=== PATIENT | male | born 1955 | race African-American/Black ===

== ENCOUNTER 2020-05-25 08:55 | Outpatient (REF) | payer OTHER, SELFPAY ==
[2020-05-25 10:18] LABS: MANUAL DIFF FLAG NO
[2020-05-25 10:27] LABS: Basophils Percent Auto 0.8 % (0-2); Eosinophils Absolute Auto 0.1 X10*3/uL (0.0-0.4); Eosinophils Percent Auto 2.5 % (0-4); Hematocrit 40.5 % (42-52); Imm Gran Abs Auto 0.02 X10*3/uL (0.00-0.03); Imm Gran Pct Auto 0.6 % (0.0-0.4); Lymphocytes Absolute Auto 1.4 X10*3/uL (1.2-4.9); Lymphocytes Percent Auto 40.3 % (20-40); Mean Corpuscular HGB Conc 32.1 g/dl (31.0-36.0); Mean Corpuscular Hemoglobin 31.1 pg (27.0-33.0); Mean Corpuscular Volume 96.9 fL (80-98); Mean Platelet Volume 9.3 fL (9.4-12.4); Monocytes Absolute Auto 0.3 X10*3/uL (0.1-1.2); Monocytes Percent Auto 8.5 % (2-11); Neutrophils Absolute Auto 1.7 X10*3/uL (2.0-8.3); Neutrophils Percent Auto 47.3 % (45-73); Platelet Count 271 X10*3/uL (160-400); Red Blood Count 4.18 X10*6/uL (4.60-5.80); Red Cell Distribution Width 12.7 % (11.0-16.0); White Blood Count 3.6 X10*3/uL (4.8-10.8)
[2020-05-25 11:24] LABS: Alanine Aminotransferase 17 U/L (0-40); Alkaline Phosphatase 43 U/L (39-117); Anion Gap 14 (12-20); Aspartate Amino Transferase 20 U/L (5-37); Bilirubin Total 0.6 mg/dL (0.0-1.0); Blood Urea Nitrogen 16 mg/dL (9-16); Calcium 9.1 mg/dL (8.4-10.2); Carbon Dioxide 25 mmol/L (22-29); Chloride 106 mmol/L (96-108); Cholesterol 138 mg/dL; Estimated Glomerular Filt Rate 55; Glucose Fasting 88 mg/dL (60-99); HDL Cholesterol 44 mg/dL; LDL Cholesterol Calculated 61 mg/dl; Potassium 4.5 mmol/l (3.3-5.1); Sodium 140 mmol/L (135-145); Triglycerides 165 mg/dL
[2020-05-25 11:26] LABS: TSH reflex Free T4 0.66 mIU/mL (0.32-4.0)
[2020-05-25 11:35] LABS: Creatinine Urine 115.81 mg/dL; Microalbum/Creatinine Ratio Ur 86.3 ug/mg cr
== END 2020-05-25 08:56 | disposition home or self-care (01) ==
LOC: HO.LAB 08:55
PROVIDERS: Visit Provider Physician Assistant
DX: I10 Essential (primary) hypertension (principal); E78.1 Pure hyperglyceridemia; Z12.5 Encounter for screening for malignant neoplasm of prostate
CPT/HCPCS: 36415; 80053; 80061; 82043; 84443; 85025

== ENCOUNTER 2020-08-03 08:30 | Outpatient (REF) | payer OTHER, SELFPAY | END 2020-08-03 08:31 | disposition home or self-care (01) | LOC: HO.LAB 08:30 | PROVIDERS: Visit Provider Internal Medicine | DX: Z20.822 Contact with and (suspected) exposure to COVID-19 (principal) | CPT/HCPCS: 36415; C9803; U0003 ==

== ENCOUNTER 2021-02-17 11:00 | Outpatient (REF) | payer OTHER, SELFPAY | END 2021-02-17 11:01 | disposition home or self-care (01) | LOC: HO.LAB 11:00 | PROVIDERS: PCP Physician Assistant; Visit Provider Internal Medicine | DX: Z20.822 Contact with and (suspected) exposure to COVID-19 (principal) | CPT/HCPCS: C9803; U0003; U0005 ==

== ENCOUNTER 2021-03-29 08:46 | Outpatient (REF) | payer SELFPAY ==
[2021-03-29 11:00] LABS: Hematocrit 35.3 % (42-52); Hemoglobin 11.9 g/dl (14.0-18.0); Mean Corpuscular HGB Conc 33.7 g/dl (31.0-36.0); Mean Corpuscular Volume 91.9 fL (80-98); Mean Platelet Volume 9.2 fL (9.4-12.4); Platelet Count 233 X10*3/uL (160-400); Red Blood Count 3.84 X10*6/uL (4.60-5.80); Red Cell Distribution Width 13.3 % (11.0-16.0); White Blood Count 4.6 X10*3/uL (4.8-10.8)
[2021-03-29 11:28] LABS: Alanine Aminotransferase 32 U/L (0-40); Alkaline Phosphatase 49 U/L (39-117); Anion Gap 13 (12-20); Aspartate Amino Transferase 39 U/L (5-37); Bilirubin Total 0.5 mg/dL (0.0-1.0); Blood Urea Nitrogen 15 mg/dL (9-16); Calcium 9.9 mg/dL (8.4-10.2); Carbon Dioxide 22 mmol/L (22-29); Chloride 107 mmol/L (96-108); Cholesterol 156 mg/dL; Estimated Glomerular Filt Rate 55; Glucose Fasting 121 mg/dL (60-99); HDL Cholesterol 34 mg/dL; LDL Cholesterol Calculated 60 mg/dl; Potassium 3.6 mmol/L (3.3-5.1); Sodium 138 mmol/L (135-145); Total Protein 6.9 g/dL (6.5-8.0); Triglycerides 310 mg/dL
[2021-03-29 11:30] LABS: Creatinine Urine 274.71 mg/dL; Microalbum/Creatinine Ratio Ur 27.6 ug/mg cr
[2021-03-29 11:50] LABS: Prostate Specific Antigen Scr 2.49 ng/mL (<0.05-4.0); TSH reflex Free T4 0.73 uIU/mL (0.32-4.0)
== END 2021-03-29 08:47 | disposition home or self-care (01) ==
LOC: HO.10HDL 08:46
PROVIDERS: Absent Provider Internal Medicine Nephrology; Visit Provider Physician Assistant
DX: Z12.5 Encounter for screening for malignant neoplasm of prostate (principal); E78.1 Pure hyperglyceridemia; I12.9 Hypertensive chronic kidney disease with stage 1 through stage 4 chronic kidney disease, or unspecified chronic kidney disease; N18.30 Chronic kidney disease, stage 3 unspecified
CPT/HCPCS: 36415; 80053; 80061; 82043; 84153; 84443; 85027

== ENCOUNTER 2021-05-20 12:24 | Outpatient (REF) | payer SELFPAY ==
[2021-05-20 13:45] LABS: MANUAL DIFF FLAG NO
[2021-05-20 13:52] LABS: Basophils Percent Auto 0.9 % (0-2); Eosinophils Absolute Auto 0.1 X10*3/uL (0.0-0.4); Hematocrit 36.4 % (42.0-52.0); Hemoglobin 12.1 g/dl (14.0-18.0); Imm Gran Abs Auto 0.03 X10*3/uL (0.00-0.03); Imm Gran Pct Auto 0.9 % (0.0-0.4); Lymphocytes Percent Auto 29.3 % (20-40); Mean Corpuscular HGB Conc 33.2 g/dl (31.0-36.0); Mean Corpuscular Hemoglobin 30.7 pg (27.0-33.0); Mean Corpuscular Volume 92.4 fL (80.0-98.0); Mean Platelet Volume 9.1 fL (9.4-12.4); Monocytes Absolute Auto 0.2 X10*3/uL (0.1-1.2); Neutrophils Absolute Auto 2.07 x10*3/uL (2.0-8.3); Neutrophils Percent Auto 59.9 % (45-73); Platelet Count 231 X10*3/uL (160-400); Red Blood Count 3.94 X10*6/uL (4.60-5.80); Red Cell Distribution Width 12.6 % (11.0-16.0); White Blood Count 3.5 X10*3/uL (4.8-10.8)
[2021-05-20 14:23] LABS: Iron 60 mcg/dL (45-160); Percent Iron Saturation 19 % (15-50); Total Iron Binding Capacity 315 mcg/dL (228-428); Unsaturated Iron Binding 255 ug/dL
[2021-05-20 14:45] LABS: Ferritin 677 ng/mL (20-250)
[2021-05-20 14:55] LABS: Folate 2.9 ng/mL (> or = 4.0); Vitamin B12 236 pg/mL (200-900)
== END 2021-05-20 12:25 | disposition home or self-care (01) ==
LOC: HO.10HDL 12:24
PROVIDERS: Visit Provider Internal Medicine
DX: D64.9 Anemia, unspecified (principal)
CPT/HCPCS: 36415; 82607; 82728; 82746; 83540; 85025

== ENCOUNTER 2021-07-22 15:19 | Outpatient (REF) | payer OTHER, SELFPAY ==
--- NOTE | ~2021-07-22 | XR_ITS ---
EXAMINATION: XR KNEE, LEFT CLINICAL INFORMATION: Pain COMPARISON: None TECHNIQUE: Four views of the left knee. FINDINGS: Moderate to large joint effusion. Patellofemoral spurring. Spurring at the insertion of the quadriceps. Lateral joint space loss with sclerosis on either side of the joint and some marginal spurring. Irregularity of the tibial spines is noted. No acute fracture or dislocation. The patella appears fairly well seated on the sunrise image. XR/XR knee LT 3V IMPRESSION: Moderate degeneration with moderate to large effusion
== END 2021-07-22 15:20 | disposition home or self-care (01) ==
LOC: HO.XRAY 15:19
PROVIDERS: PCP Physician Assistant; Visit Provider Nurse Practitioner Family
DX: M25.562 Pain in left knee (principal); M25.462 Effusion, left knee
CPT/HCPCS: 73562

== ENCOUNTER 2021-08-13 08:00 | Outpatient (REF) | payer OTHER, SELFPAY ==
--- NOTE | ~2021-08-13 | XR_ITS ---
EXAMINATION: XR KNEE AP STANDING CLINICAL INFORMATION: Pain in right knee. COMPARISON: None TECHNIQUE: AP bilateral standing view of the knees was obtained. FINDINGS: There is moderate loss of medial compartment right knee and lateral compartment left knee with periarticular spurring in the lateral compartment left knee and medial and lateral compartment right knee. There is mild genu valgus deformity left knee on standing view. XR/XR knee standing BI IMPRESSION: Moderate degenerative arthritic changes medial compartment right knee and lateral compartment left knee with periarticular spurring in medial and lateral compartment right knee and lateral compartment left knee.
== END 2021-08-13 08:01 | disposition home or self-care (01) ==
LOC: HO.HOSX 08:00
PROVIDERS: Visit Provider Physician Assistant
DX: M17.12 Unilateral primary osteoarthritis, left knee (principal)
CPT/HCPCS: 20610; 73565

== ENCOUNTER 2021-08-16 06:35 | Day surgery (SDC) | payer OTHER, SELFPAY ==
[2021-08-10 13:44] VITALS: BMI 33.0
--- NOTE | 2021-08-13 10:24 | P.CONAN_ITS ---
Documented by User: Brisa Dinero NP 08/13/21 10:25 HPI - Anesthesia Eval Consult details Narrative: 66yo M for Upper Endoscopy and Colonoscopy PMF Active Problems Active Problems: All Active Problems (Updated 08/10/21 @ 13:46 by Abimbola Heaton RN) HTN (hypertension) (Acute) GERD (gastroesophageal reflux disease) (Acute) CKD (chronic kidney disease) stage 3, GFR 30-59 ml/min (Acute) Hypertriglyceridemia (Acute) MISAEL (generalized anxiety disorder) (Acute) Insomnia (Acute) Tubular adenoma of colon (Acute) Annual physical exam (Acute) Impaired glucose metabolism (Acute) Obese (Acute) Left knee pain (Acute) Effusion, left knee (Acute) Low folate (Acute) Past Medical History Medical History Abnormal colonoscopy Chronic renal insufficiency COVID-19 vaccine series completed Elevated cholesterol GERD (gastroesophageal reflux disease) Gout HTN (hypertension) Family History Family History Father Heart failure History of mental problems Substance abuse Mother CAD (coronary artery disease) Breast cancer Surgical History Surgical History H/O colonoscopy History of esophagogastroduodenoscopy (EGD) History of lung surgery Social History Social History (Updated 08/13/21 @ 10:22 by Sunday Penaloza) Housing: House Alcohol intake: current Alcohol intake frequency: holidays/special occasions only Alcohol type: beer Patient Tobacco Use Status: Current someday Tobacco user Tobacco use type: Cigar e-Cigarette/Vaping Use: Never Used Second Hand Smoke Exposure: No Advance Directives: Yes Advance Directives Information Provided: Yes Advance Directives on File: Yes Advance Directives Date on File: 05/21/15 service: No Current occupational status: retired Current occupation: [employer] Cognitive needs: No Hearing needs: No Vision needs: No Meds Allergies Allergy/AdvReac Type Severity Reaction Status Date / Time lisinopril Allergy Unknown Unknown Verified 08/13/21 10:23 sertraline [From Zoloft] AdvReac Severe suicidal Verified 08/13/21 10:23 Home Medications Medication Instructions Recorded Confirmed Last Taken Type omeprazole 40 mg 40 mg PO DAILY 04/14/20 08/10/21 Unknown History capsule,delayed release gemfibrozil 600 mg 600 mg PO BID 07/27/20 08/10/21 Unknown History tablet folic acid 1 mg 1 mg PO DAILY 07/29/21 08/10/21 Unknown History tablet Exam Exam Date and Time: August 13, 2021 1024 Height,Weight and Vital Signs: Height 6 ft 2 in Weight 116.573 kg Pertinent Lab Results Pertinent Lab Results: Laboratory Tests 03/29/21 05/20/21 08:50 12:38 WBC 3.5 L Hgb 12.1 L Hct 36.4 L Plt Count 231 Sodium 138 Potassium 3.6 Chloride 107 Carbon Dioxide 22 BUN 15 Creatinine 1.30 Assessment and Plan Assessment Anesthesia Assessment: Chart Reviewed Documented by User: Ela Whitfield MD 08/16/21 07:17 [facility] Past Medical History Medical History Abnormal colonoscopy Chronic renal insufficiency COVID-19 vaccine series completed Elevated cholesterol GERD (gastroesophageal reflux disease) Gout HTN (hypertension) Family History Family History Father Heart failure History of mental problems Substance abuse Mother CAD (coronary artery disease) Breast cancer Family history of problems with anesthesia: No Surgical History Surgical History H/O colonoscopy History of esophagogastroduodenoscopy (EGD) History of lung surgery History of Problems with Anesthesia: No Social History Social History (Updated 08/13/21 @ 10:22 by Sunday Penaloza) Housing: House Alcohol intake: current Alcohol intake frequency: holidays/special occasions only Alcohol type: beer Patient Tobacco Use Status: Current someday Tobacco user Tobacco use type: Cigar e-Cigarette/Vaping Use: Never Used Second Hand Smoke Exposure: No Advance Directives: Yes Advance Directives Information Provided: Yes Advance Directives on File: Yes Advance Directives Date on File: 05/21/15 service: No Current occupational status: retired Current occupation: Rt handed Cognitive needs: No Hearing needs: No Vision needs: No Meds Allergies Allergy/AdvReac Type Severity Reaction Status Date / Time lisinopril Allergy Unknown Unknown Verified 08/13/21 10:23 sertraline [From Zoloft] AdvReac Severe suicidal Verified 08/13/21 10:23 Home Medications Medication Instructions Recorded Confirmed Last Taken Type omeprazole 40 mg 40 mg PO DAILY 04/14/20 08/10/21 Unknown History capsule,delayed release gemfibrozil 600 mg 600 mg PO BID 07/27/20 08/10/21 Unknown History tablet folic acid 1 mg 1 mg PO DAILY 07/29/21 08/10/21 Unknown History tablet Exam Airway Mallampati Class: II (Chipped top front tooth) TM Dist: >3cm Neck ROM: Full Heart: rrr Lungs: cta Assessment and Plan Assessment Anesthesia Assessment: Anesthesia Plan Discussed and Chart Reviewed Final Anesthetic Review Family History of Problems with Anesthesia: No History of Problems with Anesthesia: No NPO: Yes ASA Class: III (METs good) Final Preanesthetic Review: No Changes in Pt Med Stat, Meds/Allgs Chart Reviewed, Consent Obtained/Reviewed and Anes Risks/Benef Reviewed Patient Risk: Intermediate Procedure Risk: Intermediate Anesthetic Plan Anesthetic Plan: MAC: Disposition: Standard PACU
[2021-08-16 06:52] VITALS: BP 152/85; PULSE 93; RESP 18; TEMP 36.4; O2SAT 99
[2021-08-16] MEDS: Lactated Ringers 1,000 ML 100 ML IVCONT (07:03)
[2021-08-16 08:47] VITALS: BP 113/71; PULSE 69; RESP 20; TEMP 37.3; O2SAT 98
--- NOTE | 2021-08-16 08:50 | P.BOP_ITS ---
Brief Operative Note Date of Service: 08/16/21 Pre-op diagnosis: GERD, Screening Post-op diagnosis: other (Colon polyp, Gastric ulcer, GERD with esophagitis) Procedure: EGD with biopsies, Colonoscopy to the cecum and TI with hot snare polypectomy and placement of 1 Resolution clip Surgeon: Bruce Díaz Anesthesia: MAC Was an Cosmetic Sales Advisor used for this Procedure?: No Estimated blood loss (mL): 2.0 Pathology: other (A. Descending duodenum B. Gastric ulcer C, Gastric antrum D. EG Junction at 39cm E. Transverse colon polyp) Condition: stable Disposition: PACU
[2021-08-16 09:03] VITALS: BP 150/77; PULSE 68; RESP 18; TEMP 37.3; O2SAT 96
--- NOTE | 2021-08-16 09:42 | OP_ITS ---
SURGEON: Bruce Díaz MD INDICATIONS: The patient presents for evaluation of colorectal cancer screening, gastroesophageal reflux, and anemia. Full consent obtained from him for both procedures, including risks of bleeding and perforation. PREOPERATIVE DIAGNOSIS: POSTOPERATIVE DIAGNOSIS: PROCEDURE PERFORMED: ESTIMATED BLOOD LOSS: COMPLICATIONS: ANESTHESIA: ASSISTANTS: SPECIMENS: PROCEDURE: Esophagogastroduodenoscopy with biopsies and colonoscopy to the cecum and terminal ileum with hot snare polypectomy and placement of 1 Resolution Clip. PREOPERATIVE DIAGNOSES: Gastroesophageal reflux, anemia, colorectal cancer screening, personal history of tubular adenoma of the colon. POSTOPERATIVE DIAGNOSES: Gastroesophageal reflux, anemia, colorectal cancer screening, personal history of tubular adenoma of the colon, reflux esophagitis, hiatal hernia, gastric ulcer, gastritis, rule out celiac disease, colon polyp, diverticulosis and internal hemorrhoids. PREOPERATIVE MEDICATION USED: Monitored anesthesia care. DESCRIPTION OF PROCEDURE: The patient was placed in the left lateral decubitus position. The Olympus video gastroscope was passed in the posterior oropharynx and upper esophagus under direct vision. The scope was passed slowly to the distal esophagus. The gastroesophageal junction appeared at 39 cm. This area was notable for some erythema, less than 10 mm erosions and some slight irregularity. There was no ulceration or mass. There was no sign of any stricture. The scope entered into the stomach. There was a small hiatal hernia. The scope was advanced to pylorus and the duodenum was cannulated to the descending portion. The duodenum including the bulb appeared normal without mass or ulceration. Biopsies were obtained from the 2nd and 3rd portions of duodenum. The scope was withdrawn back to the stomach. The gastric antrum was notable for an approximately 10 mm ulcer along the posterior antral anterior wall. This appeared grossly benign and the ulcer crater was clean, without any sign of visible vessel nor bleeding. There was good peristalsis. There was some associated gastritis in the gastric antrum as well. The scope was retroflexed visualizing the proximal stomach carefully which appeared normal, without any signs of mass or ulceration. The scope was straightened. Biopsies were obtained from the margins of the gastric ulcer and also from the gastric antrum. Scope was withdrawn back to the esophagus. Biopsies were obtained at the EG junction at 39 cm. Proximal to this, the esophageal mucosa appeared normal. The scope was withdrawn from the patient. He was turned around for the colonoscopy. The digital rectal exam revealed no abnormalities. The Olympus video pediatric colonoscope was entered into the rectum and advanced easily to the cecum. Once in the cecum, I did identify normal-appearing cecal pouch with appendiceal orifice and a normal-appearing ileocecal valve. The terminal ileum was cannulated and appeared normal. The scope was withdrawn back in the colon. The entire cecum and ileocecal valve appeared normal. The scope was then slowly withdrawn assessing all mucosal surfaces carefully. Preparation was excellent. In the region of the distal transverse colon at approximately 60 cm, there was an approximately 1.5 cm polyp on a short stalk. This was removed with a hot snare polypectomy and retrieved with the retrieval net. The scope was advanced back to the polypectomy site which appeared clean, without any sign of residual polyp nor bleeding. A single Resolution Clip was deployed with good deployment and good hemostasis. I did not visualize any other polyps, colitis, or angiodysplasia. There was mild amount of sigmoid diverticulosis. In the rectum, scope was retroflexed visualizing internal hemorrhoids, but no other pathology. The rectal mucosa appeared normal. The scope was straightened and withdrawn from the patient. He tolerated the procedure well and was returned to the recovery area in stable condition. IMPRESSION: 1. Colon polyp, status post snare polypectomy. 2. Diverticulosis. 3. Internal hemorrhoids. 4. Gastric ulcer and gastritis. 5. Hiatal hernia with reflux esophagitis. 6. Rule out celiac disease. PLAN: The results of biopsies will be checked. I would recommend a repeat colonoscopy within 5 years for further screening and surveillance. He was advised to stay off all aspirin and NSAIDs long-term in regard to the gastric ulcer. He has been using famotidine, but I shall switch him to omeprazole given today's findings. If H. pylori is present in the gastric biopsies, I would recommend treating that at some point as well. He was advised to see me within 3-4 months for a followup visit. He was advised to continue folic acid and B12 supplements. This has been discussed with his . MD DARIEL Pastrana/ARBEN / [phone]
== END 2021-08-16 09:20 | disposition home or self-care (01) ==
PROVIDERS: PCP Physician Assistant; Visit Provider Internal Medicine
PROC: (CPT 45385; principal; 2021-08-16 07:30)
DX: Z12.11 Encounter for screening for malignant neoplasm of colon (principal); Z86.010 Personal history of colon polyps; D12.3 Benign neoplasm of transverse colon; K57.30 Diverticulosis of large intestine without perforation or abscess without bleeding; K64.8 Other hemorrhoids; D64.9 Anemia, unspecified; K21.00 Gastro-esophageal reflux disease with esophagitis, without bleeding; K25.9 Gastric ulcer, unspecified as acute or chronic, without hemorrhage or perforation; K29.50 Unspecified chronic gastritis without bleeding; K44.9 Diaphragmatic hernia without obstruction or gangrene; I12.9 Hypertensive chronic kidney disease with stage 1 through stage 4 chronic kidney disease, or unspecified chronic kidney disease; F17.290 Nicotine dependence, other tobacco product, uncomplicated; N18.30 Chronic kidney disease, stage 3 unspecified; M10.9 Gout, unspecified; Z79.899 Other long term (current) drug therapy; Z88.8 Allergy status to other drugs, medicaments and biological substances
CPT/HCPCS: 45385; 43239; 88305; 88342

== ENCOUNTER → 2021-09-24 09:46 | Outpatient (BNVA) | payer OTHER, SELFPAY | PROVIDERS: PCP Physician Assistant; Visit Provider Physician Assistant | DX: M17.12 Unilateral primary osteoarthritis, left knee (principal); M25.462 Effusion, left knee | CPT/HCPCS: 20610 ==

== ENCOUNTER → 2021-11-08 09:13 | Outpatient (BNVA) | payer OTHER, SELFPAY | PROVIDERS: PCP Physician Assistant; Visit Provider Orthopaedic Surgery | DX: M17.12 Unilateral primary osteoarthritis, left knee (principal); M21.062 Valgus deformity, not elsewhere classified, left knee; M23.8X2 Other internal derangements of left knee | CPT/HCPCS: 20610 ==

== ENCOUNTER 2021-12-15 09:19 | Outpatient (REF) | payer OTHER, SELFPAY ==
[2021-12-15 10:46] LABS: Hematocrit 35.1 % (42.0-52.0); Hemoglobin 11.2 g/dl (14.0-18.0); Mean Corpuscular HGB Conc 31.9 g/dl (31.0-36.0); Mean Corpuscular Hemoglobin 30.7 pg (27.0-33.0); Mean Corpuscular Volume 96.2 fL (80.0-98.0); Mean Platelet Volume 9.5 fL (9.4-12.4); Platelet Count 183 X10*3/uL (160-400); Red Blood Count 3.65 X10*6/uL (4.60-5.80); Red Cell Distribution Width 13.5 % (11.0-16.0); White Blood Count 4.6 X10*3/uL (4.8-10.8)
[2021-12-15 10:56] LABS: Estimated Average Glucose 88 mg/dL; Hemoglobin A1c % 4.7 %
[2021-12-15 11:49] LABS: Alanine Aminotransferase 13 U/L (0-40); Albumin Level 3.9 g/dL (3.5-5.0); Alkaline Phosphatase 54 U/L (39-117); Anion Gap 13 (12-20); Aspartate Amino Transferase 16 U/L (5-37); Bilirubin Total 0.3 mg/dL (0.0-1.0); Blood Urea Nitrogen 11 mg/dL (9-16); Calcium 9.7 mg/dL (8.4-10.2); Carbon Dioxide 23 mmol/L (22-29); Chloride 106 mmol/L (96-108); Cholesterol 161 mg/dL; Estimated Glomerular Filt Rate 49; Glucose Fasting 111 mg/dL (60-99); HDL Cholesterol 38 mg/dL; LDL Cholesterol Calculated 98 mg/dl; Potassium 3.9 mmol/L (3.3-5.1); Sodium 138 mmol/L (135-145); Total Protein 6.8 g/dL (6.5-8.0); Triglycerides 126 mg/dL
[2021-12-15 11:59] LABS: Prostate Specific Antigen Scr 1.96 ng/mL (<0.05-4.0)
[2021-12-15 12:24] LABS: Folate 17.4 ng/mL (> or = 4.0); Vitamin B12 255 pg/mL (200-900)
== END 2021-12-15 09:20 | disposition home or self-care (01) ==
LOC: HO.LAB 09:19
PROVIDERS: PCP Physician Assistant; Visit Provider Internal Medicine
DX: I10 Essential (primary) hypertension (principal); D64.9 Anemia, unspecified; R73.09 Other abnormal glucose; E53.8 Deficiency of other specified B group vitamins; Z12.5 Encounter for screening for malignant neoplasm of prostate
CPT/HCPCS: 36415; 80053; 80061; 82607; 82746; 83036; 84153; 84443; 85027

== ENCOUNTER 2022-03-28 12:17 | Outpatient (REF) | payer OTHER, SELFPAY ==
[2022-03-28 13:06] LABS: Hematocrit 31.1 % (42.0-52.0); Hemoglobin 10.6 g/dl (14.0-18.0); Mean Corpuscular HGB Conc 34.1 g/dl (31.0-36.0); Mean Corpuscular Hemoglobin 31.5 pg (27.0-33.0); Mean Corpuscular Volume 92.6 fL (80.0-98.0); Mean Platelet Volume 10.5 fL (9.4-12.4); PLT CLUMP 1; Red Blood Count 3.36 X10*6/uL (4.60-5.80); Red Cell Distribution Width 13.2 % (11.0-16.0)
[2022-03-28 13:07] LABS: Platelet Count 133 X10*3/uL (160-400); White Blood Count 9.1 X10*3/uL (4.8-10.8)
[2022-03-28 13:23] LABS: Alanine Aminotransferase 23 U/L (0-40); Albumin Level 3.5 g/dL (3.5-5.0); Alkaline Phosphatase 48 U/L (39-117); Anion Gap 16 (12-20); Aspartate Amino Transferase 40 U/L (5-37); Bilirubin Total 1.2 mg/dL (0.0-1.0); Blood Urea Nitrogen 15 mg/dL (9-16); Calcium 8.8 mg/dL (8.4-10.2); Carbon Dioxide 24 mmol/L (22-29); Chloride 100 mmol/L (96-108); Cholesterol 148 mg/dL; Estimated Glomerular Filt Rate 48; Glucose Fasting 137 mg/dL (60-99); HDL Cholesterol 25 mg/dL; LDL Cholesterol Calculated 92 mg/dl; Potassium 3.7 mmol/L (3.3-5.1); Sodium 136 mmol/L (135-145); Total Protein 6.4 g/dL (6.5-8.0); Triglycerides 159 mg/dL
[2022-03-28 13:47] LABS: TSH reflex Free T4 0.68 uIU/mL (0.32-4.0)
[2022-03-28 15:32] LABS: Appearance Urine Cloudy; Color Urine Yellow; Glucose Urine UA 100 mg/dL (Negative); Leukocyte Esterase Urine Moderate (2+) (Negative); Nitrite Urine Positive (Negative); PH 6.5 (5.0-9.0); Urine Blood Large (3+) (Negative); Urine Ketones Trace mg/dL (Negative); Urine Protein 300 (3+) mg/dL (Neg-Trace)
[2022-03-28 15:39] LABS: RBC Urine >20 /HPF (0-2); UACC Culture Trigger YES; WBC Urine >50 /HPF (0-5)
[2022-03-28 15:40] LABS: Bacteria Urine 4+ (None Seen); Hyaline Casts Urine 0-2 /LPF (0-2)
== END 2022-03-28 12:18 | disposition home or self-care (01) ==
LOC: HO.LAB 12:17
PROVIDERS: PCP Physician Assistant; Visit Provider Physician Assistant
DX: I10 Essential (primary) hypertension (principal); E78.1 Pure hyperglyceridemia
CPT/HCPCS: 36415; 80053; 80061; 81001; 81003; 84443; 85027; 87086; 87088; 87186

== ENCOUNTER 2022-04-08 10:23 | Outpatient (REF) | payer MEDICARE, SELFPAY ==
[2022-04-08 11:43] LABS: Appearance Urine Turbid; Color Urine Dark Yellow; Glucose Urine UA Negative (Negative); Leukocyte Esterase Urine Large (3+) (Negative); Nitrite Urine Positive (Negative); Specific Gravity - Urine 1.015 (1.005-1.025); UMIC TRIGGER UACC YES; Urine Blood Moderate (2+) (Negative); Urine Ketones Trace mg/dL (Negative); Urine Protein 30 (1+) mg/dL (Neg-Trace)
[2022-04-08 11:50] LABS: Bacteria Urine 4+ (None Seen); Squamous Epithelial Cell Urine 0-2 /HPF (0-2); UACC Culture Trigger YES; WBC Urine >50 /HPF (0-5)
== END 2022-04-08 10:24 | disposition home or self-care (01) ==
LOC: HO.LAB 10:23
PROVIDERS: PCP Physician Assistant; Visit Provider Physician Assistant
DX: R73.01 Impaired fasting glucose (principal)
CPT/HCPCS: 36415; 81001; 83036; 87086; 87088; 87186

== ENCOUNTER 2022-06-01 07:51 | Outpatient (REF) | payer MEDICARE, SELFPAY ==
--- NOTE | ~2022-06-01 | US_ITS ---
EXAMINATION: US LOWER EXTREMITY VENOUS (REFLUX EXAM), BILATERAL CLINICAL INDICATION: Chronic venous insufficiency with lower extremity varicose veins, pain and swelling COMPARISON: Ultrasounds of the right lower extremity from 08/02/2016 TECHNIQUE: Color flow triplex imaging and compression Doppler was performed to evaluate both the deep and the superficial systems bilaterally. To evaluate the superficial system, the examination was performed in the upright position. Color-flow Doppler ultrasound and compression ultrasound were utilized. In addition, maneuvers were utilized to demonstrate reflux. FINDINGS: 1. DEEP VENOUS ULTRASOUND OF THE RIGHT LOWER EXTREMITY: Common Femoral Vein: Compressible, normal respiratory variation and augmented flow. Femoral Vein: Compressible, normal color flow and augmentation. Popliteal Vein: Compressible, normal augmentation. Deep Reflux: There is no evidence of reflux in the deep system in either the common femoral vein or the popliteal vein. There is a Church's cyst in the right popliteal fossa measuring 4.3 x 5.9 x 1.6 cm 2. SUPERFICIAL ULTRASOUND WITH DOPPLER OF RIGHT LOWER EXTREMITY: GREAT SAPHENOUS VEIN: Saphenofemoral Junction: 0.9 cm; Reflux: 0 ms Proximal Thigh: 0.5 cm; Reflux: 0 ms Mid Thigh: 0.3 cm; Reflux: 0 ms Above Knee: 0.3 cm; Reflux: 0 ms At Knee: 0.4 cm; Reflux: 0 ms Below Knee: 0.3 cm; Reflux: 0 ms Mid Calf: 0.3 cm; Reflux: 0 ms Ankle: 0.2 cm; Reflux: 3140 ms DUPLICATED MEDIAL GREAT SAPHENOUS VEIN: Diameter: None Imaged Reflux: NA DUPLICATED LATERAL GREAT SAPHENOUS VEIN: Diameter: 0.1 cm Reflux: None SMALL SAPHENOUS VEIN: Proximal: 0.4 cm; Reflux: 0 ms Distal: 0.3 cm; Reflux: 0 ms VEIN OF GIACOMINI: None Imaged. PERFORATORS: Location: None Imaged Size: NA Reflux: NA VARICOSITIES: Location: Mid thigh and calf Size: 0.2 to 0.3 cmV Reflux: None 3. DEEP VENOUS ULTRASOUND OF THE LEFT LOWER EXTREMITY: Common Femoral Vein: Compressible, normal respiratory variation and augmented flow. Femoral Vein: Compressible, normal color flow and augmentation. Popliteal Vein: Compressible, normal augmentation. Deep Reflux: There is no evidence of reflux in the deep system in either the common femoral vein or the popliteal vein. There is a Church's cyst in the left popliteal fossa measuring 4.9 x 5.1 x 1.8 cm 4. SUPERFICIAL ULTRASOUND WITH DOPPLER OF LEFT LOWER EXTREMITY: GREAT SAPHENOUS VEIN: Saphenofemoral Junction: 0.5 cm; Reflux: 0 ms Proximal Thigh: 0.4 cm; Reflux: 0 ms Mid Thigh: 0.3 cm; Reflux: 0 ms Above Knee: 0.3 cm; Reflux: 0 ms At Knee: 0.3 cm; Reflux: 0 ms Below Knee: 0.3 cm; Reflux: 0 ms Mid Calf: 0.3 cm; Reflux: 0 ms Ankle: 0.3 cm; Reflux: 0 ms DUPLICATED MEDIAL GREAT SAPHENOUS VEIN: Diameter: None Imaged Reflux: NA DUPLICATED LATERAL GREAT SAPHENOUS VEIN: Diameter: None Imaged Reflux: NA SMALL SAPHENOUS VEIN: Proximal: 0.5 cm; Reflux: 0 ms Distal: 0.4 cm; Reflux: 0 ms VEIN OF GIACOMINI: None Imaged. PERFORATORS: Location: None Imaged Size: NA Reflux: NA VARICOSITIES: Location: None significant Size: NA Reflux: NA US/US venous duplex LE BI IMPRESSION: Right: No significant superficial venous insufficiency or reflux except within the great saphenous vein at the ankle. There are or scattered varicose veins within the thigh and calf. Large Church's cyst. Left: No significant superficial venous insufficiency or reflux. Large Church's cyst.
== END 2022-06-01 07:52 | disposition home or self-care (01) ==
LOC: HO.US 07:51
PROVIDERS: Visit Provider Surgery Vascular Surgery
DX: I83.12 Varicose veins of left lower extremity with inflammation (principal)
CPT/HCPCS: 93970

== ENCOUNTER → 2022-06-07 08:56 | Outpatient (BNVA) | payer MEDICARE, SELFPAY | PROVIDERS: PCP Physician Assistant; Visit Provider Surgery Vascular Surgery | DX: I83.12 Varicose veins of left lower extremity with inflammation (principal) | CPT/HCPCS: 99212 ==

== ENCOUNTER → 2022-06-27 09:51 | Outpatient (BNVA) | payer MEDICARE, SELFPAY | PROVIDERS: PCP Physician Assistant; Visit Provider Orthopaedic Surgery | DX: M17.12 Unilateral primary osteoarthritis, left knee (principal); M21.062 Valgus deformity, not elsewhere classified, left knee; M25.462 Effusion, left knee | CPT/HCPCS: 20610; 99212; J1100 ==

== ENCOUNTER 2022-07-15 10:07 | Outpatient (REF) | payer MEDICARE, SELFPAY ==
[2022-07-15 11:21] LABS: Hematocrit 35.7 % (42.0-52.0); Hemoglobin 11.9 g/dl (14.0-18.0); Mean Corpuscular HGB Conc 33.3 g/dl (31.0-36.0); Mean Corpuscular Hemoglobin 30.4 pg (27.0-33.0); Mean Corpuscular Volume 91.3 fL (80.0-98.0); Mean Platelet Volume 9.4 fL (9.4-12.4); Platelet Count 164 X10*3/uL (160-400); Red Blood Count 3.91 X10*6/uL (4.60-5.80); Red Cell Distribution Width 12.6 % (11.0-16.0); White Blood Count 5.3 X10*3/uL (4.8-10.8)
[2022-07-15 11:21] LABS: Appearance Urine Cloudy; Color Urine Yellow; Glucose Urine UA Negative (Negative); Leukocyte Esterase Urine Large (3+) (Negative); Nitrite Urine Negative (Negative); PH 5.5 (5.0-9.0); UMIC TRIGGER UACC YES; Urine Blood Small (1+) (Negative); Urine Ketones Trace mg/dL (Negative); Urine Protein 30 (1+) mg/dL (Neg-Trace)
[2022-07-15 11:37] LABS: Bacteria Urine 4+ (None Seen); Squamous Epithelial Cell Urine 0-2 /HPF (0-2); UACC Culture Trigger YES; WBC Urine >50 /HPF (0-5)
[2022-07-15 12:20] LABS: Alanine Aminotransferase 13 U/L (0-40); Alkaline Phosphatase 58 U/L (39-117); Anion Gap 12 (12-20); Aspartate Amino Transferase 17 U/L (5-37); Bilirubin Total 0.7 mg/dL (0.0-1.0); Blood Urea Nitrogen 13 mg/dL (9-16); Calcium 9.7 mg/dL (8.4-10.2); Carbon Dioxide 23 mmol/L (22-29); Chloride 106 mmol/L (96-108); Cholesterol 177 mg/dL; Estimated Glomerular Filt Rate 50; Glucose Fasting 96 mg/dL (60-99); HDL Cholesterol 44 mg/dL; LDL Cholesterol Calculated 114 mg/dl; Sodium 137 mmol/L (135-145); Total Protein 7.1 g/dL (6.5-8.0); Triglycerides 96 mg/dL
[2022-07-15 12:50] LABS: TSH reflex Free T4 0.66 uIU/mL (0.32-4.0)
[2022-07-15 12:51] LABS: Creatinine Urine 251.76 mg/dL; Microalbum/Creatinine Ratio Ur 93.3 ug/mg cr
== END 2022-07-15 10:08 | disposition home or self-care (01) ==
LOC: HO.LAB 10:07
PROVIDERS: PCP Physician Assistant; Visit Provider Physician Assistant
DX: I10 Essential (primary) hypertension (principal); R30.0 Dysuria
CPT/HCPCS: 36415; 80053; 80061; 81001; 82043; 84443; 85027; 87086; 87088; 87186

== ENCOUNTER 2022-07-26 11:23 | Outpatient (REF) | payer MEDICARE, SELFPAY ==
[2022-07-26 13:35] LABS: Urine Cytology See Pathology rpt
[2022-07-26 14:07] LABS: Appearance Urine Cloudy; Color Urine Dark Yellow; Glucose Urine UA Negative (Negative); Leukocyte Esterase Urine Moderate (2+) (Negative); Nitrite Urine Negative (Negative); PH 5.5 (5.0-9.0); UMIC TRIGGER UACC YES; Urine Blood Trace (Negative); Urine Ketones Trace mg/dL (Negative); Urine Protein 30 (1+) mg/dL (Neg-Trace)
[2022-07-26 14:14] LABS: Bacteria Urine None Seen (None Seen); Hyaline Casts Urine 0-2 /LPF (0-2); RBC Urine 0-2 /HPF (0-2); Squamous Epithelial Cell Urine 0-2 /HPF (0-2); UACC Culture Trigger YES; WBC Urine >50 /HPF (0-5)
== END 2022-07-26 11:24 | disposition home or self-care (01) ==
LOC: HO.LAB 11:23
PROVIDERS: PCP Physician Assistant; Visit Provider Physician Assistant
DX: N39.0 Urinary tract infection, site not specified (principal)
CPT/HCPCS: 81001; 81003; 87086; 88112

== ENCOUNTER 2022-08-16 12:55 | Outpatient (REF) | payer MEDICARE, SELFPAY ==
--- NOTE | ~2022-08-16 | US_ITS ---
EXAMINATION: US PELVIS LIMITED (BLADDER) CLINICAL INFORMATION: Urinary tract infection. COMPARISON: CT abdomen and pelvis 05/16/2015. TECHNIQUE: Real-time imaging of the bladder. FINDINGS: BLADDER: Bladder wall appears mildly thickened for degree of distention measuring 5 mm, with some trabeculation. Bilateral ureteral jets are demonstrated. Prevoid bladder volume is 211.6 mL. Postvoid bladder volume is 50.7 mL. US/US bladder IMPRESSION: Trabeculated urinary bladder with mild bladder wall thickening, recommend correlation with symptoms of cystitis. Post void bladder residual of 50.7 mL..
== END 2022-08-16 12:56 | disposition home or self-care (01) ==
LOC: HO.US 12:55
PROVIDERS: PCP Physician Assistant; Visit Provider Physician Assistant
DX: N39.0 Urinary tract infection, site not specified (principal)
CPT/HCPCS: 76857

== ENCOUNTER 2022-09-13 08:56 | Outpatient (REF) | payer MEDICARE, SELFPAY | END 2022-09-13 08:57 | disposition home or self-care (01) | LOC: HO.LAB 08:56 | PROVIDERS: PCP Physician Assistant; Visit Provider Nurse Practitioner Family | DX: N39.0 Urinary tract infection, site not specified (principal) | CPT/HCPCS: 51798; 87086; 87088; 87186; 99202 ==

== ENCOUNTER 2022-10-24 09:39 | Outpatient (REF) | payer MEDICARE, SELFPAY | END 2022-10-24 09:40 | disposition home or self-care (01) | LOC: HO.LNP 09:39 | PROVIDERS: PCP Physician Assistant; Visit Provider Nurse Practitioner Family | DX: N39.0 Urinary tract infection, site not specified (principal) | CPT/HCPCS: 51798; 87086; 87088; 87186; 99212 ==

== ENCOUNTER → 2022-11-03 11:05 | Outpatient (BNVA) | payer MEDICARE, SELFPAY | PROVIDERS: PCP Physician Assistant; Visit Provider Urology | DX: N40.1 Benign prostatic hyperplasia with lower urinary tract symptoms (principal); N39.0 Urinary tract infection, site not specified; R35.1 Nocturia | CPT/HCPCS: 52000; 99212 ==

== ENCOUNTER 2022-12-25 11:27 | Emergency (ER) | payer MEDICARE, SELFPAY ==
--- NOTE | ~2022-12-25 | US_ITS ---
EXAMINATION: US SCROTUM CLINICAL INFORMATION: Swelling. Left scrotal swelling for 2 weeks. COMPARISON: None available. TECHNIQUE: A sonogram of the scrotum was performed assessing you-scale appearance and color Doppler flow. Spectral Doppler analysis of the arterial and venous flow were performed in the testes bilaterally. FINDINGS: RIGHT: Right testicle measures 4 x 2.6 x 2.4 cm, volume 13 mL. Small 1 to 2 mm right testicular calcification. No other focal testicular parenchymal lesions are visualized. There is a right appendix testis. Spectral Doppler analysis of the arterial and venous flow is normal in the right testis. Moderate right hydrocele. No right varicocele. Right epididymis is not well visualized, particularly the tail. LEFT: Left testicle measures 3.1 x 1.4 x 3.6 cm, volume 8 mL. The left testicle is compressed due to the large left hydrocele or epididymal head cyst. No focal testicular parenchymal lesions are visualized. Spectral Doppler analysis of the arterial and venous flow is increased in the left testis. The left epididymis is not well visualized. Large left hydrocele or epididymal head cyst. This compresses the left testicle. No left varicocele US/US scrotum doppler IMPRESSION: Left: Large left hydrocele or epididymal head cyst compressing the left testicle. The left testicle appears hypervascular compared to the right, question representing orchitis versus changes due to compression. Right: Moderate right hydrocele.
--- NOTE | ~2022-12-25 | US_ITS ---
EXAMINATION: US SCROTUM CLINICAL INFORMATION: Swelling. Left scrotal swelling for 2 weeks. COMPARISON: None available. TECHNIQUE: A sonogram of the scrotum was performed assessing you-scale appearance and color Doppler flow. Spectral Doppler analysis of the arterial and venous flow were performed in the testes bilaterally. FINDINGS: RIGHT: Right testicle measures 4 x 2.6 x 2.4 cm, volume 13 mL. Small 1 to 2 mm right testicular calcification. No other focal testicular parenchymal lesions are visualized. There is a right appendix testis. Spectral Doppler analysis of the arterial and venous flow is normal in the right testis. Moderate right hydrocele. No right varicocele. Right epididymis is not well visualized, particularly the tail. LEFT: Left testicle measures 3.1 x 1.4 x 3.6 cm, volume 8 mL. The left testicle is compressed due to the large left hydrocele or epididymal head cyst. No focal testicular parenchymal lesions are visualized. Spectral Doppler analysis of the arterial and venous flow is increased in the left testis. The left epididymis is not well visualized. Large left hydrocele or epididymal head cyst. This compresses the left testicle. No left varicocele US/US scrotum IMPRESSION: Left: Large left hydrocele or epididymal head cyst compressing the left testicle. The left testicle appears hypervascular compared to the right, question representing orchitis versus changes due to compression. Right: Moderate right hydrocele.
[2022-12-25 11:35] VITALS: BP 143/79; PULSE 68; RESP 18; TEMP 36.8; O2SAT 98; BMI 32.1
--- NOTE | 2022-12-25 11:37 | ED_ITS ---
HPI - General Adult General Chief complaint: General Medical Stated complaint: swollen testicles Time Seen by Provider: 12/25/22 16:02 Source: patient Mode of arrival: ambulatory Limitations: no limitations History of Present Illness HPI narrative: 67-year-old male with a history of BPH, recurrent urinary tract infection, hypertension, GERD, HLD here with complaints of bilateral testicular swelling left greater than right for 2 weeks with some discomfort. Patient denies any urinary symptoms, fevers, chills, abdominal pain, back pain, penile discharge, vomiting. Patient denies any new sexual partners. Patient reports his last sexual intercourse was more than a several months ago. Patient is followed by Dr. Caceres from Urology. He has an appointment for follow-up on February 09. He has been on nitrofuratonin since November 07 and was given a 60 day supply Related Data Home Medications Medication Instructions Recorded Confirmed omeprazole 40 mg capsule,delayed 40 mg PO DAILY 04/14/20 11/03/22 release folic acid 1 mg tablet 1 mg PO DAILY 07/29/21 11/03/22 allopurinol 300 mg tablet 300 mg PO DAILY 10/24/22 11/03/22 Previous Rx's Medication Instructions Recorded gemfibrozil 600 mg tablet 600 mg PO BID #60 tabs 09/07/21 miscellaneous medical supply #1 ea 04/04/22 (Blood Pressure Cuff) famotidine 40 mg tablet 40 mg PO DAILY 30 days #30 tabs 08/16/22 metoprolol succinate 50 mg 50 mg PO DAILY #30 tabs 10/05/22 tablet,extended release 24 hr amlodipine 10 mg tablet 10 mg PO DAILY 90 days #90 tabs 10/17/22 trazodone 100 mg tablet 100 mg PO BEDTIME 30 days #30 tabs 10/24/22 finasteride 5 mg tablet 5 mg PO DAILY 90 days #90 tabs 11/03/22 nitrofurantoin macrocrystal 50 mg 50 mg PO DAILY 60 days #60 caps 11/03/22 capsule tamsulosin 0.4 mg capsule 0.4 mg PO BEDTIME 90 days #90 caps 11/03/22 levofloxacin 500 mg tablet 500 mg PO Q24H 10 days #10 tabs 12/25/22 Allergies Allergy/AdvReac Type Severity Reaction Status Date / Time lisinopril Allergy Unknown Unknown Verified 11/03/22 11:12 sertraline [From Zoloft] AdvReac Severe suicidal Verified 11/03/22 11:12 Review of Systems Review of Systems: Yes all other systems are reviewed and are negative Constitutional: Constitutional: Reports no additional constitutional complaints, Denies body ache(s), Denies chills, Denies fever(s), Denies headache(s) and Denies weakness Eyes: Eyes: Reports no additional eye complaints and Denies change in vision ENT: Reports system reviewed and no additional complaints, except as documented, Denies dizziness, Denies headache(s), Denies nasal congestion, Denies nasal discharge and Denies neck pain Cardiovascular: Cardiovascular: Reports no additional cardiovascular complaints, Denies chest pain, Denies leg edema and Denies dyspnea Respiratory: Respiratory: Reports no additional respiratory complaints, Denies cough and Denies dyspnea Gastrointestinal: Gastrointestinal: Reports no additional gastrointestinal complaints, Denies abdominal pain, Denies diarrhea, Denies nausea and Denies vomiting Genitourinary: Genitourinary: Denies hematuria, Denies dysuria, Denies flank pain, Denies penile discharge, Reports scrotal swelling, Reports testicular pain, Denies urinary frequency, Denies urinary hesitancy, Denies urinary incontinence and Denies urinary urgency Musculoskeletal: Musculoskeletal: Reports no additional musculoskeletal complaints, Denies back pain, Denies arthralgias, Denies joint swelling, Denies neck pain, Denies numbness and Denies tingling Integumentary/Breasts: Skin/Breast: Reports system reviewed and no additional complaints, except as docu and Denies rash Neurologic: Reports system reviewed and no additional complaints, except as documented, Denies dizziness, Denies headache(s), Denies numbness, Denies tingling and Denies weakness [facility] Past Medical History Attestation statement: The following information was validated with the patient. Source: old records reviewed and nursing notes reviewed Medical History Abnormal colonoscopy Chronic renal insufficiency COVID-19 vaccine series completed Elevated cholesterol GERD (gastroesophageal reflux disease) Gout HTN (hypertension) Surgical History H/O colonoscopy History of esophagogastroduodenoscopy (EGD) History of lung surgery Family History Family History Father Heart failure History of mental problems Substance abuse Mother CAD (coronary artery disease) Breast cancer Social History Social History Housing: House Alcohol intake: current Alcohol intake frequency: holidays/special occasions only Alcohol type: beer Patient Tobacco Use Status: Current someday Tobacco user Tobacco use type: Cigar e-Cigarette/Vaping Use: Never Used Second Hand Smoke Exposure: No Advance Directives: Yes Advance Directives on File: Yes Advance Directives Date on File: 08/17/21 service: No Current occupational status: retired Current occupation: [employer] Cognitive needs: No Hearing needs: No Vision needs: No Physical Exam ED Vital Signs: Vital Signs - 24 hr 12/25/22 11:35 12/25/22 15:20 Temperature 98.3 F 97.7 F Pulse Rate 68 75 Respiratory Rate 18 15 Blood Pressure 143/79 H 142/75 H Pulse Oximetry 98 97 Oxygen Delivery Method Room Air Room Air BMI result Body Mass Index 32.1 Const General: cooperative, healthy appearing, comfortable and no acute distress Orientation/consciousness: patient oriented x3 HENMT Head: Yes normal to inspection Ears: hearing grossly normal bilaterally Eyes General: appearance normal, both eyes and all related structures Pupils: Equal, round and reactive pupils present Neck Neck: Yes normal visual inspection and Yes full ROM Chest Chest palpation & inspection: normal inspection of the chest Resp Effort & Inspection: normal respiratory effort Auscultation: clear to auscultation bilaterally Cardio Rate: regular rate Rhythm: regular rhythm Peripheral pulses: Peripheral pulses 2+ throughout GI Inspection: Yes normal to inspection Palpation (GI): Soft to palpation and nontender Other: No inguinal lymphadenopathy Bilateral testicular swelling left greater than right, mild tenderness exam Skin General skin exam: no rashes or lesions noted Neuro General: patient oriented x3 and moves all extremities Cranial nerves: Yes Equal, round and reactive pupils present Cognition (Neuro): normal cognition Gait exam (Neuro): Normal gait present Extrem General: Yes normal to inspection Course Course Course Narrative: RME: 67 yold male presents to the ED for testicles swollen without any trauma for two weeks. . patient states no penile discharge or lesions. no recent unprotected sexual activtiy. UA scrotum ultrasound ordered Reevaluation(s) Reevaluation #1: 1700-testicular ultrasound shows large left hydrocele or epididymal head cysts compressed in the left testicle. There is blood flow seen to the testicle. Also right moderate hydrocele UA is consistent with urinary tract infection Patient has follow-up with Urology We recommend scrotal elevation, will change his nitrofuratonin to Levaquin for 10 days. Reviewed worrisome signs and symptoms of when to return to the emergency room. Comfortable plan for discharge home. Medical Decision Making Medical Decision Making [facility] Narrative: 67-year-old male here with bilateral testicular swelling left greater than right for 2 weeks with mild discomfort. On exam there is bilateral testicular swelling left greater than right with mild tenderness on exam Patient had a UA and testicular ultrasound ordered from triage Patient does not have any concerns for STI Differential Diagnosis Differential Diagnoses: The differential diagnosis associated with the presentation includes Doubt testicular torsion with symptoms for 2 weeks, would consider intermittent torsion but symptoms are constant Consider epididymitis, orchitis, hydrocele, UTI HPI not consistent with pyelonephritis or renal colic Lab Data [facility] Lab Attestation statement: I reviewed the patient's lab results. Labs: Lab Results 12/25/22 Range/Units 15:24 Urine Color Yellow Urine Appearance Cloudy Urine pH 6.0 (5.0-9.0) Ur Specific Lutz 1.015 (1.005-1.025) Urine Protein 30 (1+) H (Neg-Trace) mg/dL Urine Glucose (UA) Negative (Negative) mg/dL Urine Ketones Negative (Negative) mg/dL Urine Blood Trace H (Negative) Urine Nitrite Positive H (Negative) Ur Leukocyte Esterase Large (3+) H (Negative) Urine RBC 0-2 (0-2) /HPF Urine WBC >50 H (0-5) /HPF Ur Squamous Epith Cells 0-2 (0-2) /HPF Urine Bacteria 4+ (None Seen) Hyaline Casts 0-2 (0-2) /LPF Independent Interpretation I performed an independent interpretation of an: Ultrasound Interpretation: I independently reviewed the ultrasound agree with radiologist for Radiology Impression Discussion of test interpretation with radiology: I have reviewed the radiologist's reading. Radiologist Impression: [address] [id number] Ultrasound Report Signed Patient: Jorge Melendez MR#: [id number] : 1955 Acct:[id number] Age/Sex: 67 / M ADM Date: 12/25/22 Loc: HO.ED Attending Dr: Ordering Physician: Jarad Shepherd Date of Service: 12/25/22 Procedure(s): US scrotum doppler Accession Number(s): [id number] cc: Jarad Shepherd~ EXAMINATION: US SCROTUM CLINICAL INFORMATION: Swelling. Left scrotal swelling for 2 weeks. COMPARISON: None available. TECHNIQUE: A sonogram of the scrotum was performed assessing you-scale appearance and color Doppler flow. Spectral Doppler analysis of the arterial and venous flow were performed in the testes bilaterally. FINDINGS: RIGHT: Right testicle measures 4 x 2.6 x 2.4 cm, volume 13 mL. Small 1 to 2 mm right testicular calcification. No other focal testicular parenchymal lesions are visualized. There is a right appendix testis. Spectral Doppler analysis of the arterial and venous flow is normal in the right testis. Moderate right hydrocele. No right varicocele. Right epididymis is not well visualized, particularly the tail. LEFT: Left testicle measures 3.1 x 1.4 x 3.6 cm, volume 8 mL. The left testicle is compressed due to the large left hydrocele or epididymal head cyst. No focal testicular parenchymal lesions are visualized. Spectral Doppler analysis of the arterial and venous flow is increased in the left testis. The left epididymis is not well visualized. Large left hydrocele or epididymal head cyst. This compresses the left testicle. No left varicocele US/US scrotum doppler IMPRESSION: Left: Large left hydrocele or epididymal head cyst compressing the left testicle. The left testicle appears hypervascular compared to the right, question representing orchitis versus changes due to compression. ? Right: Moderate right hydrocele. Discharge Plan Discharge Clinical Impression: Hydrocele, Orchitis, Acute UTI Patient Disposition: Home, Self-Care Instructions: Epididymo-Orchitis (ED), Hydrocele (ED), Urinary Tract Infection in Men (ED) Additional Instructions: Stop taking nitrofuratonin. Take levaquin instead as prescribed Elevate the testicle Continue to follow-up with Urology Prescriptions: New levofloxacin 500 mg tablet 500 mg PO Q24H 10 Days Qty: 10 0RF No Action gemfibrozil 600 mg tablet 600 mg PO BID Qty: 60 4RF famotidine 40 mg tablet 40 mg PO DAILY 30 Days Qty: 30 3RF metoprolol succinate 50 mg tablet extended release 24 hr 50 mg PO DAILY Qty: 30 4RF amlodipine 10 mg tablet 10 mg PO DAILY 90 Days Qty: 90 1RF trazodone 100 mg tablet 100 mg PO BEDTIME 30 Days Qty: 30 4RF folic acid 1 mg tablet 1 mg PO DAILY omeprazole 40 mg capsule,delayed release(DR/EC) 40 mg PO DAILY (DME) Blood Pressure Cuff Misc See Rx Instructions .ROUTE .MEDSUPPLY Qty: 1 0RF Rx Instructions: As directed allopurinol 300 mg tablet 300 mg PO DAILY nitrofurantoin macrocrystal 50 mg capsule 50 mg PO DAILY 60 Days Qty: 60 0RF Rx Instructions: must administer with a meal/food tamsulosin 0.4 mg capsule 0.4 mg PO BEDTIME 90 Days Qty: 90 1RF finasteride 5 mg tablet 5 mg PO DAILY 90 Days Qty: 90 1RF Referrals: Cody Caceres MD [Physician] - 02/09/23 Interventions: ED Discharge Assessment Last Done: 12/25/22 16:32 Discharge Date/Time: 12/25/22 16:33
[2022-12-25 15:20] VITALS: BP 142/75; PULSE 75; RESP 15; TEMP 36.5; O2SAT 97
[2022-12-25 15:34] LABS: Appearance Urine Cloudy; Color Urine Yellow; Glucose Urine UA Negative (Negative); Leukocyte Esterase Urine Large (3+) (Negative); Nitrite Urine Positive (Negative); Specific Gravity - Urine 1.015 (1.005-1.025); UMIC TRIGGER UACC YES; Urine Blood Trace (Negative); Urine Ketones Negative (Negative); Urine Protein 30 (1+) mg/dL (Neg-Trace)
[2022-12-25 15:38] LABS: Bacteria Urine 4+ (None Seen); Hyaline Casts Urine 0-2 /LPF (0-2); RBC Urine 0-2 /HPF (0-2); Squamous Epithelial Cell Urine 0-2 /HPF (0-2); UACC Culture Trigger YES; WBC Urine >50 /HPF (0-5)
== END 2022-12-25 16:33 | disposition home or self-care (01) ==
PROVIDERS: Physician Assistant; Emergency Provider Student in an Organized Health Care Education/Training Program; PCP Physician Assistant
DX: N43.3 Hydrocele, unspecified (principal); N45.2 Orchitis; N39.0 Urinary tract infection, site not specified; N50.89 Other specified disorders of the male genital organs; R10.2 Pelvic and perineal pain; N50.812 Left testicular pain; N50.811 Right testicular pain; Z79.899 Other long term (current) drug therapy; F17.200 Nicotine dependence, unspecified, uncomplicated; Z71.6 Tobacco abuse counseling
CPT/HCPCS: 76870; 81001; 87086; 87088; 87186; 93975; 99283; 99284

== ENCOUNTER 2023-01-18 10:52 | Outpatient (REF) | payer MEDICARE, SELFPAY | END 2023-01-18 10:53 | disposition home or self-care (01) | LOC: HO.LAB 10:52 | PROVIDERS: PCP Physician Assistant; Visit Provider Physician Assistant | DX: E78.1 Pure hyperglyceridemia (principal); N18.30 Chronic kidney disease, stage 3 unspecified | CPT/HCPCS: 36415; 80053; 80061; 81001; 82043; 84443; 85027 ==

== ENCOUNTER 2023-01-30 10:54 | Outpatient (AMB) | payer MEDICARE, SELFPAY ==
[2023-01-30 10:58] VITALS: BP 120/70; PULSE 66; O2SAT 96; BMI 32.7
--- NOTE | 2023-01-30 10:58 | A.OFFPC_ITS ---
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: No Accompanied by: Self / Same As Patient Allergies lisinopril Allergy (Unknown, Verified 01/30/23 11:08) Unknown sertraline [From Zoloft] Adverse Reaction (Severe, Verified 01/30/23 11:08) suicidal Medication List - Last Reconciled 01/30/23 by Lee Almanza PA-C allopurinol 300 mg PO DAILY amlodipine 10 mg PO DAILY 90 days famotidine 40 mg PO DAILY 30 days finasteride 5 mg PO DAILY 90 days folic acid 1 mg PO DAILY gemfibrozil 600 mg PO BID levofloxacin 500 mg PO Q24H 10 days metoprolol succinate ER 50 mg PO DAILY miscellaneous medical supply (Blood Pressure Cuff) As directed nitrofurantoin macrocrystal 50 mg PO DAILY 60 days omeprazole 40 mg PO DAILY tamsulosin 0.4 mg PO BEDTIME 90 days trazodone 100 mg PO BEDTIME 30 days Tobacco use date assessed: 01/30/23 Fall risk assessment: No Falls in past year Last assessed Fall Risk: 01/30/23 Dental Screening Dental Screen Date: 01/30/23 Did you have a dental visit in the last 12 months?: Yes Did you have a dental problem in the last 6 months where you did not have access to dental care?: No Was dental information given to patient?: Patient has dentist HPI 6mth f/u HPI Details Jorge is a 68 y/o M here today for a follow up visit. ? Patient jane s a pmhx significa nt for gout, HTN, HLD, CKD, GERD. P atient recently se en at the [facility] in December of 2022 for an other acut e UTI. Was placed on Levaquin. Ult rA Sound of scrotu m showed a large L EFT hydrocele. DO ES REPORT SOME ISADORA W DISCOMFORT. Den ies any current ur inary frequency or dysuria. Has had frequent UTIs Pat ient is followed b y Urology and has upcoming appointme nt with them. [facility] MEDICAL COND ITIONS->> . ? .. ? HTN:? P atient blood press ure today in accep table...? Patient does report taking his blood pressur es at home and rep orts systolic pres sures of 130-140.. ? Denies any chest discomfort, heada ches, dizziness or vision issues. ? .. ? Go ut: Patient contin ues on allopurinol and has no gout f triny. ? .. ? GERd: He rep orts as of late he GERD has been act ing up takes PPI P Rn. ? .. ? CKD -stage 3:? Most recent creati nine at 1.4. ? Fol lowed by a nephrol ogist Dr. Carlin, Microbiology 07/15/22 Unknown Urine clean catch - Urine you top Urine Culture - Final Escherichia coli 03/28/22 15:40 Urine clean catch - Clean Catch Midstream Urine Culture - Final Escherichia coli Laboratory Tests 12/15/21 03/28/22 03/28/22 10:21 12:30 12:30 RBC 3.36 L Hgb 10.6 L Creatinine 1.43 H 1.46 H Fasting Glucose AST 40 H D Cholesterol 148 LDL Cholesterol, C alc TSH Urine Protein Urine Blood Urine Nitrite Ur Leukocyte Tara ase Urine WBC Urine Bacteria 03/28/22 07/15/22 07/15/22 12:40 10:20 10:26 RBC 3.91 L Hgb 11.9 L Creatinine Fasting Glucose AST Cholesterol LDL Cholesterol, C alc TSH Urine Protein 300 (3+) H 30 (1+) H Urine Blood Large (3+) H Urine Nitrite Positive H Ur Leukocyte Tara ase Large (3+) H Urine WBC >50 H >50 H Urine Bacteria 4+ 07/15/22 12/25/22 01/18/23 10:26 15:24 11:06 RBC Hgb Creatinine 1.40 Fasting Glucose AST Cholesterol LDL Cholesterol, C alc TSH Urine Protein Urine Blood Urine Nitrite Ur Leukocyte Tara ase Trace H Urine WBC Urine Bacteria 4+ None Seen 01/18/23 01/18/23 11:07 11:07 RBC 3.73 L Hgb 11.5 L Creatinine 1.43 H Fasting Glucose 113 H AST Cholesterol 172 LDL Cholesterol, C alc 108 TSH 1.06 Urine Protein Urine Blood Urine Nitrite Ur Leukocyte Tara ase Urine WBC Urine Bacteria PFSH Medical History (Updated 01/30/23 @ 14:35 by Lee Almanza PA-C) Abnormal colonoscopy Chronic renal insufficiency COVID-19 vaccine series completed Elevated cholesterol GERD (gastroesophageal reflux disease) GERD (gastroesophageal reflux disease) Gout HTN (hypertension) Recurrent UTI Tubulovillous adenoma polyp of colon Venous stasis dermatitis of left lower extremity Surgical History H/O colonoscopy History of esophagogastroduodenoscopy (EGD) History of lung surgery Family History Father Heart failure History of mental problems Substance abuse Mother CAD (coronary artery disease) Breast cancer Social History Housing: House Alcohol intake: current Alcohol intake frequency: holidays/special occasions only Alcohol type: beer Patient Tobacco Use Status: Current someday Tobacco user Tobacco use type: Cigar e-Cigarette/Vaping Use: Never Used Second Hand Smoke Exposure: No Advance Directives Date on File: 08/17/21 service: No Current occupational status: retired Current occupation: Rt handed Cognitive needs: No Hearing needs: No Vision needs: No Questionnaire PHQ-9 Over the last 2 weeks, how often have you been bothered by any of the following problems? 1. Little interest or pleasure in doing things: not at all 2. Feeling down, depressed, or hopeless: not at all 3. Trouble falling or staying asleep, or sleeping too much: not at all 4. Feeling tired or having little energy: not at all 5. Poor appetite or overeating: not at all 6. Feeling bad about yourself - or that you are a failure or have let yourself or your family down: not at all 7. Trouble concentrating on things, such as reading the newspaper or watching television: not at all 8. Moving or speaking so slowly that other people could have noticed. Or the opposite - being so fidgety or restless that you have been moving around a lot more than usual: not at all 9. Thoughts that you would be better off or of hurting yourself in some way: not at all Total score: 0 Depression Screening Interpretation: Negative 99089 - PHQ-9 Billing: Yes Source: Developed by Drs. Bruce Samuel, Jeanette Dodd, Aldo Del Rio and colleagues, with an educational leida from [employer]. Thrive Questionnaire Date Thrive assessed: 01/30/23 I am a: Patient What is your living situation today?: I have a steady place to live Within the past 12 months, did the food you bought not last and you didn't have the money to get more?: Never true Within the past 12 months, did you worry whether your food would run out before you got money to buy more?: Never true Do you have trouble paying for medicines?: No Do you have trouble getting transportation to medical appointments?: No Do you have trouble paying your heating and electricity bill?: No Do you have trouble taking care of your child, family member or friend?: No Do you have trouble with day-to-day activities such as bathing, preparing meals, shopping, managing finances, etc.?: No Are you currently unemployed and looking for a job?: No Are you interested in more education?: No Please select the resources that you would like help with: None Currently or been in a relationship where the following occur: no concerns reported AUDIT C Alcohol Use Questionnaire (AUDIT-C) 1. How often do you have a drink containing alcohol?: Monthly or less Total Score: 1 Score Reviewed/Action Taken: Yes MISAEL-7 AMB Questionnaire MISAEL-7 Date MISAEL - 7 assessed: 01/30/23 Feeling nervous, anxious, or on edge: 0 = Not at all Not being able to stop or control worryin = Not at all Worrying too much about different things: 0 = Not at all Trouble relaxin = Not at all Being so restless that it is hard to sit still: 0 = Not at all Becoming easily annoyed or irritable: 0 = Not at all Feeling afraid as if something awful might happen: 0 = Not at all Total MISAEL-7 score (0-4 normal; 5-9 mild; 10-14 moderate; 15-21 severe): 0 Source: Developed by Drs. Bruce Samuel, Aldo Torres and colleagues, with an educational leida from [employer]. MISAEL-7 Assessment Billing MISAEL-7 Assessment Tool: MISAEL-7 Assessment 19048 Review of Systems Const Denies headache(s) Eyes Denies loss of vision ENT Denies vertigo, Denies dizziness, Denies headache(s) and Denies sore throat Card Denies chest pain, Denies leg edema and Denies lightheadedness Resp Denies cough, Denies hemoptysis and Denies wheezing GI Denies abdominal pain, Denies melena, Denies constipation, Denies diarrhea and Denies vomiting Denies dysuria, Denies urinary frequency and Denies urinary urgency Musc Denies arthralgias, Denies joint swelling, Denies numbness and Denies tingling Neuro Denies Abnormal speech present, Denies behavioral changes, Denies vertigo, Denies dizziness, Denies headache(s), Denies loss of vision, Denies memory loss, Denies numbness and Denies tingling Psych Denies anxiety, Denies behavioral changes, Denies depression, Denies memory loss and Denies panic attacks Talha/Lymph Denies easy bleeding and Denies easy bruising Aller/Immun Denies wheezing Physical exam (Primary Care) Vital Signs: Last Vital Signs Pulse 66 01/30/23 10:58 BP 120/70 01/30/23 10:58 Pulse Ox 96 01/30/23 10:58 Oxygen Delivery Method Room Air 01/30/23 10:58 BMI result Body Mass Index 32.7 Tobacco/Smoking Status: Tobacco use Status Tobacco use date assessed 01/30/23 01/30/23 11:04 Patient Tobacco Use Status Current someday Tobacco 01/30/23 11:04 Tobacco use type Cigar 01/30/23 11:04 e-Cigarette/Vaping Use Never Used 01/30/23 11:04 PHQ-9: PHQ-9 Score PHQ-9: Total score 0 01/30/23 11:10 Depression Screening Interpretation: Negative Thrive Assessment: Date of Thrive Assessment Date Thrive assessed 01/30/23 01/30/23 11:04 Currently or been in a relationship where the following occur: no concerns reported Const General: healthy appearing, no acute distress, alert and awake Nutritional Appearance: well nourished Orientation/consciousness: oriented to person, oriented to place and oriented to time HENMT Ears: TM's normal bilaterally General nose exam: Normal nasal mucous membranes and turbinates present Eyes Conjunctivae: conjunctivae normal Sclerae: sclerae normal Pupils: Equal, round and reactive pupils present Neck Neck: Yes no lymphadenopathy and Yes no JVD Thyroid: Thyroid normal Carotids: no bruits Resp Effort & Inspection: normal respiratory effort and not tachypneic Auscultation: no crackles, no rales, no rhonchi and no wheezes Cardio Rate: regular rate Rhythm: regular rhythm Heart sounds: no murmurs and normal S1 and S2 GI Palpation (GI): Soft to palpation, nontender, no hepatomegaly and no splenomegaly Auscultation: normal bowel sounds Skin General skin exam: no rashes or lesions noted and dry skin Neuro General: oriented to person, oriented to place and oriented to time Cranial nerves: Yes Equal, round and reactive pupils present Speech: No Abnormal speech present Gait exam (Neuro): Normal gait present Motor exam (neuro): no tremor noted Extrem Right upper extremity: full ROM Left upper extremity: full ROM Right lower extremity: full ROM; no edema Left lower extremity: full ROM; no edema Psych Mental Status: mental status grossly normal Speech and movement: Normal speech and movement present Affect: normal affect Attitude: cooperative Thought process: Normal thought process present Assessment and Plan Assessment & Plan (1) HTN (hypertension): Code(s): I10 - Essential (primary) hypertension Qualifiers: Hypertension type: essential hypertension Qualified Code(s): I10 - Essential (primary) hypertension Plan: Patient's blood pressure acceptable today in office, will continue current dose of amlodipine and metoprolol with goal blood pressure to be below 140/90 (2) HLD (hyperlipidemia): Code(s): E78.5 - Hyperlipidemia, unspecified Qualifiers: Hyperlipidemia type: mixed hyperlipidemia Qualified Code(s): E78.2 - Mixed hyperlipidemia Plan: Patient's most recent lipid panel acceptable. Will continue on gemfibrozil with goal triglycerides to be below 150. (3) CKD (chronic kidney disease) stage 3, GFR 30-59 ml/min: Code(s): N18.30 - Chronic kidney disease, stage 3 unspecified Qualifiers: Chronic kidney disease stage 3 subtype: unspecified whether 3a or 3b Qualified Code(s): N18.30 - Chronic kidney disease, stage 3 unspecified Plan: Patient continues to follow nephrology, creatinine has been stable 1.3-1.4. (4) Bilateral hydrocele: Code(s): N43.3 - Hydrocele, unspecified Plan: Patient does have enlarged scrotum, recent ultrasound showing bilateral hydrocele larger on left compressng left testes. Will be following up with Urology about management of this. Advised to wear supportive underwear. (5) Obese: Code(s): E66.9 - Obesity, unspecified Qualifiers: Obesity type: due to excess calories Obesity classification: adult class 1 (BMI 30 - 34.9) Serious obesity comorbidity presence: with serious comorbidity Body mass index: BMI 32.0-32.9 Qualified Code(s): E66.09 - Other obesity due to excess calories; Z68.32 - Body mass index [BMI] 32.0-32.9, adult Plan: Patient does understand his BMI is above 30 will work on being more physically active and adapting to better eating habits to reduce his weight Orders: Orders Comprehensive [place]. Panel Fast Today I10 - Essential (primary) hypertension Hemoglobin A1c Today R73.01 - Impaired fasting glucose Lipid Panel Today E78.2 - Mixed hyperlipidemia Prostate Specific Antigen Scr Today E78.2 - Mixed hyperlipidemia, Z12.5 - Encounter for screening for malignant neoplasm of prostate Microalbumin, Random (w Creat) Today I10 - Essential (primary) hypertension Complete Blood Count no Diff Today N18.30 - Chronic kidney disease, stage 3 unspecified Medications: Changed From metoprolol succinate ER 50 mg PO DAILY 30 tabs 4RF I10 - Essential (p rimary) hypertension To metoprolol succinate ER 50 mg PO DAILY 90 days 90 tabs 1RF I10 - Essential (primary) hypertension From trazodone 100 mg PO BEDTIME 30 days 30 tabs 4RF G47.00 - Insomnia, unspecified To trazodone 100 mg PO BEDTIME 90 days 90 tabs 1RF G47.00 - Insomnia, uns pecified Discontinued levofloxacin Discontinued Reason: Duplicate 500 mg PO Q24H 10 days 10 tabs 0RF Coding Level of Care Code Est Pt Level 4 (55836) Diagnoses HTN (hypertension) I10 Hypertension type: essential hypertension HLD (hyperlipidemia) E78.2 Hyperlipidemia type: mixed hyperlipidemia CKD (chronic kidney disease) stage 3, GFR 30-59 ml/min N18.30 Chronic kidney disease stage 3 subtype: unspecified whether 3a or 3b Bilateral hydrocele N43.3 Obese E66.09; Z68.32 Obesity type: due to excess calories Obesity classification: adult class 1 (BMI 30 - 34.9) Serious obesity comorbidity presence: with serious comorbidity Body mass index: BMI 32.0-32.9 Additional Codes MISAEL-7 Assessment Billing - MISAEL-7 Assessment Tool: MISAEL-7 Assessment 06305 ([id number])
== END 2023-01-30 12:06 | disposition home or self-care (01) ==
PROVIDERS: PCP Physician Assistant; Visit Provider Physician Assistant
DX: I12.9 Hypertensive chronic kidney disease with stage 1 through stage 4 chronic kidney disease, or unspecified chronic kidney disease (principal); N18.30 Chronic kidney disease, stage 3 unspecified; E66.09 Other obesity due to excess calories; Z68.32 Body mass index [BMI] 32.0-32.9, adult; N43.3 Hydrocele, unspecified; E78.2 Mixed hyperlipidemia
CPT/HCPCS: 99214

== ENCOUNTER 2023-02-08 09:12 | Outpatient (AMB) | payer MEDICARE, SELFPAY ==
--- NOTE | 2023-02-08 09:30 | MHC.OFFVIS ---
Intake Intake Visit Reasons: 3m/PVR Intake Note: Patient is present for PVR/ Urology Med: Finasteride, Tamsulosin Antibiotic Allergy: None Blood Thinner: None PVR: 25ml Allergies lisinopril Allergy (Unknown, Verified 02/08/23 09:32) Unknown sertraline [From Zoloft] Adverse Reaction (Severe, Verified 02/08/23 09:32) suicidal HPI HPI Comments History of Present Illness Details Jorge is a pleasant male. He is a patient of Dr. Almanza. He is seen for the following urologic conditions - lower urinary tract symptoms - recurrent urinary tract infections PVR 25cc Improved voiding Maintained prostate medications New onset left hydrocele Review in 4 weeks Still present recommend hydrocelectomy Recurring urinary tract infections Current therapy prophylactic Macrobid, tamsulosin, finasteride Postvoid residual 50 cc Ultrasound with trabeculated urinary bladder and mild bladder wall thickening Urinary cultures - multiple culture positive for E coli which is pansensitive - 10/06 Microgen - E coli resistant to Levaquin PSA - 01/05 2.0 - HbA1c 04/07 5.7 Cystoscopy - 10/06 large prostate with trabeculation PFSH Medical History Abnormal colonoscopy Chronic renal insufficiency COVID-19 vaccine series completed Elevated cholesterol GERD (gastroesophageal reflux disease) GERD (gastroesophageal reflux disease) Gout HTN (hypertension) Recurrent UTI Tubulovillous adenoma polyp of colon Venous stasis dermatitis of left lower extremity Surgical History H/O colonoscopy History of esophagogastroduodenoscopy (EGD) History of lung surgery Family History Father Heart failure History of mental problems Substance abuse Mother CAD (coronary artery disease) Breast cancer Social History Housing: House Alcohol intake: current Alcohol intake frequency: holidays/special occasions only Alcohol type: beer Patient Tobacco Use Status: Current someday Tobacco user Tobacco use type: Cigar e-Cigarette/Vaping Use: Never Used Second Hand Smoke Exposure: No Advance Directives Date on File: 08/17/21 service: No Current occupational status: retired Current occupation: Rt handed Cognitive needs: No Hearing needs: No Vision needs: No Review of Systems Const Denies chills and Denies fever(s) Card Reports no additional complaints and Denies syncope Resp Denies cough GI Denies abdominal pain and Denies heartburn Reports as per HPI and Denies change in libido Neuro Denies syncope Psych Denies change in libido Endo Denies change in libido Physical Exam Const General: cooperative, healthy appearing, comfortable and no acute distress Orientation/consciousness: patient oriented x3 HEENT Face and sinus: Yes normal facial exam Mouth: moist mucous membranes Neck Neck: Yes normal visual inspection, Yes full ROM and Yes trachea midline Chest Chest palpation & inspection: normal inspection of the chest Resp Effort & Inspection: normal respiratory effort, able to speak in complete sentences and no respiratory distress GI Inspection: Yes normal to inspection Back/Spine/Pelvis Cervical Spine: normal cervical lordosis Thoracic/Lumbar Spine: thoracic and lumbar spine normal to inspection Skin General skin exam: no rashes or lesions noted Neuro General: patient oriented x3, gait normal, tone normal and moves all extremities Extrem General: Yes normal to inspection and Yes capillary refill normal Office Procedures Post Void Residual Post Residual Void Post Void Residual (PVR): 25 [id number] Void Residual by ultrasound Assessment & Plan Assessment & Plan (1) Bilateral hydrocele: Code(s): N43.3 - Hydrocele, unspecified (2) BPH associated with nocturia: Code(s): N40.1 - Benign prostatic hyperplasia with lower urinary tract symptoms; R35.1 - Nocturia Plan Four week follow-up Orders: Orders AMB Urinalysis Automated Today Z13.9 - Encounter for screening, unspecified AMB Post Void Residual by ultrasound Today N40.1 - Benign prostatic hyperplasia with lower urinary tract symptoms, R35.1 - Nocturia Medications: Refilled finasteride 5 mg PO DAILY 90 tabs 1RF 90 days N40.1 - Benign prostatic hyperplasia with lower urinary tract symptoms, R35.1 - Nocturia tamsulosin 0.4 mg PO BEDTIME 90 caps 1RF 90 days N40.1 - Benign prostatic hyperplasia with lower urinary tract symptoms, R35.1 - Nocturia Discontinued nitrofurantoin macrocrystal must administer with a meal/food Discontinued Reason: Patient Completed Course 50 mg PO DAILY 60 caps 0RF 60 days N39.0 - Urinary tract infection, site not specified Patient Instructions: Imaging studies, laboratory and physical exam results were discussed and reviewed in detail. No major barriers to patient understanding were identified. An opportunity to ask questions regarding the treatment plan was provided. All questions were answered. The patient expressed understanding and agreement with the above treatment plan. The patient is aware they should contact our office by phone for worsening of their current condition or the appearance of new urologic symptoms. Compliance is encouraged with any medications and followup testing that is ordered. It is a privilege to participate in the urologic care of your patient. If you have any questions or concerns regarding treatment for the above conditions, or other urologic issues, please do not hesitate to contact me. The office telephone contact is [phone]. This note is constructed using voice recognition software. While every effort has been made to ensure accuracy social media community manager errors may have been included. Yours sincerely, Dr Cody Caceres MD, [facility] - Urology Providers of Expert, Compassionate Care for the Genitourinary System Coding Level of Care Code Est Pt Level 3 (13699) Diagnoses Bilateral hydrocele N43.3 BPH associated with nocturia N40.1; R35.1 CPT Codes Post Residual Void - PVR CPT Code: 96813-Kjcs Void Residual by ultrasound ([id number])
== END 2023-02-08 09:54 | disposition home or self-care (01) ==
PROVIDERS: Visit Provider Urology
DX: N43.3 Hydrocele, unspecified (principal); N40.1 Benign prostatic hyperplasia with lower urinary tract symptoms; R35.1 Nocturia
CPT/HCPCS: 99213

== ENCOUNTER → 2023-02-08 09:12 | Outpatient (BNVA) | payer MEDICARE, SELFPAY | PROVIDERS: Visit Provider Urology | DX: N40.1 Benign prostatic hyperplasia with lower urinary tract symptoms (principal); R35.1 Nocturia; N43.3 Hydrocele, unspecified | CPT/HCPCS: 51798; 99212 ==

== ENCOUNTER 2023-03-09 09:37 | Outpatient (REF) | payer MEDICARE, SELFPAY ==
[2023-03-09 11:35] LABS: Anion Gap 11 (12-20); Blood Urea Nitrogen 12 mg/dL (9-16); Calcium 9.7 mg/dL (8.4-10.2); Carbon Dioxide 26 mmol/L (22-29); Chloride 104 mmol/L (96-108); Estimated Glomerular Filt Rate 55; Sodium 137 mmol/L (135-145)
== END 2023-03-09 09:38 | disposition home or self-care (01) ==
LOC: HO.LAB 09:37
PROVIDERS: Visit Provider Internal Medicine Nephrology
DX: I12.9 Hypertensive chronic kidney disease with stage 1 through stage 4 chronic kidney disease, or unspecified chronic kidney disease (principal); N18.31 Chronic kidney disease, stage 3a
CPT/HCPCS: 36415; 80051; 82310; 82565; 84520

== ENCOUNTER 2023-03-10 08:32 | Outpatient (AMB) | payer MEDICARE, SELFPAY ==
--- NOTE | 2023-03-10 09:42 | MHC.OFFVIS ---
Intake Intake Visit Reasons: 4w follow up Allergies lisinopril Allergy (Unknown, Verified 02/08/23 09:32) Unknown sertraline [From Zoloft] Adverse Reaction (Severe, Verified 02/08/23 09:32) suicidal HPI HPI Comments History of Present Illness Details Jroge is a pleasant male. He is a patient of Dr. Almanza. He is seen for the following urologic conditions - lower urinary tract symptoms - recurrent urinary tract infections - left hydrocele Telemedicine Evaluation 15 min Consultation [employer] Rickie Video attempted Maintaining good prostate emptying Persistent left hydrocele. Would like to move ahead with left hydrocelectomy Recurring urinary tract infections Current therapy prophylactic Macrobid, tamsulosin, finasteride Postvoid residual 50 cc Ultrasound with trabeculated urinary bladder and mild bladder wall thickening Urinary cultures - multiple culture positive for E coli which is pansensitive - 10/06 Microgen - E coli resistant to Levaquin PSA - 01/05 2.0 - HbA1c 04/07 5.7 Cystoscopy - 10/06 large prostate with trabeculation PFSH Medical History Abnormal colonoscopy Chronic renal insufficiency COVID-19 vaccine series completed Elevated cholesterol GERD (gastroesophageal reflux disease) GERD (gastroesophageal reflux disease) Gout HTN (hypertension) Recurrent UTI Tubulovillous adenoma polyp of colon Venous stasis dermatitis of left lower extremity Surgical History H/O colonoscopy History of esophagogastroduodenoscopy (EGD) History of lung surgery Family History Father Heart failure History of mental problems Substance abuse Mother CAD (coronary artery disease) Breast cancer Social History Housing: House Alcohol intake: current Alcohol intake frequency: holidays/special occasions only Alcohol type: beer Patient Tobacco Use Status: Current someday Tobacco user Tobacco use type: Cigar e-Cigarette/Vaping Use: Never Used Second Hand Smoke Exposure: No Advance Directives Date on File: 08/17/21 service: No Current occupational status: retired Current occupation: [employer] Cognitive needs: No Hearing needs: No Vision needs: No Review of Systems Const All systems reviewed & are unremarkable except as noted in HPI and below Reports no additional complaints Resp Reports no additional complaints GI Reports no additional complaints Reports as per HPI Musc Reports no additional complaints Physical Exam Telemedicine evaluation Appropriate responses Regular breathing rate and rhythm HEENT Head: Yes normal to inspection Ears: hearing grossly normal bilaterally Eyes General: appearance normal, both eyes and all related structures Neck Neck: Yes normal visual inspection Chest Chest palpation & inspection: normal inspection of the chest Resp Effort & Inspection: normal respiratory effort and able to speak in complete sentences Assessment & Plan Assessment & Plan (1) Bilateral hydrocele: Code(s): N43.3 - Hydrocele, unspecified Plan Risks, benefits and alternatives to therapy were discussed. These include but are not limited to infection, bleeding, damage to local organs and tissues, need for further interventions. Anesthetic risks regarding cardiac arrhythmia, blood clots, and potential mortality were discussed. The patient understands the typical recovery time and the outpatient nature of the procedure. After consideration of these risks the patient gives full informed consent and they wish to move ahead with the procedure. Left hydrocelectomy Patient Instructions: Imaging studies, laboratory and physical exam results were discussed and reviewed in detail. No major barriers to patient understanding were identified. An opportunity to ask questions regarding the treatment plan was provided. All questions were answered. The patient expressed understanding and agreement with the above treatment plan. The patient is aware they should contact our office by phone for worsening of their current condition or the appearance of new urologic symptoms. Compliance is encouraged with any medications and followup testing that is ordered. It is a privilege to participate in the urologic care of your patient. If you have any questions or concerns regarding treatment for the above conditions, or other urologic issues, please do not hesitate to contact me. The office telephone contact is [phone]. This note is constructed using voice recognition software. While every effort has been made to ensure accuracy squirrel man errors may have been included. Yours sincerely, Dr Cody Caceres MD, [facility] - Urology Providers of Expert, Compassionate Care for the Genitourinary System Telehealth Telehealth Location of provider rendering services: practice address Location of patient: address on file Patient Identification confirmed using: Name, : Yes Telehealth method: video Patient verbally consented to treatment: Yes Patient verbally consented to billing insurance company: Yes Patient informed of any privacy concerns related to visit: Yes Coding Level of Care Code Tele Est Pt Level 4 (87258) Diagnoses Bilateral hydrocele N43.3
== END 2023-03-10 10:09 | disposition home or self-care (01) ==
LOC: HO.HUSH 08:32
PROVIDERS: PCP Physician Assistant; Visit Provider Urology
DX: N43.3 Hydrocele, unspecified (principal)
CPT/HCPCS: 99214

== ENCOUNTER → 2023-03-10 08:32 | Outpatient (BNVA) | payer MEDICARE, SELFPAY | PROVIDERS: PCP Physician Assistant; Visit Provider Urology ==

== ENCOUNTER 2023-03-16 13:06 | Outpatient (REF) | payer MEDICARE, SELFPAY ==
[2023-03-16 14:19] LABS: Creatinine, mg/dL 60.63; Protein mg/dL < 7 mg/dL
[2023-03-16 14:25] LABS: Creatinine, 24Hr Urine 1.8 G/Day (1.0-2.0); Protein 24 Hr Urine < 205 mg/Day (<150); Total Volume 24 Hour Urine 2925 mL
== END 2023-03-16 13:07 | disposition home or self-care (01) ==
LOC: HO.LNP 13:06
PROVIDERS: Visit Provider Internal Medicine Nephrology
DX: I12.9 Hypertensive chronic kidney disease with stage 1 through stage 4 chronic kidney disease, or unspecified chronic kidney disease (principal); N18.31 Chronic kidney disease, stage 3a
CPT/HCPCS: 84156

== ENCOUNTER 2023-06-28 10:36 | Outpatient (AMB) | payer MEDICARE, SELFPAY ==
--- NOTE | 2023-06-28 10:54 | MHC.OFFVIS ---
Intake Intake Visit Reasons: 6 week (hydrocele) Intake Note: Patihyacinthn is present for H&P Hydrocele. Previous Surgery was cancelled due to passing of his . Allergies lisinopril Allergy (Unknown, Verified 02/08/23 09:32) Unknown sertraline [From Zoloft] Adverse Reaction (Severe, Verified 02/08/23 09:32) suicidal Medication List - Last Reconciled 06/28/23 by Cody Caceres MD allopurinol 300 mg PO DAILY amlodipine 10 mg PO DAILY 90 days famotidine 40 mg PO DAILY 30 days finasteride 5 mg PO DAILY 90 days folic acid 1 mg PO DAILY gemfibrozil 600 mg PO BID metoprolol succinate ER 50 mg PO DAILY 90 days miscellaneous medical supply (Blood Pressure Cuff) As directed omeprazole 40 mg PO DAILY tamsulosin 0.4 mg PO BEDTIME 90 days trazodone 100 mg PO BEDTIME 90 days HPI HPI Comments History of Present Illness Details Jorge is a pleasant male. He is a patient of Dr. Almanza. He is seen for the following urologic conditions - lower urinary tract symptoms - recurrent urinary tract infections - left hydrocele Here for evaluation for left hydrocelectomy Recently lost So surgery delayed Persistent left hydrocele. Also discussed prostate procedure Given prior recurrent urinary tract infections with would move ahead with GreenLight laser prostatectomy at same time is left hydrocelectomy Recurring urinary tract infections Current therapy prophylactic Macrobid, tamsulosin, finasteride Postvoid residual 50 cc Ultrasound with trabeculated urinary bladder and mild bladder wall thickening Urinary cultures - multiple culture positive for E coli which is pansensitive - 10/06 Microgen - E coli resistant to Levaquin PSA - 01/05 2.0 - HbA1c 04/07 5.7 Cystoscopy - 10/06 large prostate with trabeculation PFSH Medical History Abnormal colonoscopy Chronic renal insufficiency COVID-19 vaccine series completed Elevated cholesterol GERD (gastroesophageal reflux disease) GERD (gastroesophageal reflux disease) Gout HTN (hypertension) Recurrent UTI Tubulovillous adenoma polyp of colon Venous stasis dermatitis of left lower extremity Surgical History H/O colonoscopy History of esophagogastroduodenoscopy (EGD) History of lung surgery Family History Father Heart failure History of mental problems Substance abuse Mother CAD (coronary artery disease) Breast cancer Social History Housing: House Alcohol intake: current Alcohol intake frequency: holidays/special occasions only Alcohol type: beer Patient Tobacco Use Status: Current someday Tobacco user Tobacco use type: Cigar e-Cigarette/Vaping Use: Never Used Second Hand Smoke Exposure: No Advance Directives Date on File: 08/17/21 service: No Current occupational status: retired Current occupation: Rt handed Cognitive needs: No Hearing needs: No Vision needs: No Review of Systems Const Denies chills and Denies fever(s) Card Reports no additional complaints and Denies syncope Resp Denies cough GI Denies abdominal pain and Denies heartburn Reports as per HPI and Denies change in libido Neuro Denies syncope Psych Denies change in libido Endo Denies change in libido Physical Exam Const General: cooperative, healthy appearing, comfortable and no acute distress Orientation/consciousness: patient oriented x3 HEENT Face and sinus: Yes normal facial exam Mouth: moist mucous membranes Neck Neck: Yes normal visual inspection, Yes full ROM and Yes trachea midline Chest Chest palpation & inspection: normal inspection of the chest Resp Effort & Inspection: normal respiratory effort, able to speak in complete sentences and no respiratory distress GI Inspection: Yes normal to inspection Back/Spine/Pelvis Cervical Spine: normal cervical lordosis Thoracic/Lumbar Spine: thoracic and lumbar spine normal to inspection Skin General skin exam: no rashes or lesions noted Neuro General: patient oriented x3, gait normal, tone normal and moves all extremities Extrem General: Yes normal to inspection and Yes capillary refill normal Assessment & Plan Assessment & Plan (1) BPH associated with nocturia: Code(s): N40.1 - Benign prostatic hyperplasia with lower urinary tract symptoms; R35.1 - Nocturia (2) Bilateral hydrocele: Code(s): N43.3 - Hydrocele, unspecified Plan Risks, benefits and alternatives to therapy were discussed. These include but are not limited to infection, bleeding, damage to local organs and tissues, need for further interventions. Anesthetic risks regarding cardiac arrhythmia, blood clots, and potential mortality were discussed. The patient understands the typical recovery time and the outpatient nature of the procedure. After consideration of these risks the patient gives full informed consent and they wish to move ahead with the procedure. GreenLight laser prostatectomy with left hydrocelectomy Patient Instructions: Imaging studies, laboratory and physical exam results were discussed and reviewed in detail. No major barriers to patient understanding were identified. An opportunity to ask questions regarding the treatment plan was provided. All questions were answered. The patient expressed understanding and agreement with the above treatment plan. The patient is aware they should contact our office by phone for worsening of their current condition or the appearance of new urologic symptoms. Compliance is encouraged with any medications and followup testing that is ordered. It is a privilege to participate in the urologic care of your patient. If you have any questions or concerns regarding treatment for the above conditions, or other urologic issues, please do not hesitate to contact me. The office telephone contact is [phone]. This note is constructed using voice recognition software. While every effort has been made to ensure accuracy cigar making machine operator errors may have been included. Yours sincerely, Dr Cody Caceres MD, [facility] - Urology Providers of Expert, Compassionate Care for the Genitourinary System Coding Level of Care Code Est Pt Level 4 (87123) Diagnoses BPH associated with nocturia N40.1; R35.1 Bilateral hydrocele N43.3
== END 2023-06-28 11:09 | disposition home or self-care (01) ==
PROVIDERS: PCP Physician Assistant; Visit Provider Urology
DX: N40.1 Benign prostatic hyperplasia with lower urinary tract symptoms (principal); R35.1 Nocturia; N43.3 Hydrocele, unspecified
CPT/HCPCS: 99214

== ENCOUNTER → 2023-06-28 10:36 | Outpatient (BNVA) | payer MEDICARE, SELFPAY | PROVIDERS: PCP Physician Assistant; Visit Provider Urology | DX: N40.1 Benign prostatic hyperplasia with lower urinary tract symptoms (principal); R35.1 Nocturia; N43.3 Hydrocele, unspecified | CPT/HCPCS: 99212 ==

== ENCOUNTER 2023-07-27 07:41 | Outpatient (AMB) | payer MEDICARE, SELFPAY ==
[2023-07-27 07:45] VITALS: BP 128/72; PULSE 64; O2SAT 97; BMI 32.4
--- NOTE | 2023-07-27 07:45 | A.OFFPC_ITS ---
Vital Signs 07/27/23 07:45 Height 6 ft 2 in Weight 252 lb BMI 32.4 BP 128/72 Blood Pressure Location Lt brachial Position Sitting Pulse 64 Pulse Source Pulse Oximeter Pulse Oximetry (%) 97 Oxygen Delivery Method Room Air Intake Visit Reasons: pe Allergies lisinopril Allergy (Unknown, Verified 07/27/23 08:01) Unknown sertraline [From Zoloft] Adverse Reaction (Severe, Verified 07/27/23 08:01) suicidal Medication List - Last Reconciled 07/27/23 by Lee Almanza PA-C allopurinol 300 mg PO DAILY amlodipine 10 mg PO DAILY 90 days famotidine 40 mg PO DAILY 30 days finasteride 5 mg PO DAILY 90 days folic acid 1 mg PO DAILY gemfibrozil 600 mg PO BID metoprolol succinate ER 50 mg PO DAILY 90 days miscellaneous medical supply (Blood Pressure Cuff) As directed omeprazole 40 mg PO DAILY tamsulosin 0.4 mg PO BEDTIME 90 days trazodone 100 mg PO BEDTIME 90 days Tobacco use date assessed: 07/27/23 Fall risk assessment: No Falls in past year Last assessed Fall Risk: 07/27/23 Dental Screening Dental Screen Date: 07/27/23 Did you have a dental visit in the last 12 months?: Yes Did you have a dental problem in the last 6 months where you did not have access to dental care?: No Was dental information given to patient?: Patient has dentist HPI pe HPI Details Jorge is a 68 y/o M here today for a routine annual physical ? Patient has a pmhx significant for gout, HTN, HLD, CKD, GERD. 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 Has upcoming surgery to remove his bilateral hydrocele with [place] [facility]. ? .. ? HTN:? Patient blood pressure today in acceptable. She continues to be physically active going to the gym several times a week. .? Patient does report taking his blood pressures at home and reports systolic pressures of 130-140..? Denies any chest discomfort, headaches, dizziness or vision issues. ? .. ? Gout: Patient continues on allopurinol and has no gout flares. ? .. ? GERd: He reports as of late he GERD has been acting up takes PPI PRn. ? .. ? CKD -stage 3:? Most recent creatinine at 1.4. ? Has no further follow-up with Nephrology due to practice taking location. He will like to restart was care with new nephrology here in [place]. Colon cancer screening: Did have colonoscopy in 2021 (Dr. Díaz) which did show a tubulovillous adenoma needs repeat 5 years. Vaccines: Up-to-date with COVID vaccine, pneumonia vaccine, tetanus vaccine,, considering shingles vaccine [facility] Medical History Recurrent UTI Venous stasis dermatitis of left lower extremity Tubulovillous adenoma polyp of colon COVID-19 vaccine series completed Chronic renal insufficiency GERD (gastroesophageal reflux disease) Elevated cholesterol HTN (hypertension) Gout Abnormal colonoscopy GERD (gastroesophageal reflux disease) Surgical History History of esophagogastroduodenoscopy (EGD) H/O colonoscopy History of lung surgery Family History Father Heart failure History of mental problems Substance abuse Mother CAD (coronary artery disease) Breast cancer Social History (Updated 07/27/23 @ 08:07 by Lee Almanza PA-C) Housing: House Alcohol intake: current Alcohol intake frequency: holidays/special occasions only Alcohol type: beer Patient Tobacco Use Status: Current someday Tobacco user Tobacco use type: Cigar e-Cigarette/Vaping Use: Never Used Second Hand Smoke Exposure: No Advance Directives Date on File: 08/17/21 service: No Current occupational status: retired Current occupation: Rt handed Cognitive needs: No Hearing needs: No Vision needs: No Questionnaire PHQ-9 Over the last 2 weeks, how often have you been bothered by any of the following problems? 1. Little interest or pleasure in doing things: not at all 2. Feeling down, depressed, or hopeless: not at all 3. Trouble falling or staying asleep, or sleeping too much: not at all 4. Feeling tired or having little energy: not at all 5. Poor appetite or overeating: not at all 6. Feeling bad about yourself - or that you are a failure or have let yourself or your family down: not at all 7. Trouble concentrating on things, such as reading the newspaper or watching television: not at all 8. Moving or speaking so slowly that other people could have noticed. Or the opposite - being so fidgety or restless that you have been moving around a lot more than usual: not at all 9. Thoughts that you would be better off or of hurting yourself in some way: not at all Total score: 0 Depression Screening Interpretation: Negative Depression Screening Done: Yes 45780 - PHQ-9 Billing: Yes Source: Developed by Drs. Bruce Samuel, Jeanette Dodd, Aldo Del Rio and colleagues, with an educational leida from [employer]. Thrive Questionnaire Date Thrive assessed: 07/27/23 I am a: Patient What is your living situation today?: I have a steady place to live Within the past 12 months, did the food you bought not last and you didn't have the money to get more?: Never true Within the past 12 months, did you worry whether your food would run out before you got money to buy more?: Never true Do you have trouble paying for medicines?: No Do you have trouble getting transportation to medical appointments?: No Do you have trouble paying your heating and electricity bill?: No Do you have trouble taking care of your child, family member or friend?: No Do you have trouble with day-to-day activities such as bathing, preparing meals, shopping, managing finances, etc.?: No Are you currently unemployed and looking for a job?: No Are you interested in more education?: No Please select the resources that you would like help with: None Currently or been in a relationship where the following occur: no concerns reported AUDIT C Alcohol Use Questionnaire (AUDIT-C) 1. How often do you have a drink containing alcohol?: Monthly or less Total Score: 1 Score Reviewed/Action Taken: Yes MISAEL-7 AMB Questionnaire MISAEL-7 Date MISAEL - 7 assessed: 07/27/23 Feeling nervous, anxious, or on edge: 0 = Not at all Not being able to stop or control worryin = Not at all Worrying too much about different things: 0 = Not at all Trouble relaxin = Not at all Being so restless that it is hard to sit still: 0 = Not at all Becoming easily annoyed or irritable: 0 = Not at all Feeling afraid as if something awful might happen: 0 = Not at all Total MISAEL-7 score (0-4 normal; 5-9 mild; 10-14 moderate; 15-21 severe): 0 Source: Developed by Drs. Bruce Samuel, Jeanette Dodd, Aldo Del Rio and colleagues, with an educational leida from [employer]. MISAEL-7 Assessment Billing MISAEL-7 Assessment Tool: MISAEL-7 Assessment 02904 Review of Systems Const Denies body aches, Denies chills, Denies excessive sweating, Denies fatigue, Denies fever(s) and Denies headache(s) Eyes Denies blurry vision ENT Denies dysphagia, Denies vertigo, Denies dizziness, Denies headache(s), Denies hearing loss and Denies tinnitus Card Denies chest pain, Denies chest pain with activity, Denies syncope, Denies irregular heart rhythm and Denies dyspnea Resp Denies chest congestion, Denies cough, Denies hemoptysis, Denies dyspnea and Denies wheezing GI Denies abdominal pain, Denies melena, Denies hematochezia, Denies coffee ground emesis, Denies dysphagia, Denies diarrhea, Denies nausea and Denies vomiting Denies difficulty urinating, Denies dysuria, Denies urinary frequency, Denies urinary hesitancy and Denies urinary urgency Musc Denies arthralgias, Denies limited range of motion, Denies muscle cramps and Denies muscle weakness Skin/Breast Denies rash and Denies skin ulcer Neuro Denies Abnormal speech present, Denies confusion, Denies vertigo, Denies dizziness, Denies syncope, Denies headache(s), Denies memory loss and Denies seizure-like activity Psych Denies anxiety, Denies confusion, Denies depression, Denies memory loss, Denies panic attacks and Denies paranoia Endo Denies excessive sweating, Denies fatigue, Denies flushing, Denies polydipsia and Denies polyuria Aller/Immun Denies wheezing Physical exam (Primary Care) Vital Signs: Last Vital Signs Pulse 64 07/27/23 07:45 BP 128/72 07/27/23 07:45 Pulse Ox 97 07/27/23 07:45 Oxygen Delivery Method Room Air 07/27/23 07:45 BMI result Body Mass Index 32.4 BMI Assessment/Plan discussion: High Tobacco/Smoking Status: Tobacco use Status Tobacco use date assessed 07/27/23 07/27/23 07:50 Patient Tobacco Use Status Current someday Tobacco 07/27/23 07:50 Tobacco use type Cigar 07/27/23 07:50 e-Cigarette/Vaping Use Never Used 07/27/23 07:50 PHQ-9: PHQ-9 Score PHQ-9: Total score 0 07/27/23 07:50 Depression Screening Interpretation: Negative Thrive Assessment: Date of Thrive Assessment Date Thrive assessed 07/27/23 07/27/23 07:50 Currently or been in a relationship where the following occur: no concerns reported Const Other: OBESE General: cooperative, comfortable, no acute distress, alert and awake; No confusion Orientation/consciousness: oriented to person, oriented to place, patient oriented x3 and No confusion HENMT Head: Yes normocephalic Ears: external ears normal and TM's normal bilaterally Face and sinus: No sinus tenderness Mouth: Normal oral and palatal mucosa present and tongue normal Teeth and gingiva: dentition normal and gingiva normal Throat: Yes posterior oropharynx normal, Yes tonsils normal and Yes uvula midline Eyes Conjunctivae: conjunctivae normal Sclerae: sclerae normal Pupils: Equal, round and reactive pupils present EOM: EOMs intact bilaterally Direct Ophthalmoscopy: No no photophobia Neck Neck: Yes no lymphadenopathy, No tender and Yes no JVD Thyroid: Thyroid normal Carotids: no bruits Chest Chest palpation & inspection: no tenderness Resp Effort & Inspection: normal respiratory effort, no audible wheezes, not labored and no stridor Auscultation: no crackles, no rales, no rhonchi and no wheezes Cardio Jugular venous distension: no JVD Rate: regular rate, not bradycardic and not tachycardic Rhythm: regular rhythm Bruits: no carotid bruits Peripheral pulses: Peripheral pulses 2+ throughout GI Inspection: Yes normal to inspection, No abdominal wall ecchymosis and No visible herniation Palpation (GI): Soft to palpation, nontender, no guarding, not rigid and No hepatosplenomegaly present Auscultation: normoactive bowel sounds General: Yes no CVA tenderness Back/Spine/Pelvis Back: no CVA tenderness and No back tenderness Cervical Spine: cervical ROM normal Thoracic/Lumbar Spine: thoracic and lumbar spine normal to inspection, straight leg raise negative bilaterally, No thoraco-lumbar ROM limited and No lumbar spinal tenderness Skin Lesions: no lesions Rashes: no rashes Wounds: no wounds Neuro General: oriented to person, oriented to place, patient oriented x3, CN's II-XI intact bilaterally and No confusion Cranial nerves: Yes Equal, round and reactive pupils present and Yes Normal accommodation reflex present Cognition (Neuro): normal cognition Speech: No Abnormal speech present Gait exam (Neuro): Normal gait present Motor exam (neuro): 5/5 motor strength present throughout Extrem Right upper extremity: full ROM; no cyanosis Left upper extremity: full ROM; no cyanosis Right lower extremity: no edema Left lower extremity: no edema Psych Appearance: grossly normal Mental Status: mental status grossly normal Affect: normal affect Attitude: cooperative Thought process: Normal thought process present Assessment and Plan Assessment & Plan (1) Annual physical exam: Code(s): Z00.00 - Encounter for general adult medical examination without abnormal findings (2) HTN (hypertension): Code(s): I10 - Essential (primary) hypertension Qualifiers: Hypertension type: essential hypertension Qualified Code(s): I10 - Essential (primary) hypertension Plan: Patient's blood pressure acceptable today in office, will continue current dose of amlodipine and metoprolol with goal blood pressure to be below 140/90 (3) HLD (hyperlipidemia): Code(s): E78.5 - Hyperlipidemia, unspecified Qualifiers: Hyperlipidemia type: mixed hyperlipidemia Qualified Code(s): E78.2 - Mixed hyperlipidemia Plan: Patient's most recent lipid panel acceptable. Will continue on gemfibrozil with goal triglycerides to be below 150. (4) CKD (chronic kidney disease) stage 3, GFR 30-59 ml/min: Code(s): N18.30 - Chronic kidney disease, stage 3 unspecified Qualifiers: Chronic kidney disease stage 3 subtype: unspecified whether 3a or 3b Qualified Code(s): N18.30 - Chronic kidney disease, stage 3 unspecified Plan: creatinine has been stable 1.3-1.4, will continue to follow renal functions. Will avoid any nephrotoxins. Will try to reestablish care with new weld technician here in [place].. (5) Obese: Code(s): E66.9 - Obesity, unspecified Qualifiers: Obesity type: due to excess calories Obesity classification: adult class 1 (BMI 30 - 34.9) Serious obesity comorbidity presence: with serious comorbidity Body mass index: BMI 32.0-32.9 Qualified Code(s): E66.09 - Other obesity due to excess calories; Z68.32 - Body mass index [BMI] 32.0-32.9, adult Plan: Patient does understand his BMI is above 30 will work on being more physically active and adapting to better eating habits to reduce his weight (6) Bilateral hydrocele: Code(s): N43.3 - Hydrocele, unspecified Plan: He reports he is due for surgery with [place] [facility] to remove his hydrocele. (7) Impaired glucose metabolism: Code(s): R73.09 - Other abnormal glucose Plan: Most recent fasting blood sugar 117. Will check an A1c. Advised on low carbohydrate diet. Orders: Referrals Nephrology Referral N18.30 - Chronic kidney disease, stage 3 unspecified Coding Level of Care Code Est Pt Prev Care >65y(75396) Diagnoses Annual physical exam Z00.00 Essential hypertension I10 Hypertension type: essential hypertension Mixed hyperlipidemia E78.2 Hyperlipidemia type: mixed hyperlipidemia Stage 3 chronic kidney disease, unspecified whether stage 3a or 3b CKD N18.30 Chronic kidney disease stage 3 subtype: unspecified whether 3a or 3b Class 1 obesity due to excess calories with serious comorbidity and body mass index (BMI) of 32.0 to 32.9 in adult E66.09; Z68.32 Obesity type: due to excess calories Obesity classification: adult class 1 (BMI 30 - 34.9) Serious obesity comorbidity presence: with serious comorbidity Body mass index: BMI 32.0-32.9 Bilateral hydrocele N43.3 Impaired glucose metabolism R73.09 Additional Codes MISAEL-7 Assessment Billing - MISAEL-7 Assessment Tool: MISAEL-7 Assessment [id number] ([id number])
== END 2023-07-27 08:17 | disposition home or self-care (01) ==
PROVIDERS: PCP Physician Assistant; Visit Provider Physician Assistant
DX: Z00.00 Encounter for general adult medical examination without abnormal findings (principal); I12.9 Hypertensive chronic kidney disease with stage 1 through stage 4 chronic kidney disease, or unspecified chronic kidney disease; N18.30 Chronic kidney disease, stage 3 unspecified; E78.2 Mixed hyperlipidemia; E66.09 Other obesity due to excess calories; Z68.32 Body mass index [BMI] 32.0-32.9, adult; N43.3 Hydrocele, unspecified; R73.09 Other abnormal glucose
CPT/HCPCS: 99397

== ENCOUNTER 2023-08-04 11:01 | Outpatient (AMB) | payer MEDICARE, SELFPAY ==
[2023-08-04 11:16] VITALS: BP 110/60; PULSE 70; O2SAT 94; BMI 32.5
--- NOTE | 2023-08-04 11:16 | HO.NEPHOV ---
HPI HPI Comments History of Present Illness Details I had the pleasure of seeing Jorge in follow-up of his proteinuria, mild CKD and hypertension. He had swelling of the left side of the face and lips in the past and was thought to be due to lisinopril which had been discontinued long time ago. Currently he feels well. He does not have any chest pain, shortness of breath, paroxysmal nocturnal dyspnea, orthopnea, pedal edema or urinary symptoms. His blood pressure has been at goal. He has not been initiated on any new medications nor has not had any hospitalizations. All other systems have been reviewed and were negative. [facility] Medical History Recurrent UTI Venous stasis dermatitis of left lower extremity Tubulovillous adenoma polyp of colon COVID-19 vaccine series completed Chronic renal insufficiency GERD (gastroesophageal reflux disease) Elevated cholesterol HTN (hypertension) Gout Abnormal colonoscopy GERD (gastroesophageal reflux disease) Surgical History History of esophagogastroduodenoscopy (EGD) H/O colonoscopy History of lung surgery Family History Father Heart failure History of mental problems Substance abuse Mother CAD (coronary artery disease) Breast cancer Social History Housing: House Alcohol intake: current Alcohol intake frequency: holidays/special occasions only Alcohol type: beer Patient Tobacco Use Status: Current someday Tobacco user Tobacco use type: Cigar e-Cigarette/Vaping Use: Never Used Second Hand Smoke Exposure: No Advance Directives Date on File: 08/17/21 service: No Current occupational status: retired Current occupation: Rt handed Cognitive needs: No Hearing needs: No Vision needs: No Vital Signs 08/04/23 11:16 Height 6 ft 2 in Weight 253 lb 2 oz BMI 32.5 BP 110/60 Blood Pressure Location Rt brachial Position Sitting Pulse 70 Pulse Source Pulse Oximeter Pulse Oximetry (%) 94 Oxygen Delivery Method Room Air Physical Exam Vital Signs: Last Vital Signs Pulse 70 08/04/23 11:16 BP 110/60 08/04/23 11:16 Pulse Ox 94 08/04/23 11:16 Oxygen Delivery Method Room Air 08/04/23 11:16 BMI result Body Mass Index 32.5 Const General: comfortable and no acute distress Orientation/consciousness: patient oriented x3 HEENT Head: Yes normocephalic Mouth: Normal oral and palatal mucosa present Eyes EOM: EOMs intact bilaterally Neck Neck: Yes supple Resp Auscultation: clear to auscultation bilaterally Cardio Jugular venous distension: no JVD Rate: regular rate GI Palpation (GI): Soft to palpation Auscultation: normal bowel sounds General: Yes no CVA tenderness Back/Spine/Pelvis Back: no CVA tenderness Skin General skin exam: no rashes or lesions noted Neuro General: patient oriented x3 and moves all extremities Extrem General: Yes no pedal edema Assessment & Plan Assessment & Plan (1) CKD (chronic kidney disease) stage 3, GFR 30-59 ml/min: Code(s): N18.30 - Chronic kidney disease, stage 3 unspecified Qualifiers: Chronic kidney disease stage 3 subtype: unspecified whether 3a or 3b Qualified Code(s): N18.30 - Chronic kidney disease, stage 3 unspecified (2) HTN (hypertension): Code(s): I10 - Essential (primary) hypertension Qualifiers: Hypertension type: essential hypertension Qualified Code(s): I10 - Essential (primary) hypertension Plan Jorge has mild CKD and hypertension. His renal functions have been stable. He has not tolerated any RENATA inhibitor due to angioedema. He avoids nonsteroidal anti-inflammatories. He does not have any froth or foam in the urine. All serology, immunology workup had been negative in the past. If his proteinuria worsens he will need a renal biopsy. I have not made any medication changes at this office visit. If his proteinuria worsens his amlodipine can be switched to diltiazem. He may be a candidate for Jardiance in the future. He should remain well hydrated. I did not make any medication changes today. All his questions answered. Follow-up given. Orders: Orders Hemoglobin A1c 08/04/23 N18.30 - Chronic kidney disease, stage 3 unspecified Protein Creatinine Ratio, Ur 08/04/23 N18.30 - Chronic kidney disease, stage 3 unspecified Blood Urea Nitrogen 08/04/23 N18.30 - Chronic kidney disease, stage 3 unspecified Creatinine 08/04/23 N18.30 - Chronic kidney disease, stage 3 unspecified Blood Urea Nitrogen 08/04/23 I10 - Essential (primary) hypertension, N18.30 - Chronic kidney disease, stage 3 unspecified Electrolytes 08/04/23 N18.30 - Chronic kidney disease, stage 3 unspecified Creatinine 08/04/23 I10 - Essential (primary) hypertension, N18.30 - Chronic kidney disease, stage 3 unspecified Electrolytes 08/04/23 I10 - Essential (primary) hypertension, N18.30 - Chronic kidney disease, stage 3 unspecified Coding Level of Care Code Est Pt Level 3 (70635) Diagnoses Stage 3 chronic kidney disease, unspecified whether stage 3a or 3b CKD N18.30 Chronic kidney disease stage 3 subtype: unspecified whether 3a or 3b Essential hypertension I10 Hypertension type: essential hypertension Results Reviewed Nephrology Results: Hgb 11.5 g/dl (14.0-18.0) L 08/04/23 WBC 5.2 X10*3/uL (4.8-10.8) 08/04/23 Plt Count 233 X10*3/uL (160-400) 08/04/23 Sodium 133 mmol/L (135-145) L 08/04/23 Potassium 4.5 mmol/L (3.3-5.1) 08/04/23 Chloride 101 mmol/L (96-108) 08/04/23 Carbon Dioxide 23 mmol/L (22-29) 08/04/23 BUN 9 mg/dL (9-16) 08/04/23 Creatinine 1.29 mg/dL (0.5-1.4) 08/04/23 Calcium 9.8 mg/dL (8.4-10.2) 08/04/23 Urine Creatinine 218.38 mg/dL 08/04/23 Protein/Creatinin Ratio 0.20 (<0.2) 08/04/23
== END 2023-08-04 11:33 | disposition home or self-care (01) ==
PROVIDERS: PCP Physician Assistant; Referring Provider Physician Assistant; Visit Provider Internal Medicine Nephrology
DX: N18.30 Chronic kidney disease, stage 3 unspecified (principal); I10 Essential (primary) hypertension
CPT/HCPCS: 99213

== ENCOUNTER → 2023-08-04 11:01 | Outpatient (BNVA) | payer MEDICARE, SELFPAY | PROVIDERS: PCP Physician Assistant; Referring Provider Physician Assistant; Visit Provider Internal Medicine Nephrology | DX: I83.12 Varicose veins of left lower extremity with inflammation (principal); N43.3 Hydrocele, unspecified; I12.9 Hypertensive chronic kidney disease with stage 1 through stage 4 chronic kidney disease, or unspecified chronic kidney disease; N18.30 Chronic kidney disease, stage 3 unspecified | CPT/HCPCS: 99212 ==

== ENCOUNTER 2023-08-04 11:28 | Outpatient (AMB) | payer MEDICARE, SELFPAY ==
--- NOTE | 2023-08-04 11:29 | MHC.OFFVIS ---
Intake Intake Visit Reasons: H&P Greenlight/Left hydrocelectomy Intake Note: Patient is Present for Telephone Follow Up H&P Update Urology Med: Finasteride, Tamsulosin Antibiotic Allergy: None Blood Thinner: None Allergies lisinopril Allergy (Unknown, Verified 08/04/23 11:18) Unknown sertraline [From Zoloft] Adverse Reaction (Severe, Verified 08/04/23 11:18) suicidal HPI HPI Comments History of Present Illness Details Jorge is a pleasant male. He is a patient of Dr. Almanza. He is seen for the following urologic conditions - lower urinary tract symptoms - recurrent urinary tract infections - left hydrocele Telemedicine Evaluation 15 min Consultation [place] Video attempted Plan procedure beginning of August Risks and benefits GreenLight prostatectomy discussed Understands catheter will stay Monday through Questions answered Persistent left hydrocele. Also discussed prostate procedure Given prior recurrent urinary tract infections with would move ahead with GreenLight laser prostatectomy at same time is left hydrocelectomy Recurring urinary tract infections Current therapy prophylactic Macrobid, tamsulosin, finasteride Postvoid residual 50 cc Ultrasound with trabeculated urinary bladder and mild bladder wall thickening Urinary cultures - multiple culture positive for E coli which is pansensitive - 10/06 Microgen - E coli resistant to Levaquin PSA - 01/05 2.0 - HbA1c 04/07 5.7 Cystoscopy - 10/06 large prostate with trabeculation PFSH Medical History Recurrent UTI Venous stasis dermatitis of left lower extremity Tubulovillous adenoma polyp of colon COVID-19 vaccine series completed Chronic renal insufficiency GERD (gastroesophageal reflux disease) Elevated cholesterol HTN (hypertension) Gout Abnormal colonoscopy GERD (gastroesophageal reflux disease) Surgical History History of esophagogastroduodenoscopy (EGD) H/O colonoscopy History of lung surgery Family History Father Heart failure History of mental problems Substance abuse Mother CAD (coronary artery disease) Breast cancer Social History Housing: House Alcohol intake: current Alcohol intake frequency: holidays/special occasions only Alcohol type: beer Patient Tobacco Use Status: Current someday Tobacco user Tobacco use type: Cigar e-Cigarette/Vaping Use: Never Used Second Hand Smoke Exposure: No Advance Directives Date on File: 08/17/21 service: No Current occupational status: retired Current occupation: [employer] handed Cognitive needs: No Hearing needs: No Vision needs: No Review of Systems Const All systems reviewed & are unremarkable except as noted in HPI and below Reports no additional complaints Resp Reports no additional complaints GI Reports no additional complaints Reports as per HPI Musc Reports no additional complaints Physical Exam Telemedicine evaluation Appropriate responses Regular breathing rate and rhythm HEENT Head: Yes normal to inspection Ears: hearing grossly normal bilaterally Eyes General: appearance normal, both eyes and all related structures Neck Neck: Yes normal visual inspection Chest Chest palpation & inspection: normal inspection of the chest Resp Effort & Inspection: normal respiratory effort and able to speak in complete sentences Assessment & Plan Assessment & Plan (1) Bilateral hydrocele: Code(s): N43.3 - Hydrocele, unspecified (2) Varicose veins of left lower extremity with inflammation: Code(s): I83.12 - Varicose veins of left lower extremity with inflammation Plan Risks, benefits and alternatives to therapy were discussed. These include but are not limited to infection, bleeding, damage to local organs and tissues, need for further interventions. Anesthetic risks regarding cardiac arrhythmia, blood clots, and potential mortality were discussed. The patient understands the typical recovery time and the outpatient nature of the procedure. After consideration of these risks the patient gives full informed consent and they wish to move ahead with the procedure. Plan GreenLight laser prostate and left hydrocelectomy Patient Instructions: Imaging studies, laboratory and physical exam results were discussed and reviewed in detail. No major barriers to patient understanding were identified. An opportunity to ask questions regarding the treatment plan was provided. All questions were answered. The patient expressed understanding and agreement with the above treatment plan. The patient is aware they should contact our office by phone for worsening of their current condition or the appearance of new urologic symptoms. Compliance is encouraged with any medications and followup testing that is ordered. It is a privilege to participate in the urologic care of your patient. If you have any questions or concerns regarding treatment for the above conditions, or other urologic issues, please do not hesitate to contact me. The office telephone contact is [phone]. This note is constructed using voice recognition software. While every effort has been made to ensure accuracy realtime reporter errors may have been included. Yours sincerely, Dr Cody Caceres MD, [facility] - Urology Providers of Expert, Compassionate Care for the Genitourinary System Telehealth Telehealth Location of provider rendering services: practice address Location of patient: address on file Patient Identification confirmed using: Name, : Yes Telehealth method: video Patient verbally consented to treatment: Yes Patient verbally consented to billing insurance company: Yes Patient informed of any privacy concerns related to visit: Yes Coding Level of Care Code Tele Est Pt Level 4 (89652) Diagnoses Bilateral hydrocele N43.3 Varicose veins of left lower extremity with inflammation I83.12
== END 2023-08-04 11:44 | disposition home or self-care (01) ==
LOC: HO.HUSH 11:28
PROVIDERS: PCP Physician Assistant; Visit Provider Urology
DX: N43.3 Hydrocele, unspecified (principal); I83.12 Varicose veins of left lower extremity with inflammation
CPT/HCPCS: 99214

== ENCOUNTER 2023-08-04 11:44 | Outpatient (REF) | payer MEDICARE, SELFPAY ==
[2023-08-04 13:49] LABS: Hematocrit 34.7 % (42.0-52.0); Hemoglobin 11.5 g/dl (14.0-18.0); Mean Corpuscular HGB Conc 33.1 g/dl (31.0-36.0); Mean Corpuscular Hemoglobin 30.8 pg (27.0-33.0); Mean Platelet Volume 9.7 fL (9.4-12.4); Platelet Count 233 X10*3/uL (160-400); Red Blood Count 3.73 X10*6/uL (4.60-5.80); Red Cell Distribution Width 13.2 % (11.0-16.0); White Blood Count 5.2 X10*3/uL (4.8-10.8)
[2023-08-04 14:34] LABS: Estimated Average Glucose 85 mg/dL; Hemoglobin A1c % 4.6 % (<6.0)
[2023-08-04 14:42] LABS: Prostate Specific Antigen Scr 1.04 ng/mL (<0.05-4.0)
[2023-08-04 14:46] LABS: Alanine Aminotransferase 12 U/L (0-40); Albumin Level 3.8 g/dL (3.5-5.0); Alkaline Phosphatase 107 U/L (39-117); Anion Gap 14 (12-20); Aspartate Amino Transferase 19 U/L (5-37); Bilirubin Total 0.8 mg/dL (0.0-1.0); Blood Urea Nitrogen 9 mg/dL (9-16); Calcium 9.8 mg/dL (8.4-10.2); Carbon Dioxide 25 mmol/L (22-29); Chloride 101 mmol/L (96-108); Cholesterol 159 mg/dL (<200); Estimated Glomerular Filt Rate 53; Glucose Fasting 116 mg/dL (60-99); HDL Cholesterol 40 mg/dL (>40); LDL Cholesterol Calculated 102 mg/dL (<100); Potassium 4.5 mmol/L (3.3-5.1); Sodium 135 mmol/L (135-145); Total Protein 7.4 g/dL (6.5-8.0); Triglycerides 89 mg/dL (<150)
[2023-08-04 14:54] LABS: Anion Gap 14 (12-20); Blood Urea Nitrogen 9 mg/dL (9-16); Carbon Dioxide 23 mmol/L (22-29); Chloride 101 mmol/L (96-108); Estimated Glomerular Filt Rate 55; Potassium 4.5 mmol/L (3.3-5.1); Sodium 133 mmol/L (135-145)
[2023-08-04 15:20] LABS: Creatinine Urine 219.48 mg/dL; Total Protein Urine Random 43 mg/dL (<12)
[2023-08-04 15:22] LABS: Creatinine Urine 218.38 mg/dL; Microalbum/Creatinine Ratio Ur 64.1 ug/mg cr (<30)
== END 2023-08-04 11:45 | disposition home or self-care (01) ==
LOC: HO.10HDL 11:44
PROVIDERS: Physician Assistant; Visit Provider Internal Medicine Nephrology
DX: Z12.5 Encounter for screening for malignant neoplasm of prostate (principal); I12.9 Hypertensive chronic kidney disease with stage 1 through stage 4 chronic kidney disease, or unspecified chronic kidney disease; N18.30 Chronic kidney disease, stage 3 unspecified; E78.2 Mixed hyperlipidemia; R73.01 Impaired fasting glucose
CPT/HCPCS: 36415; 80051; 80053; 80061; 82043; 82565; 82570; 83036; 84153; 84156; 84520; 85027

== ENCOUNTER → 2023-08-21 06:50 | Day surgery (SDC) | payer MEDICARE, SELFPAY ==
[2023-08-17 10:17] VITALS: BMI 32.4
--- NOTE | 2023-08-18 10:51 | HO.ANESPROP2 ---
Documented by User: Brisa Dinero NP 08/18/23 10:53 HPI - Anesthesia Eval Consult details Narrative: 68yo M for Laser Ablation Prostate w/Green Light,with left Hydrocelectomy, Follows [facility] renal for mild CKD and htn. Last visit 07/2023. 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 (Acute) Valgus deformity, not elsewhere classified, left knee (Acute) Osteoarthritis of left knee (Acute) HLD (hyperlipidemia) (Acute) Osteoarthritis of left knee (Acute) Left knee pain (Acute) Obese (Acute) Impaired glucose metabolism (Acute) Annual physical exam (Acute) Tubular adenoma of colon (Acute) Insomnia (Acute) MISAEL (generalized anxiety disorder) (Acute) Hypertriglyceridemia (Acute) CKD (chronic kidney disease) stage 3, GFR 30-59 ml/min (Acute) HTN (hypertension) (Acute) Past Medical History Medical History Recurrent UTI Venous stasis dermatitis of left lower extremity Tubulovillous adenoma polyp of colon COVID-19 vaccine series completed Chronic renal insufficiency Elevated cholesterol HTN (hypertension) Gout Abnormal colonoscopy GERD (gastroesophageal reflux disease) Family History Family History Father Heart failure History of mental problems Substance abuse Mother CAD (coronary artery disease) Breast cancer Family history of problems with anesthesia: No Surgical History Surgical History History of esophagogastroduodenoscopy (EGD) H/O colonoscopy History of lung surgery History of Problems with Anesthesia: No Social History Social History Housing: House Alcohol intake: current Alcohol intake frequency: holidays/special occasions only Alcohol type: beer Patient Tobacco Use Status: Current someday Tobacco user Tobacco use type: Cigar e-Cigarette/Vaping Use: Never Used Second Hand Smoke Exposure: No Use of substances other than those prescribed or required for medical reasons: No Are you DNR?: No Advance Directives: No Advance Directives Information Provided: Yes Advance Directives Date on File: 08/17/21 service: No Current occupational status: retired Current occupation: [employer]t handed Cognitive needs: No Hearing needs: No Vision needs: No Meds Allergies Allergy/AdvReac Type Severity Reaction Status Date / Time lisinopril Allergy Unknown Unknown Verified 08/04/23 11:18 sertraline [From Zoloft] AdvReac Severe suicidal Verified 08/04/23 11:18 Home Medications Medication Instructions Recorded Confirmed Last Taken Type omeprazole 40 mg capsule,delayed 40 mg PO DAILY 04/14/20 08/21/23 08/21/23 History release folic acid 1 mg tablet 1 mg PO DAILY 07/29/21 08/21/23 Unknown History allopurinol 300 mg tablet 300 mg PO DAILY 10/24/22 08/21/23 08/21/23 History Exam Height,Weight and Vital Signs: Height 6 ft 2 in Weight 114.305 kg Pertinent Lab Results Pertinent Lab Results: Laboratory Tests 08/04/23 11:50 WBC 5.2 Hgb 11.5 L Hct 34.7 L Plt Count 233 Sodium 133 L Potassium 4.5 Chloride 101 Carbon Dioxide 23 BUN 9 Creatinine 1.29 Assessment and Plan Assessment Anesthesia Assessment: Chart Reviewed Final Anesthetic Review Family History of Problems with Anesthesia: No History of Problems with Anesthesia: No Documented by User: Marianne Modi MD 08/21/23 09:10 [facility] Active Problems Active Problems: All Active Problems (Updated 08/21/23 @ 08:50 by Marianne Modi MD) Bilateral hydrocele (Acute) Lymphedema (Acute) Varicose veins of left lower extremity with inflammation (Acute) BPH associated with nocturia (Acute) Impaired fasting glucose (Acute) Subcutaneous cyst (Acute) 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 (Acute) Valgus deformity, not elsewhere classified, left knee (Acute) Osteoarthritis of left knee (Acute) HLD (hyperlipidemia) (Acute) Osteoarthritis of left knee (Acute) Left knee pain (Acute) Obese (Acute) Impaired glucose metabolism (Acute) Annual physical exam (Acute) Tubular adenoma of colon (Acute) Insomnia (Acute) MISAEL (generalized anxiety disorder) (Acute) Hypertriglyceridemia (Acute) CKD (chronic kidney disease) stage 3, GFR 30-59 ml/min (Acute) HTN (hypertension) (Acute) Past Medical History Medical History Recurrent UTI Venous stasis dermatitis of left lower extremity Tubulovillous adenoma polyp of colon COVID-19 vaccine series completed Chronic renal insufficiency Elevated cholesterol HTN (hypertension) Gout Abnormal colonoscopy GERD (gastroesophageal reflux disease) Family History Family History Father Heart failure History of mental problems Substance abuse Mother CAD (coronary artery disease) Breast cancer Family history of problems with anesthesia: No Surgical History Surgical History History of esophagogastroduodenoscopy (EGD) H/O colonoscopy History of lung surgery History of Problems with Anesthesia: No Social History Social History Housing: House Alcohol intake: current Alcohol intake frequency: holidays/special occasions only Alcohol type: beer Patient Tobacco Use Status: Current someday Tobacco user Tobacco use type: Cigar e-Cigarette/Vaping Use: Never Used Second Hand Smoke Exposure: No Use of substances other than those prescribed or required for medical reasons: No Are you DNR?: No Advance Directives: No Advance Directives Information Provided: Yes Advance Directives Date on File: 08/17/21 service: No Current occupational status: retired Current occupation: Rt handed Cognitive needs: No Hearing needs: No Vision needs: No Meds Allergies Allergy/AdvReac Type Severity Reaction Status Date / Time lisinopril Allergy Unknown Unknown Verified 08/04/23 11:18 sertraline [From Zoloft] AdvReac Severe suicidal Verified 08/04/23 11:18 Home Medications Medication Instructions Recorded Confirmed Last Taken Type omeprazole 40 mg capsule,delayed 40 mg PO DAILY 04/14/20 08/21/23 08/21/23 History release folic acid 1 mg tablet 1 mg PO DAILY 07/29/21 08/21/23 Unknown History allopurinol 300 mg tablet 300 mg PO DAILY 10/24/22 08/21/23 08/21/23 History Exam Height,Weight and Vital Signs: Height 6 ft 2 in Weight 114.305 kg Vital Signs Temp Pulse Resp BP Pulse Ox O2 Del Method 08/21/23 07:36 97.5 F 60 18 130/73 97 Room Air Airway Mallampati Class: II TM Dist: >3cm Neck ROM: Full Loose/Missing/Broken Teeth: No (Denies broken, loose, missing teeth) Heart: RRR Lungs: CTAB. Diminished Assessment and Plan Assessment Anesthesia Assessment: Anesthesia Plan Discussed, Smoking Cess. Discussed and Chart Reviewed Final Anesthetic Review Family History of Problems with Anesthesia: No History of Problems with Anesthesia: No NPO: Yes ASA Class: III Final Preanesthetic Review: No Changes in Pt Med Stat, Meds/Allgs Chart Reviewed, Consent Obtained/Reviewed and Anes Risks/Benef Reviewed Patient Risk: Intermediate Procedure Risk: Low Assessment/Block/Sedation in SS: Assess/Block/Sedation-SS Anesthetic Plan Anesthetic Plan: GA Disposition: Standard PACU
[2023-08-21] VITALS (11 sets, daily range): BP systolic 88–130; BP diastolic 55–73; PULSE 60–87; RESP 18–29; TEMP 36.1–36.4; O2SAT 91–97; BMI 32.7
--- NOTE | ~2023-08-21 | XR_ITS ---
EXAMINATION: XR CHEST CLINICAL INFORMATION: Respiratory failure. COMPARISON: Chest radiograph dated 06/23/2015. TECHNIQUE: Frontal view of the chest was obtained. FINDINGS: Large left-sided pleural effusion which nearly completely opacifies the left chest. Faint aeration of the left upper lobe. Small right-sided pleural effusion with adjacent atelectasis versus infiltrates. No pneumothorax. Partially obscured cardiomediastinal silhouette. XR/XR chest 1V IMPRESSION: 1. Large left-sided pleural effusion which nearly completely opacifies the left chest. Faint aeration of the left upper lobe. 2. Small right-sided pleural effusion with adjacent atelectasis versus infiltrates.
--- NOTE | 2023-08-21 07:45 | MHC.SHP ---
Pre-Procedural Eval Section A - 24 Hr Update-Section A only Date of Service: 08/21/23 The patient is an INPATIENT: No Changes since office visit: No Cold of Flu in the past 2 weeks, No New Medical Problems, No Changes in Medication and No Patient answered all questions The patient has been examined within 24 hours of the surgical procedure. The History & Physical has been completed within 30 days and I have reviewed it.: No Section B - Complete if H&P > 30 days Chief Complaint: Hydrocele,benign prostatic hyperplasia Details of Present Illness: BPH with left hydrocele Relevant Family History (Specify if Yes): No Relevant Social History: None Present Medications: see Short Stay Collaborative assessment Medical History: No relevant PMH History of Previous Operations: No relevant previous surgery Allergies: Allergies Allergy/AdvReac Type Severity Reaction Status Date / Time lisinopril Allergy Unknown Unknown Verified 08/04/23 11:18 sertraline [From Zoloft] AdvReac Severe suicidal Verified 08/04/23 11:18 Review of Systems Sugical H&P ROS: Negative: Constitution, Cardiovascular, Respiratory, Neurological, Psychiatric, Hem-Onc, Allergic/Immunologic, Gastrointestinal, Genitourinary, Musculoskeletal, Integumentary, Endocrine and Eyes/Ears/Nose/Throat Exam Surgical H&P Exam: Normal: HEENT, Normal: Heart, Normal: Lungs, Normal: Extremities, Normal: Abdomen, Normal: Skin and Normal: Neurological Plan Diagnosis/Plan: Unchanged (left hydrocelectomy with laser prostatectomy) I have reviewed the history and physical and performed a pertinent physical examination on my patient. No changes have occurred unless specified. Time Spent With Patient Time: Total time managing care of this patient today ____ minutes.
[2023-08-21] MEDS: Lactated Ringers 1,000 ML 100 ML IVCONT (08:08)
--- NOTE | 2023-08-21 10:54 | P.OP_ITS ---
Operative Note Operative Note Date of Service: 08/21/23 Narrative: PreOperative Diagnosis: 1.) Bladder outlet obstruction 2.) Left hydrocele Post Operative Diagnosis: Bladder outlet obstruction Procedure: 1.) GreenLight Laser Enucleation of the prostate CPT 70731 2.) Left hydrocelectomy Surgeon: Dr Cody Caceres Anesthesia: General History of bladder outlet obstruction. Treated with alpha-maria a and other medications. Still with symptoms. On cystoscopy in office has mild trilobar impingement. Recommendation for prostate procedure with laser enucleation of prostate. Risks and benefits have been discussed. Focus was placed on development of retrograde ejaculation which is a normal part of this procedure. Procedure: After informed consent was verified the patient was brought to the operating room and placed in a supine position. Anesthesia was administered per protocol. Patient was placed in modified dorsal lithotomy position and prepped and draped in a sterile fashion. Safety pause time-out was confirmed. Antibiotics have been given. Local anesthetic was infiltrated under the skin in a horizontal fashion on the left scrotum. Skin incision was made using a blade through the subdermal layer. The tunica around the testicle was elevated and dissected free from surrounding tissue. The avascular plane around the tunica was entered and using a wet sponge blunt dissection was performed. Any small bleeding perforators were cauterized. The testicle was delivered out of the scrotum and opened in a longitudinal fashion - the tunica was markedly inflamed and scarred suggesting chronic orchitis. Fluid was removed. LigaSure cautery device was used to incise the thickened tunica sac to minimize postprocedure bleeding. Skin edges of the tunica were cauterized carefully in order to try to minimize postprocedure hematoma. Small accessory appendices were removed from the head of epididymis. The testicle with resected sac was placed back into a dependent portion of the scrotum. Overlying skin fascia layer was closed with a running 3-0 Vicryl suture. Skin was closed with interrupted 4-0 chromic sutures. A Twenty-four [place] laser cystoscope was inserted per urethra. No abnormalities were found of the anterior and bulbar urethra. The bladder was examined and both ureteric orifices were seen in their normal positions away from the area of interest. Using a GreenLight laser with settings of 80 w incisions were made at the 5 and 7 o'clock position. The incisions were taken down from the bladder neck down to the level of the veru. These were gradually deepened in order to define the lateral aspects of the median lobe area. Once clearly defined they will also extended in the lateral directions in order to create a deep groove. The median lobe was then ablated and enucleated tissue released into the bladder with the laser power increased to 120 W. Once the median lobe area had been cleared attention was directed to the lateral lobes. Starting with the patient's left lateral lobe. First the 05:00 o'clock groove was further developed. This was moved in the lateral direction to undermine the tissue on the lateral side running from the bladder neck to the prostate apex. Focus was then placed on the laser at the 1 o'clock position to developing a secondary groove down to the level of bladder fibers. The creation of a second deep groove defined a segment of intervening tissue similar to a slice of orange. At the apex of the prostate the 2 grooves were linked the us releasing the intervening tissue. This tissue was then removed with a combination of enucleation and ablation working from the apex toward the bladder neck. A similar procedure was repeated on the patient's right-hand side. The only differences being the position of the lateral groove at he 7 'oclock positioin and the secondary groove at the 11 o'clock position, Otherwise the procedure was developed in a mirror fashion. After the majority of tissue had been debulked remnant tissue was ablated with the side fire laser and the curve of the prostate followed up each side wall clearly defining the anterior remnant strip that remained between the 11 and 1 o'clock positions. When this was had been completed debris and pieces of prostate were removed from the bladder with irrigation. Both ureteric orifices were reviewed again in shown to be patent in away from any areas of energy damage. The apical area was reviewed in any stray ooze was controlled. A 22 [place] 30 cc balloon Carreon catheter was placed over a stylet into the bladder. Clear efflux was obtained upopn irrigation with a Mayito piston syringe. 30 cc was placed in the balloon and gentle traction was placed. A snap was used to hold tension on the catheter to control bleeding during patient moved and transported. A drainage bag was placed. Once transportation is complete to the PACU the snap will be removed. The patient tolerated the procedure well, he was extubated in the operating and transferred in a stable condition to the recovery area. Total Power 117 kW Lasing time 18.26 Pathology: Prostate tissue Hydrocele Sac Drains: Carreon catheter
== END | disposition home or self-care (01) ==
PROVIDERS: PCP Physician Assistant; Visit Provider Urology
PROC: (CPT 52648; principal; 2023-08-21 09:10)
DX: N40.1 Benign prostatic hyperplasia with lower urinary tract symptoms (principal); N13.8 Other obstructive and reflux uropathy; N43.3 Hydrocele, unspecified; I12.9 Hypertensive chronic kidney disease with stage 1 through stage 4 chronic kidney disease, or unspecified chronic kidney disease; N18.30 Chronic kidney disease, stage 3 unspecified; Z87.440 Personal history of urinary (tract) infections; E78.00 Pure hypercholesterolemia, unspecified; I83.12 Varicose veins of left lower extremity with inflammation; Z79.899 Other long term (current) drug therapy; Z88.8 Allergy status to other drugs, medicaments and biological substances; Z98.890 Other specified postprocedural states; F17.290 Nicotine dependence, other tobacco product, uncomplicated
CPT/HCPCS: 52649; 55040; 71045; 88302; 88305; 94660; J0131; J1956; J2405; J2704; J2795; J3010

== ENCOUNTER → 2023-08-21 06:50 | Outpatient (BNV) | payer MEDICARE, SELFPAY | PROVIDERS: PCP Physician Assistant; Visit Provider Urology | DX: N40.1 Benign prostatic hyperplasia with lower urinary tract symptoms (principal); N43.3 Hydrocele, unspecified | CPT/HCPCS: 52649; 55040 ==

== ENCOUNTER 2023-08-21 13:27 | Inpatient (IN) | payer MEDICARE, SELFPAY ==
[2023-08-21] VITALS (8 sets, daily range): BP systolic 119–129; BP diastolic 68–74; PULSE 56–83; RESP 19–20; TEMP 36.4–36.8; O2SAT 96–98; BMI 33.0
--- NOTE | ~2023-08-21 | CT_ITS ---
EXAMINATION: CT ABDOMEN AND PELVIS WITHOUT CONTRAST CLINICAL INFORMATION: Abdominal distention. Rule out ileus, obstruction. COMPARISON: 08/21/2023. TECHNIQUE: Multidetector volumetric imaging was performed from the superior aspect of the liver through the pubic symphysis. Sagittal and coronal reformatted images were obtained on the technologist's workstation. This CT examination was performed using dose optimization techniques as appropriate, variously including the following: *Automated exposure control *Adjustment of mA and/or kV according to patient size (this includes techniques or standardized protocols for targeted exams where dose is matched to indication/reason for exam; i.e. extremities or head) *Use of iterative reconstruction technique DLP: 818. mGy-cm FINDINGS: LUNG BASES/MEDIASTINUM: A drainage catheter enters anterolaterally between the left seventh and eighth ribs, new compared with 08/21/2023, 1 week prior. It does not appear to lie in the pleural space. Its tip lies in the left anterior pericardiophrenic region. Associated surrounding air. No fluid identified in this region. At least moderate amount of left pleural fluid with associated dependent airspace disease, grossly similar compared with CT scan from 08/21/2023, 1 week prior. Borderline mild cardiomegaly. Decreased blood pool density, suggesting anemia. Trace pericardial fluid. LIVER, GALLBLADDER, AND BILIARY TREE: Similar appearance of multiple (at least 10), approximately 5.6 cm or less solid-appearing masses, some with calcification and/or central necrosis compared with one week prior. No biliary ductal dilation identified. Suspect mild vicarious excretion of intravenous contrast and of the gallbladder. PANCREAS: Similar appearance of approximately 7 cm solid mass involving the tail the pancreas and extending to the splenic hilum, with loss of fat planes between the 2. SPLEEN: Similar appearance of approximately 10 cm solid-appearing splenic mass. ADRENAL GLANDS: Unremarkable KIDNEYS AND URETERS: No change in approximately 2 cm or less benign bilateral simple renal cysts for which no further dedicated follow up imaging is indicated. The kidneys otherwise appear unremarkable in size, shape, and attenuation. No hydronephrosis, hydroureter, or calculi seen. BLADDER: Unremarkable GASTROINTESTINAL TRACT: No evidence of intestinal obstruction or ileus. The small and large bowel appear unremarkable. PERITONEAL CAVITY/OMENTUM: Suspect multiple omental implants and omental caking, similar compared with one week prior. Moderate amount of ascites, unchanged. ABDOMINAL WALL: No significant hernia is appreciated. LYMPH NODES: No evidence of adenopathy by size criteria. VASCULAR: Unremarkable PELVIC VISCERA: Mildly enlarged prostate. MUSCULOSKELETAL STRUCTURES: No lytic or sclerotic bony lesion identified. Mild to moderate degenerative changes of the lower lumbar spine. Lipoma involving the proximal left thigh adductor musculature. CT/CT abdomen pelvis wo IV con IMPRESSION: A drainage catheter enters anterolaterally between the left seventh and eighth ribs, new compared with 08/21/2023, 1 week prior. Its tip lies in the left anterior pericardiophrenic region. It does not appear to lie in the pleural space. Associated surrounding air. No fluid identified in this region. Otherwise, no gross significant radiographic change compared with one week prior, as detailed above. Mass involving the tail the pancreas. Mass involving the spleen. Multiple hepatic masses. Ascites with evidence of omental caking and peritoneal metastases. Differential diagnosis includes, but is not limited to, metastatic pancreatic cancer. At least moderate amount of left pleural fluid with associated dependent airspace disease, grossly similar compared with one week prior.
--- NOTE | ~2023-08-21 | XR_ITS ---
EXAMINATION: XR CHEST CLINICAL INFORMATION: Follow-up left pleural effusion post pleurodesis COMPARISON: 08/25/23 TECHNIQUE: Upright frontal portable view of the chest was obtained. FINDINGS: There is a left chest tube projecting over the left lower chest. The left side of the mediastinum, left hilum and left hemidiaphragm are obscured. There is a radiation in the upper half of the left lung similar to previous. There is hypoinflation of the right. There are some linear subsegmental right lower lung opacities. There is no large pneumothorax. It would be difficult to detect a small amount of extrapleural gas on the left. XR/XR chest 1V IMPRESSION: Left chest tube in place. Pleural and/or parenchymal density in the left chest. Overall no significant interval change
--- NOTE | ~2023-08-21 | US_ITS ---
EXAMINATION: US CHEST CLINICAL INFORMATION: Assess left pleural effusion COMPARISON: Ultrasound drain thoracentesis 08/21/2023, CT scan abdomen and pelvis 08/21/2023 TECHNIQUE: Ultrasound of the left chest cavity was performed. FINDINGS: A small to moderate pleural effusion is seen in the left pleural space. Garrett Vides was present while scanning. US/US chest IMPRESSION: Small to moderate left pleural effusion.
--- NOTE | ~2023-08-21 | XR_ITS ---
EXAMINATION: XR CHEST CLINICAL INFORMATION: Follow-up pleural effusion COMPARISON: Chest radiograph from 08/21/2023 ultrasound chest from 08/22/2023 TECHNIQUE: Frontal view of the chest was obtained. FINDINGS: Bilateral low lung volumes. Small left pleural effusion with subjacent atelectasis. No pneumothorax. Trachea is midline. Cardiac mediastinal silhouette is incompletely evaluated. Osseous structures are intact. Soft tissues are unremarkable. XR/XR chest 1V IMPRESSION: 1. Bilateral low lung volumes. 2. Small left pleural effusion with subjacent atelectasis.
--- NOTE | ~2023-08-21 | XR_ITS ---
EXAMINATION: XR CHEST CLINICAL INFORMATION: Follow-up pleural effusion, thoracostomy tube insertion COMPARISON: None available. TECHNIQUE: Frontal view of the chest was obtained. FINDINGS: vascularity. LUNGS: Lungs are markedly hypoinflated. Persistent left lower lung alveolar density effacing the left cardiac border, left hemidiaphragm and lateral costophrenic angle is seen. No pneumothorax is seen. Newly placed left lateral lung base thoracostomy tube is seen passing along the inferior border of left lung ending in medial corner of left lung base. BONES: Bony skeleton is intact. XR/XR chest 1V IMPRESSION: 1. Unchanged borderline cardiomegaly and pulmonary venous congestion, exaggerated by poor lung expansion. 2. Unchanged extensive left mid and lower lung airspace disease and left pleural effusion. 3. Interval placement of left lung base transversely oriented thoracostomy tube.
--- NOTE | ~2023-08-21 | XR_ITS ---
EXAMINATION: XR CHEST CLINICAL INFORMATION: Axillae pulled out left chest tube. COMPARISON: CT chest 08/21/2023 and chest x-ray 08/21/2023 at 11:03 AM. TECHNIQUE: Frontal view of the chest was obtained. FINDINGS: The lungs are in expiration. There is dense opacification left lung base likely combination of consolidation and pleural effusion. The left upper lobe is expanded and clear. Heart size enlarged. Pulmonary vascularity is normal. No gross bony abnormality seen. XR/XR chest 1V IMPRESSION: 1. Dense opacification left lung base likely combination of consolidation and pleural effusion. 2. Mild cardiomegaly.
--- NOTE | ~2023-08-21 | XR_ITS ---
EXAMINATION: XR CHEST CLINICAL INFORMATION: Follow-up suspected pneumothorax, pleural effusion COMPARISON: AP upright portable chest 08/27/2023 at 5:30 PM TECHNIQUE: AP upright portable view of the chest was obtained. 7:55 AM FINDINGS: Left-sided chest tube at the left lung base appears to be almost pulled out with the sidehole not within the left hemithorax. This was placed to 08/24/2023. There is persistent opacification of the left mid and lower lung zones likely reflecting a combination of pleural effusion and consolidation. There is trace pneumothorax adjacent to the aortic arch. Minimal linear density is seen at the right lung base. Less thickening of the right minor fissure. No significant right pleural effusion. No evidence of interstitial pulmonary edema. The cardiomediastinal silhouette is unchanged. XR/XR chest 1V IMPRESSION: 1. Left-sided chest tube appears to be almost pulled out with the sidehole not within the left hemithorax. 2. Persistent opacification of the left mid and lower lung zones likely reflecting a combination of pleural effusion and consolidation. 3. Trace pneumothorax adjacent to the aortic arch.
--- NOTE | ~2023-08-21 | US_ITS ---
PROCEDURE: ULTRASOUND GUIDANCE FOR NEEDLE PLACEMENT CLINICAL INFORMATION: Liver masses COMPARISON: CT abdomen and pelvis 08/21/2023 TECHNIQUE/FINDINGS: Informed consent was obtained following a discussion of the risks and benefits of the procedure with the patient. Preliminary ultrasound demonstrates multiple hepatic masses in concordance with recent cross-sectional imaging. A mass in the left hepatic lobe was selected for sampling. A site on the anterior abdominal wall was marked and sterilely prepped and draped. Following the administration of 1% lidocaine for local anesthesia, the hepatic mass was accessed with a 17-gauge coaxial needle under direct ultrasound guidance. 2 18-gauge core needle biopsy specimens were obtained, deemed to be adequate and placed in formalin to be sent to pathology. The coaxial needle was withdrawn while injecting a Gelfoam slurry. Post biopsy images do not demonstrate any signs of bleeding or other complication. A dressing was applied. The patient tolerated the procedure well. US/US biopsy liver IMPRESSION: Ultrasound-guided core needle biopsy of left hepatic lobe mass.
--- NOTE | ~2023-08-21 | CT_ITS ---
EXAMINATION: CT CHEST WITHOUT CONTRAST CLINICAL INFORMATION: Pleural effusion. COMPARISON: Chest x-ray 08/21/2023 TECHNIQUE: Multidetector volumetric CT imaging of the chest was done. Axial MIP volume rendering provided. Sagittal and coronal reformatted images were obtained. This CT examination was performed using dose optimization techniques as appropriate, variously including the following: *Automated exposure control *Adjustment of mA and/or kV according to patient size (this includes techniques or standardized protocols for targeted exams where dose is matched to indication/reason for exam; i.e. extremities or head) *Use of iterative reconstruction technique DLP: 347 mGy-cm FINDINGS: ASSEMBLER PRODUCTION LINE: Complete opacification of left hemithorax. LUNGS: There is total collapsed left lung with some aeration of lung at the hilum. The right lung is expanded and clear. Minimal atelectatic changes are seen right middle lobe and right lower lobe. MEDIASTINUM: The thyroid lobes are symmetric and normal. The central trachea and bronchi are widely patent. Heart size is normal. There is no pericardial effusion seen. No abnormal size mediastinal or hilar lymph nodes. CORONARY ARTERY CALCIFICATION: Mild coronary artery calcification. PLEURA: There is a large left pleural effusion without any thickening or calcification. AXILLA: No lymphadenopathy. UPPER ABDOMEN: The liver is heterogeneous with multiple focal hypodense liver lesions. One of the lesions in right hepatic lobe has calcification. No intrahepatic ductal dilatation. Spleen is enlarged and heterogeneous. There is ascites. OSSEOUS STRUCTURES: Moderate spondylosis throughout dorsal spine. No aggressive lytic or sclerotic process seen CT/CT chest wo IV con IMPRESSION: 1. Large left pleural effusion with total collapse of left lung. 2. The right lung is clear. 3. Heterogeneous liver with multiple hypodense lesions. Question metastatic lesions. There is ascites and splenomegaly. Recommend further evaluation with CT or MRI with contrast. Fleischner guidelines were followed.
--- NOTE | ~2023-08-21 | CT_ITS ---
EXAMINATION: CT ABDOMEN AND PELVIS WITH CONTRAST CLINICAL INFORMATION: Liver metastasis concern. CT chest to 524 COMPARISON: CT chest 08/21/2023 at 1:39 PM TECHNIQUE: Multidetector volumetric images were obtained from the superior aspect of the liver through the pubic symphysis following administration 85 mL of Omnipaque 350 intravenous contrast. Sagittal and coronal reformatted images were obtained on the technologist's workstation. Oral contrast: No This CT examination was performed using dose optimization techniques as appropriate, variously including the following: *Automated exposure control *Adjustment of mA and/or kV according to patient size (this includes techniques or standardized protocols for targeted exams where dose is matched to indication/reason for exam; i.e. extremities or head) *Use of iterative reconstruction technique DLP: 872 mGy-cm FINDINGS: LUNG BASES: Again visualized is a large left pleural effusion. There is a chest tube insertion the left side which is not visualized on these images. There is minimal small right pleural effusion with right middle lobe and right lower lobe atelectasis. LIVER, GALLBLADDER, AND BILIARY TREE: The liver is enlarged with numerous hypodense metastatic liver lesions largest in the left hepatic lobe measures 5.1 cm. No intrahepatic ductal dilatation seen. The gallbladder is distended. No radiopaque gallstones or wall thickening. Moderate perihepatic ascites. PANCREAS: Unremarkable. SPLEEN: The spleen is borderline enlarged with a large heterogeneous splenic lesion almost occupying the entire spleen. It measures 9.8 x 9.0 x 514.5 cm. ADRENAL GLANDS: Unremarkable. KIDNEYS AND URETERS: The kidneys are normal in size, shape, and attenuation. No hydronephrosis, hydroureter, or calculi seen. No perinephric stranding. There is a 2 cm simple cyst lower pole left kidney BLADDER: The bladder is empty with a Carreon's catheter within. Mild bladder wall thickening seen. GASTROINTESTINAL TRACT: There is scattered stool and gas seen throughout the colon without distention. There is no mural thickening or constrictive lesion seen. There is a mild mural thickening involving small bowel loops in the left upper abdomen image 53/3. Rest of the small bowel loops appear to be normal caliber. Appendix is not visualized. There is mild lateral gastric wall thickening as well on axial image 34/3. There is moderate free fluid. Mild omental caking and/or omental edema is noted. ABDOMINAL WALL: There is a left para umbilical hernia containing fat. LYMPH NODES: Small shotty lymph nodes seen in the retroperitoneum VASCULAR: Unremarkable. PELVIC VISCERA: Mild enlarged prostate. Small lipoma in between left external obturator and pectineus muscle. OSSEOUS STRUCTURES: No aggressive lytic or sclerotic process seen. Mild degenerative disc changes L2 3-4 disc level with moderate ventral spondylosis lower dorsal spine is noted. CT/CT abdomen pelvis w IV con IMPRESSION: Large left pleural effusion with left lower lobe collapse. There is no chest are seen on the visualized images. Mild right posterior pleural thickening and/or effusion with a right lower lobe atelectasis. Multiple metastatic liver lesions solitary metastatic spleen lesion. Unknown primary. Diffuse ascites, mesenteric edema and omental caking. Questionable small bowel thickening left upper quadrant. Also visualized is mild lateral gastric wall thickening Consider ultrasound-guided liver biopsy for tissue diagnosis followed by PET/CT. Left periumbilical small hernia containing fat. Fleischner guidelines were followed.
--- NOTE | ~2023-08-21 | US_ITS ---
PROCEDURE: US GUIDED PLACEMENT OF LEFT-SIDED CHEST TUBE CLINICAL INFORMATION: Left pleural effusion. Shortness of breath COMPARISON: Chest radiograph and CT chest earlier same day TECHNIQUE: Patient was placed in the seated position on the ultrasound procedure table leaning forward with arms on table in front of him. Preliminary ultrasound demonstrates large left pleural effusion. A site on the left posterior lateral back was marked and sterilely prepped and draped. 1% lidocaine was delivered for local anesthesia. A small dermatotomy was made with an 11 blade. A 10.2 [place] pigtail drain was then placed into the left pleural effusion utilizing trocar technique. Serous fluid was encountered. The pigtail was formed. The external portion of the catheter was secured with a suture and a sterile dressing was applied. The catheter was maintained to Pleur-evac drainage. Samples were sent as requested. Patient tolerated the procedure well without immediate complication. FINDINGS: Chest ultrasound demonstrates large left pleural effusion. Placement of 10.2 [place] pigtail drainage catheter into the left pleural space as above. US/US drain thoracentesis w image IMPRESSION: Large left pleural effusion. Ultrasound-guided placement of 10.2 [place] pigtail drainage catheter into the left pleural space.
--- NOTE | ~2023-08-21 | XR_ITS ---
EXAMINATION: XR CHEST CLINICAL INFORMATION: Status post chest tube removal. COMPARISON: Chest 08/28/2023 TECHNIQUE: Frontal view of the chest was obtained. FINDINGS: The lungs are hypoexpanded with left lung base haziness likely effusion and/or atelectasis. Minimal atelectasis seen right lung base. Trace left mediastinal pneumothorax adjustment of the aortic knob, similar to previous study. Heart size enlarged. Pulmonary vascularity is normal. There is moderate spondylosis dorsal spine. No aggressive lytic or sclerotic process seen. XR/XR chest 1V IMPRESSION: Left lung base haziness likely combination of effusion/atelectasis. Trace pneumothorax adjacent to left aortic knob, stable.
--- NOTE | ~2023-08-21 | XR_ITS ---
EXAMINATION: XR CHEST CLINICAL INFORMATION: Shortness of breath COMPARISON: Multiple priors with the last chest x-ray of 08/27/2023 obtained 7:26 AM TECHNIQUE: Frontal view of the chest was obtained. FINDINGS: Left-sided chest tube projecting over the lung base does not appear to be significantly changed in position compared to previous x-rays. The thoracostomy tube was placed on 08/24/2023. There is persistent opacification in the left mid and lower lung zone likely reflecting combination of pleural effusion and consolidation. Trace left apical pneumothorax similar to last chest x-ray suspected. No significant right pleural effusion. No evidence of pulmonary edema. Streaky atelectasis versus mild thickening of the right minor fissure. Cardiomediastinal silhouette is unchanged. XR/XR chest 1V IMPRESSION: Overall there does not appear to be significant interval change compared to chest x-ray performed earlier on the same day. Small right apical pneumothorax is suspected. Opacification in the left mid and lower lung zone likely reflect combination of consolidation and small pleural effusion.
--- NOTE | ~2023-08-21 | XR_ITS ---
EXAMINATION: XR CHEST CLINICAL INFORMATION: Follow-up pleural effusion COMPARISON: Chest 08/24/2023 TECHNIQUE: Frontal view of the chest was obtained. FINDINGS: There is moderate cardiomegaly with normal pulmonary vascularity. The lungs are hypoexpanded with bibasilar haziness suggestive pleural effusion with underlying atelectasis. A gross bony abnormality seen. XR/XR chest 1V IMPRESSION: 1. Moderate cardiomegaly. 2. Hypoexpanded lungs with bibasilar haziness suggestive of pleural effusion with underlying atelectasis.
--- NOTE | ~2023-08-21 | XR_ITS ---
EXAMINATION: XR CHEST CLINICAL INFORMATION: Pleural effusion COMPARISON: Chest x-ray August 21, 2023, 7:25 PM TECHNIQUE: 2 views of the chest were obtained. 10:33 PM FINDINGS: Low lung volume. Dense left lung base with silhouetting diaphragm system with consolidation/atelectasis/pleural effusion. No pulmonary vascular congestion. No change since prior chest x-ray August 21, 2023, 7:25 PM XR/XR chest 2V IMPRESSION: Dense left lung base due to consolidation/atelectasis/pleural effusion.
--- NOTE | 2023-08-21 13:39 | ECG_ITS ---
Test Reason : SOB Blood Pressure : / mmHG Vent. Rate : 058 BPM Atrial Rate : 058 BPM P-R Int : 148 ms QRS Dur : 134 ms QT Int : 472 ms P-R-T Axes : 021 -07 -28 degrees QTc Int : 463 ms Sinus bradycardia Right bundle branch block T wave abnormality, consider inferior ischemia Abnormal ECG When compared with ECG of 24-JUN-2015 13:19, Vent. rate has decreased BY 28 BPM Right bundle branch block is now Present Referred By: Annette Ballard Electronically Signed By:RAY ALMANZA
--- NOTE | 2023-08-21 13:45 | ED_ITS ---
HPI - General Adult General Chief complaint: General Medical Stated complaint: Abnormal chest xray Time Seen by Provider: 08/21/23 13:38 Source: patient and other (OR nurses) Mode of arrival: other (Bed stretcher) Limitations: no limitations History of Present Illness HPI narrative: Patient comes to the emergency room from the operating room. Today, patient had an elective procedure for his prostate, patient had a GreenLight laser enucleation of the prostate and a left hydrocelectomy. PACU nurses state that today prior to the procedure, patient was doing well. When patient was anesthetized, an LMA was placed, patient's oxygen saturation increased to the 30s. Oxygen saturation was maintained. After the procedure, seems that patient had a difficult time oxygenating, patient was placed on BiPAP. Eventually, PACU staff was able to wean the patient down to 2 L oxygen saturation in the mid 90s. A stat chest x-ray was done from the PACU, shows complete right-sided white out. According to the acute nurses, the patient was not intubated. Patient was brought to the emergency room for further evaluation and treatment. Related Data Home Medications Medication Instructions Recorded Confirmed omeprazole 40 mg capsule,delayed 40 mg PO DAILY 04/14/20 08/21/23 release folic acid 1 mg tablet 1 mg PO DAILY 07/29/21 08/21/23 Previous Rx's Medication Instructions Recorded gemfibrozil 600 mg tablet 600 mg PO BID #60 tabs 09/07/21 miscellaneous medical supply #1 ea 04/04/22 (Blood Pressure Cuff) famotidine 40 mg tablet 40 mg PO DAILY 30 days #30 tabs 08/16/22 finasteride 5 mg tablet 5 mg PO DAILY 90 days #90 tabs 02/08/23 tamsulosin 0.4 mg capsule 0.4 mg PO BEDTIME 90 days #90 caps 02/08/23 amlodipine 10 mg tablet 10 mg PO DAILY 90 days #90 tabs 04/11/23 metoprolol succinate 50 mg 50 mg PO DAILY 90 days #90 tabs 08/01/23 tablet,extended release 24 hr trazodone 100 mg tablet 100 mg PO BEDTIME 90 days #90 tabs 08/01/23 Allergies Allergy/AdvReac Type Severity Reaction Status Date / Time lisinopril Allergy Unknown Unknown Verified 08/04/23 11:18 sertraline [From Zoloft] AdvReac Severe suicidal Verified 08/04/23 11:18 Review of Systems 2 Review of Systems: Constitutional : No Weight loss, No Fever, No Chills, No Night Sweats, No Fatigue, No Malaise ENT/Mouth : No Hearing loss, No Ear Pain, No Nasal Congestion, No Sinus Pain, No Hoarseness, No sore throat, No Rhinorrhea, No Swallowing Difficulty Eyes: No Eye Pain, No Swelling, No Redness, No Foreign Body, No Discharge, No Vision Changes Cardiovascular : No Chest Pain, No SOB, No Dyspnea on Exertion, No Orthopnea, No Edema, No Palpitations Respiratory : Patient reporting of shortness of breath which has gradually been getting better since his surgery earlier today Gastrointestinal : No Nausea, No Vomiting, No Diarrhea, No Constipation, No abdominal Pain, No Hematochezia, No Melena Genitourinary : Patient has a Carreon catheter in place, carmen hematuria expected from surgery, No Urinary Incontinence, No Urgency, No Flank Pain, No Urinary Flow Changes, No Hesitancy Musculoskeletal : No joint pain, No Myalgias, No Joint Swelling Skin : No Skin Lesions, No rash Neuro : No Weakness, No Numbness, No Paresthesias, No Loss of Consciousness, No Dizziness, No Headache Psych : No Anxiety/Panic, No Depression, No SI/HI/AH/VH, No Social Issues, Heme/Lymph: No Bruising, No Bleeding,No Lymphadenopathy Endocrine : No Polyuria, No Polydipsia, No Temperature Intolerance PMFSH Past Medical History Medical History Spontaneous pneumothorax MISAEL (generalized anxiety disorder) CKD (chronic kidney disease) stage 3, GFR 30-59 ml/min Recurrent UTI Venous stasis dermatitis of left lower extremity Tubulovillous adenoma polyp of colon COVID-19 vaccine series completed Chronic renal insufficiency Elevated cholesterol HTN (hypertension) Gout Abnormal colonoscopy GERD (gastroesophageal reflux disease) Surgical History History of esophagogastroduodenoscopy (EGD) H/O colonoscopy History of lung surgery Family History Family History Father Heart failure History of mental problems Substance abuse Mother CAD (coronary artery disease) Breast cancer Social History Social History Housing: House Alcohol intake: current Alcohol intake frequency: holidays/special occasions only Alcohol type: beer Patient Tobacco Use Status: Current someday Tobacco user Tobacco use type: Cigar Smoked in Last 30 Days: Yes e-Cigarette/Vaping Use: Never Used Second Hand Smoke Exposure: No Use of substances other than those prescribed or required for medical reasons: No Advance Directives: Yes Advance Directives on File: Yes Advance Directives Date on File: 08/17/21 service: No Current occupational status: retired Current occupation: [employer] handed Cognitive needs: No Hearing needs: No Vision needs: No Physical Exam ED Vital Signs: Vital Signs - 24 hr 08/21/23 13:40 08/21/23 13:44 08/21/23 17:13 Temperature 97.8 F 97.8 F 97.6 F Pulse Rate 56 56 76 Respiratory Rate 20 20 20 Blood Pressure 125/70 125/70 124/73 Pulse Oximetry 98 97 97 Oxygen Delivery Method Nasal Cannula Nasal Cannula Nasal Cannula Oxygen Flow Rate 2 3 BMI result Body Mass Index 33.0 Const Other: Appearance: Alert. Oriented X3. No acute distress. Eyes: Pupils equal, round and reactive to light. ENT: Pharynx normal. Neck: Normal inspection. Neck supple. No lymph nodes noted. No crepitus CVS: Normal heart rate and rhythm. Pulses normal. Normal S1 and S2 Respiratory: No respiratory distress. Significantly decreased breath sounds on the left, decreased breath on the right side, crackles on the right lower lobe Abdomen: Soft and nontender. No rigidity. No distention. Skin: Skin warm and dry. Normal skin color. Normal skin turgor. Extremities: No lower extremity edema. No Lacerations. No Rash Neuro: Oriented X 3. No motor deficit. No sensory deficit. Moving all extremities. No slurred speech. CN 2 through 12 grossly intact Psych: calm, cooperative, normal affect Course Course Course Narrative: -patient's labs and imaging pending Medications Administered Discontinued Medications Generic Name Dose Route Start Last Admin Trade Name Freq PRN Reason Stop Dose Admin Lidocaine HCl 10 ml 08/21/23 16:57 08/21/23 16:58 Lidocaine Hcl 1 % Mpf 5 Ml Vial SUBCUT 08/21/23 16:58 10 ml ONCE ONE Administration Medical Decision Making Medical Decision Making MDM Narrative: -my interpretation of chest x-ray from earlier today: Complete white out on the left lung, likely a pleural effusion, pleural effusion small to moderate on the right lower lobe. -this pleural effusion likely started prior to the surgery, patient has history of pneumothorax on the left -all of patient's labs pending, CT scan of the chest pending. If this is in fact a pleural effusion, we will request IR to help us with the thoracentesis -discussed with the patient that likely he will stay in the hospital, patient agrees with plan -patient had a thoracentesis done by IR, initially 1200 cc were drained, patient has a 10 Haitian. Until now, 18:10, patient has drained over 2100 mL of yellowish drainage, thoracentesis labs pending -as we were doing a CT scan of the chest, we were able to visualize an abnormality in the liver. CT scan of the abdomen shows multiple metastatic lesions in the liver, 1 metastatic lesion in the spleen. Primary source of cancer unclear. -I discussed with the patient the above-mentioned, it is likely that patient has a primary source of cancer somewhere that metastasized to the liver and to the spleen. Given this new finding, it is possible that the pleural effusion is also secondary to malignancy. Discussed with the patient that confirmation is pending but it looks suspicious for cancer -I discussed the patient with Dr. Lopez, patient being admitted -patient already admitted -I was informed by the patient's nurse that the patient accidentally pulled out his chest tube. X-ray pending. Hospitalist team has been informed Differential Diagnosis Differential Diagnoses: The differential diagnosis associated with the presentation includes (Pneumonia, pleural effusion, pneumothorax, metastatic cancer) Admission/Observation Consideration of admission/observation: Escalation of care including admission/observation considered Consult Healthcare Provider Management of the patient was discussed with: Hospitalist Lab Data [facility] Lab Attestation statement: I reviewed the patient's lab results. 08/21/23 14:16 08/21/23 14:15 Labs: Lab Results 08/21/23 08/21/23 08/21/23 Range/Units 14:14 14:15 14:16 WBC 7.1 (4.8-10.8) X10*3/uL RBC 3.65 L (4.60-5.80) X10*6/uL Hgb 11.1 L (14.0-18.0) g/dl Hct 34.0 L (42.0-52.0) % MCV 93.2 (80.0-98.0) fL MCH 30.4 (27.0-33.0) pg MCHC 32.6 (31.0-36.0) g/dl RDW 13.2 (11.0-16.0) % Plt Count 179 (160-400) X10*3/uL MPV 9.8 (9.4-12.4) fL Immature Gran % (Auto) 0.7 H (0.0-0.4) % Neut % (Auto) 86.1 H (45-73) % Lymph % (Auto) 5.8 L (20-40) % [place] % (Auto) 6.1 (2-11) % Eos % (Auto) 1.0 (0-4) % Baso % (Auto) 0.3 (0-2) % Lymph # (Auto) 0.4 L (1.2-4.9) X10*3/uL [place] # (Auto) 0.4 (0.1-1.2) X10*3/uL Eos # (Auto) 0.1 (0.0-0.4) X10*3/uL Baso # (Auto) 0.0 (0.0-0.2) X10*3/uL Abs Immat Gran (auto) 0.05 H (0.00-0.03) X10*3/uL Absolute Neuts (auto) 6.1 (2.0-8.3) x10*3/uL Absolute Nucleated RBC 0.000 (0.0-0.012) X10*3/uL Nucleated RBC % (auto) 0.0 (0.0-0.2) /100WBC PT 13.7 H (11.1-13.3) SEC INR 1.1 (0.9-1.1) APTT 22.8 L (26.0-36.8) SEC VBG pH (7.32-7.43) VBG pCO2 mmHg VBG pO2 mmHg VBG HCO3 (22-26) mmol/L VBG O2 Saturation % VBG Base Excess mmol/L Sodium 133 L (135-145) mmol/L Potassium 4.4 (3.3-5.1) mmol/L Chloride 102 (96-108) mmol/L Carbon Dioxide 21 L (22-29) mmol/L Anion Gap 14 (12-20) BUN 11 (9-16) mg/dL Creatinine 1.30 (0.5-1.4) mg/dL Estim Creat Clear Calc 71.7 Estimated GFR 55 Random Glucose 119 H (60-115) mg/dL Lactic Acid (0.5-2.0) mmol/L Calcium 9.1 D (8.4-10.2) mg/dL Magnesium 1.8 (1.6-2.6) mg/dL Total Bilirubin 1.0 (0.0-1.0) mg/dL Direct Bilirubin 0.5 (0.0-0.5) mg/dL AST 19 (5-37) U/L ALT 11 (0-40) U/L Alkaline Phosphatase 111 (39-117) U/L Troponin I High Sens 5.9 (<3.5-35.0) ng/L B-Natriuretic Peptide 42 (<100) pg/mL Total Protein 6.5 (6.5-8.0) g/dL Albumin 3.2 L (3.5-5.0) g/dL Pleural WBC X10*3/uL Pleural RBC X10*6/uL COVID-19 (BEBETO) Negative (Negative) COVID-19 Clin Com See Note Influenza Type A (YAKELIN) Negative (Negative) Influenza Type B (YAKELIN) Negative (Negative) Influenza A & B Note See Note 08/21/23 08/21/23 08/21/23 Range/Units 14:18 14:21 16:20 WBC (4.8-10.8) X10*3/uL RBC (4.60-5.80) X10*6/uL Hgb (14.0-18.0) g/dl Hct (42.0-52.0) % MCV (80.0-98.0) fL MCH (27.0-33.0) pg MCHC (31.0-36.0) g/dl RDW (11.0-16.0) % Plt Count (160-400) X10*3/uL MPV (9.4-12.4) fL Immature Gran % (Auto) (0.0-0.4) % Neut % (Auto) (45-73) % Lymph % (Auto) (20-40) % [place] % (Auto) (2-11) % Eos % (Auto) (0-4) % Baso % (Auto) (0-2) % Lymph # (Auto) (1.2-4.9) X10*3/uL [place] # (Auto) (0.1-1.2) X10*3/uL Eos # (Auto) (0.0-0.4) X10*3/uL Baso # (Auto) (0.0-0.2) X10*3/uL Abs Immat Gran (auto) (0.00-0.03) X10*3/uL Absolute Neuts (auto) (2.0-8.3) x10*3/uL Absolute Nucleated RBC (0.0-0.012) X10*3/uL Nucleated RBC % (auto) (0.0-0.2) /100WBC PT (11.1-13.3) SEC INR (0.9-1.1) APTT (26.0-36.8) SEC VBG pH 7.33 (7.32-7.43) VBG pCO2 49 mmHg VBG pO2 49 mmHg VBG HCO3 26 (22-26) mmol/L VBG O2 Saturation 69.0 % VBG Base Excess 0.2 mmol/L Sodium (135-145) mmol/L Potassium (3.3-5.1) mmol/L Chloride (96-108) mmol/L Carbon Dioxide (22-29) mmol/L Anion Gap (12-20) BUN (9-16) mg/dL Creatinine (0.5-1.4) mg/dL Estim Creat Clear Calc Estimated GFR Random Glucose (60-115) mg/dL Lactic Acid 1.5 (0.5-2.0) mmol/L Calcium (8.4-10.2) mg/dL Magnesium (1.6-2.6) mg/dL Total Bilirubin (0.0-1.0) mg/dL Direct Bilirubin (0.0-0.5) mg/dL AST (5-37) U/L ALT (0-40) U/L Alkaline Phosphatase (39-117) U/L Troponin I High Sens (<3.5-35.0) ng/L B-Natriuretic Peptide (<100) pg/mL Total Protein (6.5-8.0) g/dL Albumin (3.5-5.0) g/dL Pleural WBC 0.542 X10*3/uL Pleural RBC < 0.002 X10*6/uL COVID-19 (BEBETO) (Negative) COVID-19 Clin Com Influenza Type A (YAKELIN) (Negative) Influenza Type B (YAKELIN) (Negative) Influenza A & B Note Independent Interpretation I performed an independent interpretation of an: CT Scan Radiology Impression Discussion of test interpretation with radiology: I have reviewed the radiologist's reading. Radiologist Impression: FINDINGS: LUNG BASES: Again visualized is a large left pleural effusion. There is a chest tube insertion the left side which is not visualized on these images. There is minimal small right pleural effusion with right middle lobe and right lower lobe atelectasis. LIVER, GALLBLADDER, AND BILIARY TREE: The liver is enlarged with numerous hypodense metastatic liver lesions largest in the left hepatic lobe measures 5.1 cm. No intrahepatic ductal dilatation seen. The gallbladder is distended. No radiopaque gallstones or wall thickening. Moderate perihepatic ascites. PANCREAS: Unremarkable. SPLEEN: The spleen is borderline enlarged with a large heterogeneous splenic lesion almost occupying the entire spleen. It measures 9.8 x 9.0 x 514.5 cm. ADRENAL GLANDS: Unremarkable. KIDNEYS AND URETERS: The kidneys are normal in size, shape, and attenuation. No hydronephrosis, hydroureter, or calculi seen. No perinephric stranding. There is a 2 cm simple cyst lower pole left kidney BLADDER: The bladder is empty with a Carreon's catheter within. Mild bladder wall thickening seen. GASTROINTESTINAL TRACT: There is scattered stool and gas seen throughout the colon without distention. There is no mural thickening or constrictive lesion seen. There is a mild mural thickening involving small bowel loops in the left upper abdomen image 53/3. Rest of the small bowel loops appear to be normal caliber. Appendix is not visualized. There is mild lateral gastric wall thickening as well on axial image 34/3. There is moderate free fluid. Mild omental caking and/or omental edema is noted. ABDOMINAL WALL: There is a left para umbilical hernia containing fat. LYMPH NODES: Small shotty lymph nodes seen in the retroperitoneum VASCULAR: Unremarkable. PELVIC VISCERA: Mild enlarged prostate. Small lipoma in between left external obturator and pectineus muscle. OSSEOUS STRUCTURES: No aggressive lytic or sclerotic process seen. Mild degenerative disc changes L2 3-4 disc level with moderate ventral spondylosis lower dorsal spine is noted. CT/CT abdomen pelvis w IV con IMPRESSION: Large left pleural effusion with left lower lobe collapse. There is no chest are seen on the visualized images. Mild right posterior pleural thickening and/or effusion with a right lower lobe atelectasis. Multiple metastatic liver lesions solitary metastatic spleen lesion. Unknown primary. Diffuse ascites, mesenteric edema and omental caking. Questionable small bowel thickening left upper quadrant. Also visualized is mild lateral gastric wall thickening Consider ultrasound-guided liver biopsy for tissue diagnosis followed by PET/CT. Left periumbilical small hernia containing fat. Fleischner guidelines were followed. Independent Historian Clinical information obtained from an independent historian. History obtained from or confirmed by: Other (Sister) Critical Care Time Critical Care Time Critical Care Time: Yes Total Critical Care Time: 90 Attestation: I have personally provided critical care time. Time includes review of lab data, radiology results, discussion with consultants, and monitoring for potential decompensation. Intervention performed as documented. Discharge Plan Discharge Clinical Impression: Pleural effusion, Metastatic cancer to liver Patient Disposition: Admitted As Inpatient
--- NOTE | 2023-08-21 13:47 | PC.NURSE ---
Report from SHIFT SUPERVISOR: pt had prostate and hydrocele procedure today. Pt had LMA in place during this procedure, pts RR elevated to the 30s. Pt was found to be hypoxic after procedure, was placed on BIPAP with improvements then weaned to 2L O2 NC. X-ray showed white-out on left side of chest, pt has hx of pneumothorax on that side. RN reports pt desats very quickly with any exertion or off of oxygen. Pt being transferred to ER. Carreon in place with bloody urine/discharge which is normal per SHIFT SUPERVISOR post procedure.
--- NOTE | 2023-08-21 13:50 | PC.NURSE ---
pt awake, alert and oriented. breathing even and unlabored. skin warm and dry. pt noted to be on 2L O2 via NC with SPO2 96-97%. Pt coming from PACU post prostate and hydrocele procedure. Pt neg for increased WOB, pt denies any SOB, CP, nausea. Dark red blood noted in pagan tube. Pt denies any complaints at this time. Pt placed on bedside analytics associate, sinus bradycardia in the 50's noted. Pt taken to CT scan at this time.
[2023-08-21 14:25] LABS: MANUAL DIFF FLAG NO
[2023-08-21 14:26] LABS: Basophils Percent Auto 0.3 % (0-2); Eosinophils Absolute Auto 0.1 X10*3/uL (0.0-0.4); Hemoglobin 11.1 g/dl (14.0-18.0); Imm Gran Abs Auto 0.05 X10*3/uL (0.00-0.03); Imm Gran Pct Auto 0.7 % (0.0-0.4); Lymphocytes Absolute Auto 0.4 X10*3/uL (1.2-4.9); Lymphocytes Percent Auto 5.8 % (20-40); Mean Corpuscular HGB Conc 32.6 g/dl (31.0-36.0); Mean Corpuscular Hemoglobin 30.4 pg (27.0-33.0); Mean Corpuscular Volume 93.2 fL (80.0-98.0); Mean Platelet Volume 9.8 fL (9.4-12.4); Monocytes Absolute Auto 0.4 X10*3/uL (0.1-1.2); Monocytes Percent Auto 6.1 % (2-11); Neutrophils Absolute Auto 6.1 x10*3/uL (2.0-8.3); Neutrophils Percent Auto 86.1 % (45-73); Platelet Count 179 X10*3/uL (160-400); Red Blood Count 3.65 X10*6/uL (4.60-5.80); Red Cell Distribution Width 13.2 % (11.0-16.0); White Blood Count 7.1 X10*3/uL (4.8-10.8)
[2023-08-21 14:26] LABS: Venous Blood Gas Refer to POC result
[2023-08-21 14:27] LABS: VBG Base Excess 0.2 mmol/L; VBG HCO3 26 mmol/L (22-26); VBG pCO2 49 mmHg; VBG pH 7.33 (7.32-7.43); VBG pO2 49 mmHg
[2023-08-21 14:35] LABS: INTERNATIONAL NORM RATIO 1.1 (0.9-1.1); Prothrombin Time 13.7 SEC (11.1-13.3)
[2023-08-21 14:41] LABS: Lactic Acid 1.5 mmol/L (0.5-2.0)
[2023-08-21 14:49] LABS: Partial Thromboplastin Time 22.8 SEC (26.0-36.8)
[2023-08-21 14:49] LABS: IDNOW Serial# 58CA691E; Influenza A Negative (Negative); Influenza B2 Negative (Negative)
[2023-08-21 14:49] LABS: COVID-19 Test Negative (Negative); IDNOW Serial# 9DB6401D
[2023-08-21 14:51] LABS: Alanine Aminotransferase 11 U/L (0-40); Albumin Level 3.2 g/dL (3.5-5.0); Alkaline Phosphatase 111 U/L (39-117); Anion Gap 14 (12-20); Aspartate Amino Transferase 19 U/L (5-37); B Type Natriuretic Peptide 42 pg/mL (<100); Bilirubin Direct 0.5 mg/dL (0.0-0.5); Blood Urea Nitrogen 11 mg/dL (9-16); Calcium 9.1 mg/dL (8.4-10.2); Carbon Dioxide 21 mmol/L (22-29); Chloride 102 mmol/L (96-108); Creatinine Clr Calc Pharmacy 71.7; Estimated Glomerular Filt Rate 55; Glucose Random 119 mg/dL (60-115); Magnesium 1.8 mg/dL (1.6-2.6); Potassium 4.4 mmol/L (3.3-5.1); Sodium 133 mmol/L (135-145); Total Protein 6.5 g/dL (6.5-8.0)
[2023-08-21 14:54] LABS: Troponin-I High Sensitivity 5.9 ng/L (<3.5-35.0)
--- NOTE | 2023-08-21 15:45 | PC.NURSE ---
pts sister Jane called, asked that we call her if pt gets admitted. phone # [phone]
[2023-08-21] MEDS: Lidocaine HCl 1 % MPF 5 ML VIAL 10 ML SUBCUT (16:58)
--- NOTE | 2023-08-21 17:12 | PC.NURSE ---
pt back from IR with chest tube on left side, approx 1600 cc of yellow drainage noted. pt denies any pain or SOB, vss. alert and oriented, breathing even and unlabored.
[2023-08-21 17:29] LABS: BF Shift QC OK YES; MN% 86.5 %; Man Diluent Bkgrd OK YES; PMN% 13.5 %; RBC Pleural Fluid < 0.002 X10*6/uL; WBC Pleural Fluid 0.542 X10*3/uL
--- NOTE | 2023-08-21 17:40 | PC.NURSE ---
pt noted to have increase in coughing, denies any SOB or pain. pt had yellow drainage of 2100 cc in chest tube chamber, switched by RNs to new chamber.
--- NOTE | 2023-08-21 18:09 | PC.NURSE ---
per Dr. couch, chest tube can drain to gravity. Red-arthur fluid noted to be draining at this time. pt resting in bed, denies any SOB or pain.
--- NOTE | 2023-08-21 18:16 | P.HPHOSP_ITS ---
History of Present Illness Date of Service: 08/21/23 Attending physician on admission: Rich Camp Chief Complaint: pleural effusion 68 year old male with history of htn, hld, bph, ckd stage 3, anxiety, who is a current 1-2 cigar per week smoker transferred to the ED following elective GreenLight laser enucleation of the prostate and left hydrocelectomy performed by Dr. Caceres. Pt tolerated procedure well and had LMA placed during anesthesia, but no intubation per PACU nursing. Following procedure, pt found hypoxic and was briefly placed on BIPAP due to increased WOB and was weaned to 2L supplemental O2. Was unable to wean from O2. Chest x-ray in the PACU showed large left-sided pleural effusion with nearly complete opacification of the left chest and faint aeration of the left lower lobe. There is also small right- sided pleural effusion with adjacent atelectasis versus infiltrates. Chest Ct again demonstrated large leftpleural effusion with total collapse of left lung, clear R lung. Also noted heterogenous liver with multiple hypodense lesions, ?mets, as well as ascited and splenomegaly. CT abd/pelvis shows multiple metastatic liver lesions solitary metastatic splenic lesions, diffuse ascites, mesenteric edema, and omental caking. Ther eis also questionable bowel thickening LUQ and mild lateral gastric wall thickening. Labs in the ED show a stable normocytic anemia. Renal function baseline, mild hyponatremia 133, lytes otherwise normal. LFTs normal. Bx prostate sent to path. Pleural fluid path labs added. Chest tube drained 2.1 L yellow drainage, now with scant serosanguinous drainage. Pleural fluid wbc 0.542 He went in for routine procudure due to urinary frequency/urgency. Pt reports non productive cough over the last few months but otherwise asymptomtatic. No fevers, chills, night sweats, significant weight loss (reports max 3 pound wt loss over last few months), headache, lightheadedness, abd pain, n/v/d, melena, hematochezia, dysphagia, sob, chest pain. No personal historoy of cancer. Reports mother of lung cancer and was a smoker. Pt is a long time 1-2 cigar per week smoker. No cigarette history. NO etoh use. No drug use. UTD with routine colonoscopy (also EGD) 07/2021 with negative biopsies of duodenum, gastric ulcer, gastric antrum, EG junction, tubular adenoma transverse colon. Urine bx 07/2022 negative for urothelial carcinoma. Review of Systems 2 Review of Systems: General: No fevers, malaise, unintentional weight loss HEENT: No blurred vision, diplopia. No sore throat, nasal congestion, rhinorrhea, sinus pain, ear pain Cardiovascular: No chest pain, palpitations, or leg edema Respiratory: No shortness of breath, wheezing. +cough GI: No abdominal pain, nausea, vomiting, diarrhea, constipation, melena, hematochezia : No dysuria, hematuria, increased urinary frequency, decreased urinary output MSK: No myalgia, back pain Neuro: No headaches, weakness, paresthesias Skin: No rashes or lesions [facility] Medical History Spontaneous pneumothorax MISAEL (generalized anxiety disorder) CKD (chronic kidney disease) stage 3, GFR 30-59 ml/min Recurrent UTI Venous stasis dermatitis of left lower extremity Tubulovillous adenoma polyp of colon COVID-19 vaccine series completed Chronic renal insufficiency Elevated cholesterol HTN (hypertension) Gout Abnormal colonoscopy GERD (gastroesophageal reflux disease) Family History Father Heart failure History of mental problems Substance abuse Mother CAD (coronary artery disease) Breast cancer Surgical History History of esophagogastroduodenoscopy (EGD) H/O colonoscopy History of lung surgery Social History Housing: House Alcohol intake: current Alcohol intake frequency: holidays/special occasions only Alcohol type: beer Patient Tobacco Use Status: Current someday Tobacco user Tobacco use type: Cigar Smoked in Last 30 Days: Yes e-Cigarette/Vaping Use: Never Used Second Hand Smoke Exposure: No Use of substances other than those prescribed or required for medical reasons: No Advance Directives: Yes Advance Directives on File: Yes Advance Directives Date on File: 08/17/21 service: No Current occupational status: retired Current occupation: [employer] Cognitive needs: No Hearing needs: No Vision needs: No Meds Allergies Allergy/AdvReac Type Severity Reaction Status Date / Time lisinopril Allergy Unknown Unknown Verified 08/04/23 11:18 sertraline [From Zoloft] AdvReac Severe suicidal Verified 08/04/23 11:18 Home Medications Medication Instructions Recorded Confirmed Last Taken Type omeprazole 40 mg capsule,delayed 40 mg PO DAILY 04/14/20 08/21/23 08/21/23 History release folic acid 1 mg tablet 1 mg PO DAILY 07/29/21 08/21/23 08/21/23 History Physical Exam 2 Vital Signs and Narrative: Vital Signs: Last Vital Signs Temp 97.6 F 08/21/23 17:13 Pulse 76 08/21/23 17:13 Resp 20 08/21/23 17:13 BP 124/73 08/21/23 17:13 Pulse Ox 97 08/21/23 17:13 O2 Del Method Nasal Cannula 08/21/23 17:13 O2 Flow Rate 3 08/21/23 17:13 Oxygen Flow Rate 2 08/21/23 13:40 BMI result Body Mass Index 33.0 Constitutional - Awake and Alert, No apparent distress Eyes - PERRLA, EOMI Cardiovascular - S1S2, RRR, No edema Respiratory - Normal lung expansion, Normal respiratory effort, No respiratory distress on 2L supplemental O2, diminished lung sounds bilaterally Gastrointestinal - NT / ND; +BS; No rebound or guarding Extremities - no calf tenderness bilaterally, no swelling Skin - Warm/Dry Neurological - Alert & oriented x3 Psychological - Appropriate affect Results Labs 08/21/23 14:16 08/21/23 14:15 Labs: Laboratory Results - last 24 hr 08/21/23 08/21/23 08/21/23 14:14 14:15 14:16 MCV 93.2 MCH 30.4 MCHC 32.6 RDW 13.2 Plt Count 179 MPV 9.8 Immature Gran % (Auto) 0.7 H Neut % (Auto) 86.1 H Lymph % (Auto) 5.8 L [place] % (Auto) 6.1 Eos % (Auto) 1.0 Baso % (Auto) 0.3 Lymph # (Auto) 0.4 L [place] # (Auto) 0.4 Eos # (Auto) 0.1 Baso # (Auto) 0.0 Abs Immat Gran (auto) 0.05 H Absolute Neuts (auto) 6.1 Absolute Nucleated RBC 0.000 Nucleated RBC % (auto) 0.0 PT 13.7 H INR 1.1 APTT 22.8 L VBG pH VBG pCO2 VBG pO2 VBG HCO3 VBG O2 Saturation VBG Base Excess Anion Gap 14 Estim Creat Clear Calc 71.7 Estimated GFR 55 Random Glucose 119 H Lactic Acid Calcium 9.1 D Magnesium 1.8 Total Bilirubin 1.0 Direct Bilirubin 0.5 AST 19 ALT 11 Alkaline Phosphatase 111 B-Natriuretic Peptide 42 Total Protein 6.5 Albumin 3.2 L Pleural WBC Pleural RBC COVID-19 (BEBETO) Negative COVID-19 Clin Com See Note Influenza Type A (YAKELIN) Negative Influenza Type B (YAKELIN) Negative Influenza A & B Note See Note 08/21/23 08/21/23 08/21/23 14:18 14:21 16:20 MCV MCH MCHC RDW Plt Count MPV Immature Gran % (Auto) Neut % (Auto) Lymph % (Auto) [place] % (Auto) Eos % (Auto) Baso % (Auto) Lymph # (Auto) [place] # (Auto) Eos # (Auto) Baso # (Auto) Abs Immat Gran (auto) Absolute Neuts (auto) Absolute Nucleated RBC Nucleated RBC % (auto) PT INR APTT VBG pH 7.33 VBG pCO2 49 VBG pO2 49 VBG HCO3 26 VBG O2 Saturation 69.0 VBG Base Excess 0.2 Anion Gap Estim Creat Clear Calc Estimated GFR Random Glucose Lactic Acid 1.5 Calcium Magnesium Total Bilirubin Direct Bilirubin AST ALT Alkaline Phosphatase B-Natriuretic Peptide Total Protein Albumin Pleural WBC 0.542 Pleural RBC < 0.002 COVID-19 (BEBETO) COVID-19 Clin Com Influenza Type A (YAKELIN) Influenza Type B (YAKELIN) Influenza A & B Note Imaging Radiologist's Impressions: Impressions Chest CT 08/21/23 13:58 IMPRESSION: 1. Large left pleural effusion with total collapse of left lung. 2. The right lung is clear. 3. Heterogeneous liver with multiple hypodense lesions. Question metastatic lesions. There is ascites and splenomegaly. Recommend further evaluation with CT or MRI with contrast. Fleischner guidelines were followed. Abdomen/Pelvis CT 08/21/23 15:39 IMPRESSION: Large left pleural effusion with left lower lobe collapse. There is no chest are seen on the visualized images. Mild right posterior pleural thickening and/or effusion with a right lower lobe atelectasis. Multiple metastatic liver lesions solitary metastatic spleen lesion. Unknown primary. Diffuse ascites, mesenteric edema and omental caking. Questionable small bowel thickening left upper quadrant. Also visualized is mild lateral gastric wall thickening Consider ultrasound-guided liver biopsy for tissue diagnosis followed by PET/CT. Left periumbilical small hernia containing fat. Fleischner guidelines were followed. Assessment and Plan (1) Pleural effusion: Status: Acute (2) Metastatic cancer to liver: Status: Acute Plan 68 year old male with history of htn, hld, bph, ckd stage 3, anxiety, who is a current 1-2 cigar per week smoker transferred to the ED following elective GreenLight laser enucleation of the prostate and left hydrocelectomy found to have large left pleural effusion with total collapse of left lung postoperatively with chest tube in place post operatively admitted for further management of malignant pleural effusion with acute hypoxemic respiratory failure. #Acute hypoxemic respiratory failure secondary to Left pleural effusion -likely malignant -chest tube in place draining to gravity, follow output -pleural fluid sent for pathology, pleural WBC WNL -thoracic surgery consult -oncology consult -continue supplemental O2 to maintain oximetry >92% #Metastatic lesions liver and spleen -CT guided biopsy liver tomorrow -oncology consult #HTN -bp reasonably controlled -continue amlodipine, metoprolol #Chronic normocytic anemia -H/H baseline, above transfusion threshold #CKD stage 3 -renal function baseline #BPH -s/p greenlight enucleation with hydrocelectomy, bx pending -continue finsteride, tamsulosin #HLD -statin #Mood disorder -continue home meds DVT prophylaxis- scps- chest tube with some sanguinous drainage, biopsy tomorrow Full code Pt requries inpt stay at least 2 midnights due to acute hypoxemic respiratory failure due to large left pleural effusion with total collapse of lung with chest tube in place on supplemental O2 requiring oxygen titration and expert consultation Quality Stroke Does the patient have a stroke diagnosis?: No VTE Prior VTE?: No VTE Risk Level:: Medical - moderate - high VTE Device Contraindication: Treatment Not Indicated VTE Drug Contraindication: N/A - Med Ordered
--- NOTE | 2023-08-21 18:48 | PHA.MEDREC ---
Pharmacy Consult ? Medication Reconciliation Pharmacy has completed the medication reconciliation. Patient confirmed medications. Reports taking gemfibrozil although no claim history for it. Jing Lema, MaverickD
--- NOTE | 2023-08-21 19:25 | PC.NURSE ---
Called to patient's bedside- chest tube dislodged. occlusive dressings applied- MD aware and admitting physican
--- NOTE | 2023-08-21 20:06 | MHC.EDTECH ---
This tech took over care of patient at 1900,hourly rounds and vitals completed,warm blanket giving and belonging list completed and copy placed in chart,Family at bedside and call marshall in reach
[2023-08-21 20:27] LABS: Albumin Pleural Fluid 2.8 GM/DL; Glucose Pleural Fluid 117 MG/DL; Total Protein Pleural Fluid 4.5 GM/DL
[2023-08-21 20:54] LABS: Eosinophils Pleural Fluid 1 %; Lymphocytes Pleural Fluid 37 %; Monocytes Pleural Fluid 7 %; Neutrophils Pleural Fluid 8 %; Other Cells Plerual Fl 47 %
--- NOTE | 2023-08-21 21:42 | MHC.EDTECH ---
Hourly rounds and vitals completed,Emptied patients Carreon 550MLS of dark bloody urine. Patient requesting sleep meds,RN made aware Call marshall in reach
--- NOTE | 2023-08-21 22:18 | PM.EVENT ---
Event Note Date of Service: 08/21/23 Event Note: Pt chest tube dislodged. Pt is in no distress. Oximetry stable on 4L supplemental O2. Repeat CXR shows partial redemonstration of pleural effusion with possible consolidation. Etiology of pleural effusion remains unclear so will cover with IV Zosyn. Pt stable, resting comfortably. Ed unable to replace chest tube. Will repeat cxr and re-insert tube if needed. Thoracic surgery consulted. Can also consider IR chest tube insertion Time Spent With Patient Time: Total time managing care of this patient today ____ minutes.
--- NOTE | 2023-08-21 22:28 | MHC.EDTECH ---
Patient is in X-ray at this time,patient will be placed in hospital bed for comfort on return.
[2023-08-21] MEDS: traZODone HCL 100 MG TABLET PO (23:03)
[2023-08-21] MEDS: Tamsulosin HCL 0.4 MG CAPSULE PO (23:03)
[2023-08-21] MEDS: Piperacillin Sodium/Tazobactam 4.5 GM in 0.9 % Sodium Chloride 100 ML IV (23:04)
--- NOTE | 2023-08-21 23:26 | PC.NURSE ---
assumed care of pt
--- NOTE | 2023-08-21 23:34 | MHC.EDTECH ---
Patient was placed in hospital bed for comfort,hourly rounds and vitals completed, patient is resting comfortably;y at this time,call marshall in reach
[2023-08-22] VITALS (7 sets, daily range): BP systolic 99–124; BP diastolic 57–81; PULSE 71–87; RESP 17–32; TEMP 35.9–37.3; O2SAT 95–96
--- NOTE | 2023-08-22 01:56 | MHC.EDTECH ---
Hourly rounds and vitals completed,patient is resting comfortably at this time,call marshall in reach
--- NOTE | 2023-08-22 04:01 | MHC.EDTECH ---
Hourly rounds and vitals completed, patient was giving a can of jesica raul, and is resting comfortably. call marshall in reach
[2023-08-22] MEDS: Omeprazole 40 MG CAPSULE.DR PO (04:52)
[2023-08-22] MEDS: Piperacillin Sodium/Tazobactam 4.5 GM in 0.9 % Sodium Chloride 100 ML IV ×4 (04:52→22:19)
[2023-08-22 04:57] LABS: MANUAL DIFF FLAG NO
[2023-08-22 05:19] LABS: Basophils Percent Auto 0.1 % (0-2); Eosinophils Absolute Auto 0.1 X10*3/uL (0.0-0.4); Hematocrit 32.6 % (42.0-52.0); Hemoglobin 10.7 g/dl (14.0-18.0); Imm Gran Abs Auto 0.04 X10*3/uL (0.00-0.03); Imm Gran Pct Auto 0.6 % (0.0-0.4); Lymphocytes Absolute Auto 0.4 X10*3/uL (1.2-4.9); Lymphocytes Percent Auto 6.3 % (20-40); Mean Corpuscular HGB Conc 32.8 g/dl (31.0-36.0); Mean Corpuscular Hemoglobin 30.6 pg (27.0-33.0); Mean Corpuscular Volume 93.1 fL (80.0-98.0); Mean Platelet Volume 9.8 fL (9.4-12.4); Monocytes Absolute Auto 0.4 X10*3/uL (0.1-1.2); Monocytes Percent Auto 5.9 % (2-11); Neutrophils Absolute Auto 5.9 x10*3/uL (2.0-8.3); Neutrophils Percent Auto 86.1 % (45-73); Platelet Count 175 X10*3/uL (160-400); Red Cell Distribution Width 13.3 % (11.0-16.0); White Blood Count 6.8 X10*3/uL (4.8-10.8)
[2023-08-22 05:24] LABS: Anion Gap 15 (12-20); Blood Urea Nitrogen 11 mg/dL (9-16); Calcium 9.3 mg/dL (8.4-10.2); Carbon Dioxide 21 mmol/L (22-29); Chloride 103 mmol/L (96-108); Creatinine Clr Calc Pharmacy 74.6; Estimated Glomerular Filt Rate 57; Glucose Random 108 mg/dL (60-115); Potassium 4.2 mmol/L (3.3-5.1); Sodium 135 mmol/L (135-145)
--- NOTE | 2023-08-22 05:59 | MHC.EDTECH ---
Hourly rounds and vitals completed,Emptied 375MLS of tea color urine from [facility]. patient is resting comfortably at this time and call marshall in reach
--- NOTE | 2023-08-22 08:04 | P.CNHO_ITS ---
Subjective - Subjective Chief complaint: Shortness of breath Patient: new to practice Consult date: 08/22/23 Primary Care Provider: Lee Almanza PA-C HPI - Consult Narrative Reason for consult: Probable metastatic malignancy Narrative: Jorge Melendez is a 68 year old male with past medical history significant for hypertension, chronic stage 3 kidney disease and BPH who was admitted to the ED following elective laser enucleation of prostate and left hydrocelectomy on 08/21/2023. Following surgical procedure, patient found to be hypoxic, he was briefly placed on BiPAP, chest x-ray in the PACU showed large left-sided pleural effusion with near complete opacification of left chest. CT chest revealed in addition multiple hypodense lesions in the liver as well as ascites and splenomegaly, splenic lesion, mesenteric edema and omental caking. There was also questionable wall thickening and mild lateral gastric wall thickening. Patient had chest tube placed which drained 2.1 L yellow serosanguineous fluid. Patient states that he did have some shortness of breath in the last 2 months and also noticed some distention of his abdomen. He has no personal history of cancer. He has a long-time smoker, 1-2 cigars per week. No cigarette smoking or alcohol use. In July 2021 he had EGD and colonoscopy which was negative for malignancy. His PSA is not elevated and urine cytology in July 2022 was negative. Patient's chest tube fell out, he reports shortness of breath again. He denies any other complaints such as headache or dizziness. No chest pain or abdominal pain. Denies hematochezia or melena. He denies any significant weight loss. Review of Systems - Constitutional Denies anorexia, Denies weight loss [facility] Medical History: Medical History (Last Reviewed 08/21/23 @ 18:44 by ANDRÉS Vila) Abnormal colonoscopy Chronic renal insufficiency CKD (chronic kidney disease) stage 3, GFR 30-59 ml/min COVID-19 vaccine series completed Elevated cholesterol MISAEL (generalized anxiety disorder) GERD (gastroesophageal reflux disease) Gout HTN (hypertension) Recurrent UTI Spontaneous pneumothorax Tubulovillous adenoma polyp of colon Venous stasis dermatitis of left lower extremity Family History: Family History (Last Reviewed 08/21/23 @ 18:44 by ANDRÉS Vila) Father Heart failure History of mental problems Substance abuse Mother CAD (coronary artery disease) Breast cancer Surgical History: Surgical History (Last Reviewed 08/21/23 @ 18:44 by ANDRÉS Vila) H/O colonoscopy History of esophagogastroduodenoscopy (EGD) History of lung surgery Social History: Social History (Last Reviewed 08/21/23 @ 18:44 by ANDRÉS Vila) Living Situation History: Housing: House Alcohol History Details: 1. How often do you have a drink containing alcohol?: a. Never Tobacco History: Patient Tobacco Use Status: Current someday Tobacco Tobacco use type: Cigar Smoked in Last 30 Days: Yes e-Cigarette/Vaping Use: Never Used Second Hand Smoke Exposure: No Substance Use History: Use of substances other than those prescribed or required for medical reasons : No Advance Directives: Advance Directives: Yes Advance Directives on File: Yes Advance Directives Date on File: 08/17/21 Occupation Assessmet: service: No Current occupational status: retired Current occupation: [employer] Home Medications and Allergies Current Medications: Current Medications Acetaminophen (Acetaminophen 325 Mg Tablet) 650 mg PO Q6H PRN PRN Reason: Pain, Mild (Pain Scale 1-3) Amlodipine Besylate (Amlodipine Besylate 10 Mg Tablet) 10 mg PO DAILY [facility]; Protocol Famotidine (Famotidine 20 Mg Tablet) 40 mg PO DAILY [facility] Finasteride (Finasteride 5 Mg Tablet) 5 mg PO DAILY [facility] Folic Acid (Folic Acid 1 Mg Tablet) 1 mg PO DAILY [facility] Gemfibrozil (Gemfibrozil 600 Mg Tablet) 600 mg PO BID [facility] Last Admin: 08/21/23 23:08 Dose: Not Given Piperacillin Sod/Tazobactam (Sod 4.5 gm/ Sodium Chloride) 100 mls @ 200 mls/hr IV Q6H [facility] Last Infusion: 08/22/23 05:22 Dose: Infused Metoprolol Succinate (Metoprolol Succinate Er 50 Mg Tab.Er.24h) 50 mg PO DAILY [facility]; Protocol Omeprazole (Omeprazole 40 Mg Capsule.Dr) 40 mg PO DAILY@0630 [facility] Last Admin: 08/22/23 04:52 Dose: 40 mg Ondansetron HCl (Ondansetron Hcl 4 Mg/2 Ml Vial) 4 mg IVPUSH Q8H PRN PRN Reason: Nausea and Vomiting Senna (Sennosides 8.6 Mg Tablet) 17.2 mg PO BEDTIME PRN PRN Reason: Constipation Sodium Chloride (0.9 % Sodium Chloride Flush 3 Ml Syringe) 3 ml IVFLUSH QSHIFT [facility] Last Admin: 08/22/23 00:08 Dose: Not Given Tamsulosin HCl (Tamsulosin Hcl 0.4 Mg Capsule) 0.4 mg PO BEDTIME [facility] Last Admin: 08/21/23 23:03 Dose: 0.4 mg Trazodone HCl (Trazodone Hcl 100 Mg Tablet) 100 mg PO BEDTIME [facility] Last Admin: 08/21/23 23:03 Dose: 100 mg Home Medications Medication Instructions Recorded Confirmed Type omeprazole 40 mg capsule,delayed 40 mg PO DAILY 04/14/20 08/21/23 History release folic acid 1 mg tablet 1 mg PO DAILY 07/29/21 08/21/23 History Allergies Allergy/AdvReac Type Severity Reaction Status Date / Time lisinopril Allergy Unknown Unknown Verified 08/04/23 11:18 sertraline [From Zoloft] AdvReac Severe suicidal Verified 08/04/23 11:18 Physical Exam Vital signs: Vital Signs Temp 98.9 F 08/22/23 05:58 Pulse 77 08/22/23 05:58 Resp 32 H 08/22/23 05:58 BP 124/76 08/22/23 05:58 Pulse Ox 95 08/22/23 05:58 O2 Del Method Nasal Cannula 08/22/23 05:58 O2 Flow Rate 3 08/22/23 05:58 Intake & Output 08/21/23 08/22/23 08/22/23 18:59 06:59 18:59 Intake Total 320 / 320 Output Total 2100 / 3275 1175 / 3275 Balance -2100 / -2955 -855 / -2955 Urine Output (Average ml/kg/hr) 0.66 Intake: Intake, Oral Amount 120 / 120 Intake, IV Amount 200 / 200 Piperacillin Sodium/Tazobactam 200 / 200 4.5 gm In 0.9 % Sodium Chloride 100 ml @ 200 mls/hr IV Q6H [facility] Rx#:[id number] Output: Output, Pleural Fluid Amount 250 / 250 Output, Urine Amount (Catheter) 925 / 925 2-way Urethral 925 / 925 Output, Chest Tube Drainage 2099 Amount left back 2099 Other: Urine Carreon Urine Color Tea Weight 116.573 kg Weight 116.573 kg - Constitutional Present: mild distress, obese - Routine HEENT Exam Head: Present: normal inspection Eye: Present: EOMI - Routine Neck Exam Present: supple. Absent: lymphadenopathy - Routine Respiratory Exam Present: decreased breath sounds, respiratory distress, rhonchi - Routine Cardiovascular Exam Cardiovascular: Present: S1, S2, tachycardia - Routine Abdominal Exam Present: distended, nontender - Routine Extremities Exam Absent: calf tenderness - Routine Skin Exam Present: intact. Absent: cyanosis - Routine Neurological Exam Present: alert, oriented X3 Hem/Onc Consult Result - Labs CBC & Chem 7: 08/22/23 04:04 08/22/23 04:04 Labs: Short CBC 08/21/23 08/22/23 Range/Units 14:16 04:04 WBC 7.1 6.8 (4.8-10.8) X10*3/uL Hgb 11.1 L 10.7 L (14.0-18.0) g/dl Hct 34.0 L 32.6 L (42.0-52.0) % Plt Count 179 175 (160-400) X10*3/uL BMP 08/21/23 08/22/23 14:15 04:04 Sodium 133 L 135 Potassium 4.4 4.2 Chloride 102 103 Carbon Dioxide 21 L 21 L BUN 11 11 Creatinine 1.30 1.25 Calcium 9.1 D 9.3 Liver Function 08/21/23 Range/Units 14:15 Total Bilirubin 1.0 (0.0-1.0) mg/dL Direct Bilirubin 0.5 (0.0-0.5) mg/dL AST 19 (5-37) U/L ALT 11 (0-40) U/L Alkaline Phosphatase 111 (39-117) U/L Albumin 3.2 L (3.5-5.0) g/dL Assessment and Plan Patient Active problem list reviewed?: Yes (1) Metastatic cancer to liver Status: Acute Assessment and plan: 1. This is a 68-year-old male with past medical history significant for hypertension and chronic kidney disease presenting with large left pleural effusion, liver metastasis, splenic lesion and ascites. This is worrisome for metastatic malignancy. CT chest/abdomen and pelvis performed on 08/21/2023 revealed large left pleural effusion, enlarged liver with numerous hypodense metastatic lesions, enlarged spleen with large lesion occupying entire spleen measuring 9.8 cm, mesenteric edema and omental caking with questionable small- bowel thickening in the left upper quadrant as well as mild lateral gastric wall thickening. Patient did have endoscopy and colonoscopy in July 2021, he had biopsy of a stomach ulcer which showed mild chronic inactive inflammation. EG junction biopsy showed inflamed and ulcerated squamous mucosa. No evidence of malignancy at that time. Patient will need tissue diagnosis rather urgently because of some hemodynamic compromise because of extent of disease and extensive pulmonary involvement. I recommend biopsy of liver lesion by intervention Radiology. I have added cytology evaluation of pleural fluid. LDH is normal but CEA is elevated at 307.6 NG/mL. Possibilities here are lung or GI malignancy with metastasis. Prognosis is guarded. Further recommendations to follow. I thank you for this consultation. - Time Spent With Patient Time Spent with Patient (in minutes): 20
[2023-08-22] MEDS: Metoprolol Succinate ER 50 MG TAB.ER.24H PO (08:08)
[2023-08-22] MEDS: Finasteride 5 MG TABLET PO (08:08)
[2023-08-22] MEDS: amLODIPine Besylate 10 MG TABLET PO (08:08)
[2023-08-22] MEDS: 0.9 % Sodium Chloride Flush 3 ML SYRINGE IVFLUSH ×3 (08:08→20:05)
[2023-08-22] MEDS: Famotidine 20 MG TABLET 40 MG PO (08:08)
[2023-08-22] MEDS: gemfibroziL 600 MG TABLET PO ×2 (08:08→20:05)
[2023-08-22] MEDS: Folic Acid 1 MG TABLET PO (08:08)
--- NOTE | 2023-08-22 08:11 | PC.NURSE ---
patient a&ox3, vss, monitoring coordinator nsr, pagan cath patient draining/dark colored urine, lungs diminished throughout- on 3L O@ NC with O2 sat of 97% will titrate pt down, pt now put on 2L NC speaking in full sentences no sob noted, pt dry cough with deep breathing, pt to go to IR for liver biopsy, Dr. Camp at bedside speaking with patient.
--- NOTE | 2023-08-22 08:31 | HO.PM.IMPN ---
Subjective Subjective Date of Service: 08/22/23 Interval History: sob Physical Exam Vital Signs: Vital Signs: Last Vital Signs Temp 98.9 F 08/22/23 05:58 Pulse 77 08/22/23 05:58 Resp 32 H 08/22/23 05:58 BP 124/76 08/22/23 05:58 Pulse Ox 95 08/22/23 05:58 O2 Del Method Nasal Cannula 08/22/23 05:58 O2 Flow Rate 3 08/22/23 05:58 Oxygen Flow Rate 2 08/21/23 13:40 BMI result Body Mass Index 33.0 General: AO X 3, no acute distress Resp: diminished on left, no accessory muscles used CVS: S1,S2,RRR GI: soft, non tender, distended Neuro: motor grossly intact, alert Psych: appropriate affect, appropriate insight Objective Data Active Medications Acetaminophen (Acetaminophen 325 Mg Tablet) 650 mg PO Q6H PRN PRN Reason: Pain, Mild (Pain Scale 1-3) Amlodipine Besylate (Amlodipine Besylate 10 Mg Tablet) 10 mg PO DAILY [facility]; Protocol Last Admin: 08/22/23 08:08 Dose: 10 mg Documented By: JUNIE Famotidine (Famotidine 20 Mg Tablet) 40 mg PO DAILY [facility] Last Admin: 08/22/23 08:08 Dose: 40 mg Documented By: JUNIE Finasteride (Finasteride 5 Mg Tablet) 5 mg PO DAILY [facility] Last Admin: 08/22/23 08:08 Dose: 5 mg Documented By: JUNIE Folic Acid (Folic Acid 1 Mg Tablet) 1 mg PO DAILY [facility] Last Admin: 08/22/23 08:08 Dose: 1 mg Documented By: JUNIE Gemfibrozil (Gemfibrozil 600 Mg Tablet) 600 mg PO BID [facility] Last Admin: 08/22/23 08:08 Dose: 600 mg Documented By: JUNIE Piperacillin Sod/Tazobactam (Sod 4.5 gm/ Sodium Chloride) 100 mls @ 200 mls/hr IV Q6H [facility] Last Infusion: 08/22/23 05:22 Dose: Infused Documented By: KELLY Metoprolol Succinate (Metoprolol Succinate Er 50 Mg Tab.Er.24h) 50 mg PO DAILY [facility]; Protocol Last Admin: 08/22/23 08:08 Dose: 50 mg Documented By: JUNIE Omeprazole (Omeprazole 40 Mg Capsule.) 40 mg PO DAILY@0630 [facility] Last Admin: 08/22/23 04:52 Dose: 40 mg Documented By: KELLY Ondansetron HCl (Ondansetron Hcl 4 Mg/2 Ml Vial) 4 mg IVPUSH Q8H PRN PRN Reason: Nausea and Vomiting Senna (Sennosides 8.6 Mg Tablet) 17.2 mg PO BEDTIME PRN PRN Reason: Constipation Sodium Chloride (0.9 % Sodium Chloride Flush 3 Ml Syringe) 3 ml IVFLUSH QSHIFT [facility] Last Admin: 08/22/23 08:08 Dose: 3 ml Documented By: JUNIE Tamsulosin HCl (Tamsulosin Hcl 0.4 Mg Capsule) 0.4 mg PO BEDTIME [facility] Last Admin: 08/21/23 23:03 Dose: 0.4 mg Documented By: YESSY Trazodone HCl (Trazodone Hcl 100 Mg Tablet) 100 mg PO BEDTIME [facility] Last Admin: 08/21/23 23:03 Dose: 100 mg Documented By: YESSY Labs 08/22/23 04:04 08/22/23 04:04 Labs: Laboratory Results - last 24 hr 08/21/23 08/21/23 08/21/23 14:14 14:15 14:16 MCV 93.2 MCH 30.4 MCHC 32.6 RDW 13.2 Plt Count 179 MPV 9.8 Immature Gran % (Auto) 0.7 H Neut % (Auto) 86.1 H Lymph % (Auto) 5.8 L [place] % (Auto) 6.1 Eos % (Auto) 1.0 Baso % (Auto) 0.3 Lymph # (Auto) 0.4 L [place] # (Auto) 0.4 Eos # (Auto) 0.1 Baso # (Auto) 0.0 Abs Immat Gran (auto) 0.05 H Absolute Neuts (auto) 6.1 Absolute Nucleated RBC 0.000 Nucleated RBC % (auto) 0.0 PT 13.7 H INR 1.1 APTT 22.8 L VBG pH VBG pCO2 VBG pO2 VBG HCO3 VBG O2 Saturation VBG Base Excess Anion Gap 14 Estim Creat Clear Calc 71.7 Estimated GFR 55 Random Glucose 119 H Lactic Acid Calcium 9.1 D Magnesium 1.8 Total Bilirubin 1.0 Direct Bilirubin 0.5 AST 19 ALT 11 Alkaline Phosphatase 111 B-Natriuretic Peptide 42 Total Protein 6.5 Albumin 3.2 L Pleural WBC Pleural RBC Pleural Neutrophils Pleural Lymphocytes Pleural Monocytes Pleural Eosinophils Pleural Other Cells Pleural Total Protein Pleural Albumin Pleural Glucose COVID-19 (BEBETO) Negative COVID-19 Clin Com See Note Influenza Type A (YAKELIN) Negative Influenza Type B (YAKELIN) Negative Influenza A & B Note See Note 08/21/23 08/21/23 08/21/23 14:18 14:21 16:20 MCV MCH MCHC RDW Plt Count MPV Immature Gran % (Auto) Neut % (Auto) Lymph % (Auto) [place] % (Auto) Eos % (Auto) Baso % (Auto) Lymph # (Auto) [place] # (Auto) Eos # (Auto) Baso # (Auto) Abs Immat Gran (auto) Absolute Neuts (auto) Absolute Nucleated RBC Nucleated RBC % (auto) PT INR APTT VBG pH 7.33 VBG pCO2 49 VBG pO2 49 VBG HCO3 26 VBG O2 Saturation 69.0 VBG Base Excess 0.2 Anion Gap Estim Creat Clear Calc Estimated GFR Random Glucose Lactic Acid 1.5 Calcium Magnesium Total Bilirubin Direct Bilirubin AST ALT Alkaline Phosphatase B-Natriuretic Peptide Total Protein Albumin Pleural WBC 0.542 Pleural RBC < 0.002 Pleural Neutrophils 8 Pleural Lymphocytes 37 Pleural Monocytes 7 Pleural Eosinophils 1 Pleural Other Cells 47 Pleural Total Protein 4.5 Pleural Albumin 2.8 Pleural Glucose 117 COVID-19 (BEBETO) COVID-19 Clin Com Influenza Type A (YAKELIN) Influenza Type B (YAKELIN) Influenza A & B Note 08/22/23 04:04 MCV 93.1 MCH 30.6 MCHC 32.8 RDW 13.3 Plt Count 175 MPV 9.8 Immature Gran % (Auto) 0.6 H Neut % (Auto) 86.1 H Lymph % (Auto) 6.3 L [place] % (Auto) 5.9 Eos % (Auto) 1.0 Baso % (Auto) 0.1 Lymph # (Auto) 0.4 L [place] # (Auto) 0.4 Eos # (Auto) 0.1 Baso # (Auto) 0.0 Abs Immat Gran (auto) 0.04 H Absolute Neuts (auto) 5.9 Absolute Nucleated RBC 0.000 Nucleated RBC % (auto) 0.0 PT INR APTT VBG pH VBG pCO2 VBG pO2 VBG HCO3 VBG O2 Saturation VBG Base Excess Anion Gap 15 Estim Creat Clear Calc 74.6 Estimated GFR 57 Random Glucose 108 Lactic Acid Calcium 9.3 Magnesium Total Bilirubin Direct Bilirubin AST ALT Alkaline Phosphatase B-Natriuretic Peptide Total Protein Albumin Pleural WBC Pleural RBC Pleural Neutrophils Pleural Lymphocytes Pleural Monocytes Pleural Eosinophils Pleural Other Cells Pleural Total Protein Pleural Albumin Pleural Glucose COVID-19 (BEBETO) COVID-19 Clin Com Influenza Type A (YAKELIN) Influenza Type B (YAKELIN) Influenza A & B Note Microbiology Microbiology Results: Microbiology 08/21/23 16:20 Gram Stain - Final Thoracentesis Fluid Assessment and Plan (1) Metastatic cancer to liver: Status: Acute Plan 68M PMH htn, hld, bph, ckd III, anxiety presented after laser prostatectomy with sob, found to have left pleural effusion and new diagnosis of metastatic liver disease acute hypoxic respiratory failure due to presumed left malignant pleural effusion chest tube removed after dislodgment will need repeat drain, ?pleurx wean o2 as tolerated new metastatic liver disease, splenic met, ascites ?primary plan for liver biopsy follow up pleural fluid cytology oncology following htn amlodipine, metoprolol ckd3 stable bph proscar, flomax hld statin dvt prophylaxis - lovenox full code reason for continued hospitalization:hypoxia Quality Stroke Does the patient have a stroke diagnosis?: No VTE Prior VTE?: No VTE Risk Level:: Medical - moderate - high VTE Device Contraindication: Treatment Not Indicated VTE Drug Contraindication: N/A - Med Ordered
[2023-08-22 08:43] LABS: Lactate Dehydrogenase 153 U/L (118-273)
--- NOTE | 2023-08-22 09:19 | HO.THORCON_ITS ---
History of Present Illness Consult details Consult date: 08/22/23 Requesting physician: Marti Peterson Narrative: Jorge Melendez is a 68 year old male with past medical history significant for hypertension, chronic stage 3 kidney disease and BPH who was admitted to the ED following elective laser enucleation of prostate and left hydrocelectomy on 08/21/2023. They had difficulty maintaining oxygen saturations during the procedure and then was found to be hypoxic in recovery and therefore placed on BiPAP. CXR in the PACU showed large left-sided pleural effusion with near complete opacification of left chest. He was sent to the ED for further evaluation. CT abd/pelvis was then performed which revealed in addition multiple hypodense lesions in the liver as well as ascites and splenomegaly, splenic lesion, mesenteric edema and omental caking. There was also questionable wall thickening and mild lateral gastric wall thickening. In the ED, he had chest tube placed which drained 2.1 L yellow serosanguineous fluid which unfortunately became dislodged when the patient was trying to get out of bed. He was admitted to the medical service for further treatment and work up. Thoracic surgery was consulted for possible replacement of the chest tube. This morning, he reports feeling better. He denies shortness of breath, chest pain, palpitations. Pleural studies were sent and are pending. CEA is 307.60. Review of Systems 2 Constitutional: Constitutional: Denies chills and Denies fever(s) ENT: Denies dizziness Cardiovascular: Cardiovascular: Denies chest pain and Denies dyspnea Respiratory: Respiratory: Reports cough and Denies dyspnea Gastrointestinal: Gastrointestinal: Denies abdominal pain Integumentary/Breasts: Skin/Breast: Denies rash and Denies jaundice Neurologic: Denies dizziness [facility] Past Medical History Medical History Spontaneous pneumothorax MISAEL (generalized anxiety disorder) CKD (chronic kidney disease) stage 3, GFR 30-59 ml/min Recurrent UTI Venous stasis dermatitis of left lower extremity Tubulovillous adenoma polyp of colon COVID-19 vaccine series completed Chronic renal insufficiency Elevated cholesterol HTN (hypertension) Gout Abnormal colonoscopy GERD (gastroesophageal reflux disease) Family History Family History Father Heart failure History of mental problems Substance abuse Mother CAD (coronary artery disease) Breast cancer Surgical History Surgical History History of esophagogastroduodenoscopy (EGD) H/O colonoscopy History of lung surgery Social History Social History Housing: House Alcohol intake: current Alcohol intake frequency: holidays/special occasions only Alcohol type: beer Patient Tobacco Use Status: Current someday Tobacco user Tobacco use type: Cigar Smoked in Last 30 Days: Yes e-Cigarette/Vaping Use: Never Used Second Hand Smoke Exposure: No Use of substances other than those prescribed or required for medical reasons: No Advance Directives: Yes Advance Directives on File: Yes Advance Directives Date on File: 08/17/21 service: No Current occupational status: retired Current occupation: Rt handed Cognitive needs: No Hearing needs: No Vision needs: No Meds Allergies Allergy/AdvReac Type Severity Reaction Status Date / Time lisinopril Allergy Unknown Unknown Verified 08/04/23 11:18 sertraline [From Zoloft] AdvReac Severe suicidal Verified 08/04/23 11:18 Active Medications: Current Medications Acetaminophen (Acetaminophen 325 Mg Tablet) 650 mg PO Q6H PRN PRN Reason: Pain, Mild (Pain Scale 1-3) Amlodipine Besylate (Amlodipine Besylate 10 Mg Tablet) 10 mg PO DAILY [facility]; Protocol Last Admin: 08/22/23 08:08 Dose: 10 mg Enoxaparin Sodium (Enoxaparin Sodium 40 Mg/0.4 Ml Syringe) 40 mg SUBCUT Q24H [facility] Famotidine (Famotidine 20 Mg Tablet) 40 mg PO DAILY [facility] Last Admin: 08/22/23 08:08 Dose: 40 mg Finasteride (Finasteride 5 Mg Tablet) 5 mg PO DAILY [facility] Last Admin: 08/22/23 08:08 Dose: 5 mg Folic Acid (Folic Acid 1 Mg Tablet) 1 mg PO DAILY [facility] Last Admin: 08/22/23 08:08 Dose: 1 mg Gemfibrozil (Gemfibrozil 600 Mg Tablet) 600 mg PO BID [facility] Last Admin: 08/22/23 08:08 Dose: 600 mg Piperacillin Sod/Tazobactam (Sod 4.5 gm/ Sodium Chloride) 100 mls @ 200 mls/hr IV Q6H [facility] Last Infusion: 08/22/23 05:22 Dose: Infused Metoprolol Succinate (Metoprolol Succinate Er 50 Mg Tab.Er.24h) 50 mg PO DAILY [facility]; Protocol Last Admin: 08/22/23 08:08 Dose: 50 mg Omeprazole (Omeprazole 40 Mg Capsule.Dr) 40 mg PO DAILY@0630 [facility] Last Admin: 08/22/23 04:52 Dose: 40 mg Ondansetron HCl (Ondansetron Hcl 4 Mg/2 Ml Vial) 4 mg IVPUSH Q8H PRN PRN Reason: Nausea and Vomiting Senna (Sennosides 8.6 Mg Tablet) 17.2 mg PO BEDTIME PRN PRN Reason: Constipation Sodium Chloride (0.9 % Sodium Chloride Flush 3 Ml Syringe) 3 ml IVFLUSH QSHIFT [facility] Last Admin: 08/22/23 08:08 Dose: 3 ml Tamsulosin HCl (Tamsulosin Hcl 0.4 Mg Capsule) 0.4 mg PO BEDTIME [facility] Last Admin: 08/21/23 23:03 Dose: 0.4 mg Trazodone HCl (Trazodone Hcl 100 Mg Tablet) 100 mg PO BEDTIME [facility] Last Admin: 08/21/23 23:03 Dose: 100 mg Home Medications Medication Instructions Recorded Confirmed Last Taken Type omeprazole 40 mg capsule,delayed 40 mg PO DAILY 04/14/20 08/21/23 08/21/23 History release folic acid 1 mg tablet 1 mg PO DAILY 07/29/21 08/21/23 08/21/23 History Physical Exam 2 Vital Signs: Vital Signs: Last Vital Signs Temp 98.9 F 08/22/23 05:58 Pulse 77 08/22/23 05:58 Resp 32 H 08/22/23 05:58 BP 124/76 08/22/23 05:58 Pulse Ox 95 08/22/23 05:58 O2 Del Method Nasal Cannula 08/22/23 05:58 O2 Flow Rate 3 08/22/23 05:58 Oxygen Flow Rate 2 08/21/23 13:40 BMI result Body Mass Index 33.0 Const: General: comfortable, no acute distress and alert O rientation/consciousness: patient oriented x3 Chest: Other: left posterior chest tube site dressing c/d/i Resp: Effort & Inspection: normal respiratory effort, able to speak in complete sentences and no respiratory distress Auscultation: diminished lung sounds (bases) Cardio: Rate: regular rate Skin: General skin exam: no rashes or lesions noted and no jaundice Neuro: General: patient oriented x3 and moves all extremities Results Labs 08/22/23 04:04 08/22/23 04:04 Labs: Abnormal lab results 08/21/23 08/21/23 08/22/23 Range/Units 14:15 14:16 04:04 RBC 3.65 L 3.50 L (4.60-5.80) X10*6/uL Hgb 11.1 L 10.7 L (14.0-18.0) g/dl Hct 34.0 L 32.6 L (42.0-52.0) % Immature Gran % (Auto) 0.7 H 0.6 H (0.0-0.4) % Neut % (Auto) 86.1 H 86.1 H (45-73) % Lymph % (Auto) 5.8 L 6.3 L (20-40) % Lymph # (Auto) 0.4 L 0.4 L (1.2-4.9) X10*3/uL Abs Immat Gran (auto) 0.05 H 0.04 H (0.00-0.03) X10*3/uL PT 13.7 H (11.1-13.3) SEC APTT 22.8 L (26.0-36.8) SEC Sodium 133 L (135-145) mmol/L Carbon Dioxide 21 L 21 L (22-29) mmol/L Random Glucose 119 H (60-115) mg/dL Albumin 3.2 L (3.5-5.0) g/dL Short CBC 08/21/23 08/22/23 Range/Units 14:16 04:04 WBC 7.1 6.8 (4.8-10.8) X10*3/uL Hgb 11.1 L 10.7 L (14.0-18.0) g/dl Hct 34.0 L 32.6 L (42.0-52.0) % Plt Count 179 175 (160-400) X10*3/uL BMP 08/21/23 08/22/23 14:15 04:04 Sodium 133 L 135 Potassium 4.4 4.2 Chloride 102 103 Carbon Dioxide 21 L 21 L BUN 11 11 Creatinine 1.30 1.25 Calcium 9.1 D 9.3 Liver Function 08/21/23 Range/Units 14:15 Total Bilirubin 1.0 (0.0-1.0) mg/dL Direct Bilirubin 0.5 (0.0-0.5) mg/dL AST 19 (5-37) U/L ALT 11 (0-40) U/L Alkaline Phosphatase 111 (39-117) U/L Albumin 3.2 L (3.5-5.0) g/dL All other labs normal. Imaging Chest x-ray: report reviewed and image reviewed Abdomen CT scan report/results: report reviewed and image reviewed Assessment and Plan (1) Pleural effusion: Status: Acute Plan 68 year old male with acute hypoxic respiratory failure due to presumed left malignant pleural effusion. Repeat CXR yesterday shows some reaccumulation of left pleural effusion. Would await cytology/pathology to confirm malignancy. Treatment options include chest tube insertion with pleurodesis to attempt to prevent recurrence or pleurx catheter placement. Will continue to follow closely. Repeat CXR in am or if worsening symptoms. Procedures Date of Service Date of Service: 08/22/23
[2023-08-22] MEDS: Enoxaparin Sodium 40 MG/0.4 ML SYRINGE SUBCUT (09:55)
--- NOTE | 2023-08-22 15:46 | MHC.CM.PN ---
pt lives alone had no previous servies has own ride home hcp on file
[2023-08-22] MEDS: traZODone HCL 100 MG TABLET PO (20:05)
[2023-08-22] MEDS: Tamsulosin HCL 0.4 MG CAPSULE PO (20:05)
[2023-08-23] VITALS (10 sets, daily range): BP systolic 109–140; BP diastolic 61–78; PULSE 61–73; RESP 16–18; TEMP 36.3–36.9; O2SAT 94–99
[2023-08-23] MEDS: Piperacillin Sodium/Tazobactam 4.5 GM in 0.9 % Sodium Chloride 100 ML IV ×4 (04:38→23:29)
--- NOTE | 2023-08-23 07:39 | PM.PNTS ---
Subjective Subjective Date of Service: 08/23/23 Interval history: Feels overall ok this morning. Denies shortness of breath. NPO for liver biopsy today. Physical Exam Vital Signs: Vital Signs: Last Vital Signs Temp 97.5 F 08/23/23 04:00 Pulse 61 08/23/23 04:00 Resp 16 08/23/23 04:00 BP 109/69 08/23/23 04:00 Pulse Ox 96 08/23/23 04:00 O2 Del Method Nasal Cannula 08/23/23 04:00 O2 Flow Rate 2 08/23/23 04:00 Oxygen Flow Rate 2 08/21/23 13:40 BMI result Body Mass Index 33.0 Const: General: comfortable and no acute distress Chest: Other: left chest tube dressing clean and intact Resp: Effort & Inspection: normal respiratory effort, able to speak in complete sentences and no respiratory distress Skin: General skin exam: no rashes or lesions noted and no jaundice Procedures Date of Service Date of Service: 08/23/23 Progress Note: A&P Assessment and plan (1) Pleural effusion: Status: Acute Plan 68 year old male with acute hypoxic respiratory failure due to presumed left malignant pleural effusion. Await cytology/pathology to confirm malignancy, liver biopsy today. Vitals stable. Currently no intervention needed, repeat CXR if worsening symptoms. Treatment options include chest tube insertion with pleurodesis to attempt to prevent recurrence or pleurx catheter placement. Will continue to follow. Time Spent With Patient Time: Total time managing care of this patient today ____ minutes. Quality Stroke Does the patient have a stroke diagnosis?: No VTE Prior VTE?: No VTE Risk Level:: Medical - moderate - high VTE Device Contraindication: Treatment Not Indicated VTE Drug Contraindication: N/A - Med Ordered
--- NOTE | 2023-08-23 12:00 | P.PNIM_ITS ---
Subjective Subjective Date of Service: 08/23/23 Interval History: Seen and evaluated this morning concerned about findings of liver biopsy plan for biopsy later today Review of Systems Review of Systems: Yes all other systems are reviewed and are negative Physical Exam 2 Vital Signs: Vital Signs: Last Vital Signs Temp 97.3 F 08/23/23 07:52 Pulse 68 08/23/23 07:52 Resp 17 08/23/23 07:52 BP 121/75 08/23/23 07:52 Pulse Ox 96 08/23/23 07:52 O2 Del Method Nasal Cannula 08/23/23 07:52 O2 Flow Rate 2.0 08/23/23 07:52 Oxygen Flow Rate 2 08/21/23 13:40 BMI result Body Mass Index 33.0 Const: Other: Constitutional : Awake, interactive, not in distress Neck : Normal inspection, Supple Cardiovascular : RRR, no JVP, no lower extremity edema Respiratory : good bilateral air entry, no crackles, wheezes or rhonchi Gastrointestinal: soft, lax, Normal bowel sounds, Non tender Skin : Warm, Dry Neurological : Alert & oriented x3, No focal deficit Objective Data Active Medications Acetaminophen (Acetaminophen 325 Mg Tablet) 650 mg PO Q6H PRN PRN Reason: Pain, Mild (Pain Scale 1-3) Amlodipine Besylate (Amlodipine Besylate 10 Mg Tablet) 10 mg PO DAILY [facility]; Protocol Last Admin: 08/23/23 09:32 Dose: Not Given Documented By: ROS Non-Admin Reason: NPO Enoxaparin Sodium (Enoxaparin Sodium 40 Mg/0.4 Ml Syringe) 40 mg SUBCUT Q24H [facility] Last Admin: 08/23/23 08:37 Dose: Not Given Documented By: ROS Non-Admin Reason: pre procedure Famotidine (Famotidine 20 Mg Tablet) 40 mg PO DAILY [facility] Last Admin: 08/23/23 09:33 Dose: Not Given Documented By: ROS Non-Admin Reason: NPO Finasteride (Finasteride 5 Mg Tablet) 5 mg PO DAILY [facility] Last Admin: 08/23/23 09:33 Dose: Not Given Documented By: ROS Non-Admin Reason: NPO Folic Acid (Folic Acid 1 Mg Tablet) 1 mg PO DAILY [facility] Last Admin: 08/23/23 09:33 Dose: Not Given Documented By: ROS Non-Admin Reason: NPO Gemfibrozil (Gemfibrozil 600 Mg Tablet) 600 mg PO BID [facility] Last Admin: 08/23/23 09:33 Dose: Not Given Documented By: ROS Non-Admin Reason: NPO Piperacillin Sod/Tazobactam (Sod 4.5 gm/ Sodium Chloride) 100 mls @ 200 mls/hr IV Q6H [facility] Last Infusion: 08/23/23 11:09 Dose: Infused Documented By: ROS Metoprolol Succinate (Metoprolol Succinate Er 50 Mg Tab.Er.24h) 50 mg PO DAILY [facility]; Protocol Last Admin: 08/23/23 09:33 Dose: Not Given Documented By: ROS Non-Admin Reason: NPO Omeprazole (Omeprazole 40 Mg Capsule.Dr) 40 mg PO DAILY@0630 [facility] Last Admin: 08/23/23 05:38 Dose: Not Given Documented By: AMERICA Non-Admin Reason: NPO Ondansetron HCl (Ondansetron Hcl 4 Mg/2 Ml Vial) 4 mg IVPUSH Q8H PRN PRN Reason: Nausea and Vomiting Senna (Sennosides 8.6 Mg Tablet) 17.2 mg PO BEDTIME PRN PRN Reason: Constipation Sodium Chloride (0.9 % Sodium Chloride Flush 3 Ml Syringe) 3 ml IVFLUSH QSHIFT [facility] Last Admin: 08/23/23 09:32 Dose: Not Given Documented By: ROS Non-Admin Reason: Previously Administered Tamsulosin HCl (Tamsulosin Hcl 0.4 Mg Capsule) 0.4 mg PO BEDTIME [facility] Last Admin: 08/22/23 20:05 Dose: 0.4 mg Documented By: AMERICA Trazodone HCl (Trazodone Hcl 100 Mg Tablet) 100 mg PO BEDTIME [facility] Last Admin: 08/22/23 20:05 Dose: 100 mg Documented By: AMERICA Labs 08/22/23 04:04 08/22/23 04:04 Microbiology Microbiology Results: Microbiology 08/21/23 16:20 Gram Stain - Final Thoracentesis Fluid Anaerobic Culture - Preliminary No growth to date. Body Fluid Culture - Preliminary No growth to date. 08/21/23 15:14 Blood Culture - Preliminary Blood - Venous No growth after 24 hours. 08/21/23 14:14 Blood Culture - Preliminary Blood - Venous No growth after 24 hours. Assessment and Plan (1) Metastatic cancer to liver: Status: Acute (2) Pleural effusion: Status: Acute Plan 68M PMH htn, hld, bph, ckd III, anxiety presented after laser prostatectomy with sob, found to have left pleural effusion and new diagnosis of metastatic liver disease acute hypoxic respiratory failure due to presumed left malignant pleural effusion chest tube removed after dislodgment will need repeat drain, surgery team following wean o2 as tolerated new metastatic liver disease, splenic met, ascites unclear primary source plan for liver biopsy today follow up pleural fluid cytology oncology following htn amlodipine, metoprolol ckd3 stable bph proscar, flomax hld statin dvt prophylaxis - lovenox full code reason for continued hospitalization: pending further work up for liver biopsy and treatment plan of effusion Quality Stroke Does the patient have a stroke diagnosis?: No VTE Prior VTE?: No VTE Risk Level:: Medical - moderate - high VTE Device Contraindication: Treatment Not Indicated VTE Drug Contraindication: N/A - Med Ordered
--- NOTE | 2023-08-23 14:08 | MHC.CM.PN ---
Per MD rounds no discharge today. DP is Home self care. Patient will arrange for a ride home.
--- NOTE | 2023-08-23 14:47 | PM.HEMONCPN ---
Medical Summary - Medical Summary Date of Service: 08/25/23 Chief complaint: Shortness of breath Primary Care Provider: Lee Almanza PA-C Interval History Interval history: Jorge Melendez is a 68 year old male with past medical history significant for hypertension, chronic stage 3 kidney disease and BPH who was admitted to the ED following elective laser enucleation of prostate and left hydrocelectomy on 08/21/2023. Following surgical procedure, patient found to be hypoxic, he was briefly placed on BiPAP, chest x-ray in the PACU showed large left-sided pleural effusion with near complete opacification of left chest. CT chest revealed in addition multiple hypodense lesions in the liver as well as ascites and splenomegaly, splenic lesion, mesenteric edema and omental caking. There was also questionable wall thickening and mild lateral gastric wall thickening. Patient had chest tube placed which drained 2.1 L yellow serosanguineous fluid. Patient states that he did have some shortness of breath in the last 2 months and also noticed some distention of his abdomen. He has no personal history of cancer. He has a long-time smoker, 1-2 cigars per week. No cigarette smoking or alcohol use. In July 2021 he had EGD and colonoscopy which was negative for malignancy. His PSA is not elevated and urine cytology in July 2022 was negative. He denies any other complaints such as headache or dizziness. No chest pain or abdominal pain. Denies hematochezia or melena. He denies any significant weight loss. He is getting pleurodesis today. He wants me to talk about his diagnosis with his sister who is his healthcare proxy Review of Systems - Neurologic Denies dizziness [facility] Medical History: Medical History (Last Reviewed 08/21/23 @ 18:44 by ANDRÉS Vila) Abnormal colonoscopy Chronic renal insufficiency CKD (chronic kidney disease) stage 3, GFR 30-59 ml/min COVID-19 vaccine series completed Elevated cholesterol MISAEL (generalized anxiety disorder) GERD (gastroesophageal reflux disease) Gout HTN (hypertension) Recurrent UTI Spontaneous pneumothorax Tubulovillous adenoma polyp of colon Venous stasis dermatitis of left lower extremity Family History: Family History (Last Reviewed 08/21/23 @ 18:44 by ANDRÉS Vila) Father Heart failure History of mental problems Substance abuse Mother CAD (coronary artery disease) Breast cancer Surgical History: Surgical History (Last Reviewed 08/21/23 @ 18:44 by ANDRÉS Vila) H/O colonoscopy History of esophagogastroduodenoscopy (EGD) History of lung surgery Social History: Social History (Last Reviewed 08/21/23 @ 18:44 by ANDRÉS Vila) Living Situation History: Household Members: None Housing: Apartment Do you presently have visiting nurse or other home services: No Alcohol History Details: 1. How often do you have a drink containing alcohol?: b. Monthly or less 2. How many drinks containing alcohol do you have on a typical day when you are drinking?: a. 1 or 2 3. How often do you have six or more drinks on one occasion?: a. Never AUDIT-C Alcohol total score: 1 Currently Displaying Signs/Symptoms of Alcohol Withdrawal: No Tobacco History: Patient Tobacco Use Status: Never used Tobacco Tobacco use type: Cigar Smoked in Last 30 Days: Yes e-Cigarette/Vaping Use: Never Used Second Hand Smoke Exposure: No Substance Use History: Use of substances other than those prescribed or required for medical reasons: No Currently Displaying Signs/Symptoms of Drug Intoxication Withdrawal: No Domestic Abuse History: Have you been hit, kicked, punched, or otherwise hurt by someone within the past year? If so, by whom?: No Do you feel safe in your current relationship?: No Current Relationship Is there a partner from a previous relationship who is making you feel unsafe now?: No Are you made to feel afraid or neglected: No Advance Directives: Advance Directives: Yes Advance Directives on File: Yes Advance Directives Date on File: 08/17/21 Homicidal Assessment: Do you have thoughts of harming others: None Do you have a plan to hurt others: No Plan Nutrition Assessment: Recently lost weight without trying: No How much weight loss: Not applicable Eating poorly because of decreased appetite: No Nutrition screen score: 0 Nutrition Risks: No Nutritional Risk Poor oral hygiene: No Occupation Assessmet: service: No Current occupational status: retired Current occupation: [employer] Home Medications and Allergies Current Medications: Current Medications Acetaminophen (Acetaminophen 325 Mg Tablet) 650 mg PO Q6H PRN PRN Reason: Pain, Mild (Pain Scale 1-3) Amlodipine Besylate (Amlodipine Besylate 10 Mg Tablet) 10 mg PO DAILY N[facility]O; Protocol Last Admin: 08/23/23 09:32 Dose: Not Given Enoxaparin Sodium (Enoxaparin Sodium 40 Mg/0.4 Ml Syringe) 40 mg SUBCUT Q24H [facility] Last Admin: 08/23/23 08:37 Dose: Not Given Famotidine (Famotidine 20 Mg Tablet) 40 mg PO DAILY [facility] Last Admin: 08/23/23 09:33 Dose: Not Given Finasteride (Finasteride 5 Mg Tablet) 5 mg PO DAILY [facility] Last Admin: 08/23/23 09:33 Dose: Not Given Folic Acid (Folic Acid 1 Mg Tablet) 1 mg PO DAILY [facility] Last Admin: 08/23/23 09:33 Dose: Not Given Gemfibrozil (Gemfibrozil 600 Mg Tablet) 600 mg PO BID [facility] Last Admin: 08/23/23 09:33 Dose: Not Given Piperacillin Sod/Tazobactam (Sod 4.5 gm/ Sodium Chloride) 100 mls @ 200 mls/hr IV Q6H [facility] Last Infusion: 08/23/23 11:09 Dose: Infused Metoprolol Succinate (Metoprolol Succinate Er 50 Mg Tab.Er.24h) 50 mg PO DAILY [facility]; Protocol Last Admin: 08/23/23 09:33 Dose: Not Given Omeprazole (Omeprazole 40 Mg Capsule.Dr) 40 mg PO DAILY@0630 [facility] Last Admin: 08/23/23 05:38 Dose: Not Given Ondansetron HCl (Ondansetron Hcl 4 Mg/2 Ml Vial) 4 mg IVPUSH Q8H PRN PRN Reason: Nausea and Vomiting Senna (Sennosides 8.6 Mg Tablet) 17.2 mg PO BEDTIME PRN PRN Reason: Constipation Sodium Chloride (0.9 % Sodium Chloride Flush 3 Ml Syringe) 3 ml IVFLUSH QSHIFT [facility] Last Admin: 08/23/23 09:32 Dose: Not Given Tamsulosin HCl (Tamsulosin Hcl 0.4 Mg Capsule) 0.4 mg PO BEDTIME [facility] Last Admin: 08/22/23 20:05 Dose: 0.4 mg Trazodone HCl (Trazodone Hcl 100 Mg Tablet) 100 mg PO BEDTIME [facility] Last Admin: 08/22/23 20:05 Dose: 100 mg Home Medications Medication Instructions Recorded Confirmed Type omeprazole 40 mg capsule,delayed 40 mg PO DAILY 04/14/20 08/21/23 History release folic acid 1 mg tablet 1 mg PO DAILY 07/29/21 08/21/23 History Allergies Allergy/AdvReac Type Severity Reaction Status Date / Time lisinopril Allergy Unknown Unknown Verified 08/04/23 11:18 sertraline [From Zoloft] AdvReac Severe suicidal Verified 08/04/23 11:18 Exam Vital signs: Vital Signs Temp 98.5 F 08/23/23 13:25 Pulse 71 08/23/23 13:25 Resp 18 08/23/23 13:25 BP 140/78 H 08/23/23 13:25 Pulse Ox 99 08/23/23 13:25 O2 Del Method Nasal Cannula 08/23/23 13:25 O2 Flow Rate 2 08/23/23 13:25 Intake & Output 08/22/23 08/23/23 08/23/23 18:59 06:59 18:59 Intake Total 420 / 980 560 / 980 100 / 100 Output Total 1025 / 1025 Balance 420 / -45 -465 / -45 100 / 100 Urine Output (Average ml/kg/hr) 0.73 0.73 Intake: Intake, Oral Amount 220 / 580 360 / 580 Intake, IV Amount 200 / 400 200 / 400 100 / 100 Piperacillin Sodium/Tazobactam 200 / 400 200 / 400 100 / 100 4.5 gm In 0.9 % Sodium Chloride 100 ml @ 200 mls/hr IV Q6H [facility] Rx#:[id number] Output: Output, Urine Amount 500 / 500 Output, Urine Amount (Catheter) 525 / 525 2-way Urethral 525 / 525 Other: Meal Refused No NPO Yes Yes Breakfast % Eaten 75% Lunch % Eaten 50% Urine Color Su Weight 116.573 kg BMI result Body Mass Index 33.0 - Constitutional Present: mild distress, obese - Routine HEENT Exam Head: Present: normal inspection - Routine Respiratory Exam Present: decreased breath sounds, respiratory distress, rhonchi - Routine Cardiovascular Exam Cardiovascular: Present: S1, S2, tachycardia - Routine Abdominal Exam Present: distended, nontender - Routine Extremities Exam Absent: calf tenderness - Routine Skin Exam Present: intact. Absent: cyanosis - Routine Neurological Exam Present: alert, oriented X3 Data - Labs CBC & Chem 7: 08/22/23 04:04 08/22/23 04:04 Labs: Laboratory Last Values WBC 6.8 X10*3/uL (4.8-10.8) 08/22/23 04:04 RBC 3.50 X10*6/uL (4.60-5.80) L 08/22/23 04:04 Hgb 10.7 g/dl (14.0-18.0) L 08/22/23 04:04 Hct 32.6 % (42.0-52.0) L 08/22/23 04:04 MCV 93.1 fL (80.0-98.0) 08/22/23 04:04 MCH 30.6 pg (27.0-33.0) 08/22/23 04:04 MCHC 32.8 g/dl (31.0-36.0) 08/22/23 04:04 RDW 13.3 % (11.0-16.0) 08/22/23 04:04 Plt Count 175 X10*3/uL (160-400) 08/22/23 04:04 MPV 9.8 fL (9.4-12.4) 08/22/23 04:04 Immature Gran % (Auto) 0.6 % (0.0-0.4) H 08/22/23 04:04 Neut % (Auto) 86.1 % (45-73) H 08/22/23 04:04 Lymph % (Auto) 6.3 % (20-40) L 08/22/23 04:04 [place] % (Auto) 5.9 % (2-11) 08/22/23 04:04 Eos % (Auto) 1.0 % (0-4) 08/22/23 04:04 Baso % (Auto) 0.1 % (0-2) 08/22/23 04:04 Lymph # (Auto) 0.4 X10*3/uL (1.2-4.9) L 08/22/23 04:04 [place] # (Auto) 0.4 X10*3/uL (0.1-1.2) 08/22/23 04:04 Eos # (Auto) 0.1 X10*3/uL (0.0-0.4) 08/22/23 04:04 Baso # (Auto) 0.0 X10*3/uL (0.0-0.2) 08/22/23 04:04 Abs Immat Gran (auto) 0.04 X10*3/uL (0.00-0.03) H 08/22/23 04:04 Absolute Neuts (auto) 5.9 x10*3/uL (2.0-8.3) 08/22/23 04:04 Absolute Nucleated RBC 0.000 X10*3/uL (0.0-0.012) 08/22/23 04:04 Nucleated RBC % (auto) 0.0 /100WBC (0.0-0.2) 08/22/23 04:04 Hold Purple Top SEE NOTE 08/22/23 09:31 PT 13.7 SEC (11.1-13.3) H 08/21/23 14:16 INR 1.1 (0.9-1.1) 08/21/23 14:16 APTT 22.8 SEC (26.0-36.8) L 08/21/23 14:16 VBG pH 7.33 (7.32-7.43) 08/21/23 14:21 VBG pCO2 49 mmHg 08/21/23 14:21 VBG pO2 49 mmHg 08/21/23 14:21 VBG HCO3 26 mmol/L (22-26) 08/21/23 14:21 VBG O2 Saturation 69.0 % 08/21/23 14:21 VBG Base Excess 0.2 mmol/L 08/21/23 14:21 Sodium 135 mmol/L (135-145) 08/22/23 04:04 Potassium 4.2 mmol/L (3.3-5.1) 08/22/23 04:04 Chloride 103 mmol/L (96-108) 08/22/23 04:04 Carbon Dioxide 21 mmol/L (22-29) L 08/22/23 04:04 Anion Gap 15 (12-20) 08/22/23 04:04 BUN 11 mg/dL (9-16) 08/22/23 04:04 Creatinine 1.25 mg/dL (0.5-1.4) 08/22/23 04:04 Estim Creat Clear Calc 74.6 08/22/23 04:04 Estimated GFR 57 08/22/23 04:04 Random Glucose 108 mg/dL (60-115) 08/22/23 04:04 Lactic Acid 1.5 mmol/L (0.5-2.0) 08/21/23 14:18 Calcium 9.3 mg/dL (8.4-10.2) 08/22/23 04:04 Magnesium 1.8 mg/dL (1.6-2.6) 08/21/23 14:15 Total Bilirubin 1.0 mg/dL (0.0-1.0) 08/21/23 14:15 Direct Bilirubin 0.5 mg/dL (0.0-0.5) 08/21/23 14:15 AST 19 U/L (5-37) 08/21/23 14:15 ALT 11 U/L (0-40) 08/21/23 14:15 Alkaline Phosphatase 111 U/L (39-117) 08/21/23 14:15 Lactate Dehydrogenase 153 U/L (118-273) 08/22/23 04:04 Troponin I High Sens 5.9 ng/L (<3.5-35.0) 08/21/23 14:15 B-Natriuretic Peptide 42 pg/mL (<100) 08/21/23 14:15 Total Protein 6.5 g/dL (6.5-8.0) 08/21/23 14:15 Albumin 3.2 g/dL (3.5-5.0) L 08/21/23 14:15 Carcinoembryonic Ag 307.60 ng/mL 08/22/23 04:04 Fl Pathologist Review SEE NOTE 08/21/23 16:20 Pleural WBC 0.542 X10*3/uL 08/21/23 16:20 Pleural RBC < 0.002 X10*6/uL 08/21/23 16:20 Pleural Neutrophils 8 % 08/21/23 16:20 Pleural Lymphocytes 37 % 08/21/23 16:20 Pleural Monocytes 7 % 08/21/23 16:20 Pleural Eosinophils 1 % 08/21/23 16:20 Pleural Other Cells 47 % 08/21/23 16:20 Pleural Total Protein 4.5 GM/DL 08/21/23 16:20 Pleural Albumin 2.8 GM/DL 08/21/23 16:20 Pleural Glucose 117 MG/DL 08/21/23 16:20 COVID-19 (BEBETO) Negative (Negative) 08/21/23 14:14 COVID-19 Clin Com See Note 08/21/23 14:14 Influenza Type A (YAKELIN) Negative (Negative) 08/21/23 14:15 Influenza Type B (YAKELIN) Negative (Negative) 08/21/23 14:15 Influenza A & B Note See Note 08/21/23 14:15 - Imaging Radiologist's impression: ITS Impressions Chest CT 08/21/23 13:58 IMPRESSION: 1. Large left pleural effusion with total collapse of left lung. 2. The right lung is clear. 3. Heterogeneous liver with multiple hypodense lesions. Question metastatic lesions. There is ascites and splenomegaly. Recommend further evaluation with CT or MRI with contrast. Fleischner guidelines were followed. Abdomen/Pelvis CT 08/21/23 15:39 IMPRESSION: Large left pleural effusion with left lower lobe collapse. There is no chest are seen on the visualized images. Mild right posterior pleural thickening and/or effusion with a right lower lobe atelectasis. Multiple metastatic liver lesions solitary metastatic spleen lesion. Unknown primary. Diffuse ascites, mesenteric edema and omental caking. Questionable small bowel thickening left upper quadrant. Also visualized is mild lateral gastric wall thickening Consider ultrasound-guided liver biopsy for tissue diagnosis followed by PET/CT. Left periumbilical small hernia containing fat. Fleischner guidelines were followed. Chest X-Ray 08/21/23 19:35 IMPRESSION: 1. Dense opacification left lung base likely combination of consolidation and pleural effusion. 2. Mild cardiomegaly. Chest X-Ray 08/21/23 22:35 IMPRESSION: Dense left lung base due to consolidation/atelectasis/pleural effusion. Chest Ultrasound 08/22/23 10:10 IMPRESSION: Small to moderate left pleural effusion. Assessment and Plan Patient Active problem list reviewed?: Yes (1) Metastatic cancer to liver Status: Acute Assessment and plan: 1. This is a 68-year-old male with past medical history significant for hypertension and chronic kidney disease presenting with large left pleural effusion, liver metastasis, splenic lesion and ascites. This is worrisome for metastatic malignancy. CT chest/abdomen and pelvis performed on 08/21/2023 revealed large left pleural effusion, enlarged liver with numerous hypodense metastatic lesions, enlarged spleen with large lesion occupying entire spleen measuring 9.8 cm, mesenteric edema and omental caking with questionable small-bowel thickening in the left upper quadrant as well as mild lateral gastric wall thickening. Patient did have endoscopy and colonoscopy in July 2021, he had biopsy of a stomach ulcer which showed mild chronic inactive inflammation. EG junction biopsy showed inflamed and ulcerated squamous mucosa. No evidence of malignancy at that time. LDH is normal but CEA is elevated at 307.6 NG/mL. CA 19-9 is pending. Pleural fluid cytology is positive for malignant cells, adenocarcinoma. By IHC tumor cells are reactive with CK20 and CDX2, negative for TTF1, Napsin and CK7. Most probable is GI primary. Patient had liver biopsy as well, further confirmatory test as well as next generation sequencing will be submitted. I discussed above diagnosis with the patient. He has been explained that he has metastatic or stage IV cancer, palliative systemic therapy will be offered depending on further testing. At his request, I will also call his sister who is his healthcare proxy and discussed above. He will be followed in the oncology clinic in the next week to 10 days. I thank you for this consultation. - Time Spent With Patient Time Spent with Patient (in minutes): 15
[2023-08-23] MEDS: Lidocaine HCl 1 % MPF 5 ML VIAL 10 ML SUBCUT (15:10)
[2023-08-23] MEDS: 0.9 % Sodium Chloride Flush 3 ML SYRINGE IVFLUSH ×2 (17:10→19:59)
[2023-08-23] MEDS: Tamsulosin HCL 0.4 MG CAPSULE PO (19:59)
[2023-08-23] MEDS: gemfibroziL 600 MG TABLET PO (19:59)
[2023-08-23] MEDS: traZODone HCL 100 MG TABLET PO (19:59)
[2023-08-24 03:10] VITALS: BP 130/77; PULSE 74; RESP 16; TEMP 36.5; O2SAT 95
[2023-08-24] MEDS: Omeprazole 40 MG CAPSULE.DR PO (05:27)
[2023-08-24] MEDS: Piperacillin Sodium/Tazobactam 4.5 GM in 0.9 % Sodium Chloride 100 ML IV ×4 (05:28→23:55)
--- NOTE | 2023-08-24 06:45 | PC.NURSE ---
Carreon catheter removed at 06:15. Due to void at 12:15. Will continue to monitor Pt's urine output.
[2023-08-24 08:00] VITALS: BP 127/78; PULSE 79; RESP 12; TEMP 36.2; O2SAT 97
[2023-08-24] MEDS: Famotidine 20 MG TABLET 40 MG PO (09:06)
[2023-08-24] MEDS: Finasteride 5 MG TABLET PO (09:07)
[2023-08-24] MEDS: Enoxaparin Sodium 40 MG/0.4 ML SYRINGE SUBCUT (09:07)
[2023-08-24] MEDS: amLODIPine Besylate 10 MG TABLET PO (09:07)
[2023-08-24] MEDS: Metoprolol Succinate ER 50 MG TAB.ER.24H PO (09:07)
[2023-08-24] MEDS: gemfibroziL 600 MG TABLET PO ×2 (09:07→20:32)
[2023-08-24] MEDS: Folic Acid 1 MG TABLET PO (09:07)
[2023-08-24] MEDS: 0.9 % Sodium Chloride Flush 3 ML SYRINGE IVFLUSH ×3 (09:12→20:33)
[2023-08-24 10:34] LABS: Carbohydrate Antigen 19-9 48 U/mL (<34)
[2023-08-24] MEDS: Morphine Sulfate 4 MG/ML CARTRIDGE IVPUSH (12:21)
[2023-08-24] MEDS: Lidocaine HCl 1 % 20 ML VIAL 30 ML INFILTRATI (12:35)
[2023-08-24] MEDS: Lidocaine HCl 1 % 10 ML VIAL 30 ML INFILTRATI (12:45)
--- NOTE | 2023-08-24 13:10 | PM.PNTS ---
Subjective Subjective Date of Service: 08/24/23 Interval history: Denies shortness of breath. Physical Exam Vital Signs: Vital Signs: Last Vital Signs Temp 97.1 F 08/24/23 08:00 Pulse 79 08/24/23 08:00 Resp 12 08/24/23 08:00 BP 127/78 08/24/23 08:00 Pulse Ox 97 08/24/23 08:00 O2 Del Method Nasal Cannula 08/24/23 08:00 O2 Flow Rate 1 08/24/23 08:00 Oxygen Flow Rate 2 08/21/23 13:40 BMI result Body Mass Index 33.0 Const: General: comfortable, no acute distress and alert Orientation/consciousness: patient oriented x3 Chest: Chest palpation & inspection: normal inspection of the chest Resp: Effort & Inspection: normal respiratory effort and no respiratory distress Skin: General skin exam: no rashes or lesions noted Neuro: General: patient oriented x3 and moves all extremities Procedures Date of Service Date of Service: 08/24/23 Chest Tube Chest Tube 1: Chest tube location: Lateral Chest (anterolateral, left ) Size of tube: 28 Chest tube procedure: Yes betadine prep and sterile drapes applied Tube sutured to skin: Yes Sterile dressing applied: Yes Anesthesia: 1% Lidocaine Volume anesthetic (ml): 30 Incision made with: #10 blade Post procedure: sutured to skin and sterile dressing applied Cooper of air heard: Yes Tube Drainage: fluid Amount of initial drainage (ml): 350 Post procedure CXR?: Yes Patient tolerated procedure: Yes Progress: The risks and benefits, alternatives were discussed with the patient and family and informed consent was obtained. The patient's left anterolateral chest was prepped with betadine and draped in the usual sterile fashion. 30 mL of 1% lidocaine was used for local anesthesia of the skin and subcutaneous tissues. An incision was made and then carried down through the skin and subcutaneous tissues down to the intercostal fascia using metzenbaum scissors. A kika clamp was used to enter the chest cavity carefully and cooper of air was heard along with serous appearing pleural fluid. The 28F angled chest tube was then inserted. The tube was then connected to a closed chest drainage system. It was secured to the skin with a silk suture. Three simple interrupted sutures were placed on the incision to close the incision. A sterile dressing was applied over the site. The patient tolerated the procedure well. No immediate complications. Progress Note: A&P Assessment and plan (1) Pleural effusion: Status: Acute (2) Metastatic cancer to liver: Status: Acute Plan Recurrent left pleural effusion. Discussed plan for left chest tube to drain effusion and once effusion drained (likely tomorrrow), plan for sclerosis with doxycycline to prevent recurrence. Patient and family comfortable with plan. Left 28F angled chest tube placed at bedside without immediate complications. Patient tolerated this well. See procedure note below. Time Spent With Patient Time: Total time managing care of this patient today ____ minutes. Quality Stroke Does the patient have a stroke diagnosis?: No VTE Prior VTE?: No VTE Risk Level:: Medical - moderate - high VTE Device Contraindication: Treatment Not Indicated VTE Drug Contraindication: N/A - Med Ordered
[2023-08-24 13:12] VITALS: BP 132/78; PULSE 83; RESP 19; TEMP 36.9; O2SAT 93
--- NOTE | 2023-08-24 13:30 | P.PNIM_ITS ---
Subjective Subjective Date of Service: 08/24/23 Interval History: Seen and evaluated this morning Had liver biopsy done Placement of chest tube today plan surgical intervention tomorrow no other overnight events Review of Systems Review of Systems: Yes all other systems are reviewed and are negative Physical Exam 2 Vital Signs: Vital Signs: Last Vital Signs Temp 98.4 F 08/24/23 13:12 Pulse 83 08/24/23 13:12 Resp 19 08/24/23 13:12 BP 132/78 08/24/23 13:12 Pulse Ox 93 08/24/23 13:12 O2 Del Method Room Air 08/24/23 13:12 O2 Flow Rate 1 08/24/23 08:00 Oxygen Flow Rate 2 08/21/23 13:40 BMI result Body Mass Index 33.0 Const: Other: Constitutional : Awake, interactive, not in distress Neck : Normal inspection, Supple Cardiovascular : RRR, no JVP, no lower extremity edema Respiratory : good bilateral air entry, no crackles, wheezes or rhonchi Gastrointestinal: soft, lax, Normal bowel sounds, Non tender Skin : Warm, Dry Neurological : Alert & oriented x3, No focal deficit Objective Data Active Medications Acetaminophen (Acetaminophen 325 Mg Tablet) 650 mg PO Q6H PRN PRN Reason: Pain, Mild (Pain Scale 1-3) Amlodipine Besylate (Amlodipine Besylate 10 Mg Tablet) 10 mg PO DAILY [facility]; Protocol Last Admin: 08/24/23 09:07 Dose: 10 mg Documented By: DIANE Enoxaparin Sodium (Enoxaparin Sodium 40 Mg/0.4 Ml Syringe) 40 mg SUBCUT Q24H [facility] Last Admin: 08/24/23 09:07 Dose: 40 mg Documented By: DIANE Famotidine (Famotidine 20 Mg Tablet) 40 mg PO DAILY [facility] Last Admin: 08/24/23 09:06 Dose: 40 mg Documented By: DIANE Finasteride (Finasteride 5 Mg Tablet) 5 mg PO DAILY [facility] Last Admin: 08/24/23 09:07 Dose: 5 mg Documented By: DIANE Folic Acid (Folic Acid 1 Mg Tablet) 1 mg PO DAILY [facility] Last Admin: 08/24/23 09:07 Dose: 1 mg Documented By: DIANE Gemfibrozil (Gemfibrozil 600 Mg Tablet) 600 mg PO BID [facility] Last Admin: 08/24/23 09:07 Dose: 600 mg Documented By: DIANE Piperacillin Sod/Tazobactam (Sod 4.5 gm/ Sodium Chloride) 100 mls @ 200 mls/hr IV Q6H [facility] Last Infusion: 08/24/23 12:31 Dose: Infused Documented By: KENDY Metoprolol Succinate (Metoprolol Succinate Er 50 Mg Tab.Er.24h) 50 mg PO DAILY [facility]; Protocol Last Admin: 08/24/23 09:07 Dose: 50 mg Documented By: DIANE Morphine Sulfate (Morphine Sulfate 4 Mg/Ml Cartridge) 4 mg IVPUSH Q4H PRN; Protocol PRN Reason: Pain, Severe (Pain Scale 7-10) Omeprazole (Omeprazole 40 Mg Capsule.Dr) 40 mg PO DAILY@0630 [facility] Last Admin: 08/24/23 05:27 Dose: 40 mg Documented By: LYNNE Ondansetron HCl (Ondansetron Hcl 4 Mg/2 Ml Vial) 4 mg IVPUSH Q8H PRN PRN Reason: Nausea and Vomiting Oxycodone HCl (Oxycodone Hcl Immed Release 5 Mg Tablet) 5 mg PO Q4H PRN PRN Reason: Pain, Moderate(Pain Scale 4-6) Senna (Sennosides 8.6 Mg Tablet) 17.2 mg PO BEDTIME PRN PRN Reason: Constipation Sodium Chloride (0.9 % Sodium Chloride Flush 3 Ml Syringe) 3 ml IVFLUSH QSHIFT [facility] Last Admin: 08/24/23 09:12 Dose: 3 ml Documented By: DIANE Tamsulosin HCl (Tamsulosin Hcl 0.4 Mg Capsule) 0.4 mg PO BEDTIME [facility] Last Admin: 08/23/23 19:59 Dose: 0.4 mg Documented By: LYNNE Trazodone HCl (Trazodone Hcl 100 Mg Tablet) 100 mg PO BEDTIME [facility] Last Admin: 08/23/23 19:59 Dose: 100 mg Documented By: LYNNE Labs 08/22/23 04:04 08/22/23 04:04 Labs: Laboratory Results - last 24 hr 08/22/23 09:26 CA 19-9 Antigen 48 H Microbiology Microbiology Results: Microbiology 08/21/23 16:20 Gram Stain - Final Thoracentesis Fluid Anaerobic Culture - Preliminary No growth to date. Body Fluid Culture - Final No growth after 2 days 08/21/23 15:14 Blood Culture - Preliminary Blood - Venous No growth after 48 hours. 08/21/23 14:14 Blood Culture - Preliminary Blood - Venous No growth after 48 hours. Assessment and Plan (1) Metastatic cancer to liver: Status: Acute (2) Pleural effusion: Status: Acute Plan 68M PMH htn, hld, bph, ckd III, anxiety presented after laser prostatectomy with sob, found to have left pleural effusion and new diagnosis of metastatic liver disease acute hypoxic respiratory failure due to presumed left malignant pleural effusion CXR showing recurrent pleural effusion Left chest tube placed again today surgery team following, plan for sclerosis wean o2 as tolerated new metastatic liver disease, splenic met, ascites unclear primary source; elevated CEA; Colon\lungs Pending liver biopsy pathology result follow up pleural fluid cytology oncology following htn amlodipine, metoprolol ckd3 stable bph proscar, flomax hld statin dvt prophylaxis - lovenox full code reason for continued hospitalization: pending further work up for liver biopsy and treatment plan of effusion Quality Stroke Does the patient have a stroke diagnosis?: No VTE Prior VTE?: No VTE Risk Level:: Medical - moderate - high VTE Device Contraindication: Treatment Not Indicated VTE Drug Contraindication: N/A - Med Ordered
[2023-08-24] MEDS: oxyCODONE HCl Immed Release 5 MG TABLET PO (14:00)
--- NOTE | 2023-08-24 15:07 | PC.NURSE ---
Left side chest tube placed at bedside at 12:40pm by Dr. Mobley. Pt pre medicated with M.S. 4mg IVP. Pt tolerated procedure well. Chest tube to suction is intact/ patent.
[2023-08-24 15:42] VITALS: BP 106/67; PULSE 75; RESP 18; TEMP 36.4; O2SAT 95
--- NOTE | 2023-08-24 16:25 | PC.NURSE ---
S/P Chest Tube Placement, Lungs diminished bilaterally, tube draining, serosanguineous, marked, 400cc output as of 15:50. No resp distress, 94% on RA.
[2023-08-24 19:01] VITALS: BP 104/67; PULSE 72; RESP 18; TEMP 36.6; O2SAT 96
[2023-08-24] MEDS: traZODone HCL 100 MG TABLET PO (20:32)
[2023-08-24] MEDS: Tamsulosin HCL 0.4 MG CAPSULE PO (20:32)
[2023-08-24] MEDS: guaiFEN/Codeine SF 200/20/10ML 10 ML LIQUID PO (20:49)
[2023-08-25] MEDS: guaiFEN/Codeine SF 200/20/10ML 10 ML LIQUID PO (01:30)
[2023-08-25 04:08] VITALS: BP 116/71; PULSE 74; RESP 18; TEMP 36.4; O2SAT 94
[2023-08-25] MEDS: Piperacillin Sodium/Tazobactam 4.5 GM in 0.9 % Sodium Chloride 100 ML IV ×4 (05:42→22:59)
[2023-08-25] MEDS: Omeprazole 40 MG CAPSULE.DR PO (05:43)
[2023-08-25 07:45] VITALS: BP 114/72; PULSE 79; RESP 20; TEMP 36.8; O2SAT 94
[2023-08-25] MEDS: Folic Acid 1 MG TABLET PO (07:55)
[2023-08-25] MEDS: amLODIPine Besylate 10 MG TABLET PO (07:55)
[2023-08-25] MEDS: gemfibroziL 600 MG TABLET PO ×2 (07:57→21:01)
[2023-08-25] MEDS: Metoprolol Succinate ER 50 MG TAB.ER.24H PO (07:57)
[2023-08-25] MEDS: Famotidine 20 MG TABLET 40 MG PO (07:58)
[2023-08-25] MEDS: Finasteride 5 MG TABLET PO (07:58)
[2023-08-25] MEDS: Enoxaparin Sodium 40 MG/0.4 ML SYRINGE SUBCUT (07:59)
[2023-08-25] MEDS: 0.9 % Sodium Chloride Flush 3 ML SYRINGE IVFLUSH ×3 (07:59→21:01)
--- NOTE | 2023-08-25 08:20 | PM.PNGS ---
Subjective Subjective Date of Service: 08/25/23 Interval history: Feels ok this morning. Some pain at chest tube site. ~50cc of output overnight, ~1L overall. Physical Exam Vital Signs: Vital Signs: Last Vital Signs Temp 98.2 F 08/25/23 07:45 Pulse 79 08/25/23 07:45 Resp 20 08/25/23 07:45 BP 114/72 08/25/23 07:45 Pulse Ox 94 08/25/23 07:45 O2 Del Method Room Air 08/25/23 07:45 O2 Flow Rate 1 08/24/23 08:00 Oxygen Flow Rate 2 08/21/23 13:40 BMI result Body Mass Index 33.0 Const: General: comfortable, no acute distress and alert Orientation/consciousness: patient oriented x3 Chest: Other: left chest tube intact, scant serosanguineous drainage overnight Skin: General skin exam: no rashes or lesions noted Neuro: General: patient oriented x3 and moves all extremities Objective Data Active Medications Acetaminophen (Acetaminophen 325 Mg Tablet) 650 mg PO Q6H PRN PRN Reason: Pain, Mild (Pain Scale 1-3) Amlodipine Besylate (Amlodipine Besylate 10 Mg Tablet) 10 mg PO DAILY [facility]; Protocol Last Admin: 08/25/23 07:55 Dose: 10 mg Documented By: MARILY Enoxaparin Sodium (Enoxaparin Sodium 40 Mg/0.4 Ml Syringe) 40 mg SUBCUT Q24H [facility] Last Admin: 08/25/23 07:59 Dose: 40 mg Documented By: MARIYL Famotidine (Famotidine 20 Mg Tablet) 40 mg PO DAILY [facility] Last Admin: 08/25/23 07:58 Dose: 40 mg Documented By: MARILY Finasteride (Finasteride 5 Mg Tablet) 5 mg PO DAILY [facility] Last Admin: 08/25/23 07:58 Dose: 5 mg Documented By: MARILY Folic Acid (Folic Acid 1 Mg Tablet) 1 mg PO DAILY [facility] Last Admin: 08/25/23 07:55 Dose: 1 mg Documented By: MARILY Gemfibrozil (Gemfibrozil 600 Mg Tablet) 600 mg PO BID [facility] Last Admin: 08/25/23 07:57 Dose: 600 mg Documented By: MARILY Guaifenesin/Codeine Phosphate (Guaifen/Codeine Sf 200/20/10ml 10 Ml Liquid) 10 ml PO Q4H PRN PRN Reason: Cough Last Admin: 08/25/23 01:30 Dose: 10 ml Documented By: WASHINGTON Piperacillin Sod/Tazobactam (Sod 4.5 gm/ Sodium Chloride) 100 mls @ 200 mls/hr IV Q6H [facility] Last Infusion: 08/25/23 06:41 Dose: Infused Documented By: KENDY Metoprolol Succinate (Metoprolol Succinate Er 50 Mg Tab.Er.24h) 50 mg PO DAILY [facility]; Protocol Last Admin: 08/25/23 07:57 Dose: 50 mg Documented By: MARILY Morphine Sulfate (Morphine Sulfate 4 Mg/Ml Cartridge) 4 mg IVPUSH Q4H PRN; Protocol PRN Reason: Pain, Severe (Pain Scale 7-10) Omeprazole (Omeprazole 40 Mg Capsule.Dr) 40 mg PO DAILY@0630 [facility] Last Admin: 08/25/23 05:43 Dose: 40 mg Documented By: W[place] Ondansetron HCl (Ondansetron Hcl 4 Mg/2 Ml Vial) 4 mg IVPUSH Q8H PRN PRN Reason: Nausea and Vomiting Oxycodone HCl (Oxycodone Hcl Immed Release 5 Mg Tablet) 5 mg PO Q4H PRN PRN Reason: Pain, Moderate(Pain Scale 4-6) Last Admin: 08/24/23 14:00 Dose: 5 mg Documented By: KENDY Senna (Sennosides 8.6 Mg Tablet) 17.2 mg PO BEDTIME PRN PRN Reason: Constipation Sodium Chloride (0.9 % Sodium Chloride Flush 3 Ml Syringe) 3 ml IVFLUSH QSHIFT [facility] Last Admin: 08/25/23 07:59 Dose: 3 ml Documented By: MARILY Tamsulosin HCl (Tamsulosin Hcl 0.4 Mg Capsule) 0.4 mg PO BEDTIME [facility] Last Admin: 08/24/23 20:32 Dose: 0.4 mg Documented By: LYNNE Trazodone HCl (Trazodone Hcl 100 Mg Tablet) 100 mg PO BEDTIME [facility] Last Admin: 08/24/23 20:32 Dose: 100 mg Documented By: LYNNE Labs 08/22/23 04:04 08/22/23 04:04 Labs: Laboratory Results - last 24 hr 08/22/23 09:26 CA 19-9 Antigen 48 H Microbiology Microbiology Results: Microbiology 08/21/23 16:20 Gram Stain - Final Thoracentesis Fluid Anaerobic Culture - Preliminary No growth to date. Body Fluid Culture - Final No growth after 2 days Procedures Date of Service Date of Service: 08/25/23 Progress Note: A&P Assessment and plan (1) Pleural effusion: Status: Acute Plan Recurrent left malignant pleural effusion. Chest tube placed yesterday, close to 1L output overall but 50 overnight. CXR improved this morning. Plan for sclerosing with doxycycline today and leave in place for 2-3 days. Patient comfortable with plan. Time Spent With Patient Time: Total time managing care of this patient today ____ minutes. Quality Stroke Does the patient have a stroke diagnosis?: No VTE Prior VTE?: No VTE Risk Level:: Medical - moderate - high VTE Device Contraindication: Treatment Not Indicated VTE Drug Contraindication: N/A - Med Ordered
--- NOTE | 2023-08-25 09:16 | MHC.CM.PN ---
Met with patient for DP. If a VNA is ordered at discharge, [facility] is 1st choice. An early referral has been sent. Patient has arranged for transportation home at discharge.
[2023-08-25] MEDS: Lactulose 20 GM/30 ML SOLUTION PO (09:50)
[2023-08-25] MEDS: Morphine Sulfate 4 MG/ML CARTRIDGE IVPUSH (10:31)
--- NOTE | 2023-08-25 12:00 | HO.PM.IMPN ---
Subjective Subjective Date of Service: 08/25/23 Interval History: Seen and evaluated this morning chest tube in place, pain under control plan surgical intervention today no other overnight events Review of Systems Review of Systems: Yes all other systems are reviewed and are negative Physical Exam Vital Signs: Vital Signs: Last Vital Signs Temp 98.2 F 08/25/23 07:45 Pulse 79 08/25/23 07:45 Resp 20 08/25/23 07:45 BP 114/72 08/25/23 07:45 Pulse Ox 94 08/25/23 07:45 O2 Del Method Room Air 08/25/23 07:45 O2 Flow Rate 1 08/24/23 08:00 Oxygen Flow Rate 2 08/21/23 13:40 BMI result Body Mass Index 33.0 Const: Other: Constitutional : Awake, interactive, not in distress Neck : Normal inspection, Supple Cardiovascular : RRR, no JVP, no lower extremity edema Respiratory : good bilateral air entry, no crackles, wheezes or rhonchi Gastrointestinal: soft, lax, Normal bowel sounds, Non tender Skin : Warm, Dry Neurological : Alert & oriented x3, No focal deficit Objective Data Active Medications Acetaminophen (Acetaminophen 325 Mg Tablet) 650 mg PO Q6H PRN PRN Reason: Pain, Mild (Pain Scale 1-3) Amlodipine Besylate (Amlodipine Besylate 10 Mg Tablet) 10 mg PO DAILY [facility]; Protocol Last Admin: 08/25/23 07:55 Dose: 10 mg Documented By: MARILY Enoxaparin Sodium (Enoxaparin Sodium 40 Mg/0.4 Ml Syringe) 40 mg SUBCUT Q24H [facility] Last Admin: 08/25/23 07:59 Dose: 40 mg Documented By: MARILY Famotidine (Famotidine 20 Mg Tablet) 40 mg PO DAILY [facility] Last Admin: 08/25/23 07:58 Dose: 40 mg Documented By: MARILY Finasteride (Finasteride 5 Mg Tablet) 5 mg PO DAILY [facility] Last Admin: 08/25/23 07:58 Dose: 5 mg Documented By: MARILY Folic Acid (Folic Acid 1 Mg Tablet) 1 mg PO DAILY [facility] Last Admin: 08/25/23 07:55 Dose: 1 mg Documented By: MARILY Gemfibrozil (Gemfibrozil 600 Mg Tablet) 600 mg PO BID [facility] Last Admin: 08/25/23 07:57 Dose: 600 mg Documented By: MARILY Guaifenesin/Codeine Phosphate (Guaifen/Codeine Sf 200/20/10ml 10 Ml Liquid) 10 ml PO Q4H PRN PRN Reason: Cough Last Admin: 08/25/23 01:30 Dose: 10 ml Documented By: W[place] Piperacillin Sod/Tazobactam (Sod 4.5 gm/ Sodium Chloride) 100 mls @ 200 mls/hr IV Q6H [facility] Last Infusion: 08/25/23 11:15 Dose: Infused Documented By: KENDY Metoprolol Succinate (Metoprolol Succinate Er 50 Mg Tab.Er.24h) 50 mg PO DAILY [facility]; Protocol Last Admin: 08/25/23 07:57 Dose: 50 mg Documented By: MARILY Morphine Sulfate (Morphine Sulfate 4 Mg/Ml Cartridge) 4 mg IVPUSH Q4H PRN; Protocol PRN Reason: Pain, Severe (Pain Scale 7-10) Last Admin: 08/25/23 10:31 Dose: 4 mg Documented By: KENDY Omeprazole (Omeprazole 40 Mg Capsule.) 40 mg PO DAILY@0630 [facility] Last Admin: 08/25/23 05:43 Dose: 40 mg Documented By: W[place] Ondansetron HCl (Ondansetron Hcl 4 Mg/2 Ml Vial) 4 mg IVPUSH Q8H PRN PRN Reason: Nausea and Vomiting Oxycodone HCl (Oxycodone Hcl Immed Release 5 Mg Tablet) 5 mg PO Q4H PRN PRN Reason: Pain, Moderate(Pain Scale 4-6) Last Admin: 08/24/23 14:00 Dose: 5 mg Documented By: KENDY Polyethylene Glycol (Polyethylene Glycol 3350 17 Gm Powd.Pack) 17 gm PO BID [facility] Senna (Sennosides 8.6 Mg Tablet) 17.2 mg PO BEDTIME PRN PRN Reason: Constipation Sodium Chloride (0.9 % Sodium Chloride Flush 3 Ml Syringe) 3 ml IVFLUSH QSHIFT [facility] Last Admin: 08/25/23 07:59 Dose: 3 ml Documented By: MARILY Tamsulosin HCl (Tamsulosin Hcl 0.4 Mg Capsule) 0.4 mg PO BEDTIME [facility] Last Admin: 08/24/23 20:32 Dose: 0.4 mg Documented By: LYNNE Trazodone HCl (Trazodone Hcl 100 Mg Tablet) 100 mg PO BEDTIME [facility] Last Admin: 08/24/23 20:32 Dose: 100 mg Documented By: LYNNE Labs 08/22/23 04:04 08/22/23 04:04 Microbiology Microbiology Results: Microbiology 08/21/23 16:20 Gram Stain - Final Thoracentesis Fluid Anaerobic Culture - Preliminary No growth to date. Body Fluid Culture - Final No growth after 2 days Assessment and Plan (1) Metastatic cancer to liver: Status: Acute (2) Pleural effusion: Status: Acute Plan 68M PMH htn, hld, bph, ckd III, anxiety presented after laser prostatectomy with sob, found to have left pleural effusion and new diagnosis of metastatic liver disease acute hypoxic respiratory failure due to presumed left malignant pleural effusion CXR showed recurrent pleural effusion Left chest tube placed again surgery team following, plan for sclerosis wean o2 as tolerated new metastatic liver disease, splenic met, ascites unclear primary source; elevated CEA; Colon\lungs liver biopsy pathology result showing Adenocarcinoma follow up pleural fluid cytology oncology following htn amlodipine, metoprolol ckd3 stable bph proscar, flomax hld statin dvt prophylaxis - lovenox full code reason for continued hospitalization: pending further work up for liver biopsy and treatment plan of effusion Quality Stroke Does the patient have a stroke diagnosis?: No VTE Prior VTE?: No VTE Risk Level:: Medical - moderate - high VTE Device Contraindication: Treatment Not Indicated VTE Drug Contraindication: N/A - Med Ordered
[2023-08-25] MEDS: oxyCODONE HCl Immed Release 5 MG TABLET PO (12:21)
--- NOTE | 2023-08-25 12:22 | PM.EVENT ---
Event Note Date of Service: 08/25/23 Event Note: Pleurodesis performed at bedside at 1115. He was premedicated with 4mg morphine IV. The chest tube was clamped distally and 40cc doxycycline followed by 20cc lidocaine 1% was injected into the chest tube. Will keep chest tube clamped for 1 hr. Can unclamp at 1215 and keep to water seal. Let drain for 2-3 days and remove if no recurrence. Time Spent With Patient Time: Total time managing care of this patient today ____ minutes.
[2023-08-25] MEDS: Lidocaine HCl 1 % MPF 30 ML VIAL INTRAPLEUR (12:29)
[2023-08-25 15:39] VITALS: BP 108/57; PULSE 102; RESP 24; TEMP 36.3; O2SAT 93
--- NOTE | 2023-08-25 15:40 | PC.NURSE ---
At approx 3:20pm, Pt was in doorway as this nurse and Chiquis blank walked by his room. Pt had disconnected his chest tube from cannister and had open end tucked under his arm. Tube was immediately clamped with hemostat. Pt was brought to his bed and insertion site was observed to have no dressing, as pt pulled it off, but sutures still intact. Occlusive xeroform dressing was placed over insertion site and chest tube was connected back to cannister and unclamped. Vitals taken by sterilization specialist. Vitals: BP 108/57 HR 102, T 97.4 RR 24 SaO2 93% on room air. Pt placed on 2 liters via nasal cannual and SaO2 increased to 95%. Pt with no complaints and in no apparent distress. Jasiel Bosch charge nurse came to room and notified surgical P.A., who ordered stat X-ray. Dr. Aceves was called to room and assessed pt. No new orders. Will continue to monitor pt.
--- NOTE | 2023-08-25 16:21 | PC.RT ---
RT called to assess pt. pt noted to have disconnected CT from [facility] and was amb in [place]. RN redirected, redressed CT site placed 2 lpm O2 via n/c and made MD aware. Upon exam pt rr 20, spo2 98%, HR 90, ls ess dim, npc on request. Pt able to speak full sentences and denies ay sob at this time. RN made aware, pt comfortable and in no resp distress at this time.
--- NOTE | 2023-08-25 16:32 | PC.NURSE ---
Room camera placed in patient room
[2023-08-25 20:00] VITALS: BP 156/68; PULSE 89; RESP 17; TEMP 36.6; O2SAT 94
[2023-08-25] MEDS: polyethylene glycoL 3350 17 GM POWD.PACK PO (21:01)
[2023-08-25] MEDS: Tamsulosin HCL 0.4 MG CAPSULE PO (21:01)
[2023-08-25] MEDS: traZODone HCL 100 MG TABLET PO (21:01)
[2023-08-26 02:16] VITALS: O2SAT 93
[2023-08-26 03:44] VITALS: BP 104/66; PULSE 74; RESP 16; TEMP 37; O2SAT 94
[2023-08-26] MEDS: Piperacillin Sodium/Tazobactam 4.5 GM in 0.9 % Sodium Chloride 100 ML IV ×4 (04:42→22:52)
[2023-08-26] MEDS: Omeprazole 40 MG CAPSULE.DR PO (05:56)
[2023-08-26 06:33] LABS: Hematocrit 28.3 % (42.0-52.0); Hemoglobin 9.3 g/dl (14.0-18.0); Mean Corpuscular HGB Conc 32.9 g/dl (31.0-36.0); Mean Corpuscular Hemoglobin 29.6 pg (27.0-33.0); Mean Corpuscular Volume 90.1 fL (80.0-98.0); Mean Platelet Volume 10.7 fL (9.4-12.4); Platelet Count 140 X10*3/uL (160-400); Red Blood Count 3.14 X10*6/uL (4.60-5.80); Red Cell Distribution Width 13.3 % (11.0-16.0); White Blood Count 4.9 X10*3/uL (4.8-10.8)
[2023-08-26 06:55] LABS: INTERNATIONAL NORM RATIO 1.2 (0.9-1.1); Prothrombin Time 14.5 SEC (11.1-13.3)
[2023-08-26 07:01] LABS: Alanine Aminotransferase 34 U/L (0-40); Albumin Level 2.7 g/dL (3.5-5.0); Alkaline Phosphatase 75 U/L (39-117); Anion Gap 12 (12-20); Aspartate Amino Transferase 39 U/L (5-37); Bilirubin Total 2.7 mg/dL (0.0-1.0); Blood Urea Nitrogen 14 mg/dL (9-16); Calcium 8.5 mg/dL (8.4-10.2); Carbon Dioxide 21 mmol/L (22-29); Chloride 101 mmol/L (96-108); Creatinine Clr Calc Pharmacy 76.4; Estimated Glomerular Filt Rate 59; Glucose Random 105 mg/dL (60-115); Potassium 3.9 mmol/L (3.3-5.1); Sodium 130 mmol/L (135-145); Total Protein 5.7 g/dL (6.5-8.0)
[2023-08-26 07:50] VITALS: BP 138/76; PULSE 70; RESP 18; TEMP 36.6; O2SAT 94
[2023-08-26] MEDS: 0.9 % Sodium Chloride Flush 3 ML SYRINGE IVFLUSH ×3 (09:06→20:34)
[2023-08-26] MEDS: Enoxaparin Sodium 40 MG/0.4 ML SYRINGE SUBCUT (09:06)
[2023-08-26] MEDS: amLODIPine Besylate 10 MG TABLET PO (09:07)
[2023-08-26] MEDS: Metoprolol Succinate ER 50 MG TAB.ER.24H PO (09:07)
[2023-08-26] MEDS: Famotidine 20 MG TABLET 40 MG PO (09:07)
[2023-08-26] MEDS: gemfibroziL 600 MG TABLET PO ×2 (09:07→20:33)
[2023-08-26] MEDS: polyethylene glycoL 3350 17 GM POWD.PACK PO ×2 (09:08→20:33)
[2023-08-26] MEDS: Folic Acid 1 MG TABLET PO (09:08)
[2023-08-26] MEDS: Finasteride 5 MG TABLET PO (09:08)
--- NOTE | 2023-08-26 10:46 | HO.PM.IMPN ---
Subjective Subjective Date of Service: 08/26/23 Interval History: Seen and evaluated this morning chest tube in place, pain under control no other overnight events Review of Systems Review of Systems: Yes all other systems are reviewed and are negative Physical Exam Vital Signs: Vital Signs: Last Vital Signs Temp 97.9 F 08/26/23 07:50 Pulse 70 08/26/23 07:50 Resp 18 08/26/23 07:50 BP 138/76 08/26/23 07:50 Pulse Ox 94 08/26/23 07:50 O2 Del Method Room Air 08/26/23 07:50 O2 Flow Rate 1 08/24/23 08:00 Oxygen Flow Rate 2 08/21/23 13:40 BMI result Body Mass Index 33.0 Const: Other: Constitutional : Awake, interactive, not in distress Neck : Normal inspection, Supple Cardiovascular : RRR, no JVP, no lower extremity edema Respiratory : good bilateral air entry, no crackles, wheezes or rhonchi Gastrointestinal: soft, lax, Normal bowel sounds, Non tender Skin : Warm, Dry Neurological : Alert & oriented x3, No focal deficit Objective Data Active Medications Acetaminophen (Acetaminophen 325 Mg Tablet) 650 mg PO Q6H PRN PRN Reason: Pain, Mild (Pain Scale 1-3) Amlodipine Besylate (Amlodipine Besylate 10 Mg Tablet) 10 mg PO DAILY [facility]; Protocol Last Admin: 08/26/23 09:07 Dose: 10 mg Documented By: LIYA Enoxaparin Sodium (Enoxaparin Sodium 40 Mg/0.4 Ml Syringe) 40 mg SUBCUT Q24H [facility] Last Admin: 08/26/23 09:06 Dose: 40 mg Documented By: LIYA Famotidine (Famotidine 20 Mg Tablet) 40 mg PO DAILY [facility] Last Admin: 08/26/23 09:07 Dose: 40 mg Documented By: LIYA Finasteride (Finasteride 5 Mg Tablet) 5 mg PO DAILY [facility] Last Admin: 08/26/23 09:08 Dose: 5 mg Documented By: LIYA Folic Acid (Folic Acid 1 Mg Tablet) 1 mg PO DAILY [facility] Last Admin: 08/26/23 09:08 Dose: 1 mg Documented By: LIYA Gemfibrozil (Gemfibrozil 600 Mg Tablet) 600 mg PO BID [facility] Last Admin: 08/26/23 09:07 Dose: 600 mg Documented By: LIYA Guaifenesin/Codeine Phosphate (Guaifen/Codeine Sf 200/20/10ml 10 Ml Liquid) 10 ml PO Q4H PRN PRN Reason: Cough Last Admin: 08/25/23 01:30 Dose: 10 ml Documented By: [place] Piperacillin Sod/Tazobactam (Sod 4.5 gm/ Sodium Chloride) 100 mls @ 200 mls/hr IV Q6H [facility] Last Infusion: 08/26/23 05:17 Dose: Infused Documented By: AMERICA Metoprolol Succinate (Metoprolol Succinate Er 50 Mg Tab.Er.24h) 50 mg PO DAILY [facility]; Protocol Last Admin: 08/26/23 09:07 Dose: 50 mg Documented By: LIYA Morphine Sulfate (Morphine Sulfate 4 Mg/Ml Cartridge) 4 mg IVPUSH Q4H PRN; Protocol PRN Reason: Pain, Severe (Pain Scale 7-10) Last Admin: 08/25/23 10:31 Dose: 4 mg Documented By: KENDY Omeprazole (Omeprazole 40 Mg Capsule.Dr) 40 mg PO DAILY@0630 [facility] Last Admin: 08/26/23 05:56 Dose: 40 mg Documented By: AMERICA Ondansetron HCl (Ondansetron Hcl 4 Mg/2 Ml Vial) 4 mg IVPUSH Q8H PRN PRN Reason: Nausea and Vomiting Oxycodone HCl (Oxycodone Hcl Immed Release 5 Mg Tablet) 5 mg PO Q4H PRN PRN Reason: Pain, Moderate(Pain Scale 4-6) Last Admin: 08/25/23 12:21 Dose: 5 mg Documented By: KENDY Polyethylene Glycol (Polyethylene Glycol 3350 17 Gm Powd.Pack) 17 gm PO BID [facility] Last Admin: 08/26/23 09:08 Dose: 17 gm Documented By: LIYA Senna (Sennosides 8.6 Mg Tablet) 17.2 mg PO BEDTIME PRN PRN Reason: Constipation Sodium Chloride (0.9 % Sodium Chloride Flush 3 Ml Syringe) 3 ml IVFLUSH QSHIFT [facility] Last Admin: 08/26/23 09:06 Dose: 3 ml Documented By: LIYA Tamsulosin HCl (Tamsulosin Hcl 0.4 Mg Capsule) 0.4 mg PO BEDTIME [facility] Last Admin: 08/25/23 21:01 Dose: 0.4 mg Documented By: AMERICA Trazodone HCl (Trazodone Hcl 100 Mg Tablet) 100 mg PO BEDTIME [facility] Last Admin: 08/25/23 21:01 Dose: 100 mg Documented By: AMERICA Labs 08/26/23 05:25 08/26/23 05:25 Labs: Laboratory Results - last 24 hr 08/26/23 05:25 MCV 90.1 MCH 29.6 MCHC 32.9 RDW 13.3 Plt Count 140 L MPV 10.7 Absolute Nucleated RBC 0.000 Nucleated RBC % (auto) 0.0 PT 14.5 H INR 1.2 H Anion Gap 12 Estim Creat Clear Calc 76.4 Estimated GFR 59 Random Glucose 105 Calcium 8.5 D Total Bilirubin 2.7 H Direct Bilirubin 2.0 H AST 39 H ALT 34 Alkaline Phosphatase 75 Total Protein 5.7 L Albumin 2.7 L Microbiology Microbiology Results: Microbiology 08/21/23 16:20 Gram Stain - Final Thoracentesis Fluid Anaerobic Culture - Preliminary No growth to date. Body Fluid Culture - Final No growth after 2 days Assessment and Plan (1) Metastatic cancer to liver: Status: Acute (2) Pleural effusion: Status: Acute Plan 68M PMH htn, hld, bph, ckd III, anxiety presented after laser prostatectomy with sob, found to have left pleural effusion and new diagnosis of metastatic liver disease acute hypoxic respiratory failure due to presumed left malignant pleural effusion CXR showed recurrent pleural effusion Left chest tube placed, under waterseal Sclerosing with doxycycline surgery team following wean o2 as tolerated new metastatic liver disease, splenic met, ascites unclear primary source; elevated CEA; Colon\lungs liver biopsy pathology result showing Adenocarcinoma follow up pleural fluid cytology oncology following htn amlodipine, metoprolol ckd3 stable bph proscar, flomax hld statin dvt prophylaxis - lovenox full code reason for continued hospitalization: pending further work up for liver biopsy and treatment plan of effusion Quality Stroke Does the patient have a stroke diagnosis?: No VTE Prior VTE?: No VTE Risk Level:: Medical - moderate - high VTE Device Contraindication: Treatment Not Indicated VTE Drug Contraindication: N/A - Med Ordered
[2023-08-26 15:11] VITALS: BP 113/65; PULSE 76; RESP 16; TEMP 36.7; O2SAT 95
--- NOTE | 2023-08-26 19:59 | PM.PNGS ---
Subjective Subjective Date of Service: 08/26/23 Interval history: pt feeling ok says getting bored no trouble breathing but says feeling like he is coughing more since the chest tube and pleurodesis Physical Exam Vital Signs: Vital Signs: Last Vital Signs Temp 98.1 F 08/26/23 15:11 Pulse 76 08/26/23 15:11 Resp 16 08/26/23 15:11 BP 113/65 08/26/23 15:11 Pulse Ox 95 08/26/23 15:11 O2 Del Method Room Air 08/26/23 15:11 O2 Flow Rate 1 08/24/23 08:00 Oxygen Flow Rate 2 08/21/23 13:40 BMI result Body Mass Index 33.0 Resp: Other: chest tube in place - no airleak no fluctuation - 50 cc serous drainage recorded for 24 hr shift Objective Data Active Medications Acetaminophen (Acetaminophen 325 Mg Tablet) 650 mg PO Q6H PRN PRN Reason: Pain, Mild (Pain Scale 1-3) Amlodipine Besylate (Amlodipine Besylate 10 Mg Tablet) 10 mg PO DAILY [facility]; Protocol Last Admin: 08/26/23 09:07 Dose: 10 mg Documented By: LIYA Enoxaparin Sodium (Enoxaparin Sodium 40 Mg/0.4 Ml Syringe) 40 mg SUBCUT Q24H [facility] Last Admin: 08/26/23 09:06 Dose: 40 mg Documented By: LIYA Famotidine (Famotidine 20 Mg Tablet) 40 mg PO DAILY [facility] Last Admin: 08/26/23 09:07 Dose: 40 mg Documented By: LIYA Finasteride (Finasteride 5 Mg Tablet) 5 mg PO DAILY [facility] Last Admin: 08/26/23 09:08 Dose: 5 mg Documented By: LIYA Folic Acid (Folic Acid 1 Mg Tablet) 1 mg PO DAILY [facility] Last Admin: 08/26/23 09:08 Dose: 1 mg Documented By: LIYA Gemfibrozil (Gemfibrozil 600 Mg Tablet) 600 mg PO BID [facility] Last Admin: 08/26/23 09:07 Dose: 600 mg Documented By: LIYA Guaifenesin/Codeine Phosphate (Guaifen/Codeine Sf 200/20/10ml 10 Ml Liquid) 10 ml PO Q4H PRN PRN Reason: Cough Last Admin: 08/25/23 01:30 Dose: 10 ml Documented By: [place] Piperacillin Sod/Tazobactam (Sod 4.5 gm/ Sodium Chloride) 100 mls @ 200 mls/hr IV Q6H [facility] Last Infusion: 08/26/23 18:44 Dose: Infused Documented By: LIYA Metoprolol Succinate (Metoprolol Succinate Er 50 Mg Tab.Er.24h) 50 mg PO DAILY [facility]; Protocol Last Admin: 08/26/23 09:07 Dose: 50 mg Documented By: LIYA Morphine Sulfate (Morphine Sulfate 4 Mg/Ml Cartridge) 4 mg IVPUSH Q4H PRN; Protocol PRN Reason: Pain, Severe (Pain Scale 7-10) Last Admin: 08/25/23 10:31 Dose: 4 mg Documented By: KENDY Omeprazole (Omeprazole 40 Mg Capsule.Dr) 40 mg PO DAILY@0630 [facility] Last Admin: 08/26/23 05:56 Dose: 40 mg Documented By: AMERICA Ondansetron HCl (Ondansetron Hcl 4 Mg/2 Ml Vial) 4 mg IVPUSH Q8H PRN PRN Reason: Nausea and Vomiting Oxycodone HCl (Oxycodone Hcl Immed Release 5 Mg Tablet) 5 mg PO Q4H PRN PRN Reason: Pain, Moderate(Pain Scale 4-6) Last Admin: 08/25/23 12:21 Dose: 5 mg Documented By: KENDY Polyethylene Glycol (Polyethylene Glycol 3350 17 Gm Powd.Pack) 17 gm PO BID [facility] Last Admin: 08/26/23 09:08 Dose: 17 gm Documented By: LIYA Senna (Sennosides 8.6 Mg Tablet) 17.2 mg PO BEDTIME PRN PRN Reason: Constipation Sodium Chloride (0.9 % Sodium Chloride Flush 3 Ml Syringe) 3 ml IVFLUSH QSHIFT [facility] Last Admin: 08/26/23 16:19 Dose: 3 ml Documented By: LIYA Tamsulosin HCl (Tamsulosin Hcl 0.4 Mg Capsule) 0.4 mg PO BEDTIME [facility] Last Admin: 08/25/23 21:01 Dose: 0.4 mg Documented By: [place] Trazodone HCl (Trazodone Hcl 100 Mg Tablet) 100 mg PO BEDTIME [facility] Last Admin: 08/25/23 21:01 Dose: 100 mg Documented By: AMERICA Labs 08/26/23 05:25 08/26/23 05:25 Labs: Laboratory Results - last 24 hr 08/26/23 05:25 MCV 90.1 MCH 29.6 MCHC 32.9 RDW 13.3 Plt Count 140 L MPV 10.7 Absolute Nucleated RBC 0.000 Nucleated RBC % (auto) 0.0 PT 14.5 H INR 1.2 H Anion Gap 12 Estim Creat Clear Calc 76.4 Estimated GFR 59 Random Glucose 105 Calcium 8.5 D Total Bilirubin 2.7 H Direct Bilirubin 2.0 H AST 39 H ALT 34 Alkaline Phosphatase 75 Total Protein 5.7 L Albumin 2.7 L Microbiology Microbiology Results: Microbiology 08/21/23 15:14 Blood Culture - Final Blood - Venous No growth after 5 days. 08/21/23 14:14 Blood Culture - Final Blood - Venous No growth after 5 days. 08/21/23 16:20 Gram Stain - Final Thoracentesis Fluid Anaerobic Culture - Preliminary No growth to date. Body Fluid Culture - Final No growth after 2 days Procedures Date of Service Date of Service: 08/26/23 Progress Note: A&P Assessment and plan (1) Pleural effusion: Status: Acute Plan 68 year old male with metastatic pleural effusion 2 days s/p pleurodesis wth doxycycline - seems to be doing well so far with good sats no sob and fluctuation or much drainage via chest tube cont on water seal and consider cxr on monday management as per med team. Time Spent With Patient Time: Total time managing care of this patient today ____ minutes. Quality Stroke Does the patient have a stroke diagnosis?: No VTE Prior VTE?: No VTE Risk Level:: Medical - moderate - high VTE Device Contraindication: Treatment Not Indicated VTE Drug Contraindication: N/A - Med Ordered
[2023-08-26 20:25] VITALS: BP 138/85; PULSE 73; RESP 24; TEMP 36.9; O2SAT 95
[2023-08-26] MEDS: Tamsulosin HCL 0.4 MG CAPSULE PO (20:33)
[2023-08-26] MEDS: traZODone HCL 100 MG TABLET PO (20:33)
[2023-08-26] MEDS: guaiFEN/Codeine SF 200/20/10ML 10 ML LIQUID PO (20:39)
[2023-08-27 03:10] VITALS: O2SAT 94
[2023-08-27 03:32] VITALS: BP 109/66; PULSE 66; RESP 18; TEMP 36.8; O2SAT 94
[2023-08-27] MEDS: Piperacillin Sodium/Tazobactam 4.5 GM in 0.9 % Sodium Chloride 100 ML IV ×4 (04:40→22:26)
[2023-08-27] MEDS: Omeprazole 40 MG CAPSULE.DR PO (05:34)
[2023-08-27 06:35] LABS: Anion Gap 14 (12-20); Blood Urea Nitrogen 14 mg/dL (9-16); Calcium 8.6 mg/dL (8.4-10.2); Carbon Dioxide 21 mmol/L (22-29); Chloride 101 mmol/L (96-108); Creatinine Clr Calc Pharmacy 84.8; Estimated Glomerular Filt Rate > 60; Glucose Random 100 mg/dL (60-115); Potassium 3.7 mmol/L (3.3-5.1); Sodium 132 mmol/L (135-145)
[2023-08-27 07:54] VITALS: BP 108/64; PULSE 75; RESP 20; TEMP 36.8; O2SAT 95
[2023-08-27] MEDS: 0.9 % Sodium Chloride Flush 3 ML SYRINGE IVFLUSH ×3 (07:57→20:02)
[2023-08-27] MEDS: gemfibroziL 600 MG TABLET PO ×2 (08:55→20:01)
[2023-08-27] MEDS: Metoprolol Succinate ER 50 MG TAB.ER.24H PO (08:55)
[2023-08-27] MEDS: Famotidine 20 MG TABLET 40 MG PO (08:55)
[2023-08-27] MEDS: Enoxaparin Sodium 40 MG/0.4 ML SYRINGE SUBCUT (08:55)
[2023-08-27] MEDS: amLODIPine Besylate 10 MG TABLET PO (08:55)
[2023-08-27] MEDS: Folic Acid 1 MG TABLET PO (08:56)
[2023-08-27] MEDS: polyethylene glycoL 3350 17 GM POWD.PACK PO ×2 (08:56→20:01)
[2023-08-27] MEDS: guaiFEN/Codeine SF 200/20/10ML 10 ML LIQUID PO ×2 (09:01→16:53)
[2023-08-27] MEDS: Finasteride 5 MG TABLET PO (09:01)
--- NOTE | 2023-08-27 10:22 | P.PNIM_ITS ---
Subjective Subjective Date of Service: 08/27/23 Interval History: Seen and evaluated this morning chest tube in place, pain under control no other overnight events Review of Systems Review of Systems: Yes all other systems are reviewed and are negative Physical Exam 2 Vital Signs: Vital Signs: Last Vital Signs Temp 98.2 F 08/27/23 07:54 Pulse 75 08/27/23 07:54 Resp 20 08/27/23 07:54 BP 108/64 08/27/23 07:54 Pulse Ox 95 08/27/23 07:54 O2 Del Method Room Air 08/27/23 07:54 O2 Flow Rate 1 08/24/23 08:00 Oxygen Flow Rate 2 08/21/23 13:40 BMI result Body Mass Index 33.0 Const: Other: Constitutional : Awake, interactive, not in distress Neck : Normal inspection, Supple Cardiovascular : RRR, no JVP, no lower extremity edema Respiratory : good bilateral air entry, no crackles, wheezes or rhonchi Gastrointestinal: soft, lax, Normal bowel sounds, Non tender Skin : Warm, Dry Neurological : Alert & oriented x3, No focal deficit Objective Data Active Medications Acetaminophen (Acetaminophen 325 Mg Tablet) 650 mg PO Q6H PRN PRN Reason: Pain, Mild (Pain Scale 1-3) Amlodipine Besylate (Amlodipine Besylate 10 Mg Tablet) 10 mg PO DAILY [facility]; Protocol Last Admin: 08/27/23 08:55 Dose: 10 mg Documented By: LIYA Enoxaparin Sodium (Enoxaparin Sodium 40 Mg/0.4 Ml Syringe) 40 mg SUBCUT Q24H [facility] Last Admin: 08/27/23 08:55 Dose: 40 mg Documented By: LIYA Famotidine (Famotidine 20 Mg Tablet) 40 mg PO DAILY [facility] Last Admin: 08/27/23 08:55 Dose: 40 mg Documented By: LIYA Finasteride (Finasteride 5 Mg Tablet) 5 mg PO DAILY [facility] Last Admin: 08/27/23 09:01 Dose: 5 mg Documented By: LIYA Folic Acid (Folic Acid 1 Mg Tablet) 1 mg PO DAILY [facility] Last Admin: 08/27/23 08:56 Dose: 1 mg Documented By: LIYA Gemfibrozil (Gemfibrozil 600 Mg Tablet) 600 mg PO BID [facility] Last Admin: 08/27/23 08:55 Dose: 600 mg Documented By: LIYA Guaifenesin/Codeine Phosphate (Guaifen/Codeine Sf 200/20/10ml 10 Ml Liquid) 10 ml PO Q4H PRN PRN Reason: Cough Last Admin: 08/27/23 09:01 Dose: 10 ml Documented By: LIYA Piperacillin Sod/Tazobactam (Sod 4.5 gm/ Sodium Chloride) 100 mls @ 200 mls/hr IV Q6H [facility] Last Infusion: 08/27/23 05:38 Dose: Infused Documented By: AMERICA Metoprolol Succinate (Metoprolol Succinate Er 50 Mg Tab.Er.24h) 50 mg PO DAILY [facility]; Protocol Last Admin: 08/27/23 08:55 Dose: 50 mg Documented By: LIYA Morphine Sulfate (Morphine Sulfate 4 Mg/Ml Cartridge) 4 mg IVPUSH Q4H PRN; Protocol PRN Reason: Pain, Severe (Pain Scale 7-10) Last Admin: 08/25/23 10:31 Dose: 4 mg Documented By: KENDY Omeprazole (Omeprazole 40 Mg Capsule.Dr) 40 mg PO DAILY@0630 [facility] Last Admin: 08/27/23 05:34 Dose: 40 mg Documented By: AMERICA Ondansetron HCl (Ondansetron Hcl 4 Mg/2 Ml Vial) 4 mg IVPUSH Q8H PRN PRN Reason: Nausea and Vomiting Oxycodone HCl (Oxycodone Hcl Immed Release 5 Mg Tablet) 5 mg PO Q4H PRN PRN Reason: Pain, Moderate(Pain Scale 4-6) Last Admin: 08/25/23 12:21 Dose: 5 mg Documented By: KENDY Polyethylene Glycol (Polyethylene Glycol 3350 17 Gm Powd.Pack) 17 gm PO BID [facility] Last Admin: 08/27/23 08:56 Dose: 17 gm Documented By: LIYA Senna (Sennosides 8.6 Mg Tablet) 17.2 mg PO BEDTIME PRN PRN Reason: Constipation Sodium Chloride (0.9 % Sodium Chloride Flush 3 Ml Syringe) 3 ml IVFLUSH QSHIFT [facility] Last Admin: 08/27/23 07:57 Dose: 3 ml Documented By: LIYA Tamsulosin HCl (Tamsulosin Hcl 0.4 Mg Capsule) 0.4 mg PO BEDTIME [facility] Last Admin: 08/26/23 20:33 Dose: 0.4 mg Documented By: AMERICA Trazodone HCl (Trazodone Hcl 100 Mg Tablet) 100 mg PO BEDTIME [facility] Last Admin: 08/26/23 20:33 Dose: 100 mg Documented By: AMERICA Labs 08/26/23 05:25 08/27/23 05:30 Labs: Laboratory Results - last 24 hr 08/27/23 05:30 Hold Purple Top SEE NOTE Anion Gap 14 Estim Creat Clear Calc 84.8 Estimated GFR > 60 Random Glucose 100 Calcium 8.6 Microbiology Microbiology Results: Microbiology 08/21/23 15:14 Blood Culture - Final Blood - Venous No growth after 5 days. 08/21/23 14:14 Blood Culture - Final Blood - Venous No growth after 5 days. 08/21/23 16:20 Gram Stain - Final Thoracentesis Fluid Anaerobic Culture - Preliminary No growth to date. Body Fluid Culture - Final No growth after 2 days Assessment and Plan (1) Metastatic cancer to liver: Status: Acute (2) Pleural effusion: Status: Acute Plan 68M PMH htn, hld, bph, ckd III, anxiety presented after laser prostatectomy with sob, found to have left pleural effusion and new diagnosis of metastatic liver disease acute hypoxic respiratory failure due to presumed left malignant pleural effusion repeated CXR showed Left chest tube in place, under waterseal Sclerosing with doxycycline day 3 surgery team following wean o2 as tolerated new metastatic liver disease, splenic met, ascites unclear primary source; elevated CEA; Colon\lungs liver biopsy pathology result showing Adenocarcinoma follow up pleural fluid cytology oncology following htn amlodipine, metoprolol ckd3 stable bph proscar, flomax hld statin dvt prophylaxis - lovenox full code reason for continued hospitalization: pending further work up for liver biopsy and treatment plan of effusion Quality Stroke Does the patient have a stroke diagnosis?: No VTE Prior VTE?: No VTE Risk Level:: Medical - moderate - high VTE Device Contraindication: Treatment Not Indicated VTE Drug Contraindication: N/A - Med Ordered
[2023-08-27 15:27] VITALS: BP 112/64; PULSE 86; RESP 18; TEMP 37.3; O2SAT 93
--- NOTE | 2023-08-27 16:32 | PM.PNGS ---
Subjective Subjective Date of Service: 08/27/23 Interval history: Feeling ok - says tube makes him cough 50cc of serous fluid - no air leak Physical Exam Vital Signs: Vital Signs: Last Vital Signs Temp 99.1 F 08/27/23 15:27 Pulse 86 08/27/23 15:27 Resp 18 08/27/23 15:27 BP 112/64 08/27/23 15:27 Pulse Ox 93 08/27/23 15:27 O2 Del Method Room Air 08/27/23 15:27 O2 Flow Rate 1 08/24/23 08:00 Oxygen Flow Rate 2 08/21/23 13:40 BMI result Body Mass Index 33.0 Objective Data Active Medications Acetaminophen (Acetaminophen 325 Mg Tablet) 650 mg PO Q6H PRN PRN Reason: Pain, Mild (Pain Scale 1-3) Al Hydroxide/Mg Hydroxide (Magnesium Hydrox/Alum Hydrox 30 Ml Oral.Susp) 30 ml PO Q4H PRN PRN Reason: Heartburn Amlodipine Besylate (Amlodipine Besylate 10 Mg Tablet) 10 mg PO DAILY [facility]; Protocol Last Admin: 08/27/23 08:55 Dose: 10 mg Documented By: LIYA Enoxaparin Sodium (Enoxaparin Sodium 40 Mg/0.4 Ml Syringe) 40 mg SUBCUT Q24H [facility] Last Admin: 08/27/23 08:55 Dose: 40 mg Documented By: LIYA Famotidine (Famotidine 20 Mg Tablet) 40 mg PO DAILY [facility] Last Admin: 08/27/23 08:55 Dose: 40 mg Documented By: LIYA Finasteride (Finasteride 5 Mg Tablet) 5 mg PO DAILY [facility] Last Admin: 08/27/23 09:01 Dose: 5 mg Documented By: LIYA Folic Acid (Folic Acid 1 Mg Tablet) 1 mg PO DAILY [facility] Last Admin: 08/27/23 08:56 Dose: 1 mg Documented By: LIYA Gemfibrozil (Gemfibrozil 600 Mg Tablet) 600 mg PO BID [facility] Last Admin: 08/27/23 08:55 Dose: 600 mg Documented By: LIYA Guaifenesin/Codeine Phosphate (Guaifen/Codeine Sf 200/20/10ml 10 Ml Liquid) 10 ml PO Q4H PRN PRN Reason: Cough Last Admin: 08/27/23 09:01 Dose: 10 ml Documented By: LIYA Piperacillin Sod/Tazobactam (Sod 4.5 gm/ Sodium Chloride) 100 mls @ 200 mls/hr IV Q6H [facility] Stop: 08/27/23 23:00 Last Infusion: 08/27/23 12:32 Dose: Infused Documented By: LIYA Metoprolol Succinate (Metoprolol Succinate Er 50 Mg Tab.Er.24h) 50 mg PO DAILY [facility]; Protocol Last Admin: 08/27/23 08:55 Dose: 50 mg Documented By: LIYA Morphine Sulfate (Morphine Sulfate 4 Mg/Ml Cartridge) 4 mg IVPUSH Q4H PRN; Protocol PRN Reason: Pain, Severe (Pain Scale 7-10) Last Admin: 08/25/23 10:31 Dose: 4 mg Documented By: KENDY Omeprazole (Omeprazole 40 Mg Capsule.Dr) 40 mg PO DAILY@0630 [facility] Last Admin: 08/27/23 05:34 Dose: 40 mg Documented By: AMERICA Ondansetron HCl (Ondansetron Hcl 4 Mg/2 Ml Vial) 4 mg IVPUSH Q8H PRN PRN Reason: Nausea and Vomiting Oxycodone HCl (Oxycodone Hcl Immed Release 5 Mg Tablet) 5 mg PO Q4H PRN PRN Reason: Pain, Moderate(Pain Scale 4-6) Last Admin: 08/25/23 12:21 Dose: 5 mg Documented By: KENDY Polyethylene Glycol (Polyethylene Glycol 3350 17 Gm Powd.Pack) 17 gm PO BID [facility] Last Admin: 08/27/23 08:56 Dose: 17 gm Documented By: LIYA Senna (Sennosides 8.6 Mg Tablet) 17.2 mg PO BEDTIME PRN PRN Reason: Constipation Sodium Chloride (0.9 % Sodium Chloride Flush 3 Ml Syringe) 3 ml IVFLUSH QSHIFT [facility] Last Admin: 08/27/23 07:57 Dose: 3 ml Documented By: LIYA Tamsulosin HCl (Tamsulosin Hcl 0.4 Mg Capsule) 0.4 mg PO BEDTIME [facility] Last Admin: 08/26/23 20:33 Dose: 0.4 mg Documented By: AMERICA Trazodone HCl (Trazodone Hcl 100 Mg Tablet) 100 mg PO BEDTIME [facility] Last Admin: 08/26/23 20:33 Dose: 100 mg Documented By: AMERICA Labs 08/26/23 05:25 08/27/23 05:30 Labs: Laboratory Results - last 24 hr 08/27/23 05:30 Hold Purple Top SEE NOTE Anion Gap 14 Estim Creat Clear Calc 84.8 Estimated GFR > 60 Random Glucose 100 Calcium 8.6 Imaging Chest x-ray: Radiologist's impression: Impressions Chest X-Ray 08/27/23 07:37 IMPRESSION: Left chest tube in place. Pleural and/or parenchymal density in the left chest. Overall no significant interval change Chest X-Ray 08/27/23 17:32 IMPRESSION: Overall there does not appear to be significant interval change compared to chest x-ray performed earlier on the same day. Small right apical pneumothorax is suspected. Opacification in the left mid and lower lung zone likely reflect combination of consolidation and small pleural effusion. Microbiology Microbiology Results: Microbiology 08/21/23 16:20 Gram Stain - Final Thoracentesis Fluid Anaerobic Culture - Final NO GROWTH AFTER 5 DAYS Body Fluid Culture - Final No growth after 2 days 08/21/23 15:14 Blood Culture - Final Blood - Venous No growth after 5 days. 08/21/23 14:14 Blood Culture - Final Blood - Venous No growth after 5 days. Procedures Date of Service Date of Service: 08/27/23 Progress Note: A&P Assessment and plan (1) Pleural effusion: Status: Acute Plan pt s/p doxy pleurodesis 2 days ago - still with serous drainage no ptx. cont with tube for now. Time Spent With Patient Time: Total time managing care of this patient today ____ minutes. Quality Stroke Does the patient have a stroke diagnosis?: No VTE Prior VTE?: No VTE Risk Level:: Medical - moderate - high VTE Device Contraindication: Treatment Not Indicated VTE Drug Contraindication: N/A - Med Ordered
[2023-08-27] MEDS: Magnesium Hydrox/Alum Hydrox 30 ML ORAL.SUSP PO (16:52)
[2023-08-27 19:24] VITALS: BP 120/67; PULSE 86; RESP 19; TEMP 37.7; O2SAT 93
[2023-08-27] MEDS: Tamsulosin HCL 0.4 MG CAPSULE PO (20:01)
[2023-08-27] MEDS: traZODone HCL 100 MG TABLET PO (20:01)
[2023-08-28 04:00] VITALS: BP 114/71; PULSE 93; RESP 17; TEMP 37.3; O2SAT 93
[2023-08-28] MEDS: Omeprazole 40 MG CAPSULE.DR PO (05:27)
[2023-08-28 05:58] LABS: Hematocrit 28.4 % (42.0-52.0); Hemoglobin 9.8 g/dl (14.0-18.0); Mean Corpuscular HGB Conc 34.5 g/dl (31.0-36.0); Mean Corpuscular Hemoglobin 30.9 pg (27.0-33.0); Mean Corpuscular Volume 89.6 fL (80.0-98.0); Platelet Count 159 X10*3/uL (160-400); Red Blood Count 3.17 X10*6/uL (4.60-5.80); Red Cell Distribution Width 13.7 % (11.0-16.0); White Blood Count 4.9 X10*3/uL (4.8-10.8)
[2023-08-28 06:17] LABS: Anion Gap 13 (12-20); Blood Urea Nitrogen 15 mg/dL (9-16); Calcium 8.2 mg/dL (8.4-10.2); Carbon Dioxide 21 mmol/L (22-29); Chloride 102 mmol/L (96-108); Estimated Glomerular Filt Rate > 60; Glucose Random 106 mg/dL (60-115); Potassium 3.8 mmol/L (3.3-5.1); Sodium 132 mmol/L (135-145)
[2023-08-28 08:00] VITALS: BP 116/68; PULSE 85; RESP 18; TEMP 36.9; O2SAT 93
--- NOTE | 2023-08-28 08:31 | PM.PNTS ---
Subjective Subjective Date of Service: 08/28/23 Interval history: Mild pain at chest tube site. Denies SOB. Physical Exam Vital Signs: Vital Signs: Last Vital Signs Temp 98.4 F 08/28/23 08:00 Pulse 85 08/28/23 08:00 Resp 18 08/28/23 08:00 BP 116/68 08/28/23 08:00 Pulse Ox 93 08/28/23 08:00 O2 Del Method Room Air 08/28/23 08:00 O2 Flow Rate 1 08/24/23 08:00 Oxygen Flow Rate 2 08/21/23 13:40 BMI result Body Mass Index 33.0 Const: General: comfortable, no acute distress and alert Orientation/consciousness: patient oriented x3 Chest: Other: chest tube intact, serosanguineoius drainage in pleur-vac Chest palpation & inspection: normal inspection of the chest Resp: Effort & Inspection: normal respiratory effort Skin: General skin exam: no rashes or lesions noted Neuro: General: patient oriented x3 Procedures Date of Service Date of Service: 08/28/23 Progress Note: A&P Assessment and plan (1) Pleural effusion: Status: Acute (2) Metastatic cancer to liver: Status: Acute Plan Chest tube drainage scanty now. Hopefully there is no recurrence but the next step would be pleur-x cath placement. Plan to remove chest tube later today. Repeat CXR in 1 hr post procedure. If no acute change, stable for dc to home with VNA for chest tube site dressing changes every other day with xeroform, 4x4 and tape. Can f/u in office in 1 week. Time Spent With Patient Time: Total time managing care of this patient today ____ minutes. Quality Stroke Does the patient have a stroke diagnosis?: No VTE Prior VTE?: No VTE Risk Level:: Medical - moderate - high VTE Device Contraindication: Treatment Not Indicated VTE Drug Contraindication: N/A - Med Ordered
--- NOTE | 2023-08-28 08:52 | P.PNHO-ONC_ITS ---
Medical Summary - Medical Summary Date of Service: 08/28/23 Chief complaint: Shortness of breath Primary Care Provider: Lee Almanza PA-C Interval History Interval history: Jorge Melendez is a 68 year old male with past medical history significant for hypertension, chronic stage 3 kidney disease and BPH who was admitted to the ED following elective laser enucleation of prostate and left hydrocelectomy on 08/21/2023. Following surgical procedure, patient found to be hypoxic, he was briefly placed on BiPAP, chest x-ray in the PACU showed large left-sided pleural effusion with near complete opacification of left chest. CT chest revealed in addition multiple hypodense lesions in the liver as well as ascites and splenomegaly, splenic lesion, mesenteric edema and omental caking. There was also questionable wall thickening and mild lateral gastric wall thickening. Patient had chest tube placed which drained 2.1 L yellow serosanguineous fluid. Patient states that he did have some shortness of breath in the last 2 months and also noticed some distention of his abdomen. He has no personal history of cancer. He has a long-time smoker, 1-2 cigars per week. No cigarette smoking or alcohol use. In July 2021 he had EGD and colonoscopy which was negative for malignancy. His PSA is not elevated and urine cytology in July 2022 was negative. He denies any other complaints such as headache or dizziness. No chest pain or abdominal pain. Denies hematochezia or melena. He denies any significant weight loss. His chest tube is being removed today. He has significant abdominal distention. Review of Systems - Neurologic Denies dizziness PMFSH Medical History: Medical History (Last Reviewed 08/21/23 @ 18:44 by ANDRÉS Vila) Abnormal colonoscopy Chronic renal insufficiency CKD (chronic kidney disease) stage 3, GFR 30-59 ml/min COVID-19 vaccine series completed Elevated cholesterol MISAEL (generalized anxiety disorder) GERD (gastroesophageal reflux disease) Gout HTN (hypertension) Recurrent UTI Spontaneous pneumothorax Tubulovillous adenoma polyp of colon Venous stasis dermatitis of left lower extremity Family History: Family History (Last Reviewed 08/21/23 @ 18:44 by ANDRÉS Vila) Father Heart failure History of mental problems Substance abuse Mother CAD (coronary artery disease) Breast cancer Surgical History: Surgical History (Last Reviewed 08/21/23 @ 18:44 by ANDRÉS Vila) H/O colonoscopy History of esophagogastroduodenoscopy (EGD) History of lung surgery Social History: Social History (Last Reviewed 08/21/23 @ 18:44 by ANDRÉS Vila) Living Situation History: Household Members: None Housing: Apartment Do you presently have visiting nurse or other home services: No Alcohol History Details: 1. How often do you have a drink containing alcohol?: b. Monthly or less 2. How many drinks containing alcohol do you have on a typical day when you are drinking?: a. 1 or 2 3. How often do you have six or more drinks on one occasion?: a. Never AUDIT-C Alcohol total score: 1 Currently Displaying Signs/Symptoms of Alcohol Withdrawal: No Tobacco History: Patient Tobacco Use Status: Never used Tobacco Tobacco use type: Cigar Smoked in Last 30 Days: Yes e-Cigarette/Vaping Use: Never Used Second Hand Smoke Exposure: No Substance Use History: Use of substances other than those prescribed or required for medical reasons : No Currently Displaying Signs/Symptoms of Drug Intoxication Withdrawal: No Domestic Abuse History: Have you been hit, kicked, punched, or otherwise hurt by someone within the past year? If so, by whom?: No Do you feel safe in your current relationship?: No Current Relationship Is there a partner from a previous relationship who is making you feel unsafe now?: No Are you made to feel afraid or neglected: No Advance Directives: Advance Directives: Yes Advance Directives on File: Yes Advance Directives Date on File: 08/17/21 Homicidal Assessment: Do you have thoughts of harming others: None Do you have a plan to hurt others: No Plan Nutrition Assessment: Recently lost weight without trying: No How much weight loss: Not applicable Eating poorly because of decreased appetite: No Nutrition screen score: 0 Nutrition Risks: No Nutritional Risk Poor oral hygiene: No Occupation Assessmet: service: No Current occupational status: retired Current occupation: [employer] Home Medications and Allergies Current Medications: Current Medications Acetaminophen (Acetaminophen 325 Mg Tablet) 650 mg PO Q6H PRN PRN Reason: Pain, Mild (Pain Scale 1-3) Al Hydroxide/Mg Hydroxide (Magnesium Hydrox/Alum Hydrox 30 Ml Oral.Susp) 30 ml PO Q4H PRN PRN Reason: Heartburn Last Admin: 08/27/23 16:52 Dose: 30 ml Amlodipine Besylate (Amlodipine Besylate 10 Mg Tablet) 10 mg PO DAILY [facility]; Protocol Last Admin: 08/27/23 08:55 Dose: 10 mg Enoxaparin Sodium (Enoxaparin Sodium 40 Mg/0.4 Ml Syringe) 40 mg SUBCUT Q24H [facility] Last Admin: 08/27/23 08:55 Dose: 40 mg Famotidine (Famotidine 20 Mg Tablet) 40 mg PO DAILY [facility] Last Admin: 08/27/23 08:55 Dose: 40 mg Finasteride (Finasteride 5 Mg Tablet) 5 mg PO DAILY [facility] Last Admin: 08/27/23 09:01 Dose: 5 mg Folic Acid (Folic Acid 1 Mg Tablet) 1 mg PO DAILY [facility] Last Admin: 08/27/23 08:56 Dose: 1 mg Gemfibrozil (Gemfibrozil 600 Mg Tablet) 600 mg PO BID [facility] Last Admin: 08/27/23 20:01 Dose: 600 mg Guaifenesin/Codeine Phosphate (Guaifen/Codeine Sf 200/20/10ml 10 Ml Liquid) 10 ml PO Q4H PRN PRN Reason: Cough Last Admin: 08/27/23 16:53 Dose: 10 ml Metoprolol Succinate (Metoprolol Succinate Er 50 Mg Tab.Er.24h) 50 mg PO DAILY [facility]; Protocol Last Admin: 08/27/23 08:55 Dose: 50 mg Morphine Sulfate (Morphine Sulfate 4 Mg/Ml Cartridge) 4 mg IVPUSH Q4H PRN; Protocol PRN Reason: Pain, Severe (Pain Scale 7-10) Last Admin: 08/25/23 10:31 Dose: 4 mg Omeprazole (Omeprazole 40 Mg Capsule.Dr) 40 mg PO DAILY@0630 [facility] Last Admin: 08/28/23 05:27 Dose: 40 mg Ondansetron HCl (Ondansetron Hcl 4 Mg/2 Ml Vial) 4 mg IVPUSH Q8H PRN PRN Reason: Nausea and Vomiting Oxycodone HCl (Oxycodone Hcl Immed Release 5 Mg Tablet) 5 mg PO Q4H PRN PRN Reason: Pain, Moderate(Pain Scale 4-6) Last Admin: 08/25/23 12:21 Dose: 5 mg Polyethylene Glycol (Polyethylene Glycol 3350 17 Gm Powd.Pack) 17 gm PO BID [facility] Last Admin: 08/27/23 20:01 Dose: 17 gm Senna (Sennosides 8.6 Mg Tablet) 17.2 mg PO BEDTIME PRN PRN Reason: Constipation Sodium Chloride (0.9 % Sodium Chloride Flush 3 Ml Syringe) 3 ml IVFLUSH QSHIFT [facility] Last Admin: 08/27/23 20:02 Dose: 3 ml Tamsulosin HCl (Tamsulosin Hcl 0.4 Mg Capsule) 0.4 mg PO BEDTIME [facility] Last Admin: 08/27/23 20:01 Dose: 0.4 mg Trazodone HCl (Trazodone Hcl 100 Mg Tablet) 100 mg PO BEDTIME [facility] Last Admin: 08/27/23 20:01 Dose: 100 mg Home Medications Medication Instructions Recorded Confirmed Type omeprazole 40 mg capsule,delayed 40 mg PO DAILY 04/14/20 08/21/23 History release folic acid 1 mg tablet 1 mg PO DAILY 07/29/21 08/21/23 History Allergies Allergy/AdvReac Type Severity Reaction Status Date / Time lisinopril Allergy Unknown Unknown Verified 08/04/23 11:18 sertraline [From Zoloft] AdvReac Severe suicidal Verified 08/04/23 11:18 Exam Vital signs: Vital Signs Temp 98.4 F 08/28/23 08:00 Pulse 85 08/28/23 08:00 Resp 18 08/28/23 08:00 BP 116/68 08/28/23 08:00 Pulse Ox 93 08/28/23 08:00 O2 Del Method Room Air 08/28/23 08:00 O2 Flow Rate 1 08/24/23 08:00 Intake & Output 08/27/23 08/28/23 08/28/23 18:59 06:59 18:59 Intake Total 1160 / 1620 460 / 1620 Output Total 850 / 1050 200 / 1050 350 / 350 Balance 310 / 570 260 / 570 -350 / -350 Urine Output (Average ml/kg/hr) 0.60 0.14 0.25 Intake: Intake, Oral Amount 960 / 1320 360 / 1320 Intake, IV Amount 200 / 300 100 / 300 Piperacillin Sodium/Tazobactam 200 / 300 100 / 300 4.5 gm In 0.9 % Sodium Chloride 100 ml @ 200 mls/hr IV Q6H [facility] Rx#:[id number] Output: Output, Urine Amount 840 / 1040 200 / 1040 350 / 350 Output, Chest Tube Drainage Amount left back Other: Breakfast % Eaten 50% Lunch % Eaten 75% Number of Bowel Movements 1 Urine Urinal Urinal Urinal Urine Color [place] Tea Last Bowel Movement 08/26/23 Stool Bathroom Stool Amount Large Stool Color Brown Stool Consistency Semi Formed Weight 116.573 kg BMI result Body Mass Index 33.0 - Constitutional Present: mild distress, obese - Routine HEENT Exam Head: Present: normal inspection - Routine Respiratory Exam Present: decreased breath sounds, respiratory distress, rhonchi - Routine Cardiovascular Exam Cardiovascular: Present: S1, S2, tachycardia - Routine Abdominal Exam Present: distended, nontender - Routine Extremities Exam Absent: calf tenderness - Routine Skin Exam Present: intact. Absent: cyanosis - Routine Neurological Exam Present: alert, oriented X3 Data - Labs CBC & Chem 7: 08/28/23 05:01 08/28/23 05:01 - Imaging Radiologist's impression: ITS Impressions Chest CT 08/21/23 13:58 IMPRESSION: 1. Large left pleural effusion with total collapse of left lung. 2. The right lung is clear. 3. Heterogeneous liver with multiple hypodense lesions. Question metastatic lesions. There is ascites and splenomegaly. Recommend further evaluation with CT or MRI with contrast. Fleischner guidelines were followed. Abdomen/Pelvis CT 08/21/23 15:39 IMPRESSION: Large left pleural effusion with left lower lobe collapse. There is no chest are seen on the visualized images. Mild right posterior pleural thickening and/or effusion with a right lower lobe atelectasis. Multiple metastatic liver lesions solitary metastatic spleen lesion. Unknown primary. Diffuse ascites, mesenteric edema and omental caking. Questionable small bowel thickening left upper quadrant. Also visualized is mild lateral gastric wall thickening Consider ultrasound-guided liver biopsy for tissue diagnosis followed by PET/CT. Left periumbilical small hernia containing fat. Fleischner guidelines were followed. Chest X-Ray 08/21/23 19:35 IMPRESSION: 1. Dense opacification left lung base likely combination of consolidation and pleural effusion. 2. Mild cardiomegaly. Chest X-Ray 08/21/23 22:35 IMPRESSION: Dense left lung base due to consolidation/atelectasis/pleural effusion. Chest Ultrasound 08/22/23 10:10 IMPRESSION: Small to moderate left pleural effusion. Chest X-Ray 08/24/23 08:00 IMPRESSION: 1. Bilateral low lung volumes. 2. Small left pleural effusion with subjacent atelectasis. Chest X-Ray 08/24/23 14:01 IMPRESSION: 1. Unchanged borderline cardiomegaly and pulmonary venous congestion, exaggerated by poor lung expansion. 2. Unchanged extensive left mid and lower lung airspace disease and left pleural effusion. 3. Interval placement of left lung base transversely oriented thoracostomy tube. Chest X-Ray 08/25/23 07:15 IMPRESSION: 1. Moderate cardiomegaly. 2. Hypoexpanded lungs with bibasilar haziness suggestive of pleural effusion with underlying atelectasis. Chest X-Ray 08/27/23 07:37 IMPRESSION: Left chest tube in place. Pleural and/or parenchymal density in the left chest. Overall no significant interval change Chest X-Ray 08/27/23 17:32 IMPRESSION: Overall there does not appear to be significant interval change compared to chest x-ray performed earlier on the same day. Small right apical pneumothorax is suspected. Opacification in the left mid and lower lung zone likely reflect combination of consolidation and small pleural effusion. Assessment and Plan Patient Active problem list reviewed?: Yes (1) Metastatic cancer to liver Status: Acute Assessment and plan: 1. This is a 68-year-old male with past medical history significant for hypertension and chronic kidney disease presenting with large left pleural effusion, liver metastasis, splenic lesion and ascites. This is worrisome for metastatic malignancy. CT chest/abdomen and pelvis performed on 08/21/2023 revealed large left pleural effusion, enlarged liver with numerous hypodense metastatic lesions, enlarged spleen with large lesion occupying entire spleen measuring 9.8 cm, mesenteric edema and omental caking with questionable small- bowel thickening in the left upper quadrant as well as mild lateral gastric wall thickening. Patient did have endoscopy and colonoscopy in July 2021, he had biopsy of a stomach ulcer which showed mild chronic inactive inflammation. EG junction biopsy showed inflamed and ulcerated squamous mucosa. No evidence of malignancy at that time. LDH is normal but CEA is elevated at 307.6 NG/mL. CA 19-9 is pending. Pleural fluid cytology is positive for malignant cells, adenocarcinoma. By IHC tumor cells are reactive with CK20 and CDX2, negative for TTF1, Napsin and CK7. Most probable is GI primary. Patient had liver biopsy as well, further confirmatory test as well as next generation sequencing will be submitted. NGS testing to [facility] will be sent by pathology after patient is discharged from the hospital. I discussed above diagnosis with the patient. He has been explained that he has metastatic or stage IV cancer, palliative systemic therapy will be offered depending on further testing. At his request, I will also call his sister who is his healthcare proxy and discussed above. PET-CT will be ordered. Patient will be seen in oncology in the next 2 weeks to discuss molecular pathology and further treatment. - Time Spent With Patient Time Spent with Patient (in minutes): 15
--- NOTE | 2023-08-28 09:51 | PC.NURSE ---
Chest Tube taken out by PA and PA student at 9:45AM, pt tolerated well. Continue to monitor.
[2023-08-28 09:52] LABS: Alanine Aminotransferase 37 U/L (0-40); Albumin Level 2.8 g/dL (3.5-5.0); Alkaline Phosphatase 75 U/L (39-117); Aspartate Amino Transferase 55 U/L (5-37); Bilirubin Direct 3.1 mg/dL (0.0-0.5); Bilirubin Total 3.8 mg/dL (0.0-1.0); Total Protein 5.7 g/dL (6.5-8.0)
--- NOTE | 2023-08-28 10:06 | HO.HEMONCPA ---
Addendum entered by Prabha Marie 08/31/23 15:34: PET/CT booked for 09/12 at 7:15am Addendum entered by Prabha Marie 08/29/23 14:02: APPROVED [id number] DOS 08/29/23 - 02/25/24 SENT TO [facility] FOR SCHEDULING Original Note: PA PENDING FOR PET/CT SKULL TO THIGH [id number] AWAITING DECISION FROM MICHELINE CASE # [id number]
[2023-08-28] MEDS: Famotidine 20 MG TABLET 40 MG PO (10:35)
[2023-08-28] MEDS: Folic Acid 1 MG TABLET PO (10:35)
[2023-08-28] MEDS: Lactulose 20 GM/30 ML SOLUTION 30 GM PO (10:35)
[2023-08-28] MEDS: gemfibroziL 600 MG TABLET PO (10:36)
[2023-08-28] MEDS: 0.9 % Sodium Chloride Flush 3 ML SYRINGE IVFLUSH (10:36)
[2023-08-28] MEDS: Finasteride 5 MG TABLET PO (10:36)
[2023-08-28] MEDS: amLODIPine Besylate 10 MG TABLET PO (10:36)
[2023-08-28] MEDS: Enoxaparin Sodium 40 MG/0.4 ML SYRINGE SUBCUT (10:36)
[2023-08-28] MEDS: polyethylene glycoL 3350 17 GM POWD.PACK PO (10:36)
[2023-08-28] MEDS: Metoprolol Succinate ER 50 MG TAB.ER.24H PO (10:36)
[2023-08-28 11:54] VITALS: BP 108/70; PULSE 87
[2023-08-28] MEDS: Spironolactone 25 MG TABLET 12.5 MG PO (12:21)
[2023-08-28 12:22] VITALS: BMI 33.0
--- NOTE | 2023-08-28 12:33 | MHC.CLN ---
NUTRITION DIET CHANGED TO REGULAR FROM 2 G SODIUM. SODIUM LYIVJ=391 L. CHEST TUBE OUT. NEW DX METASTATIC CANCER. INTAKE SINCE ADMISSION USUALLY GOOD, 50-100%. NO NEW NUTRITION INTERVENTIONS AT THIS TIME DUE TO LIBERALIZED DIET AND USUALLY GOOD PO. FOLLOW UP WEEKLY FOR PO INTAKE. SEE CLINICAL NUTRITION ASSESSMENT 08/28/23.
--- NOTE | 2023-08-28 12:57 | PM.DS ---
DS: Providers Provider Date of Service: 08/28/23 Date of admission: 08/21/23 18:10 Primary care physician: Lee Almanza PA-C Consults: 08/21/23 18:10 Consult to Hematology / Oncology Routine Consulting Provider: Marichuy Shipley Reason for consultation: liver, splenic mets. malignant pleural effusions Consult to Thoracic Surgery Routine Consulting Provider: Matthew Mobley Reason for consultation: liver, splenic mets. malignant pleural effusions DS: Diagnosis Discharge Diagnosis (1) Metastatic cancer to liver: Status: Acute (2) Pleural effusion: Status: Acute (3) Hyponatremia: Status: Acute (4) Elevated bilirubin: Status: Acute (5) Acute respiratory failure with hypoxia: Status: Acute (6) Ascites: Status: Acute DS: Summary Hospital Course Hospital Course: Admission note HPI 68 year old male with history of htn, hld, bph, ckd stage 3, anxiety, who is a current 1-2 cigar per week smoker transferred to the ED following elective GreenLight laser enucleation of the prostate and left hydrocelectomy performed by Dr. Caceres. Pt tolerated procedure well and had LMA placed during anesthesia, but no intubation per PACU nursing. Following procedure, pt found hypoxic and was briefly placed on BIPAP due to increased WOB and was weaned to 2L supplemental O2. Was unable to wean from O2. Chest x-ray in the PACU showed large left-sided pleural effusion with nearly complete opacification of the left chest and faint aeration of the left lower lobe. There is also small right-sided pleural effusion with adjacent atelectasis versus infiltrates. Chest Ct again demonstrated large leftpleural effusion with total collapse of left lung, clear R lung. Also noted heterogenous liver with multiple hypodense lesions, ?mets, as well as ascited and splenomegaly. CT abd/pelvis shows multiple metastatic liver lesions solitary metastatic splenic lesions, diffuse ascites, mesenteric edema, and omental caking. Ther eis also questionable bowel thickening LUQ and mild lateral gastric wall thickening. Labs in the ED show a stable normocytic anemia. Renal function baseline, mild hyponatremia 133, lytes otherwise normal. LFTs normal. Bx prostate sent to path. Pleural fluid path labs added. Chest tube drained 2.1 L yellow drainage, now with scant serosanguinous drainage. Pleural fluid wbc 0.542 He went in for routine procudure due to urinary frequency/urgency. Pt reports non productive cough over the last few months but otherwise asymptomtatic. No fevers, chills, night sweats, significant weight loss (reports max 3 pound wt loss over last few months), headache, lightheadedness, abd pain, n/v/d, melena, hematochezia, dysphagia, sob, chest pain. No personal historoy of cancer. Reports mother of lung cancer and was a smoker. Pt is a long time 1-2 cigar per week smoker. No cigarette history. NO etoh use. No drug use. UTD with routine colonoscopy (also EGD) 07/2021 with negative biopsies of duodenum, gastric ulcer, gastric antrum, EG junction, tubular adenoma transverse colon. Urine bx 07/2022 negative for urothelial carcinoma. Hospital course # acute hypoxic respiratory failure due to left malignant pleural effusion Evaluated by thoracentesis and placement of chest tube. fluid analysis was exudate. chest tube removed then he recollected fluids again. Thoracentesis repeated CXR showed Left chest tube in place under waterseal with good response as he was weaned off O2. thoracic surgery followed during the hospital stay and did pleurodesis by Sclerosing with doxycycline for 3 days. Will be followed by Thoracic surgeon dr Mobley in office in 2 weeks or so. # new metastatic liver disease, splenic met, ascites unclear primary source with elevated CEA and CA19-9 with likely upper GI source (tail of pancreas?). liver biopsy pathology result showing Adenocarcinoma. Evaluated by dr Shipley from oncology who recommended outpatient follow up for PET scan and start planning for therapy. the goal will be palliative in nature. He was started on Spironolactone for evidence of ascites. Elevated Bilirubin likely a result of biopsy procedure. # LLL Infiltrates CT scan done to evaluate abdominal distention showing LLL airspace disease. will treat with oral antibiotics and Mucinex on time of discharge and encourage Incentive spirometry. Take Antibiotics as prescribed Spironolactone for fluid management Lactulose to helo with bowel movements; target 1-2 movements a day To follow up with dr Shipley (Oncology) and dr Mobley (Thoracic surgeon) as outpatient Time Attestation Discharge coordination time: Greater than 30 minutes Quality: Safe Use of Opioids Does Pt have an Active Cancer Diagnosis on the Problem List?: Yes Opioid Measure Date for CMS Report: 07/30/23 Opioid Measure Time for CMS Report: 15:14 Quality: Stroke Does the patient have a stroke diagnosis?: No Physical Exam Vital Signs: Vital Signs: Last Vital Signs Temp 98.4 F 08/28/23 08:00 Pulse 87 08/28/23 11:54 Resp 18 08/28/23 08:00 BP 108/70 08/28/23 11:54 Pulse Ox 93 08/28/23 08:00 O2 Del Method Room Air 08/28/23 08:00 O2 Flow Rate 1 08/24/23 08:00 Oxygen Flow Rate 2 08/21/23 13:40 BMI result Body Mass Index 33.0 Const: Other: Constitutional : Awake, interactive, not in distress Neck : Normal inspection, Supple Cardiovascular : RRR, no JVP, no lower extremity edema Respiratory : good bilateral air entry, no crackles, wheezes or rhonchi Gastrointestinal: soft, lax, Normal bowel sounds, Non tender, mild distention, mild ascites Skin : Warm, Dry Neurological : Alert & oriented x3, No focal deficit DS: Data Data Completed and Pending Completed studies during hospitalization [Text1]: Pending at discharge 08/22/23 09:32 Cytology [PTH] Urgent 08/23/23 14:59 Surgical Path [Surgical] [PTH] Routine Labs on day of discharge: Laboratory Results - last 24 hr 08/28/23 05:01 WBC 4.9 RBC 3.17 L Hgb 9.8 L Hct 28.4 L MCV 89.6 MCH 30.9 MCHC 34.5 RDW 13.7 Plt Count 159 L MPV 10.0 Absolute Nucleated RBC 0.000 Nucleated RBC % (auto) 0.0 Sodium 132 L Potassium 3.8 Chloride 102 Carbon Dioxide 21 L Anion Gap 13 BUN 15 Creatinine 1.18 Estim Creat Clear Calc 79.0 Estimated GFR > 60 Random Glucose 106 Calcium 8.2 L Total Bilirubin 3.8 H Direct Bilirubin 3.1 H AST 55 H ALT 37 Alkaline Phosphatase 75 Total Protein 5.7 L Albumin 2.8 L Imaging Chest x-ray: Radiologist's impression: ITS Impressions Chest CT 08/21/23 13:58 IMPRESSION: 1. Large left pleural effusion with total collapse of left lung. 2. The right lung is clear. 3. Heterogeneous liver with multiple hypodense lesions. Question metastatic lesions. There is ascites and splenomegaly. Recommend further evaluation with CT or MRI with contrast. Fleischner guidelines were followed. Abdomen/Pelvis CT 08/21/23 15:39 IMPRESSION: Large left pleural effusion with left lower lobe collapse. There is no chest are seen on the visualized images. Mild right posterior pleural thickening and/or effusion with a right lower lobe atelectasis. Multiple metastatic liver lesions solitary metastatic spleen lesion. Unknown primary. Diffuse ascites, mesenteric edema and omental caking. Questionable small bowel thickening left upper quadrant. Also visualized is mild lateral gastric wall thickening Consider ultrasound-guided liver biopsy for tissue diagnosis followed by PET/CT. Left periumbilical small hernia containing fat. Fleischner guidelines were followed. Chest X-Ray 08/21/23 19:35 IMPRESSION: 1. Dense opacification left lung base likely combination of consolidation and pleural effusion. 2. Mild cardiomegaly. Chest X-Ray 08/21/23 22:35 IMPRESSION: Dense left lung base due to consolidation/atelectasis/pleural effusion. Chest Ultrasound 08/22/23 10:10 IMPRESSION: Small to moderate left pleural effusion. Chest X-Ray 08/24/23 08:00 IMPRESSION: 1. Bilateral low lung volumes. 2. Small left pleural effusion with subjacent atelectasis. Chest X-Ray 08/24/23 14:01 IMPRESSION: 1. Unchanged borderline cardiomegaly and pulmonary venous congestion, exaggerated by poor lung expansion. 2. Unchanged extensive left mid and lower lung airspace disease and left pleural effusion. 3. Interval placement of left lung base transversely oriented thoracostomy tube. Chest X-Ray 08/25/23 07:15 IMPRESSION: 1. Moderate cardiomegaly. 2. Hypoexpanded lungs with bibasilar haziness suggestive of pleural effusion with underlying atelectasis. Chest X-Ray 08/27/23 07:37 IMPRESSION: Left chest tube in place. Pleural and/or parenchymal density in the left chest. Overall no significant interval change Chest X-Ray 08/27/23 17:32 IMPRESSION: Overall there does not appear to be significant interval change compared to chest x-ray performed earlier on the same day. Small right apical pneumothorax is suspected. Opacification in the left mid and lower lung zone likely reflect combination of consolidation and small pleural effusion. Chest X-Ray 08/28/23 08:01 IMPRESSION: 1. Left-sided chest tube appears to be almost pulled out with the sidehole not within the left hemithorax. 2. Persistent opacification of the left mid and lower lung zones likely reflecting a combination of pleural effusion and consolidation. 3. Trace pneumothorax adjacent to the aortic arch. Abdomen/Pelvis CT 08/28/23 09:58 IMPRESSION: A drainage catheter enters anterolaterally between the left seventh and eighth ribs, new compared with 08/21/2023, 1 week prior. Its tip lies in the left anterior pericardiophrenic region. It does not appear to lie in the pleural space. Associated surrounding air. No fluid identified in this region. Otherwise, no gross significant radiographic change compared with one week prior, as detailed above. Mass involving the tail the pancreas. Mass involving the spleen. Multiple hepatic masses. Ascites with evidence of omental caking and peritoneal metastases. Differential diagnosis includes, but is not limited to, metastatic pancreatic cancer. At least moderate amount of left pleural fluid with associated dependent airspace disease, grossly similar compared with one week prior. Discharge Plan Discharge Anticipated Discharge Date/Time: 08/28/23 10:16 Patient Disposition: Home Health Service Discharge Diagnosis: Pleural effusion Metastatic cancer Referrals: [facility]OHNS[facility] [Outside] - 1 Week Lee Almanza PA-C [Primary Care Provider] - 1 Week Matthew Mobley MD [Physician] - 1 Week Discharge Medications: New spironolactone 25 mg tablet 25 mg PO DAILY Qty: 90 0RF lactulose 10 gram/15 mL solution 10 g PO DAILY Qty: 473 1RF Rx Instructions: Hold for diarrhea; Target 1-2 bowel movement daily. amoxicillin-pot clavulanate 875-125 mg tablet 1 tab PO BID Qty: 10 0RF guaifenesin [Mucinex] 600 mg tablet extended release 12hr 600 mg PO BID Qty: 14 0RF Continued gemfibrozil 600 mg tablet 600 mg PO BID Qty: 60 4RF famotidine 40 mg tablet 40 mg PO DAILY 30 Days Qty: 30 3RF amlodipine 10 mg tablet 10 mg PO DAILY 90 Days Qty: 90 1RF metoprolol succinate 50 mg tablet extended release 24 hr 50 mg PO DAILY 90 Days Qty: 90 2RF trazodone 100 mg tablet 100 mg PO BEDTIME 90 Days Qty: 90 2RF folic acid 1 mg tablet 1 mg PO DAILY omeprazole 40 mg capsule,delayed release(DR/EC) 40 mg PO DAILY (DME) Blood Pressure Cuff Misc See Rx Instructions .ROUTE .MEDSUPPLY Qty: 1 0RF Rx Instructions: As directed finasteride 5 mg tablet 5 mg PO DAILY 90 Days Qty: 90 1RF tamsulosin 0.4 mg capsule 0.4 mg PO BEDTIME 90 Days Qty: 90 1RF Discharge Orders: Discharge Order (Routine); Ordered 08/28/23 Ordered By: Sergio Aceves Diet: Advance to usual diet Activity on Discharge: As tolerated Stand Alone Forms: Patient Portal Discharge page Other Ambulatory Orders: PET CT fusion skull to thigh (Routine) Timeframe: 1 Week Facility: [facility] - Location: PET Scan Ordered By: Marichuy Shipley Care Plan Goals: Read below Health Concerns: Read below Plan of Treatment: Read below Assessment: You were admitted for evaluation of difficulties breathing. you were found to have fluid collection in your lung along with masses in liver, spleen and pancrease that were biopsied showing an evidence of underlying cancer that will be followed by dr Shipley in clinic. You were treated with a chest tube and Pleurodesis; to oblitirate the fluid space. you responded well to management and was able to ambulate on room air. Take Antibiotics as prescribed Spironolactone for fluid management Lactulose to helo with bowel movements; target 1-2 movements a day To follow up with dr Shipley (Oncology) and dr Mobley (Thoracic surgeon) as outpatient Discharge Date/Time: 08/28/23 15:58
--- NOTE | 2023-08-28 13:23 | MHC.CM.PN ---
IMM 08/28/23 Patient is discharged today to home with albin PIERRE. His siter will provide transportation home. She plans to pick him up at 3pm today.
[2023-08-28] MEDS: Amoxicillin/Potassium Clav 875 MG TABLET PO (14:04)
[2023-08-28 14:50] VITALS: BP 108/59; PULSE 84; RESP 18; TEMP 36.6; O2SAT 93
[2023-08-28] MEDS: oxyCODONE HCl Immed Release 5 MG TABLET PO (15:38)
--- NOTE | 2023-08-29 15:13 | P.F2F_ITS ---
Service Date Service Date: 08/29/23 Encounter Date of encounter: 08/29/23 Reasons for Services Signs and symptoms assessed: Reason for senior care: medication management and teach disease management Homebound: Leaving the home is medically contraindicated at this time without the asist of a device and/or another person due th the listed conditions above and below. Reason homebound: unable to drive Certification: Based on the above findings, I certify that this patient is confined to the home and needs intermittent senior care care, physical therapy and/or speech therapy, or continues to need occupational therapy. The patient is under my care, and I have initiated the establishment of the plan of care. The patient will be followed by a physician who will periodically review the plan of care. Time Spent With Patient Time: Total time managing care of this patient today ____ minutes.
== END 2023-08-28 15:58 | disposition home health service (06) | DRG 436 ==
LOC: HO.ED 18:14 → HO.EDOVER 18:26 → HO.S3 08-22 07:51
PROVIDERS: Internal Medicine; Student in an Organized Health Care Education/Training Program; Admitting Provider Physician Assistant; Emergency Provider Emergency Medicine; PCP Physician Assistant; Visit Provider Student in an Organized Health Care Education/Training Program
PROC: (CPT 32551; principal; 2023-08-21 15:30)
PROC: 0FB23ZX Excision of Left Lobe Liver, Percutaneous Approach, Diagnostic (ICD-10-PCS; principal; 2023-08-23 14:00)
DX: C78.7 Secondary malignant neoplasm of liver and intrahepatic bile duct (principal); E87.1 Hypo-osmolality and hyponatremia; J91.0 Malignant pleural effusion; D63.0 Anemia in neoplastic disease; C78.89 Secondary malignant neoplasm of other digestive organs; F39 Unspecified mood [affective] disorder; E78.5 Hyperlipidemia, unspecified; D63.1 Anemia in chronic kidney disease; N18.30 Chronic kidney disease, stage 3 unspecified; I12.9 Hypertensive chronic kidney disease with stage 1 through stage 4 chronic kidney disease, or unspecified chronic kidney disease; N40.0 Benign prostatic hyperplasia without lower urinary tract symptoms; F17.290 Nicotine dependence, other tobacco product, uncomplicated; Z71.6 Tobacco abuse counseling; Z20.822 Contact with and (suspected) exposure to COVID-19; Z79.899 Other long term (current) drug therapy
CPT/HCPCS: 32557; 36415; 47000; 71045; 71046; 71250; 74176; 74177; 76604; 76942; 80048; 80076; 82042; 82378; 82803; 82945; 83605; 83615; 83735; 83880; 84157; 84484; 85025; 85027; 85610; 85730; 86301; 87040; 87070; 87073; 87205; 87502; 87635; 88112; 88305; 88307; 88341; 88342; 89051; 93005; 99285; 99499; C1758; J1650; J2270; J2543; Q4186

== ENCOUNTER → 2023-08-21 13:39 | Outpatient (BNV) | payer MEDICARE, SELFPAY | PROVIDERS: Emergency Provider Emergency Medicine; PCP Physician Assistant; Visit Provider Internal Medicine | DX: I45.10 Unspecified right bundle-branch block (principal); R94.31 Abnormal electrocardiogram [ECG] [EKG] | CPT/HCPCS: 93010 ==

== ENCOUNTER → 2023-08-21 15:09 | Outpatient (BNV) | payer MEDICARE, SELFPAY | PROVIDERS: Admitting Provider Physician Assistant; Emergency Provider Emergency Medicine; PCP Physician Assistant; Visit Provider Student in an Organized Health Care Education/Training Program | DX: J90 Pleural effusion, not elsewhere classified (principal) | CPT/HCPCS: 32557 ==

== ENCOUNTER 2023-08-21 18:10 | Outpatient (BNV) | payer MEDICARE, SELFPAY | END 2023-08-23 14:35 | PROVIDERS: Admitting Provider Physician Assistant; Emergency Provider Emergency Medicine; PCP Physician Assistant; Visit Provider Student in an Organized Health Care Education/Training Program | DX: R16.0 Hepatomegaly, not elsewhere classified (principal) | CPT/HCPCS: 47000; 76942 ==

== ENCOUNTER → 2023-08-21 18:10 | Outpatient (BNV) | payer MEDICARE, SELFPAY | PROVIDERS: Admitting Provider Physician Assistant; Emergency Provider Emergency Medicine; PCP Physician Assistant; Visit Provider Internal Medicine | DX: C78.7 Secondary malignant neoplasm of liver and intrahepatic bile duct (principal); J90 Pleural effusion, not elsewhere classified; M85.88 Other specified disorders of bone density and structure, other site; N18.30 Chronic kidney disease, stage 3 unspecified | CPT/HCPCS: 99222; 99231; 99232 ==

== ENCOUNTER → 2023-08-21 18:10 | Outpatient (BNV) | payer MEDICARE, SELFPAY | PROVIDERS: Admitting Provider Physician Assistant; Emergency Provider Emergency Medicine; PCP Physician Assistant; Visit Provider Physician Assistant Surgical | DX: J90 Pleural effusion, not elsewhere classified (principal); C78.7 Secondary malignant neoplasm of liver and intrahepatic bile duct | CPT/HCPCS: 32551; 99222; 99231; 99232; 99233 ==

== ENCOUNTER → 2023-08-21 18:10 | Outpatient (BNV) | payer MEDICARE, SELFPAY | PROVIDERS: Admitting Provider Physician Assistant; Emergency Provider Emergency Medicine; PCP Physician Assistant; Visit Provider Physician Assistant | DX: N18.30 Chronic kidney disease, stage 3 unspecified (principal); J96.01 Acute respiratory failure with hypoxia; C78.7 Secondary malignant neoplasm of liver and intrahepatic bile duct; J90 Pleural effusion, not elsewhere classified | CPT/HCPCS: 99223; 99232; 99238; 99499; G0180 ==

== ENCOUNTER 2023-09-05 11:35 | Outpatient (REF) | payer MEDICARE, SELFPAY ==
--- NOTE | ~2023-09-05 | XR_ITS ---
EXAMINATION: XR CHEST CLINICAL INFORMATION: Pleural effusion COMPARISON: Chest x-ray 08/28/2023 TECHNIQUE: 2 views of the chest were obtained. FINDINGS: The lungs are hypoexpanded with moderate left pleural effusion and underlying atelectasis. The left upper lung and the right lung appears clear. Heart size is enlarged. Pulmonary vascularity is within normal limits. No gross bony abnormality. XR/XR chest 2V IMPRESSION: Cardiomegaly with normal pulmonary vascularity. Moderate left pleural effusion with underlying atelectasis..
== END 2023-09-05 11:36 | disposition home or self-care (01) ==
LOC: HO.XRAY 11:35
PROVIDERS: Visit Provider Surgery
DX: C78.7 Secondary malignant neoplasm of liver and intrahepatic bile duct (principal); R18.8 Other ascites; J91.0 Malignant pleural effusion
CPT/HCPCS: 71046; 99212

== ENCOUNTER 2023-09-05 14:16 | Outpatient (AMB) | payer MEDICARE, SELFPAY ==
--- NOTE | 2023-09-05 14:17 | MHC.OFFVIS ---
Intake Vital Signs 09/05/23 14:25 Height 6 ft 2 in Weight 249 lb BMI 32.0 BP 119/65 Blood Pressure Location Rt brachial Position Sitting Pulse 68 Intake Visit Reasons: malignant pleural effusion Intake Note: Patient referred by PCP Lee Almanza SAFETY AND SECURITY MANAGER for malignant pleural effusion. Chest X-ray 08-28-23 and today. Has f/u with Dr. Hernández on 09-12-23. Patient c/o: on and off cough. Denies SOB, fatigue. Multicraft Operator Required: No Accompanied by: Self / Same As Patient Allergies lisinopril Allergy (Unknown, Verified 09/05/23 14:18) Unknown sertraline [From Zoloft] Adverse Reaction (Severe, Verified 09/05/23 14:18) suicidal HPI HPI Comments History of Present Illness Details Status post recent hospitalization for recurrent left malignant pleural effusion. Patient has no respiratory issues or complaints. Chest x-ray earlier today demonstrates a small recurrent pleural effusion. [facility] Medical History Spontaneous pneumothorax MISAEL (generalized anxiety disorder) CKD (chronic kidney disease) stage 3, GFR 30-59 ml/min Recurrent UTI Venous stasis dermatitis of left lower extremity Tubulovillous adenoma polyp of colon COVID-19 vaccine series completed Chronic renal insufficiency Elevated cholesterol HTN (hypertension) Gout Abnormal colonoscopy GERD (gastroesophageal reflux disease) Surgical History History of esophagogastroduodenoscopy (EGD) H/O colonoscopy History of lung surgery Family History Father Heart failure History of mental problems Substance abuse Mother CAD (coronary artery disease) Breast cancer Social History Household Members: None Housing: Apartment Do you presently have visiting nurse or other home services: No Alcohol intake: current Alcohol intake frequency: holidays/special occasions only Alcohol type: beer Patient Tobacco Use Status: Never used Tobacco Tobacco use type: Cigar e-Cigarette/Vaping Use: Never Used Second Hand Smoke Exposure: No Advance Directives Date on File: 08/17/21 service: No Current occupational status: retired Current occupation: [employer] Cognitive needs: No Hearing needs: No Vision needs: No Physical Exam Vital Signs: Last Vital Signs Pulse 68 09/05/23 14:25 BP 119/65 09/05/23 14:25 BMI result Body Mass Index 32.0 Chest Other: Chest tube site clean dry and intact. Breath sounds right clear diminished left base. Assessment & Plan Assessment & Plan (1) Malignant pleural effusion: Code(s): J91.0 - Malignant pleural effusion Plan The present time, will treat the patient conservatively. He is attempted scheduled next week for follow-up with Oncology. Patient is being worked up for his malignant pleural effusion which demonstrates findings suggestive of a GI source. Patient may require Port-A-Cath in near future for chemotherapy. All questions answered. Coding Level of Care Code Est Pt Level 4 (51153) Diagnoses Malignant pleural effusion J91.0
[2023-09-05 14:25] VITALS: BP 119/65; PULSE 68; BMI 32.0
== END 2023-09-05 15:06 | disposition home or self-care (01) ==
PROVIDERS: PCP Physician Assistant; Visit Provider Surgery
DX: J90 Pleural effusion, not elsewhere classified (principal)
CPT/HCPCS: 99214

== ENCOUNTER 2023-09-12 07:16 | Outpatient (REF) | payer MEDICARE, SELFPAY ==
--- NOTE | ~2023-09-12 | PE_ITS ---
EXAMINATION: Fluorine-18 FDG PET/CT Scan CLINICAL INDICATION: Initial treatment management. Malignant neoplasm metastatic to liver, staging. PROCEDURE: 78 minutes following the intravenous administration of 19.2 mCi of fluorine 18 FDG, images from the base of the skull to the mid thighs were obtained using a combined PET/CT scanner with CT scan based attenuation correction. No oral contrast was administered. No intravenous contrast was administered. Transverse, coronal, sagittal, and volume reconstruction projections were obtained. The patient's blood glucose as determined by a finger stick, was 103 mg/dl immediately prior to injection. Total CT exam dose-length product 1215.35 mGy-cm * These CT images were obtained using dose optimization techniques as appropriate, variously including the following: Automated exposure control * Adjustment of mA and/or kV according to patient size (this includes techniques or standardized protocols for targeted exams where dose is matched to indication/reason for exam; i.e. extremities or head) * Use of iterative reconstruction technique COMPARISON: No previous PET/CT scan is available for comparison. CT scans of the abdomen and pelvis dated 08/28/2013 and of the chest, abdomen, and pelvis dated 08/21/2023 are available for comparison. FINDINGS: NECK AND VISUALIZED HEAD: No foci of abnormal FDG activity are noted. The distribution of FDG activity is physiological. There is no cervical lymphadenopathy. THORAX: A moderately sized left pleural effusion is present. This is significantly smaller than on the 08/21/[address] scan, and in addition there is better aeration of the left lung which was almost totally collapsed on the 08/21/2023 study. There are multiple FDG avid foci in the left lower hemithorax and the majority of these appear to be pleural-based although some are within portions of the left lower lobe which are still collapsed. The most intense focus shows SUVmax 8.9, slice 85/267 in a pleural-based focus adjacent to the lateral aspect of the left fifth interspace. There is an additional small FDG avid focus in the left proximal peribronchial region lateral to the bifurcation of the left mainstem bronchus and several additional FDG avid foci are present including a small focus within the anterior medial pleura of the left upper lobe, slice 78/267. There is an additional intensely FDG avid focus in the left subcarinal region showing SUVmax 9.8, slice 82/267. No additional mediastinal, supraclavicular, or axillary FDG lymphadenopathy is present. There is no right-sided pleural fluid or pericardial fluid or pneumothorax. ABDOMEN AND PELVIS: Extensive moderately to markedly increased FDG activity is present in foci of varying sizes throughout the liver corresponding to hypodensities on the CT images. The most intense focus shows SUVmax 40.7, slice 116/267 corresponding to an irregular hypodensity posteriorly in the left lobe of the liver. There is intensely increased FDG activity in the previously visualized large lesion in the tail of the pancreas, showing SUVmax 18.0, slice 151/267. A solid soft tissue density mass anteriorly in the superior half of the spleen measuring approximately 8 cm in largest dimension is unchanged in appearance from the 08/28/2023 and 08/21/[address] scans, and this is only minimally FDG avid showing SUVmax 3.6, slice 132/267. There is focally increased FDG activity in the splenic hilum and an additional focus abutting the lateral aspect of the lower pole of the spleen which likely represents a peritoneal implant shows intense FDG activity, SUVmax 18.9, slice 144/267. There is mild to moderate FDG activity throughout the gastrointestinal tract which is all probably physiological. The gallbladder is unremarkable as are the kidneys, and adrenal glands. There is a moderate amount of ascites, similar to the 08/28/[address] scan. There is no abnormal FDG activity within the ascitic fluid. There is no retroperitoneal, pelvic, or inguinal lymphadenopathy. The prostate gland is enlarged measuring 6.4 cm in largest dimension. The pelvic organs are otherwise unremarkable. MUSCULOSKELETAL: There are no foci of abnormal FDG activity in the osseous structures. There are diffuse degenerative changes in the spine but no suspicious sclerotic or lytic lesions are visualized. VASCULAR: Scattered vascular calcifications including some coronary are noted. Reference SUVmax Levels: Mediastinal Blood Pool: 3.2, Slice 80/267 Liver: 3.2, Slice 123/267. A small region in the left lobe was chosen for this measurement that does not appear to have corresponding CT abnormalities which are otherwise extensive throughout the liver. PET/PET CT fusion skull to thigh IMPRESSION: 1. Extensive intensely FDG avid metastases are present throughout the liver. 2. A large FDG avid mass in the tail of the pancreas is likely malignant and may represent a primary malignancy. 3. FDG avid foci predominantly pleural-based in the left lower hemithorax are likely metastases. There are a few additional FDG avid foci, predominantly pleural-based in the left lung as described above. 4. Additional mediastinal and left proximal peribronchial FDG avid foci are also likely metastases. 5. A moderately sized left-sided pleural effusion is present, and is significantly smaller than on 08/28/2023, and in addition the left lung is better aerated than on the CT scan of the chest dated 08/21/2023. 6. A moderate amount of ascitic fluid is present, and while the fluid itself does not appear to be significantly FDG avid, there are some FDG avid peritoneal implants present, most prominently adjacent to the spleen, which are likely additional metastases. 7. Prostatomegaly. 8. Scattered vascular calcifications including coronary are noted.
== END 2023-09-12 07:17 | disposition home or self-care (01) ==
LOC: HO.PET 07:16
PROVIDERS: PCP Physician Assistant; Visit Provider Internal Medicine
DX: Z13.89 Encounter for screening for other disorder (principal)

== ENCOUNTER → 2023-09-12 09:32 | Outpatient (BNV) | payer MEDICARE, SELFPAY | PROVIDERS: PCP Physician Assistant; Visit Provider Internal Medicine Medical Oncology | DX: C25.9 Malignant neoplasm of pancreas, unspecified (principal); C78.7 Secondary malignant neoplasm of liver and intrahepatic bile duct | CPT/HCPCS: 99214 ==

== ENCOUNTER 2023-09-15 11:21 | Outpatient (REF) | payer MEDICARE, SELFPAY ==
--- NOTE | ~2023-09-15 | US_ITS ---
EXAMINATION: US ABDOMEN LIMITED CLINICAL INFORMATION: Elevated LFTs. History of pancreatic cancer. COMPARISON: CT abdomen/pelvis 08/28/2023 TECHNIQUE: Real-time imaging of the right upper quadrant abdominal viscera. FINDINGS: PANCREAS: Obscured. LIVER: The liver is normal in size. There is diffuse increased liver parenchymal echogenicity, consistent with infiltrative hepatocellular disease. There are numerous hypoechoic lesions throughout the hepatic parenchyma. There is no intrahepatic biliary duct dilatation seen. GALLBLADDER: The gallbladder is distended with sludge. Mild gallbladder wall thickening. Negative sonographic Arndt's sign. COMMON BILE DUCT: Normal in caliber measuring 0.7 cm in diameter. RIGHT KIDNEY: No hydronephrosis. No renal calculi or focal parenchymal lesions. The kidney measures 10.6 cm in maximum dimension. FREE FLUID: Large ascites. US/US abdomen limited IMPRESSION: Nonvisualization of the pancreas. Numerous hypoechoic hepatic lesions suspicious for metastatic disease. Distended gallbladder with sludge. Large ascites.
== END 2023-09-15 11:22 | disposition home or self-care (01) ==
LOC: HO.US 11:21
PROVIDERS: PCP Physician Assistant; Visit Provider Internal Medicine Medical Oncology
DX: R79.89 Other specified abnormal findings of blood chemistry (principal)
CPT/HCPCS: 76705

== ENCOUNTER 2023-09-18 13:03 | Day surgery (SDC) | payer MEDICARE, SELFPAY ==
--- NOTE | ~2023-09-18 | US_ITS ---
Ultrasound paracentesis History: Pancreatic cancer. Ascites Risks and benefits and possible complications were discussed with the patient and consent form was signed. A safe pocket of ascitic fluid was identified using ultrasound guidance, and the overlying skin was marked. The abdomen prepped and draped in sterile fashion. 1% lidocaine was used as a local anesthetic. Using ultrasound guidance, a 5 fr catheter was placed into the ascitic pocket. 8.0 liters of yellow fluid was removed passively. The catheter was then removed. A few sales representative girls' apparel images from before and after the examination were obtained. The procedure was performed by Garrett Vides PA-C and supervised by Dr. Ratliff. US/US paracentesis abd w/image Impression: Ultrasound-guided paracentesis as described above. No immediate complications
[2023-09-18 13:56] VITALS: BMI 30.9
[2023-09-18] MEDS: Lidocaine HCl 1 % MPF 5 ML VIAL SUBCUT (15:26)
== END 2023-09-18 15:55 | disposition home or self-care (01) ==
LOC: HO.SSS 13:05
PROVIDERS: Physician Assistant Surgical; PCP Physician Assistant; Visit Provider Internal Medicine Medical Oncology
DX: R18.8 Other ascites (principal); C25.9 Malignant neoplasm of pancreas, unspecified; C78.7 Secondary malignant neoplasm of liver and intrahepatic bile duct; I12.9 Hypertensive chronic kidney disease with stage 1 through stage 4 chronic kidney disease, or unspecified chronic kidney disease; N18.30 Chronic kidney disease, stage 3 unspecified; Z79.899 Other long term (current) drug therapy; Z88.8 Allergy status to other drugs, medicaments and biological substances; F17.290 Nicotine dependence, other tobacco product, uncomplicated
CPT/HCPCS: 49083

== ENCOUNTER → 2023-09-18 13:57 | Outpatient (BNV) | payer MEDICARE, SELFPAY | PROVIDERS: PCP Physician Assistant; Visit Provider Physician Assistant Surgical | DX: R18.8 Other ascites (principal) | CPT/HCPCS: 49083 ==

== ENCOUNTER 2023-09-20 10:00 | Outpatient (RCR) | payer MEDICARE, SELFPAY ==
[2023-09-12 10:27] VITALS: BP 111/63; PULSE 80; O2SAT 97; BMI 31.6
[2023-09-12 11:09] LABS: MANUAL DIFF FLAG NO
[2023-09-12 11:13] LABS: Basophils Percent Auto 0.3 % (0-2); Eosinophils Percent Auto 0.4 % (0-4); Hematocrit 28.9 % (42.0-52.0); Hemoglobin 9.8 g/dl (14.0-18.0); Imm Gran Abs Auto 0.05 X10*3/uL (0.00-0.03); Imm Gran Pct Auto 0.7 % (0.0-0.4); Lymphocytes Absolute Auto 0.8 X10*3/uL (1.2-4.9); Lymphocytes Percent Auto 11.4 % (20-40); Mean Corpuscular HGB Conc 33.9 g/dl (31.0-36.0); Mean Corpuscular Hemoglobin 29.3 pg (27.0-33.0); Mean Corpuscular Volume 86.3 fL (80.0-98.0); Mean Platelet Volume 9.2 fL (9.4-12.4); Monocytes Absolute Auto 0.6 X10*3/uL (0.1-1.2); Monocytes Percent Auto 8.1 % (2-11); Neutrophils Absolute Auto 5.9 x10*3/uL (2.0-8.3); Neutrophils Percent Auto 79.1 % (45-73); Platelet Count 306 X10*3/uL (160-400); Red Blood Count 3.35 X10*6/uL (4.60-5.80); Red Cell Distribution Width 14.2 % (11.0-16.0); White Blood Count 7.4 X10*3/uL (4.8-10.8)
[2023-09-12 11:18] LABS: INTERNATIONAL NORM RATIO 1.3 (0.9-1.1); Prothrombin Time 15.5 SEC (11.1-13.3)
[2023-09-12 11:27] LABS: Alanine Aminotransferase 41 U/L (0-40); Albumin Level 3.2 g/dL (3.5-5.0); Alkaline Phosphatase 193 U/L (39-117); Anion Gap 11 (12-20); Aspartate Amino Transferase 49 U/L (5-37); Bilirubin Total 2.9 mg/dL (0.0-1.0); Blood Urea Nitrogen 10 mg/dL (9-16); Calcium 10.1 mg/dL (8.4-10.2); Carbon Dioxide 22 mmol/L (22-29); Chloride 100 mmol/L (96-108); Creatinine Clr Calc Pharmacy 63.9; Estimated Glomerular Filt Rate 49; Glucose Random 117 mg/dL (60-115); Potassium 4.5 mmol/L (3.3-5.1); Sodium 128 mmol/L (135-145); Total Protein 6.9 g/dL (6.5-8.0)
--- NOTE | 2023-09-12 12:14 | MHC.HEMONC ---
I met with patient following his Oncology Consultation with Dr Hernández. He was accompanied by his RN sister. Dr Shipley had seen him inpatient and began staging. PET was done this morning - results pending. His Molecular studies were done and available for Dr Hernández's review. He will be starting chemo with Abraxane and Gemcitabine every 14 days. I did educate him and provided written materials regarding regimen and possible side effects (including but not limited to lowered blood counts, nausea,vomiting and diarrhea as well as neuropathy, rash and hair thinning.) He signed consent and will start treatment once Dr Mobley places port. He is going to have liver u/s due to elevated lfts. He will return to see Dr Shipley next week.
--- NOTE | 2023-09-12 12:21 | PM.HEMONCPN ---
Medical Summary - Medical Summary Date of Service: 09/12/23 Chief complaint: Follow-up for: Pancreatico-biliary cancer with liver Mets. Primary Care Provider: Lee Almanza PA-C Medical Summary: DIAGNOSIS: LIVER METASTASES. PANCREATIC CARCINOMA. ASCITES AND OMENTAL CAKING. Interval History Interval history: 68-year old gentleman, who was seen in house by Dr. Shipley, on 08/22. Patient was in house between 08/21 and 08/28. Discharge summary: He will transferred to the ED following elective [employer] laser enucleation of the prostate and left hydrocelectomy performed by Dr. Caceres. Pt tolerated procedure well and had LMA placed during anesthesia, but no intubation per PACU nursing. Following procedure, pt found hypoxic and was briefly placed on BIPAP due to increased WOB, was then weaned to 2L supplemental O2. Was unable to wean from O2. Pt reported non productive cough over the last few months but otherwise asymptomtatic. No fevers, chills, night sweats, significant weight loss (reports max 3 pound wt loss over last few months), headache, lightheadedness, abd pain, n/v/d, melena, hematochezia, dysphagia, sob, chest pain. No personal historoy of cancer. UTD with routine colonoscopy (also EGD) 07/2021 with negative biopsies of duodenum, gastric ulcer, gastric antrum, EG junction, tubular adenoma transverse colon. Urine bx 07/2022 negative for urothelial carcinoma. Chest x-ray in the PACU showed large left-sided pleural effusion with nearly complete opacification of the left chest and faint aeration of the left lower lobe. There ws also small right-sided pleural effusion with adjacent atelectasis versus infiltrates. Chest Ct again demonstrated large leftpleural effusion with total collapse of left lung, clear R lung. Also noted heterogenous liver with multiple hypodense lesions, ?mets, as well as ascited and splenomegaly. CT abd/pelvis shows multiple metastatic liver lesions solitary metastatic splenic lesions, diffuse ascites, mesenteric edema, and omental caking. There was also questionable bowel thickening LUQ and mild lateral gastric wall thickening. Labs in the ED show a stable normocytic anemia. Renal function baseline, mild hyponatremia 133, lytes otherwise normal. LFTs normal. Bx prostate sent to path. Pleural fluid path labs added. Chest tube drained 2.1 L yellow drainage, now with scant serosanguinous drainage. Pleural fluid wbc 0.542 Course # acute hypoxic respiratory failure due to left malignant pleural effusion Evaluated by thoracentesis and placement of chest tube. fluid analysis was exudate. chest tube removed then he recollected fluids again. Thoracentesis repeated CXR showed Left chest tube in place under waterseal with good response as he was weaned off O2. thoracic surgery followed during the hospital stay and did pleurodesis by Sclerosing with doxycycline for 3 days. Will be followed by Thoracic surgeon dr Mobley in office in 2 weeks or so. # new metastatic liver disease, splenic met, ascites unclear primary source with elevated CEA and CA19-9 with likely upper GI source (tail of pancreas?). Liver biopsy pathology result showing Adenocarcinoma. Evaluated by dr Shipley from oncology who recommended outpatient follow up for PET scan and start planning for therapy. the goal will be palliative in nature. He was started on Spironolactone for evidence of ascites. Elevated Bilirubin likely a result of biopsy procedure. # LLL Infiltrates CT scan done to evaluate abdominal distention showing LLL airspace disease. will treat with oral antibiotics and Mucinex on time of discharge and encourage Incentive spirometry. Take Antibiotics as prescribed Lactulose to helo with bowel movements; target 1-2 movements a day. [facility] Medical History: Spontaneous pneumothorax MISAEL (generalized anxiety disorder) CKD (chronic kidney disease) stage 3, GFR 30-59 ml/min Recurrent UTI Venous stasis dermatitis of left lower extremity Tubulovillous adenoma polyp of colon COVID-19 vaccine series completed Chronic renal insufficiency Elevated cholesterol HTN (hypertension) Gout Abnormal colonoscopy GERD (gastroesophageal reflux disease) Surgical History: History of esophagogastroduodenoscopy (EGD) H/O colonoscopy History of lung surgery Social History: Housing: House Alcohol intake: current Alcohol intake frequency: holidays/special occasions only Alcohol type: beer Patient Tobacco Use Status: Current someday Tobacco user Tobacco use type: Cigar Smoked in Last 30 Days: Yes e-Cigarette/Vaping Use: Never Used htn, hld, bph, ckd stage 3, anxiety. FAMILY HISTORY: Family History: Father Heart failure History of mental problems Substance abuse Mother :Reports mother of lung cancer and was a smoker. CAD (coronary artery disease) Breast cancer SOCIAL HISTORY: Pt is a long time 1-2 cigar per week smoker. No cigarette history. NO etoh use. No drug use. who is a current 1-2 cigar per week smoker [facility] Medical History: Medical History (Last Reviewed 09/12/23 @ 10:26 by Valentina Law) Abnormal colonoscopy Chronic renal insufficiency CKD (chronic kidney disease) stage 3, GFR 30-59 ml/min COVID-19 vaccine series completed Elevated cholesterol MISAEL (generalized anxiety disorder) GERD (gastroesophageal reflux disease) Gout HTN (hypertension) Recurrent UTI Spontaneous pneumothorax Tubulovillous adenoma polyp of colon Venous stasis dermatitis of left lower extremity Family History: Family History (Last Reviewed 09/12/23 @ 10:26 by Valentina Law) Father Heart failure History of mental problems Substance abuse Mother CAD (coronary artery disease) Breast cancer Surgical History: Surgical History (Last Reviewed 09/12/23 @ 10:26 by Valentina Law) H/O colonoscopy History of esophagogastroduodenoscopy (EGD) History of lung surgery Social History: Social History (Last Reviewed 09/12/23 @ 10:26 by Valentina Law) Living Situation History: Household Members: None Housing: Apartment Do you presently have visiting nurse or other home services: No Tobacco History: Patient Tobacco Use Status: Never used Tobacco Tobacco use type: Cigar e-Cigarette/Vaping Use: Never Used Second Hand Smoke Exposure: No Advance Directives: Advance Directives Date on File: 08/17/21 Occupation Assessmet: service: No Current occupational status: retired Current occupation: [employer] Home Medications and Allergies Home Medications Medication Instructions Recorded Confirmed Type omeprazole 40 mg capsule,delayed 40 mg PO DAILY 04/14/20 09/12/23 History release folic acid 1 mg tablet 1 mg PO DAILY 07/29/21 09/12/23 History Allergies Allergy/AdvReac Type Severity Reaction Status Date / Time lisinopril Allergy Unknown Unknown Verified 09/12/23 10:26 sertraline [From Zoloft] AdvReac Severe suicidal Verified 09/12/23 10:26 Exam Vital signs: Vital Signs Pulse 80 09/12/23 10:27 BP 111/63 09/12/23 10:27 Pulse Ox 97 09/12/23 10:27 O2 Del Method Room Air 09/12/23 10:27 Intake & Output 09/11/23 09/12/23 09/12/23 18:59 06:59 18:59 Other: Weight 111.7 kg [place] Weight in Grams [id number] Weight 111.7 kg BMI result Body Mass Index 31.6 Data - Labs CBC & Chem 7: 09/12/23 11:07 09/12/23 11:07 Labs: Laboratory Last Values WBC 7.4 X10*3/uL (4.8-10.8) 09/12/23 11:07 RBC 3.35 X10*6/uL (4.60-5.80) L 09/12/23 11:07 Hgb 9.8 g/dl (14.0-18.0) L 09/12/23 11:07 Hct 28.9 % (42.0-52.0) L 09/12/23 11:07 MCV 86.3 fL (80.0-98.0) 09/12/23 11:07 MCH 29.3 pg (27.0-33.0) 09/12/23 11:07 MCHC 33.9 g/dl (31.0-36.0) 09/12/23 11:07 RDW 14.2 % (11.0-16.0) 09/12/23 11:07 Plt Count 306 X10*3/uL (160-400) D 09/12/23 11:07 MPV 9.2 fL (9.4-12.4) L 09/12/23 11:07 Immature Gran % (Auto) 0.7 % (0.0-0.4) H 09/12/23 11:07 Neut % (Auto) 79.1 % (45-73) H 09/12/23 11:07 Lymph % (Auto) 11.4 % (20-40) L 09/12/23 11:07 [place] % (Auto) 8.1 % (2-11) 09/12/23 11:07 Eos % (Auto) 0.4 % (0-4) 09/12/23 11:07 Baso % (Auto) 0.3 % (0-2) 09/12/23 11:07 Lymph # (Auto) 0.8 X10*3/uL (1.2-4.9) L 09/12/23 11:07 [place] # (Auto) 0.6 X10*3/uL (0.1-1.2) 09/12/23 11:07 Eos # (Auto) 0.0 X10*3/uL (0.0-0.4) 09/12/23 11:07 Baso # (Auto) 0.0 X10*3/uL (0.0-0.2) 09/12/23 11:07 Abs Immat Gran (auto) 0.05 X10*3/uL (0.00-0.03) H 09/12/23 11:07 Absolute Neuts (auto) 5.9 x10*3/uL (2.0-8.3) 09/12/23 11:07 Absolute Nucleated RBC 0.000 X10*3/uL (0.0-0.012) 09/12/23 11:07 Nucleated RBC % (auto) 0.0 /100WBC (0.0-0.2) 09/12/23 11:07 PT 15.5 SEC (11.1-13.3) H 09/12/23 11:07 INR 1.3 (0.9-1.1) H 09/12/23 11:07 Sodium 128 mmol/L (135-145) L 09/12/23 11:07 Potassium 4.5 mmol/L (3.3-5.1) 09/12/23 11:07 Chloride 100 mmol/L (96-108) 09/12/23 11:07 Carbon Dioxide 22 mmol/L (22-29) 09/12/23 11:07 Anion Gap 11 (12-20) L 09/12/23 11:07 BUN 10 mg/dL (9-16) 09/12/23 11:07 Creatinine 1.43 mg/dL (0.5-1.4) H 09/12/23 11:07 Estim Creat Clear Calc 63.9 09/12/23 11:07 Estimated GFR 49 09/12/23 11:07 Random Glucose 117 mg/dL (60-115) H 09/12/23 11:07 Calcium 10.1 mg/dL (8.4-10.2) D 09/12/23 11:07 Total Bilirubin 2.9 mg/dL (0.0-1.0) H 09/12/23 11:07 AST 49 U/L (5-37) H 09/12/23 11:07 ALT 41 U/L (0-40) H 09/12/23 11:07 Alkaline Phosphatase 193 U/L (39-117) H 09/12/23 11:07 Total Protein 6.9 g/dL (6.5-8.0) 09/12/23 11:07 Albumin 3.2 g/dL (3.5-5.0) L 09/12/23 11:07 Assessment and Plan Patient Active problem list reviewed?: Yes (1) Pancreatic carcinoma metastatic to liver Status: Acute Assessment and plan: 68-year-old gentleman with history of smoking and alcohol abuse, was sent to the ER after he underwent laser procedure for prostate. He was noted to be rather hypoxic and not able to be weaned off oxygen. CT scan of the abdomen pelvis from 08/28 revealed: A drainage catheter enters anterolaterally between the left seventh and eighth ribs, new compared with 08/21/2023, 1 week prior. Its tip lies in the left anterior pericardiophrenic region. It does not appear to lie in the pleural space. Associated surrounding air. No fluid identified in this region. Otherwise, no gross significant radiographic change compared with one week prior, as detailed above. Mass involving the tail the pancreas. Mass involving the spleen. Multiple hepatic masses. Ascites with evidence of omental caking and peritoneal metastases. Differential diagnosis includes, but is not limited to, metastatic pancreatic cancer. At least moderate amount of left pleural fluid with associated dependent airspace disease, grossly similar compared with one week prior. Chest Ct again demonstrated large leftpleural effusion with total collapse of left lung, clear R lung. Also noted heterogenous liver with multiple hypodense lesions, ?mets, as well as ascited and splenomegaly. CT abd/pelvis shows multiple metastatic liver lesions solitary metastatic splenic lesions, diffuse ascites, mesenteric edema, and omental caking. There was also questionable bowel thickening LUQ and mild lateral gastric wall thickening. Labs in the ED show a stable normocytic anemia. Renal function baseline, mild hyponatremia 133, lytes otherwise normal. LFTs normal. Bx prostate sent to path. Pleural fluid path labs added. Chest tube drained 2.1 L yellow drainage, now with scant serosanguinous drainage. Pleural fluid wbc 0.542 Course # acute hypoxic respiratory failure due to left malignant pleural effusion Evaluated by thoracentesis and placement of chest tube. fluid analysis was exudate. chest tube removed then he recollected fluids again. Thoracentesis repeated CXR showed Left chest tube in place under waterseal with good response as he was weaned off O2. thoracic surgery followed during the hospital stay and did pleurodesis by Sclerosing with doxycycline for 3 days. Will be followed by Thoracic surgeon dr Mobley in office in 2 weeks or so. # new metastatic liver disease, splenic met, ascites unclear primary source with elevated CEA and CA19-9 with likely upper GI source (tail of pancreas?). Liver biopsy pathology result showing Adenocarcinoma. Evaluated by dr Shipley from oncology who recommended outpatient follow up for PET scan and start planning for therapy. the goal will be palliative in nature. Patient did have endoscopy and colonoscopy in July 2021, he had biopsy of a stomach ulcer which showed mild chronic inactive inflammation. EG junction biopsy showed inflamed and ulcerated squamous mucosa. No evidence of malignancy at that time. Tumor markers: LDH is normal but CEA is elevated at 307.6 NG/mL. CA 19-9 is 48. Pleural fluid cytology is positive for malignant cells, adenocarcinoma. By IHC tumor cells are reactive with CK20 and CDX2, negative for TTF1, Napsin and CK7. Most probable is pancreatic primary. Patient had liver biopsy on 08/23, it revealed: Moderately differentiated adenocarcinoma. Nonspecific but consistent with pancreatic or biliary/upper GI primary. Patient is now here for further management. I shared the above results with him and his sister. Discuss further treatment options: 1. Palliative chemotherapy. 2. Palliative care. He does wish to consider palliative chemotherapy. Options include FOLFIRINOX versus Gemzar Abraxane. He appears rather frail, Gemzar Abraxane would be more tolerable for him. PLAN: He had a PET scan done today, the reading: Extensive intensely FDG avid metastases are present throughout the liver. A large FDG avid mass in the tail of the pancreas is likely malignant and may represent a primary malignancy. FDG avid foci predominantly pleural-based the left lower hemithorax likely metastases. There are few additional FDG avid foci predominantly pleural-based in the left lung. Additional mediastinal and left proximal peribronchial FDG avid foci are also likely metastases. Moderate size left pleural effusion, smaller than on 08/28. New line moderate ascites, there are some FDG avid peritoneal implants present most prominently adjacent to the spleen likely additional metastases. Further confirmatory test as well as next generation sequencing was submitted. NGS testing sent to [facility] by pathology. (I checked with Dr. Baez, results are pending.) Meanwhile, will arrange for a Port-A-Cath placement to facilitate palliative chemotherapy. His LFTs are elevated, will check an ultrasound to look for any evidence of biliary obstruction, to see if her stent is in order. Meanwhile, we discussed details of the above treatment including potential side effects. Prescriptions for antiemetics and steroids will be sent. He met with our navigator as well. All his and his sister's questions were answered to his satisfaction. He will return next week for a follow-up visit. Thank you, CC: Bharat almanza. Addendum: Jorge had an ultrasound of the abdomen on 09/14: Nonvisualization of the pancreas. Numerous hypoechoic hepatic lesions suspicious for metastatic disease. Distended gallbladder with sludge. Large ascites. PLAN: To proceed with ultrasound-guided paracentesis on 09/17 by IR. - Time Spent With Patient Time Spent with Patient (in minutes): 30
--- NOTE | 2023-09-12 14:33 | HO.HEMONCPA ---
Addendum entered by Prabha Marie 09/14/23 09:48: PA APPROVED FOR ALBUMIN-BOUND PACLITAXEL [id number] AUTH # [id number] DOS 09/12/23 - 03/12/24 PA APPROVED FOR NEULASTA J2506 AUTH # [id number] DOS 09/12/23 - 03/12/24 NO PA REQUIRED FOR EMEND J1453 AND GEMCITABINE J9201 Original Note: NO PA REQUIRED FOR EMEND J1453 AND GEMCITABINE J9201 PA PENDING FOR ALBUMIN-BOUND PACLITAXEL J9259 AND NEULASTA J2506 REFERENCE # [id number] AWAITING DECISION FROM [employer] FOR [employer]ARE
[2023-09-13 08:40] LABS: HBS Num1 0.17 mIU/mL (0-7.99); HBc Num1 0.19 S/CO (0.00-0.79); HBsAGNum1 0.45 S/CO (0.00-0.99); Hepatitis A Antibody IgM 0.29 Index (0-0.79); Hepatitis B Core Antibody Nonreactive (Nonreactive); Hepatitis B Surface Antigen Negative (Negative); ~HepC Num1 0.14 S/CO (0.00-0.79); ~Hepatitis A Antibody IgM Nonreactive (Nonreactive); ~Hepatitis B Surface Antibody NONREACTIVE (Nonreactive); ~Hepatitis C Antibody Nonreactive (Nonreactive)
[2023-09-15 12:59] LABS: Carbohydrate Antigen 19-9 89 U/mL (<34)
--- NOTE | 2023-09-18 09:18 | MHC.HEMONC ---
Telephone call to pt to schedule start of chemo. Message left
--- NOTE | 2023-09-19 15:01 | MHC.HEMONC ---
Dr Mobley is placing port on 09/21/23
[2023-09-20 10:36] LABS: MANUAL DIFF FLAG NO
[2023-09-20 10:39] LABS: Basophils Percent Auto 0.2 % (0-2); Eosinophils Absolute Auto 0.1 X10*3/uL (0.0-0.4); Eosinophils Percent Auto 0.6 % (0-4); Hematocrit 30.6 % (42.0-52.0); Hemoglobin 10.1 g/dl (14.0-18.0); Imm Gran Pct Auto 1.1 % (0.0-0.4); Lymphocytes Absolute Auto 0.9 X10*3/uL (1.2-4.9); Lymphocytes Percent Auto 10.1 % (20-40); Mean Corpuscular Hemoglobin 28.9 pg (27.0-33.0); Mean Corpuscular Volume 87.7 fL (80.0-98.0); Mean Platelet Volume 9.8 fL (9.4-12.4); Monocytes Absolute Auto 0.8 X10*3/uL (0.1-1.2); Monocytes Percent Auto 8.8 % (2-11); Neutrophils Percent Auto 79.2 % (45-73); Platelet Count 198 X10*3/uL (160-400); Red Blood Count 3.49 X10*6/uL (4.60-5.80); Red Cell Distribution Width 14.9 % (11.0-16.0); White Blood Count 8.8 X10*3/uL (4.8-10.8)
[2023-09-20 10:40] VITALS: BP 93/55; PULSE 74; RESP 18; TEMP 36.1; O2SAT 97; BMI 28.4
[2023-09-20 10:56] LABS: Alanine Aminotransferase 58 U/L (0-40); Albumin Level 2.7 g/dL (3.5-5.0); Alkaline Phosphatase 194 U/L (39-117); Anion Gap 10 (12-20); Aspartate Amino Transferase 73 U/L (5-37); Bilirubin Total 5.3 mg/dL (0.0-1.0); Blood Urea Nitrogen 12 mg/dL (9-16); Calcium 9.1 mg/dL (8.4-10.2); Carbon Dioxide 22 mmol/L (22-29); Chloride 102 mmol/L (96-108); Creatinine Clr Calc Pharmacy 53.3; Estimated Glomerular Filt Rate 42; Glucose Random 116 mg/dL (60-115); Potassium 4.5 mmol/L (3.3-5.1); Sodium 129 mmol/L (135-145); Total Protein 6.1 g/dL (6.5-8.0)
--- NOTE | 2023-09-20 10:59 | P.PNHO-ONC_ITS ---
Medical Summary - Medical Summary Date of Service: 09/20/23 Chief complaint: Weakness Primary Care Provider: Lee Almanza PA-C Medical Summary: DIAGNOSIS: Metastatic pancreatic cancer diagnosed August 2023. LIVER METASTASES. PANCREATIC CARCINOMA. ASCITES AND OMENTAL CAKING. Pleural fluid cytology is positive for malignant cells, adenocarcinoma. By IHC tumor cells are reactive with CK20 and CDX2, negative for TTF1, Napsin and CK7. Most probable is pancreatic primary. Patient had liver biopsy on 08/23, it revealed: Moderately differentiated adenocarcinoma. Nonspecific but consistent with pancreatic or biliary/upper GI primary. Interval History Interval history: Patient is here accompanied by his sister who is also the healthcare proxy. They are here for 1st round of chemotherapy and also to discuss PET scan and treatment. He is gotten significantly weaker. No fever or chills. His appetite is poor. He has lost a lot of weight. Lives alone but his sister lives nearby in [place]. Review of Systems - Constitutional Reports as per HPI, Denies lack of energy, Denies malaise - Cardiovascular Reports no additional cardiovascular complaints - Respiratory Reports no additional respiratory complaints - Gastrointestinal Reports no additional gastrointestinal complaints [facility] Medical History: Medical History (Last Reviewed 09/12/23 @ 10:26 by Valentina Law) Abnormal colonoscopy Chronic renal insufficiency CKD (chronic kidney disease) stage 3, GFR 30-59 ml/min COVID-19 vaccine series completed Elevated cholesterol MISAEL (generalized anxiety disorder) GERD (gastroesophageal reflux disease) Gout HTN (hypertension) Recurrent UTI Spontaneous pneumothorax Tubulovillous adenoma polyp of colon Venous stasis dermatitis of left lower extremity Family History: Family History (Last Reviewed 09/12/23 @ 10:26 by Valentina Law) Father Heart failure History of mental problems Substance abuse Mother CAD (coronary artery disease) Breast cancer Surgical History: Surgical History (Last Reviewed 09/12/23 @ 10:26 by Valentina Law) H/O colonoscopy History of esophagogastroduodenoscopy (EGD) History of lung surgery Social History: Social History (Last Reviewed 09/12/23 @ 10:26 by Valentina Law) Living Situation History: Household Members: None Housing: Apartment Do you presently have visiting nurse or other home services: No Tobacco History: Patient Tobacco Use Status: Never used Tobacco Tobacco use type: Cigar e-Cigarette/Vaping Use: Never Used Second Hand Smoke Exposure: No Advance Directives: Advance Directives Date on File: 08/17/21 Occupation Assessmet: service: No Current occupational status: retired Current occupation: [employer] Home Medications and Allergies Current Medications: Current Medications Acetaminophen (Acetaminophen 325 Mg Tablet) 650 mg PO ONCE NACHO Stop: 09/20/23 23:59 Diphenhydramine HCl (Diphenhydramine Hcl 25 Mg Capsule) 25 mg PO ONCE NACHO Stop: 09/20/23 23:59 Famotidine (Famotidine 20 Mg Tablet) 20 mg PO ONCE NACHO Stop: 09/20/23 23:59 Dexamethasone Sodium Phosphate (Decadron) 12 mg in 50 mls @ 200 mls/hr IV ONCE NACHO Stop: 09/20/23 23:59 Ondansetron HCl (Ondansetron Odt 8 Mg Tab.Rapdis) 8 mg TRANSLINGU ONCE NACHO Stop: 09/20/23 23:59 Home Medications Medication Instructions Recorded Confirmed Type omeprazole 40 mg capsule,delayed 40 mg PO DAILY 04/14/20 09/12/23 History release folic acid 1 mg tablet 1 mg PO DAILY 07/29/21 09/12/23 History Allergies Allergy/AdvReac Type Severity Reaction Status Date / Time lisinopril Allergy Unknown Unknown Verified 09/12/23 10:26 sertraline [From Zoloft] AdvReac Severe suicidal Verified 09/12/23 10:26 Exam Vital signs: Vital Signs Temp 97.0 F 09/20/23 10:40 Pulse 74 09/20/23 10:40 Resp 18 09/20/23 10:40 BP 93/55 L 09/20/23 10:40 Pulse Ox 97 09/20/23 10:40 O2 Del Method Room Air 09/20/23 10:40 Intake & Output 09/19/23 09/20/23 09/20/23 18:59 06:59 18:59 Other: Weight 100.2 kg Weight in Grams [id number] Weight 100.2 kg BMI result Body Mass Index 28.4 - Constitutional Present: mild distress, chronically ill appearing - Routine HEENT Exam Head: Present: normal inspection Eye: Present: normal appearance - Routine Respiratory Exam Absent: accessory muscle use - Routine Cardiovascular Exam Cardiovascular: Present: S1, S2 - Routine Abdominal Exam Present: distended Data - Labs CBC & Chem 7: 09/20/23 10:34 09/20/23 10:34 Assessment and Plan Patient Active problem list reviewed?: Yes (1) Pancreatic carcinoma metastatic to liver Status: Acute Assessment and plan: 1. This is a 68-year-old man who was recently diagnosed with metastatic pancreatic cancer in August 2023. CT scan of the abdomen pelvis from 08/28 revealed: Mass involving the tail the pancreas. Mass involving the spleen. Multiple hepatic masses. Ascites with evidence of omental caking and peritoneal metastases. Chest Ct again demonstrated large leftpleural effusion with total collapse of left lung, clear R lung. Also noted heterogenous liver with multiple hypodense lesions, ?mets, as well as ascites and splenomegaly. Liver biopsy pathology : Moderately differentiated adenocarcinoma. Nonspecific but consistent with pancreatic or biliary/upper GI primary. LDH was normal but CEA is elevated at 307.6 NG/mL. CA 19-9 is 48. Pleural fluid cytology is positive for malignant cells, adenocarcinoma. By IHC tumor cells are reactive with CK20 and CDX2, negative for TTF1, Napsin and CK7. Most probable is pancreatic primary. PET scan revealed Extensive intensely FDG avid metastases are present throughout the liver. A large FDG avid mass in the tail of the pancreas is likely malignant and may represent a primary malignancy. FDG avid foci predominantly pleural-based the left lower hemithorax likely metastases. There are few additional FDG avid foci predominantly pleural-based in the left lung. Additional mediastinal and left proximal peribronchial FDG avid foci are also likely metastases. Moderate size left pleural effusion, smaller than on 08/28. New moderate ascites, there were some FDG avid peritoneal implants present most prominently adjacent to the spleen likely additional metastases. Patient had therapeutic paracentesis performed 09/18/2023. Today I discussed goals of care, palliative treatment to help control symptoms and prolong life. This treatment is not curative. He was scheduled to receive gemcitabine/Abraxane today but his bilirubin is above 5 and therefore Abraxane is contraindicated. He will receive single agent Gemzar at 80% doses for 1st cycle. We also discussed code status, he wishes to be DNR/DNI. Referral to palliative care will be made. - Time Spent With Patient Time Spent with Patient (in minutes): 30
[2023-09-20] MEDS: Famotidine 20 MG TABLET PO (12:00)
[2023-09-20] MEDS: Ondansetron ODT 8 MG TAB.RAPDIS TRANSLINGU (12:00)
[2023-09-20] MEDS: diphenhydrAMINE HCL 25 MG CAPSULE PO (12:00)
[2023-09-20] MEDS: Acetaminophen 325 MG TABLET 650 MG PO (12:00)
[2023-09-20] MEDS: dexAMETHasone sod phosphate/NS 12 MG/50 ML PIGGYBACK 200 MG IV (12:01)
--- NOTE | 2023-09-20 12:30 | MHC.HEMONC ---
I met with patient and his siter, Jane following his visit with Dr Shipley. She spoke with him about his weakness and ascites and probability that he will not tolerate all of planned treatment today. She has decided to give him dose reduced Gemcitabine only. She asked me to cancel port placement tomorrow (I called Dr Mobley's office) and told patient. Patient also wanted to fill out new HCP and do a MOLST with his sister present. Referral made to [facility]/Hospice for palliative care per Dr Shipley and patient.
--- NOTE | 2023-09-20 15:17 | MHC.HEMONC ---
C1D1: GEMZAR/ABRAXANE. Patient arrived via wheelchair accompanied by sister Sejal. Labs completed and reviewed. Patient weak and fatigued. Dr. Shipley met with patient and sister. Plan for treatment today and referral to palliative VNA services. Abraxane held due to elevated bilirubin. Gemzar to be be reduced to 80%. Peripheral angio #24 inserted to left lower arm- second attempt. Positive blood return. Pre-medicated with Tylenol 650mg PO, Zofran 8mg PO, Tylenol 650mg PO, Pepcid 20mg PO, and Dexamethasone 12mg IV. Infusion well tolerated. IV removed- catheter intact. No redness or swelling at IV site. Discharge packet provided. Port placement procedure canceled at this time as patient cannot tolerate. Patient departed unit via wheelchair and will return for D15. call centre supervisor # provided.
--- NOTE | 2023-09-27 15:25 | MHC.HEMONC ---
We received triage message from Jane, pt HCP saying that pt has declined significantly and does not want further chemotherapy. He will be signing on to Hospice tomorrow (referral made last week). I returned her call but it went to voicemail so I left message wishing them the best.
--- NOTE | 2023-09-27 15:25 | MHC.HEMONC ---
Jane Bunch called to let Dr Shipley know that Jorge is declining rapidly and he will be going on hospice tomorrow. Dr Shipley notified and message forwarded to Leonora.
== END 2023-10-01 | disposition home or self-care (01) ==
LOC: HO.ONC 10:00
PROVIDERS: Internal Medicine; PCP Physician Assistant; Visit Provider Internal Medicine Medical Oncology
DX: Z51.11 Encounter for antineoplastic chemotherapy (principal); C25.9 Malignant neoplasm of pancreas, unspecified; C78.7 Secondary malignant neoplasm of liver and intrahepatic bile duct; C78.89 Secondary malignant neoplasm of other digestive organs; J91.0 Malignant pleural effusion
CPT/HCPCS: 36415; 80053; 82378; 85025; 85610; 86301; 86704; 86706; 86709; 86803; 87340; 99214; J1100; J9201